=== PATIENT | male | born 1945 | race Caucasian/White ===

== ENCOUNTER → 2019-11-12 08:43 | Outpatient (CLI) | payer OTHER, SELFPAY ==
[2019-11-12 08:34] VITALS: BMI 24.4
--- NOTE | 2019-11-12 08:46 | RAD_ITS ---
HISTORY: pain and swelling wrist---------Tgt;thumb, no trauma COMPARISON: None FINDINGS: # of images incl. 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 Subcortical cystic degenerative change. Calcification of the triangle fibrocartilage. RAD/Wrist min 3 Views IMPRESSION: Severe radiocarpal arthritis. at 0558 Reported and signed by: Hay Mitchell MD Electronically Signed: aHy Mitchell MD at 5:57 EST Tel , Service support ,
== END ==
PROVIDERS: PCP Family Medicine; Referring Provider Physician Assistant; Visit Provider Physician Assistant
DX: M25.531 Pain in right wrist (principal)
CPT/HCPCS: 73110

== ENCOUNTER → 2019-11-26 08:13 | Outpatient (CLI) | payer OTHER, SELFPAY ==
[2019-11-26 08:12] VITALS: BMI 24.4
--- NOTE | 2019-11-26 08:14 | RAD_ITS ---
STUDY: X-RAY - RIGHT WRIST REASON FOR EXAM: Male, 74 years old. fracture follow up TECHNIQUE: 3 view(s) of the wrist were obtained. COMPARISON: The prior exam of November 12, 2019 FINDINGS: Severe degenerative arthrosis of the radiocarpal joint with [id number] appearance of the radius and navicular. Chondrocalcinosis of the radiocarpal joint. Normal distal radioulnar articulation. Degenerative cyst of the navicular. Degenerative narrowing of the navicular multangular articulation. Normal carpometacarpal articulation of the thumb. Normal second through fifth carpometacarpal articulations. Normal visualized metacarpal bones. Continued generalized soft tissue swelling. RAD/Wrist min 3 Views IMPRESSION: Negative for fracture or dislocation. Advanced degenerative arthrosis of the radiocarpal joint. Chondrocalcinosis of the radiocarpal joint. Electronically Signed: Maranda Sumner MD at 18:17 EST , Service support ,
== END ==
PROVIDERS: PCP Family Medicine; Referring Provider Physician Assistant; Visit Provider Physician Assistant
DX: M19.031 Primary osteoarthritis, right wrist (principal)
CPT/HCPCS: 73110

== ENCOUNTER → 2020-02-26 14:05 | Outpatient (CLI) | payer OTHER, SELFPAY ==
[2020-02-26 14:03] VITALS: BMI 24.4
--- NOTE | 2020-02-26 14:05 | RAD_ITS ---
STUDY: X-RAY - LEFT HAND REASON FOR EXAM: Male, 74 years old. PAIN AND SWELLING POSTERIOR HAND OVER MC BONES AND MEDIAL WRIST TECHNIQUE: 3 view(s) of the hand. COMPARISON: None. FINDINGS: There is joint space narrowing of the radiocarpal articulation consistent with degenerative arthrosis. Normal distal radioulnar joint. Cystic changes noted within the navicular bone. Normal carpal articulations Normal carpometacarpal articulation of the thumb. Normal second through fifth carpometacarpal joints. Normal metacarpi. Normal metacarpophalangeal joint of the thumb. Normal interphalangeal joint of the thumb. Normal proximal and distal phalanges of the thumb. Normal metacarpophalangeal joints of the second through fifth fingers. Normal proximal and distal interphalangeal joints of the second through fifth fingers. Normal phalanges of the second through fifth fingers. The soft tissue structures are unremarkable. RAD/Hand Min 3 Views IMPRESSION: Severe degenerative changes radiocarpal joint. Cystic changes within the navicular bone. Electronically Signed: Enrike Ko MD at 22:09 EDT , Service support ,
== END ==
PROVIDERS: PCP Family Medicine; Referring Provider Physician Assistant; Visit Provider Physician Assistant
DX: M79.642 Pain in left hand (principal)
CPT/HCPCS: 73130

== ENCOUNTER → 2020-03-23 10:21 | Outpatient (CLI) | payer OTHER, SELFPAY ==
[2020-03-16 16:04] VITALS: BMI 24.3
[2020-03-23 11:57] LABS: BNP,B-Type NATRIURETIC PEPTIDE 1027.1 pg/mL (0-100)
[2020-03-23 11:59] LABS: Anion Gap 8 (5-15); BUN 30 mg/dL (7-18); Calcium,Total 8.6 mg/dL (8.5-10.1); Chloride 100 mmol/L (98-107); Creatinine, Serum 1.87 mg/dL (0.70-1.30); EST Glomerular Filtration Rate 37 mL/min (>60); Est Glom Filt Rate - Afr Amer 45 mL/min (>60); Glucose 191 mg/dL (74-106); Potassium 3.4 mmol/L (3.5-5.1); Sodium Level 138 mmol/L (136-145)
== END ==
PROVIDERS: PCP Student in an Organized Health Care Education/Training Program; Referring Provider Internal Medicine Cardiovascular Disease; Visit Provider Internal Medicine Cardiovascular Disease
DX: I48.92 Unspecified atrial flutter (principal); I11.0 Hypertensive heart disease with heart failure; I50.31 Acute diastolic (congestive) heart failure; I25.10 Atherosclerotic heart disease of native coronary artery without angina pectoris; E78.00 Pure hypercholesterolemia, unspecified
CPT/HCPCS: 36415; 80048; 83880

== ENCOUNTER → 2020-03-24 12:57 | Outpatient (CLI) | payer OTHER, SELFPAY ==
[2020-03-16 16:04] VITALS: BMI 24.3
--- NOTE | 2020-03-24 13:02 | ECHOD_ITS ---
Version 2 Reason For Study: A. fib Procedure This was a 2D Doppler, Color Flow transthoracic echocardiogram. The exam was of adequate technical quality. Exam performed in department. Left Ventricle Moderately dilated left ventricle. Severe segmental systolic dysfunction (see wall motion). The estimated ejection fraction is 15 %. There is evidence of diastolic dysfunction. Anterio-Basal: Hypokinetic. Lateral-Basal: Hypokinetic. Posterior-Basal: Hypokinetic. Infero-Basal: Akinetic. Basal inferoseptal: Hypokinetic. Basal anteroseptal: Hypokinetic. Mid-Anterior : Hypokinetic. Mid- Lateral : Hypokinetic. Mid-Posterior: Hypokinetic. Mid-Inferior: Akinetic. Mid-inferoseptal : Hypokinetic. Mid-anteroseptal : Hypokinetic. Maxwell : Hypokinetic. Right Ventricle Normal RV size. Mild to moderate global right ventricular systolic dysfunction. Atria The left atrium is moderately enlarged. Normal right atrium. No doppler evidence for ASD. Mitral Valve There is no mitral annular calcification. Mild diffuse mitral valve thickening. Mild papillary muscle dysfunction of the mitral valve. Moderately severe (3+) mitral valve insufficiency. Tricuspid Valve Normal tricuspid valve. Moderate (2+) eccentric tricuspid valve insufficiency. Right ventricular systolic pressure estimated to be 47 mmHg. Aortic Valve Trisinus/trileaflet aortic valve. Moderate focal aortic valve calcification. Trivial aortic valve insufficiency. Pulmonic Valve The pulmonic valve is not well visualized. Great Vessels Normal sized aortic root. Plethoric inferior vena cava. Pericardium/Pleural No pericardial effusion. Echo lucency compatible with a pleural effusion. MMode/2D Measurements & Calculations LVIDd: 6.2 cm IVSd: 0.94 cm Ao root diam: 3.7 cm LVIDs: 5.6 cm LVPWd: 1.0 cm RVDd: 3.8 cm FS: 8.8 % LAV(MOD-bp): 77.6 ml LA A4 area: 24.1 cm2 LA dimension(2D): 4.5 cm LAV(MOD-bp) Indexed: 38.6 ml/m2 LAV(MOD-sp2): 68.9 ml LAV(MOD-sp4): 78.8 ml RA A4 area: 18.0 cm2 Doppler Measurements & Calculations MV E max ankur: 129.9 cm/sec Lat Peak E' Ankur: 12.5 cm/sec Med Peak E' Ankur: 3.7 cm/sec E/E' lat: 10.4 E/E' med: 34.6 Ao V2 max: 93.9 cm/sec LV V1 max: 59.0 cm/sec PA V2 max: 42.6 cm/sec Ao max P.5 mmHg LV V1 max P.4 mmHg TR max ankur: 281.0 cm/sec TR max P.6 mmHg Interpretation Summary Moderately dilated left ventricle. Severe segmental systolic dysfunction (see wall motion). The estimated ejection fraction is 15 %. Mild to moderate global right ventricular systolic dysfunction. The left atrium is moderately enlarged. Mild diffuse mitral valve thickening. Mild papillary muscle dysfunction of the mitral valve. Moderately severe (3+) mitral valve insufficiency. Moderate (2+) eccentric tricuspid valve insufficiency. Moderate focal aortic valve calcification. Trivial aortic valve insufficiency. Plethoric inferior vena cava. Right ventricular systolic pressure estimated to be 47 mmHg. There is evidence of diastolic dysfunction. Ordering Physician: Ajit Coombs Referring Physician: Ajit Coombs Performed By: Vera Lagos, [facility]
== END ==
PROVIDERS: PCP Student in an Organized Health Care Education/Training Program; Referring Provider Internal Medicine Cardiovascular Disease; Visit Provider Internal Medicine Cardiovascular Disease
DX: I48.91 Unspecified atrial fibrillation (principal); I48.92 Unspecified atrial flutter; I11.0 Hypertensive heart disease with heart failure; I50.31 Acute diastolic (congestive) heart failure; I25.10 Atherosclerotic heart disease of native coronary artery without angina pectoris; E78.00 Pure hypercholesterolemia, unspecified
CPT/HCPCS: 93306

== ENCOUNTER 2020-03-24 14:04 | Inpatient (IN) | payer OTHER, MEDICARE, SELFPAY ==
[2020-03-16 16:04] VITALS: BMI 24.3
[2020-03-24] VITALS (7 sets, daily range): BP systolic 126–135; BP diastolic 53–88; PULSE 54–102; RESP 16–24; TEMP 36.3–37.2; O2SAT 91–96; BMI 25.2; BMI 24.6; BMI 24.7
--- NOTE | 2020-03-24 14:21 | EKG12_ITS ---
Test Reason : SOB Blood Pressure : / mmHG Vent. Rate : 097 BPM Atrial Rate : 097 BPM P-R Int : 160 ms QRS Dur : 186 ms QT Int : 436 ms P-R-T Axes : 029 -59 051 degrees QTc Int : 553 ms Normal sinus rhythm Right bundle branch block Left anterior fascicular block Bifascicular block Abnormal ECG Confirmed by LYUDMILA SOTELO ([id number]), editor greeting card SLADE CHENG ([id number]) on 03/28/2020 2:01:42 PM Referred By: TREVON Confirmed By:LYUDMILA SOTELO
--- NOTE | 2020-03-24 14:22 | ED.VIS.GEN ---
History of Present Illness Chief Complaint: Shortness of Breath Informant: Patient, Family Narrative: Presents the emergency department for the evaluation of dyspnea. 2 weeks ago patient was admitted at outside hospital was found to have atrial flutter and was started on Xarelto and diltiazem. Has subsequently followed up with Dr. Coombs in the office. He had an outpatient ultrasound today that showed a EF of 10 to 15% with MR, TR, pleural effusion. Patient reports that he was started on amiodarone as well as a Lasix which he was not started on at hospital discharge. He states he is not had any improvement. He continues to have worsening orthopnea, any on exertion and dyspnea at rest. States he has been urinating normally and not experiencing any fevers. 2013 patient had a diagnostic cardiac catheterization. Showed nonobstructive coronary disease. He was sent from the echo lab to the emergency department for admission. Patient list was reviewed by nursing with the family and the patient. Past Medical History - Allergies and Home Meds Allergies/Adverse Reactions: Allergies No Known Allergies Allergy (Verified 03/24/20 14:08) Primary Care Physician: Hernandez Montenegro DO [Primary Care Provider] - Smoking Status: Never smoker Review of Systems General: Denies: Chills, Fever, Sweats Eyes: Denies: Visual changes - bilaterally, Diplopia ENT: Denies: Rhinorrhea, Sore throat Cardiovascular: Reports: Palpitations, Heart racing. Denies: Chest pain Respiratory: Reports: Dyspnea, Dyspnea on exertion, Orthopnea. Denies: Cough Gastrointestinal: Denies: Abdominal pain, Nausea, Vomiting, Diarrhea, Melena, Hematochezia Genitourinary: Denies: Dysuria, Hematuria, Frequency Musculoskeletal: Reports: Swelling. Denies: Back pain, Extremity Pain Skin: Denies: Rash, Wounds Neurological: Denies: Headache, Weakness, Numbness Physical Exam Vital Signs/Narrative: Vital Signs Temp Pulse Resp BP Pulse Ox 03/24/20 14:06 97.9 F 97 24 H 128/88 H 96 Inital Vital Signs reviewed: Yes General: Well nourished, Well developed, No Acute Distress Head: Normocephalic, Atraumatic Eyes: Perrl, EOMI ENT: Moist mucous membranes, No rhinorrhea Neck: Supple, Nontender Cardiovascular: No murmurs, Irregular, Tachycardia Respiratory: No distress, Chest nontender, Diminished - Diminished at the bases bilaterally Abdomen: Soft, Nontender, Nondistended, Normal bowel sounds Back: Nontender, Normal Inspection Extremities: Nontender, No edema Skin: Normal color, No rash Neurological: Alert, Oriented x3, Cranial nerves II-XII grossly intact, Normal Strength, Normal Sensation Psychological: Normal affect, Normal Mood Diagnostic/Tx/Re-eval Clinical Impression(s) from Imaging Studies Chest X-Ray 03/24/20 15:10 IMPRESSION: Tiny bilateral pleural effusions. Electronically Signed: Kelvin Ying MD at 15:37 EDT Tel , Service support , Laboratory Last Values WBC 10.1 K/mm3 (4.4-11.0) 03/24/20 14:26 RBC 4.13 M/mm3 (4.6-6.2) L 03/24/20 14:26 Hgb 12.5 g/dL (13.0-16.5) L 03/24/20 14:26 Hct 38.4 % (40-54) L 03/24/20 14:26 MCV 93.0 fL (80-94) 03/24/20 14:26 MCH 30.3 pg (27.0-32.0) 03/24/20 14:26 MCHC 32.6 g/dL (32-36) 03/24/20 14:26 RDW Std Deviation 47.2 fl (35.1-43.9) H 03/24/20 14:26 RDW Coeff of Mauricio 13.8 % (11.6-14.6) 03/24/20 14:26 Plt Count 233 K/mm3 (150-450) 03/24/20 14:26 MPV 11.6 fl (6.2-12.0) 03/24/20 14:26 Immature Gran % (Auto) 0.500 % (0.0-0.9) 03/24/20 14:26 Neut % (Auto) 70.6 % (47-70) H 03/24/20 14:26 Lymph % (Auto) 14.9 % (19-41) L 03/24/20 14:26 [place] % (Auto) 12.5 % (0-10) H 03/24/20 14:26 Eos % (Auto) 1.4 % (0-5) 03/24/20 14:26 Baso % (Auto) 0.1 % (0-1) 03/24/20 14:26 Absolute Neuts (auto) 7.1 X10^3/uL (2.0-7.7) 03/24/20 14:26 Absolute Lymphs (auto) 1.50 X10^3/uL (0.83-4.51) 03/24/20 14:26 Nucleated RBC % 0 % (0-5) 03/24/20 14:26 PT 21.3 SECONDS (11.7-14.9) H 03/24/20 14:26 INR 1.9 03/24/20 14:26 APTT 44.8 Seconds (24.1-36.2) H 03/24/20 14:26 Sodium 139 mmol/L (136-145) 03/24/20 14:26 Potassium 4.1 mmol/L (3.5-5.1) 03/24/20 14:26 Chloride 106 mmol/L (98-107) 03/24/20 14:26 Carbon Dioxide 28.0 mmol/L (21.0-32.0) 03/24/20 14:26 Anion Gap 5 (5-15) 03/24/20 14:26 BUN 29 mg/dL (7-18) H 03/24/20 14:26 Creatinine 1.89 mg/dL (0.70-1.30) H 03/24/20 14:26 Estim Creat Clear Calc 36.50 ml/min 03/24/20 14:26 Est GFR (MDRD) Af Amer 45 mL/min (>60) L 03/24/20 14:26 Est GFR (MDRD) Non-Af 37 mL/min (>60) L 03/24/20 14:26 BUN/Creatinine Ratio 15.3 RATIO (10-20) 03/24/20 14:26 Glucose 114 mg/dL (74-106) H 03/24/20 14:26 Calcium 8.9 mg/dL (8.5-10.1) 03/24/20 14:26 Total Bilirubin 0.80 mg/dL (0.20-1.00) 03/24/20 14:26 AST 23 U/L (15-37) 03/24/20 14:26 ALT 21 U/L (16-61) 03/24/20 14:26 Alkaline Phosphatase 84 U/L (45-117) 03/24/20 14:26 Troponin I < 0.015 ng/mL (<0.045) 03/24/20 14:26 B-Natriuretic Peptide 917.8 pg/mL (0-100) H 03/24/20 14:26 Total Protein 7.4 g/dL (6.4-8.2) 03/24/20 14:26 Albumin 3.4 g/dL (3.2-5.0) 03/24/20 14:26 Globulin 4.0 g/dL (2.2-4.2) 03/24/20 14: Albumin/Globulin Ratio 0.8 RATIO (0.9-2.4) L 03/24/20 14:26 Urine Color Yellow (Yellow) 03/24/20 15:00 Urine Clarity Sl. Cloudy (Clear) 03/24/20 15:00 Urine pH 5.0 (5.0 - 8.0) 03/24/20 15:00 Ur Specific [place] 1.015 (1.002-1.030) 03/24/20 15:00 Urine Protein Negative mg/dl (Negative) 03/24/20 15:00 Urine Glucose (UA) Normal mg/dl (Normal) 03/24/20 15:00 Urine Ketones Negative mg/dl (Negative) 03/24/20 15:00 Urine Occult Blood 10 /ul (Negative) H 03/24/20 15:00 Urine Nitrite Negative (Negative) 03/24/20 15:00 Urine Bilirubin Negative mg/dL (Negative) 03/24/20 15:00 Urine Urobilinogen Normal mg/dl (Normal) 03/24/20 15:00 Ur Leukocyte Esterase Negative /ul (Negative) 03/24/20 15:00 Urine RBC 0-5 SEEN /hpf (0-5) 03/24/20 15:00 Urine WBC 0 SEEN /hpf (0-5) 03/24/20 15:00 Ur Squamous Epith Cells 0-5 SEEN /hpf (0-5) 03/24/20 15:00 Urine Bacteria 0 SEEN /hpf (None Seen) 03/24/20 15:00 Hyaline Casts 0-5 SEEN /lpf (0-5) 03/24/20 15:00 Urine Mucus 2+ /hpf (<or=2+) 03/24/20 15:00 - EKG Initial EKG Interpretation: Sinus Tachycardia - EKG demonstrates a sinus tachycardia with a right bundle branch block and left anterior fascicular block. There is no concerning features of ACS. - Medical Decision Making Patient received IV Lasix. Basic blood work was obtained and the case was discussed with our hospitalist. We talked about pulmonary embolism but the patient has not had any chest pain. He is been anticoagulated for only about 2 weeks. However given his kidney function and the fact that this is most likely congestive heart failure and will be undergoing aggressive diuresis we are going to hold CTA at this time. Plan will be admission into the hospital. ED Disposition - Plan for ED Patient: Diagnosis: Acute CHF (congestive heart failure), Dyspnea, Pleural effusion, left, CKD (chronic kidney disease) stage 3, GFR 30-59 ml/min, Type 2 diabetes mellitus, Paroxysmal atrial fibrillation Referrals: Hernandez Montenegro DO [Primary Care Provider] -
--- NOTE | 2020-03-24 14:36 | NURSING ---
NO OLD EKGS
[2020-03-24 14:41] LABS: Absolute Neutrophil Count 7.1 X10^3/uL (2.0-7.7); Basophil# 0.01 X10^3/uL; Basophil% 0.1 % (0-1); Eosinophil# 0.14 X10^3/uL; Eosinophils% 1.4 % (0-5); Hematocrit 38.4 % (40-54); Hemoglobin 12.5 g/dL (13.0-16.5); Lymphocyte % 14.9 % (19-41); Mean Corp Hgb Conc 32.6 g/dL (32-36); Mean Corpuscular Hgb 30.3 pg (27.0-32.0); Mean Platelet Vol. 11.6 fl (6.2-12.0); Monocyte# 1.26 X10^3/uL; Monocyte% 12.5 % (0-10); NRBC Flagged by Analyzer 0 % (0-5); Neutrophil # 7.11 X10^3/uL (2.7-7.7); Neutrophil % 70.6 % (47-70); Platelet Count 233 K/mm3 (150-450); RBC Distribution Width CV 13.8 % (11.6-14.6); RBC Distribution Width SD 47.2 fl (35.1-43.9); Red Blood Count 4.13 M/mm3 (4.6-6.2); White Blood Count 10.1 K/mm3 (4.4-11.0)
[2020-03-24 14:50] LABS: International Normalized Ratio 1.9; Prothrombin Time (Protime)PT. 21.3 SECONDS (11.7-14.9)
[2020-03-24 14:51] LABS: Partial Thromboplast Time 44.8 Seconds (24.1-36.2)
[2020-03-24] MEDS: Furosemide 100 MG/10 ML Vial 80 MG IV (15:04)
[2020-03-24 15:05] LABS: BNP,B-Type NATRIURETIC PEPTIDE 917.8 pg/mL (0-100)
--- NOTE | 2020-03-24 15:10 | RAD_ITS ---
STUDY: X-RAY CHEST REASON FOR EXAM: Male, 74 years old[address] SENT FROM [address] OFFICE FOR ADMISSION. HAD ECHO DONE TODAY, SIGNIFICANT CHF WAS SEEN. TECHNIQUE: PA and lateral views of the chest. COMPARISON: 12/31/2013 FINDINGS: The lungs are clear and expanded. Tiny bilateral pleural effusions. There is moderate cardiac enlargement. Normal mediastinum and brook. Normal visualized pulmonary arteries. Normal visualized aortic arch and descending thoracic aorta. Normal visualized thoracic spine. Normal visualized ribs, clavicles, and shoulders. There is no demonstrated abnormality of the visualized soft tissue structures of the upper abdomen. RAD/Chest PA and Lateral IMPRESSION: Tiny bilateral pleural effusions. Electronically Signed: Kelvin Ying MD at 15:37 EDT Tel , Service support ,
[2020-03-24 15:11] LABS: Bacteria 0 SEEN /hpf (None Seen); White Blood Cells 0 SEEN /hpf (0-5)
[2020-03-24 15:12] LABS: ALB/GLOB Ratio 0.8 RATIO (0.9-2.4); AST(SGOT) 23 U/L (15-37); Alanine Aminotransfer ALT/SGPT 21 U/L (16-61); Albumin, Serum 3.4 g/dL (3.2-5.0); Alkaline Phosphatase 84 U/L (45-117); Anion Gap 5 (5-15); BUN 29 mg/dL (7-18); BUN/Creat Ratio 15.3 RATIO (10-20); Calcium,Total 8.9 mg/dL (8.5-10.1); Chloride 106 mmol/L (98-107); Creatinine, Serum 1.89 mg/dL (0.70-1.30); EST Glomerular Filtration Rate 37 mL/min (>60); Est Glom Filt Rate - Afr Amer 45 mL/min (>60); Glucose 114 mg/dL (74-106); Potassium 4.1 mmol/L (3.5-5.1); Protein, Total 7.4 g/dL (6.4-8.2); Sodium Level 139 mmol/L (136-145)
[2020-03-24 15:14] LABS: Color, Urine Yellow (Yellow); Glucose, Dipstick Normal (Normal); Ketone-Dipstick Negative (Negative); Leukocyte Esterase-Dipstick Negative /ul (Negative); Nitrite-Dipstick Negative (Negative); Occult Blood-Urine 10 /ul (Negative); Protein-Dipstick Negative (Negative); Specific Gravity, Urine 1.015 (1.002-1.030); Urine Bilirubin Dipstick Negative (Negative); Urine Clarity Sl. Cloudy (Clear); Urine Urobilinogen Normal (Normal)
[2020-03-24 15:21] LABS: Hyaline Cast 0-5 SEEN /lpf (0-5); Mucous, Urine 2+ /hpf (<or=2+); Red Blood Cells-Urine 0-5 SEEN /hpf (0-5); Squamous Epithelial Cells - UA 0-5 SEEN /hpf (0-5)
--- NOTE | 2020-03-24 15:45 | NURSING ---
CHELSEA SILVERMAN CHF
--- NOTE | 2020-03-24 16:22 | PCM.HP.STD ---
History of Present Illness Date of Admission: 03/24/20 Chief Complaint: SOB The patient is a 74 year old M who was recently admitted (2 weeks ago) to [facility] with dyspnea and found to have new onset A-fib/flutter with RVR and was started on Diltazem and Xarelto at that time. He was treated with Lasix at that time as well but not discharged with lasix as a home medication. He saw Dr. Coombs in his office on 03/16/2020 in f/u and an he was started on amiodarone PO with load and taper and his diltiazem with increased to 120 mg BID for rate control and his Xarelto was continued. He was started on Lasix 40 mg PO daily for his dyspnea. and an ECHO was ordered. His ECHO was completed today as an outpatient and he was found to have an a EF of 10 to 15% with MR, TR, pleural effusion. He was sent here from the out pt lab as the pt is still having dyspnea at rest that worsens with exertion and 3 pillow orthopnea. He was in atrial fibrillation but upon my exam appeared regular with a rate of 97. His BNP was 917.9 which is slightly better than on lab work done yesterday and is sCr is 1.89 (it was in the 1.4 range at [place] per notes. He denies CP but does feel his heart racing when he is in A-fib. VS are otherwise stable and pt is on RA. CXR shows sm B effusions. Past Medical History Past Medical History (Chronic Problems): Chronic Problems (Last Updated 03/14/20 @ 17:34 by Sarahi Theodore) Atherosclerotic heart disease of [place] coronary artery without angina pectoris (Chronic) MILD per cath 01/06/14 Type 2 diabetes mellitus (Chronic) CKD (chronic kidney disease) stage 3, GFR 30-59 ml/min (Chronic) Pure hypercholesterolemia (Chronic) Essential hypertension (Chronic) Medical History: Medical History (Last Reviewed 03/24/20 @ 16:[address] Allison Mendez, DO) Atherosclerotic heart disease of [place] coronary artery without angina pectoris (Chronic) I25.10 MILD per cath 01/06/14 Type 2 diabetes mellitus (Chronic) E11.9 Acute diastolic (congestive) heart failure (Acute) I50.31 RBBB (right bundle branch block) (Acute) I45.10 CKD (chronic kidney disease) stage 3, GFR 30-59 ml/min (Chronic) N18.3 Pure hypercholesterolemia (Chronic) E78.00 Essential hypertension (Chronic) I10 Atrial flutter with rapid ventricular response (Acute) I48.92 Arthritis M19.90 Gout M10.9 DDD (degenerative disc disease), lumbar M51.36 OCD (obsessive compulsive disorder) F42.9 Scoliosis M41.9 R scoliosis (apex L3) History of left heart catheterization (LHC) Onset Date: ~01/06/14 Z98.890 Allergies No Known Allergies Allergy (Verified 03/24/20 14:08) Home Medications: Ambulatory Orders Medication Instructions Recorded Aspirin [Aspirin, Baby] 81 mg PO DAILY@0800 01/05/14 Cyanocobalamin [Vitamin B12] 500 mcg PO DAILY@0800 01/05/14 Metoprolol(XL)Succ [Toprol Xl 50 mg PO DAILY 01/05/14 (Beta Smita)] metFORMIN HCl [Glucophage] 1,000 mg PO DAILY 01/05/14 clomipramine 50 mg capsule 50 mg PO BID 03/14/20 insulin glargine 100 unit/mL (3 20 unit SC DAILY 03/14/20 mL) subcutaneous pen rivaroxaban 20 mg tablet 20 mg PO DAILY 03/14/20 sitagliptin 100 mg tablet 100 mg PO DAILY 03/14/20 diltiazem HCl 120 mg 120 mg PO BID #180 cap 03/16/20 capsule,extended release 24 hr potassium chloride 20 mEq 20 meq PO DAILY #30 tab 03/23/20 tablet,extended release Amiodarone HCl 200 mg PO BID 03/24/20 Simvastatin 10 mg PO QHS 03/24/20 furosemide 40 mg tablet 40 mg PO BID #30 tab 03/24/20 Surgical History: Surgical History (Last Reviewed 03/24/20 @ 16:[address] Allison Mendez, DO) History of cataract extraction Z98.49 History of prostate biopsy Z98.890 Smoking Status: Never smoker Review of Systems Constitutional: Reports: Fatigue. Denies: Anorexia, Chills, Fever, Night Sweats, Malaise, Weakness, Weight Change Eyes: Denies: Blurred vision, Cataracts, Conjunctivae Inflammation, Double vision, Drainage, Eyelid Inflammation, Pain, Redness, Vision Change HEENT: Reports: Sore Throat. Denies: Difficulty Hearing, Difficulty Swallowing, Dysphasia, Ear Pain, Head Aches, Nasal bleeding, Nasal Congestion, Post Nasal Drip, Sinus Congestion, Sinus Drainage Cardiovascular: Reports: Edema - slight, Orthopnea - 3 pillows. Denies: Chest Pain, Claudication, Chest Pressure, Chest Tightness, Heaviness, Light Headedness, Palpitations, Paroxysmal Noc. Dyspnea, Syncope Respiratory: Reports: Shortness of Breath, Shortness of breath at rest, Shortness of breath upon exertion. Denies: Cough, Hemoptysis, Pleuritic Pain, Sputum production, Wheezing Gastrointestinal: Denies: Abdominal Pain, Constipation, Diarrhea, Dyspepsia, Hematemesis, Hematochezia, Nausea, Melena, Vomiting Genitourinary: Denies: Dysuria, Frequency, Hematuria, Hesitancy, Incontinence, Nocturia, Retention, Urgency Musculoskeletal: Denies: Arm Pain, Back Pain, Foot Pain, Hand Pain, Joint Pain, Joint stiffness, Joint swelling, Joint Tenderness, Leg Pain, Muscle pain, Neck Pain, Shoulder Pain Skin: Denies: Dryness, Jaundice, Lesions, Pruritis, Rash, Skin Changes, Wounds Neurological: Denies: Balance problems, Blurred vision, Double vision, Change in Speech, Slurred speech, Confusion, Difficulty swallowing, Focal weakness, Headaches, Incoordination, Numbness, Tingling, Tremor, Seizures Psychiatric: Denies: Anxiety, Depression, Homicidal Ideations, Suicidal Ideations Endocrine: Reports: Heat/ Cold Intolerance. Denies: Change in Body Habitus, Polydipsia, Polyuria Hematologic/ Lymphatic: Denies: Adenopathy, Anemia, Easy Bruising, Easy Bleeding, Petechiae, Purpura VTE Information - Inpt Only VTE Present on Admission: No VTE Mechan Device Prophylaxis: None VTE Pharm Prophylaxis ordered?: No Patient Problems: Active and Suspected Problems (Last Updated 03/14/20 @ 17:34 by Sarahi Theodore) Acute CHF (congestive heart failure) (Acute) Dyspnea (Acute) Pleural effusion, left (Acute) Paroxysmal atrial fibrillation (Acute) - Physical Exam Vitals/I&O's: Vital Signs Temp Pulse Resp BP Pulse Ox 98.3 F 54 L 16 135/53 H 95 03/24/20 16:00 03/24/20 16:00 03/24/20 16:00 03/24/20 16:00 03/24/20 16:00 Oxygen Delivery Method Room Air Weight: 84.6 kg Body Mass Index (BMI) 25.2 General: Alert, Oriented x3, Cooperative, No apparent distress, Well developed, Well nourished HEENT: Atraumatic, PERRLA, EOMI, Normocephalic, EAC Clear Oral: No Gingival or Mucosal Lesions/ Ulcerations, Dry Mucosa Neck: Supple, Negative Carotid Bruits, No Nodes, No Nuchal Rigidity, Trachea Midline, Thyroid Normal Size and Texture, JVD, Bilateral Lungs: Clear to auscultation, No rhonchi, No wheeze, No rales, Diminished - slightly diminished at B bases Cardiovascular: Regular rate, Regular Rhythm, Normal S1, Normal S2, No murmurs, No Ectopic Activity, No rub noted, No Gallop Abdomen: Bowel Sounds Present, Soft, Non Tender, Non-Distended, No Hepato-splenomegaly, No hernias noted Extremities: No clubbing, No cyanosis, Capillary Refill Less than 3 Seconds, No Calf Tenderness, Edema - minimal Skin: No rashes, No breakdown Musculoskeletal: No Tenderness to Palpation of Joints or Extremities, No Muscle Wasting, Arthritic Changes Lymphatic: No Cervical, Supraclavicular, or Inguinal Adenopathy Neurological: Cranial nerves II-XII grossly intact, Deep Tendon Reflexes 2+/4 and Symmetrical, Neuro grossly intact, Motor Exam 5/5 strength throughout, Muscle tone normal, Sensory exam intact to light touch and pain, Coordination normal Laboratory Results 03/24/20 14:26: WBC 10.1, RBC 4.13 L, Hgb 12.5 L, Hct 38.4 L, MCV 93.0, MCH 30.3, MCHC 32.6, RDW Std Deviation 47.2 H, RDW Coeff of Mauricio 13.8, Plt Count 233, MPV 11.6, Immature Gran % (Auto) 0.500, Neut % (Auto) 70.6 H, Lymph % (Auto) 14.9 L, [place] % (Auto) 12.5 H, Eos % (Auto) 1.4, Baso % (Auto) 0.1, Absolute Neuts (auto) 7.1, Absolute Lymphs (auto) 1.50, Nucleated RBC % 0 03/24/20 14:26: PT 21.3 H, INR 1.9, APTT 44.8 H 03/24/20 14:26: Sodium 139, Potassium 4.1, Chloride 106, Carbon Dioxide 28.0, Anion Gap 5, BUN 29 H, Creatinine 1.89 H, Estim Creat Clear Calc 36.50, Est GFR (MDRD) Af Amer 45 L, Est GFR (MDRD) Non-Af 37 L, BUN/Creatinine Ratio 15.3, Glucose 114 H, Calcium 8.9, Total Bilirubin 0.80, AST 23, ALT 21, Alkaline Phosphatase 84, Troponin I < 0.015, Total Protein 7.4, Albumin 3.4, Globulin 4.0, Albumin/Globulin Ratio 0.8 L 03/24/20 14:26: B-Natriuretic Peptide 917.8 H 03/24/20 15:00: Urine Color Yellow, Urine Clarity Sl. Cloudy, Urine pH 5.0, Ur Specific [place] 1.015, Urine Protein Negative, Urine Glucose (UA) Normal, Urine Ketones Negative, Urine Occult Blood 10 H, Urine Nitrite Negative, Urine Bilirubin Negative, Urine Urobilinogen Normal, Ur Leukocyte Esterase Negative, Urine RBC 0-5 SEEN, Urine WBC 0 SEEN, Ur Squamous Epith Cells 0-5 SEEN, Urine Bacteria 0 SEEN, Hyaline Casts 0-5 SEEN, Urine Mucus 2+ Current Medications Acetaminophen (Tylenol) 650 mg PO Q6H PRN PRN PRN Reason: Pain Score 1-10/Temp > 100.7 F Al Hydroxide/Mg Hydroxide (Mylanta Ii) 30 ml PO Q6H PRN PRN PRN Reason: Gastric Burning Albuterol Sulfate (Ventolin Aerosols) 2.5 mg INHALATION Q2H PRN PRN PRN Reason: SOB/Wheezing Amiodarone HCl (Cordarone) 200 mg PO BID [facility] Aspirin (Aspirin, Baby) 81 mg PO DAILY@0800 [facility] Clomipramine HCl (Anafranil) 50 mg PO BID [facility] Cyanocobalamin (Vitamin B12) 500 mcg PO DAILY@0800 [facility] Dextrose (D50w Syringe) 0 gm IV X1 PRN; Protocol PRN Reason: Hypoglycemia Furosemide (Lasix) 40 mg IV Q12 [facility] Glucagon () 1 mg IM .X1 PRN PRN Reason: Hypoglycemia Insulin Glargine (Lantus ([facility])) 20 units SC DAILY [facility] Insulin Human Lispro (Humalog Kwikpen (Bkc)) 0 unit SC ACHS ALEJANDRA; Protocol Magnesium Hydroxide (Milk Of Magnesia) 30 ml PO DAILY PRN PRN PRN Reason: Constipation Metoprolol Succinate (Toprol Xl (Beta Smita)) 50 mg PO DAILY ALEJANDRA Non-Formulary Medication (Simvastatin) 10 mg PO QHS ALEJANDRA Rivaroxaban (Xarelto) 20 mg PO DAILY [facility] Assessment/Plan All Active Problems (Last Updated 03/14/20 @ 17:34 by Sarahi Theodore) Acute CHF (congestive heart failure) (Acute) Dyspnea (Acute) Pleural effusion, left (Acute) Paroxysmal atrial fibrillation (Acute) Acute diastolic (congestive) heart failure (Acute) RBBB (right bundle branch block) (Acute) Atrial flutter with rapid ventricular response (Acute) Segmental and somatic dysfunction of pelvic region (Acute) Segmental and somatic dysfunction of thoracic region (Acute) Segmental and somatic dysfunction of lumbar region (Acute) HFrEF with Acute Exacerbation -ECHO today as outpt--> EF 10-15%/MR/TR/Effusion -Lasix 40 mg BID for now -accurate I&O -Yeh -daily wgts -continue BB -may benefit from DCC if in a-fib as it sounds like pt does better when in NSR per history -hold diltiazem for now -CXR in am -cycle troponin -? cath when more stable (? 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 cardiorenal syndrome -if sCr gets better with diuresis would hold off on further w/u, if not would check Urine studies and US in am -BMP in am -yeh now Mild CAD -last cath 2013 -?cath this admission if sCr improves and resp status is better -ASA HTN -cont meds DM-2 -continue Insulin -hold metformin and sitagliptan -ACHS BGT -SSI OCD -continue clomipramine Gout -no current issues but watch closely with diuresis DVT prophylaxis -NOAC Code Status Full Inpatient E&M: [id number] Init Hosp L3
[2020-03-24] MEDS: Rivaroxaban 20 MG Tablet PO (18:24)
--- NOTE | 2020-03-24 18:30 | CON.PCM_ITS ---
Problem List (1) Atrial flutter with rapid ventricular response Status: Acute (2) Paroxysmal atrial fibrillation Status: Acute (3) Acute CHF (congestive heart failure) Status: Acute (4) Valvular heart disease Status: Acute (5) Pleural effusion, left Status: Acute (6) Atherosclerotic heart disease of [place] coronary artery without angina pectoris Status: Chronic Comment: MILD per cath 01/06/14 (7) Essential hypertension Status: Chronic (8) Type 2 diabetes mellitus Status: Chronic (9) CKD (chronic kidney disease) stage 3, GFR 30-59 ml/min Status: Chronic Reason for Consult Date of Consultation: 03/24/20 History of Present Illness: The patient is a 74-year-old white male who presented recently to the outpatient setting for a cardiovascular consultation based upon concerns of underlying atrial flutter and diastolic CHF superimposed upon a history of [id number] significant, hyperlipidemia, hypertension, diabetes mellitus, and chronic renal insufficiency. He has been previously evaluated with his last outpatient cardiovascular visit being on 01-24-2014 at which time he had been evaluated for concerns of underlying atypical chest discomfort, a right bundle branch block pattern, hypertension, and hyperlipidemia. He had undergone noninvasive and invasive evaluation. This included an echocardiogram, an exercise tolerance test/imaging study, and a diagnostic cardiac catheterization. The diagnostic cardiac catheterization was performed at [facility] on 01-06-2014. 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 He went on to have a chest CT scan which stated that his aortic root/ascending thoracic aorta measured 3.5 cm. He has not had local cardiovascular follow-up since that time. Recently he presented to [facility] for concerns of shortness of breath. He was found to be in atrial flutter with rapid ventricular response and thoughts of acute diastolic mediated CHF. This was superimposed upon his other cardiovascular and noncardiovascular conditions. During that hospitalization he had a troponin I level which was apparently reported as elevated . It was thought to be not related to an acute coronary syndrome. He did have an elevated BNP level of 7922. His BUN and creatinine level were reported at 38 and 1.48 with a potassium of 4.7. His TSH was reported as mildly elevated at 4.01. Of note his troponin I level was reported at 0.024. He was treated medically. This included IV diltiazem. He was told he had return to sinus rhythm. He was also treated with diuretic therapy with furosemide. He was released home on medications which included oral diltiazem but no diuretic. He was to have an echocardiogram however it was not performed prior to discharge. He had no other cardiovascular tests performed. He notes since being home he has started to feel more short of breath and dyspneic again. He states he has been unable to lie supine and breathe comfortably. He did have an element of lower extremity peripheral pitting edema. He has not had ongoing chest discomfort. There is been no near syncope or syncope. He notes his appetite has been diminished. Overall he states he had not been feeling well for approximately 3 months. He states he seems to be able to sense when his heart rate changes. On ECG had findings compatible with atrial flutter with variable ventricular response with a ventricular rate over 100 bpm with an underlying left axis deviation and right bundle branch block pattern. His medications were adjusted at the time to increase his diltiazem dose to assist with rate control, initiate antiarrhythmic therapy with the hopes of regaining sinus rhythm, initiate anticoagulant therapy based upon underlying atrial dysrhythmias/atrial flutter, and initiate diuretic therapy based upon the concerns of the CHF. He presented for outpatient transthoracic echocardiogram today. He was reported by the echocardiographic staff as appearing pale and weak and weakened appearing. His echocardiogram was reviewed. The results are noted below. Based upon review of his clinical course it was recommended he present to the emergency department for further evaluation and subsequent [facility] hospitalization for continued inpatient evaluation and care. The present time, he has been placed in the PCU. He has had troponin I level which is negative. His BNP remains elevated. His ECG has demonstrated the suggestion of sinus rhythm with left axis deviation with a right bundle branch block pattern and a possible left anterior fascicular block. He has been treated with medical therapy including IV diuretics. He states since diuresis he does seem to feel somewhat better with his breathing. However he states he still cannot lie supine comfortably. [] Past Medical History Allergies/Adverse Reactions: Allergies No Known Allergies Allergy (Verified 03/24/20 14:08) Home Medications: Ambulatory Orders Medication Instructions Recorded Aspirin [Aspirin, Baby] 81 mg PO DAILY@0800 01/05/14 Cyanocobalamin [Vitamin B12] 500 mcg PO DAILY@0800 01/05/14 Metoprolol(XL)Succ [Toprol Xl 50 mg PO DAILY 01/05/14 (Beta Smita)] metFORMIN HCl [Glucophage] 1,000 mg PO DAILY 01/05/14 clomipramine 50 mg capsule 50 mg PO BID 03/14/20 insulin glargine 100 unit/mL (3 20 unit SC DAILY 03/14/20 mL) subcutaneous pen rivaroxaban 20 mg tablet 20 mg PO DAILY 03/14/20 sitagliptin 100 mg tablet 100 mg PO DAILY 03/14/20 diltiazem HCl 120 mg 120 mg PO BID #180 cap 03/16/20 capsule,extended release 24 hr potassium chloride 20 mEq 20 meq PO DAILY #30 tab 03/23/20 tablet,extended release Amiodarone HCl 200 mg PO BID 03/24/20 Simvastatin 10 mg PO QHS 03/24/20 furosemide 40 mg tablet 40 mg PO BID #30 tab 03/24/20 Past Medical History (Chronic Problems): Chronic Problems (Last Reviewed 03/24/20 @ 16:[address] Allison Mendez, DO) Atherosclerotic heart disease of [place] coronary artery without angina pectoris (Chronic) MILD per cath 01/06/14 Type 2 diabetes mellitus (Chronic) CKD (chronic kidney disease) stage 3, GFR 30-59 ml/min (Chronic) Pure hypercholesterolemia (Chronic) Essential hypertension (Chronic) Smoking Status: Never smoker Alcohol: None Drugs: None Review of Systems - Review of Systems General: Reports: Fatigue, Weakness. Denies: Fever, Night Sweats Cardiovascular: Reports: Shortness of Breath, Orthopnea, Peripheral Edema, Palpitations. Denies: Chest Discomfort, PND, Lightheadedness, Dizziness, Near Syncope, Syncope Respiratory: Reports: Shortness of Breath. Denies: Cough, Sputum Production, Hemoptysis Gastrointestinal: Denies: Hematemesis, Hematochezia, Melena Genitourinary: Denies: Dysuria, Hematuria Skin: Denies: Rash Subjectve: This is a 74-year-old white male who appears to be resting comfortably at the moment in no acute distress. Objective: Vital Signs Temp Pulse Resp BP Pulse Ox 97.4 F L 102 H 18 129/88 H 93 03/24/20 16:59 03/24/20 17:34 03/24/20 16:59 03/24/20 16:59 03/24/20 16:59 Oxygen Delivery Method Room Air Weight: 181 lb 14.102 oz Body Mass Index (BMI) 24.6 Intake and Output for Last 24 Hours 03/22/20 03/23/20 03/24/20 23:59 23:59 23:59 Output Total 675 / 675 Balance -675 / -675 General: Awake, Alert, Oriented x 3, Cooperative, No Acute Distress HEENT: Atraumatic, Normocephalic, PERRL, EOMI, Sclera Non Icteric Oral: Moist Mucosa Neck: Supple, Good ROM, No JVD Lungs: Diminished David Bases Cardiovascular: Regular Rhythm, Normal S1, Normal S2 Vascular: No Carotid Bruits Abdomen: Bowel Sounds Present, Soft Extremities: Mild RLE Edema, Mild LLE Edema Neurological: No Focal Motor or Sensory Deficit Psych/Mental Status: Appropriate 03/24/20 14:26: WBC 10.1, RBC 4.13 L, Hgb 12.5 L, Hct 38.4 L, MCV 93.0, MCH 30.3, MCHC 32.6, Plt Count 233, MPV 11.6, Immature Gran % (Auto) 0.500, Neut % (Auto) 70.6 H, Lymph % (Auto) 14.9 L, [place] % (Auto) 12.5 H, Eos % (Auto) 1.4, Baso % (Auto) 0.1, Absolute Neuts (auto) 7.1, Nucleated RBC % 0 03/24/20 14:26: PT 21.3 H, INR 1.9, APTT 44.8 H 03/24/20 14:26: Sodium 139, Potassium 4.1, Chloride 106, Carbon Dioxide 28.0, Anion Gap 5, BUN 29 H, Creatinine 1.89 H, Est GFR (MDRD) Af Amer 45 L, Est GFR (MDRD) Non-Af 37 L, BUN/Creatinine Ratio 15.3, Glucose 114 H, Calcium 8.9, Total Bilirubin 0.80, Troponin I < 0.015 03/24/20 14:26: B-Natriuretic Peptide 917.8 H 03/24/20 15:00: Urine Color Yellow, Urine Clarity Sl. Cloudy, Urine pH 5.0, Ur Specific [place] 1.015, Urine Protein Negative, Urine Glucose (UA) Normal, Urine Ketones Negative, Urine Occult Blood 10 H, Urine Nitrite Negative, Urine Bilirubin Negative, Urine Urobilinogen Normal, Ur Leukocyte Esterase Negative, Urine RBC 0-5 SEEN, Urine WBC 0 SEEN 03/24/20 17:32: Troponin I < 0.015 Rhythm: EKG: ECHO: 03-24-2020 Interpretation Summary Moderately dilated left ventricle. Severe segmental systolic dysfunction (see wall motion). The estimated ejection fraction is 15 %. Mild to moderate global right ventricular systolic dysfunction. The left atrium is moderately enlarged. Mild diffuse mitral valve thickening. Mild papillary muscle dysfunction of the mitral valve. Moderately severe (3+) mitral valve insufficiency. Moderate (2+) eccentric tricuspid valve insufficiency. Moderate focal aortic valve calcification. Trivial aortic valve insufficiency. Plethoric inferior vena cava. Right ventricular systolic pressure estimated to be 47 mmHg. There is evidence of diastolic dysfunction. Echocardiogram: 12-29-13 Interpretation Summary Mild segmental systolic dysfunction (see wall motion). The estimated ejection fraction is 50 %. Trivial mitral valve insufficiency. Trivial tricuspid valve insufficiency. Mild focal aortic valve thickening. Trivial aortic valve insufficiency. Mildly dilated aortic root. Right ventricular systolic pressure estimated to be 26 mmHg. Stress test ADDENDUM by Ajit Coombs MD on 01/06/14 at 1954 ADDENDUM: CORRECTION: The aforementioned interpretation should read the following: Rest and stress SPECT Cardiolite nuclear imaging demonstrate, following realignment, areas of diminished tracer uptake in portions of the basal inferoseptal and basal inferior segments extending towards the mid inferior segments, which appears to be similar although potentially somewhat more prominent following stress as opposed to rest. There are similar type findings on the resting and stress polar map images. There was diminished end systolic thickening and brightening in the basal inferior segments and on the gated Cardiolite study diminished myocardial thickening and inward wall motion in the basal inferior segments. The reported LVEF was 44%. The aforementioned changes maybe compatible with shifting soft tissue attenuation/artifact, however, an element of myocardial ischemia in the inferior distribution could not necessarily be excluded. IMPRESSION: 1. Rest and stress SPECT Cardiolite nuclear imaging demonstrate myocardial perfusion changes potentially compatible with shifting soft tissue attenuation/artifact, however, an area of myocardial ischemia in portions of the inferior segments could not necessarily be excluded. 2. The gated Cardiolite study reports an LVEF of 44%. Cardiac cath: 01-06-2014 Final impression: 1. Normal resting left ventricular end-diastolic pressure 2. Left ventricle: A. Normal left ventricular size, wall motion, and systolic function B. Estimated LVEF of 60% 3. Left main coronary artery: A. Angiographically normal 4. Left anterior descending coronary artery: A. Mid segment with an area potentially compatible with an intramyocardial bridge with ILEANA-3 flow during systole and diastole with diffuse 10-20% irregularities 5. Left circumflex coronary: A. Large codominant vessel B. Minimal luminal irregularities 6. Right coronary artery: A. Moderate to large codominant vessel B. Proximal 10-20% eccentric appearing stenosis C. Distal diffuse minimal luminal irregularities 7. Aortic root: Dilated CXR: Preliminary evaluation: Bilateral pleural effusions: Small; please see official report CT scan: 01-25-2014 IMPRESSION: Normal enhanced CT Chest examination. Assessment/Plan 1. Atrial fibrillation/flutter The patient has a history of atrial fibrillation/flutter. It appears based upon his recent evaluation this was considered to be paroxysmal. The etiology of his atrial dysrhythmia may be multifactorial secondary to his age, cardiovascular conditions, etc. It is also unclear as to how long the patient has had episodes of atrial dysrhythmia with rapid ventricular response and whether this is contributing to his clinical scenario of CHF/pleural effusions and what appears to be his significant left ventricular systolic dysfunction/diminished LVEF versus being secondary to his underlying cardiovascular findings with respect to his left ventricle. At the moment his ECG and telemetry strips suggest an underlying sinus rhythm. He will continue medical management. This will include rate control therapy and antiarrhythmic therapy. He would also continue anticoagulant therapy. The patient may also need his anticoagulation adjusted over time to allow for further invasive evaluation and care. 2. CHF The patient was originally describe by an outside facility is having diastolic CHF. At the present time there is concern the patient has systolic mediated CHF based upon his marked diminished LV systolic function/LVEF. Again the etiology is unclear as to whether this could be related from his atrial dysrhythmia and a tachycardic induced response wants versus being from an underlying non-CAD related cardiomyopathy noting patient did not have angiographically significant appearing CAD in the past versus being related to progression of CAD and an ischemic mediated cardiomyopathy. The present time the patient will need to continue medical management for his CHF. This will include agent such as nitrates, beta-blockers, diuretics, afterload reducing agents, etc. as deemed appropriate. It would not be unreasonable over time to consider the patient for reassessment, to assist in his diagnosis and care, of his underlying cardiovascular status with a diagnostic cardiac catheterization. However, he would need continued medical evaluation and care and improvement in his overall clinical status before able to proceed with such as well as appropriate interruption of his oral anticoagulant therapy, etc. 3. CAD He has a history of non-angiographically significant CAD based upon his previous diagnostic cardiac catheterization. He has not had reassessment of his CAD status. With his ongoing cardiovascular conditions and previous findings would not be unreasonable to consider such when he is able to undergo such a procedure from his clinical status as well as from his anticoagulation status. 4. Valvular heart disease He does have findings of MR and TR. Again it is unclear whether this is a primary concern leading to his left ventricular systolic dysfunction and associated symptoms versus being secondary to his left ventricular dilatation and systolic dysfunction, etc. At the moment he will continue to be followed by history, exam, and additional studies as deemed appropriate. In the meantime he will continue medical therapy and attempt to optimize his overall cardiovascular condition. 5. Pleural effusion He does have a pleural effusion. This is noted on his echocardiographic study and to some degree on his chest x-rays. He will need continued medical therapy including diuretic therapy and subsequent follow-up of his pleural effusion. 6. Hyperlipidemia He will continue risk factor evaluation care as deemed appropriate. 7. Hypertension His blood pressure will need to be followed and his medications adjusted as needed. 8. Diabetes mellitus He will continue evaluation care per internal medicine. 9. Chronic renal insufficiency His renal function will have to be monitored as he undergoes medical evaluation and care. Comment: The patient's case has been discussed and reviewed with the patient and the [facility] staff. This note was generated using a voice recognition system and there may be incorrect words, spelling or punctuation that were not noted when reviewing the office note prior to saving.
[2020-03-24] MEDS: SACUBITRIL/VALSARTAN 24/26 MG TABLET 1 EACH PO (21:55)
[2020-03-24] MEDS: Furosemide 40 MG/4 ML Vial IV (21:55)
[2020-03-24] MEDS: Amiodarone 200 MG Tablet PO (21:56)
[2020-03-24] MEDS: Atorvastatin Calcium 10 MG Tablet 5 MG PO (21:56)
[2020-03-24 22:06] LABS: Bedside Glucose 131 mg/dL (70-110)
[2020-03-25] VITALS (7 sets, daily range): BP systolic 106–129; BP diastolic 74–84; PULSE 105–111; RESP 16–17; TEMP 36.6–37; O2SAT 93–99
[2020-03-25] MEDS: MELATONIN 3 MG TABLET PO (00:37)
[2020-03-25 02:11] LABS: Bedside Glucose 97 mg/dL (70-110)
--- NOTE | 2020-03-25 03:03 | EKG12_ITS ---
Test Reason : Blood Pressure : / mmHG Vent. Rate : 079 BPM Atrial Rate : 079 BPM P-R Int : 184 ms QRS Dur : 194 ms QT Int : 518 ms P-R-T Axes : 043 -66 062 degrees QTc Int : 593 ms Normal sinus rhythm Left axis deviation Right bundle branch block Inferior infarct , age undetermined Abnormal ECG Confirmed by TABITHA PAVON, TING ([id number]), associate entertainment editor SLADE CHENG ([id number]) on 03/30/2020 10:31:17 AM Referred By: TABITHA Confirmed By:TING LU MD
[2020-03-25] MEDS: Insulin Lispro 100 UNIT/ML INSULN.PEN SC ×4 (06:37→21:05)
[2020-03-25 06:41] LABS: Bedside Glucose 163 mg/dL (70-110)
[2020-03-25 07:04] LABS: Absolute Neutrophil Count 5.6 X10^3/uL (2.0-7.7); Basophil# 0.01 X10^3/uL; Basophil% 0.1 % (0-1); Eosinophil# 0.12 X10^3/uL; Eosinophils% 1.5 % (0-5); Hematocrit 39.2 % (40-54); Hemoglobin 13.1 g/dL (13.0-16.5); Lymphocyte % 13.9 % (19-41); Mean Corp Hgb Conc 33.4 g/dL (32-36); Mean Corpuscular Hgb 30.3 pg (27.0-32.0); Mean Corpuscular Volume 90.7 fL (80-94); Mean Platelet Vol. 11.1 fl (6.2-12.0); Monocyte% 13.9 % (0-10); NRBC Flagged by Analyzer 0 % (0-5); Neutrophil # 5.58 X10^3/uL (2.7-7.7); Neutrophil % 70.2 % (47-70); Platelet Count 221 K/mm3 (150-450); RBC Distribution Width CV 13.2 % (11.6-14.6); RBC Distribution Width SD 43.8 fl (35.1-43.9); Red Blood Count 4.32 M/mm3 (4.6-6.2); White Blood Count 7.9 K/mm3 (4.4-11.0)
[2020-03-25 07:41] LABS: Anion Gap 5 (5-15); BUN 24 mg/dL (7-18); BUN/Creat Ratio 15.3 RATIO (10-20); Calcium,Total 8.4 mg/dL (8.5-10.1); Chloride 103 mmol/L (98-107); Creatinine, Serum 1.57 mg/dL (0.70-1.30); EST Glomerular Filtration Rate 46 mL/min (>60); Est Glom Filt Rate - Afr Amer 55 mL/min (>60); Estimated Creatinine Clearance 43.93 ml/min; Glucose 158 mg/dL (74-106); Magnesium 1.4 mg/dL (1.6-2.6); Phosphorus 3.2 mg/dL (2.5-4.9); Potassium 3.2 mmol/L (3.5-5.1); Sodium Level 140 mmol/L (136-145); Thyroid Stim Hormone (TSH) 3.26 uIU/mL (0.358-3.74)
[2020-03-25] MEDS: Aspirin 81 MG TAB.CHEW PO (08:21)
[2020-03-25] MEDS: Cyanocobalamin 500 MCG Tablet PO (08:21)
[2020-03-25 09:00] LABS: BNP,B-Type NATRIURETIC PEPTIDE 1065.6 pg/mL (0-100)
--- NOTE | 2020-03-25 09:37 | PCM.PN.CARD ---
Subjectve: Patient doing much better today, was able to lay down flat without difficulty, no further dyspnea conversational or otherwise. No edema. Telemetry showed normal sinus rhythm. Objective: Vital Signs Temp Pulse Resp BP Pulse Ox 98.4 F 111 H 17 120/74 93 03/25/20 03:50 03/25/20 08:00 03/25/20 03:50 03/25/20 03:50 03/25/20 07:22 Oxygen Delivery Method Room Air Weight: 175 lb 14.862 oz Body Mass Index (BMI) 24.6 Intake and Output for Last 24 Hours 03/23/20 03/24/20 03/25/20 23:59 23:59 23:59 Intake Total 200 / 200 100 / 100 Output Total 2475 / 2475 1275 / 1275 Balance -2275 / -2275 -1175 / -1175 General: Awake, Alert, Oriented x 3 HEENT: PERRL, EOMI, Sclera Non Icteric Neck: Supple, Good ROM, No Lymph Node Enlargement Lungs: Clear to auscultation Cardiovascular: Regular Rhythm, Normal S2, No Rubs, No Gallops Murmur Murmur: Grade 2/6, Holosystolic Vascular: No Carotid Bruits, Normal Femoral Pulses, Normal Radial Pulses, Normal Dorsalis Pedal Pulse, Normal Posterior Tibial Pulses Abdomen: Bowel Sounds Present, Soft, Non Tender, No HSM, No Organomegaly Extremities: No Cyanosis, No Clubbing, No edema Neurological: No Focal Motor or Sensory Deficit 03/24/20 14:26: WBC 10.1, RBC 4.13 L, Hgb 12.5 L, Hct 38.4 L, MCV 93.0, MCH 30.3, MCHC 32.6, Plt Count 233, MPV 11.6, Immature Gran % (Auto) 0.500, Neut % (Auto) 70.6 H, Lymph % (Auto) 14.9 L, [place] % (Auto) 12.5 H, Eos % (Auto) 1.4, Baso % (Auto) 0.1, Absolute Neuts (auto) 7.1, Nucleated RBC % 0 03/24/20 14:26: PT 21.3 H, INR 1.9, APTT 44.8 H 03/24/20 14:26: Sodium 139, Potassium 4.1, Chloride 106, Carbon Dioxide 28.0, Anion Gap 5, BUN 29 H, Creatinine 1.89 H, Est GFR (MDRD) Af Amer 45 L, Est GFR (MDRD) Non-Af 37 L, BUN/Creatinine Ratio 15.3, Glucose 114 H, Calcium 8.9, Total Bilirubin 0.80, Troponin I < 0.015 03/24/20 14:26: B-Natriuretic Peptide 917.8 H 03/24/20 15:00: Urine Color Yellow, Urine Clarity Sl. Cloudy, Urine pH 5.0, Ur Specific [place] 1.015, Urine Protein Negative, Urine Glucose (UA) Normal, Urine Ketones Negative, Urine Occult Blood 10 H, Urine Nitrite Negative, Urine Bilirubin Negative, Urine Urobilinogen Normal, Ur Leukocyte Esterase Negative, Urine RBC 0-5 SEEN, Urine WBC 0 SEEN 03/24/20 17:32: Troponin I < 0.015 03/24/20 20:32: Troponin I < 0.015 03/25/20 06:20: WBC 7.9, RBC 4.32 L, Hgb 13.1, Hct 39.2 L, MCV 90.7, MCH 30.3, MCHC 33.4, Plt Count 221, MPV 11.1, Immature Gran % (Auto) 0.400, Neut % (Auto) 70.2 H, Lymph % (Auto) 13.9 L, [place] % (Auto) 13.9 H, Eos % (Auto) 1.5, Baso % (Auto) 0.1, Absolute Neuts (auto) 5.6, Nucleated RBC % 0 03/25/20 06:20: Sodium 140, Potassium 3.2 L, Chloride 103, Carbon Dioxide 32.0, Anion Gap 5, BUN 24 H, Creatinine 1.57 H, Est GFR (MDRD) Af Amer 55 L, Est GFR (MDRD) Non-Af 46 L, BUN/Creatinine Ratio 15.3, Glucose 158 H, Calcium 8.4 L, Phosphorus 3.2, Magnesium 1.4 L 03/25/20 06:20: B-Natriuretic Peptide 1065.6 H Rhythm: EKG: ECHO: Stress Test: Cardiac Cath: PCI: CT Surgery: Holter monitor: EPS: PPM: CXR: Chest CT Scan: Medical Necessity - Tobacco Use Smoking Status: Never smoker Assessment/Plan 1. Cardiomyopathy: The patient presents with a newly discovered severe cardiomyopathy with at least moderate pulmonary hypertension by echocardiogram. His echocardiogram dated 03/24/2020 was as follows: Moderately dilated left ventricle. Severe segmental systolic dysfunction (see wall motion). The estimated ejection fraction is 15 %. Mild to moderate global right ventricular systolic dysfunction. The left atrium is moderately enlarged. Mild diffuse mitral valve thickening. Mild papillary muscle dysfunction of the mitral valve. Moderately severe (3+) mitral valve insufficiency. Moderate (2+) eccentric tricuspid valve insufficiency. Moderate focal aortic valve calcification. Trivial aortic valve insufficiency. Plethoric inferior vena cava. Right ventricular systolic pressure estimated to be 47 mmHg. There is evidence of diastolic dysfunction. At this point I would continue his medical management but switch him from metoprolol to Coreg 12.5 mg p.o. twice daily, discontinue his IV Lasix as he is now able to lay down flat, to Lasix 40 mg p.o. twice daily. In addition he will continue his Entresto. We will discontinue his Xarelto, for period of 3 days time at which time we will repeat his heart catheterization. I reviewed his heart catheterization from 2013 which showed minimal nonobstructive disease of his right coronary artery, and possible mid LAD myocardial bridging versus nonobstructive disease. He has a codominant left circumflex and right coronary artery. We will attempt to proceed with left heart catheterization on Saturday morning to determine if he has an ischemic source of his cardiomyopathy. The patient denies any recent fevers, chills, but did have a flulike illness in the spring during the COVID-19 pandemic. He did not get tested at that time. Ever since then he has had difficulty with dyspnea. Patient has no family members with sudden cardiac or cardiomyopathy. The patient denies being a heavy drinker. It is possible he may have hypertension induced cardiomyopathy as well. In addition he will continue a 1500 cc fluid restriction. The patient may require a transesophageal echocardiogram to better evaluate his mitral regurgitation as this may be the source of his cardiomyopathy as well. Should this be the case, the patient may require mitral valve repair surgery. 2. Atrial fibrillation: The patient is currently in normal sinus rhythm by physical exam and telemetry. We will discontinue his Xarelto and switch him to Lovenox 60 mg subcu twice daily should he have paroxysmal atrial fibrillation and to prevent LV apical thrombi. 3. Hyperlipidemia: Continue Lipitor therapy. Recommend fasting lipid profile. 4. Thank you very much for the opportunity to participate in the cardiac care of your patient. Inpatient E&M: 43723 Subs Hosp L2
[2020-03-25] MEDS: Amiodarone 200 MG Tablet PO ×2 (10:08→20:59)
[2020-03-25] MEDS: SACUBITRIL/VALSARTAN 24/26 MG TABLET 1 EACH PO ×2 (10:09→21:00)
[2020-03-25] MEDS: Carvedilol 12.5 MG Tablet PO ×2 (10:11→20:59)
[2020-03-25] MEDS: Enoxaparin 60 MG/0.6 ML Syringe SC ×2 (10:12→21:02)
[2020-03-25] MEDS: Furosemide 40 MG Tablet PO ×2 (10:12→17:17)
[2020-03-25 10:52] LABS: Cholesterol 110 mg/dL (200); High Density Lipoprotein 46 mg/dL; Triglycerides 80 mg/dL; Very Low Density Lipoprotein 16 mg/dL (5-40)
[2020-03-25 12:26] LABS: Bedside Glucose 272 mg/dL (70-110)
--- NOTE | 2020-03-25 12:46 | PN_ITS ---
<Gertrudis Villatoro - Last Filed: 03/25/20 12:59> Patient Problems: Active and Suspected Problems (Last Reviewed 03/24/20 @ 16:[address] Allison Mendez DO) Acute CHF (congestive heart failure) (Acute) Dyspnea (Acute) Pleural effusion, left (Acute) Paroxysmal atrial fibrillation (Acute) Valvular heart disease (Acute) Subjective: Patient seen and examined. Reports improvement in breathing. Denies chest pain. Patient reports difficulty lying flat due to shortness of breath. - Physical Exam Vitals/I&O's: Vital Signs Temp Pulse Resp BP Pulse Ox 98.4 F 111 H 17 120/74 93 03/25/20 03:50 03/25/20 08:00 03/25/20 03:50 03/25/20 03:50 03/25/20 07:22 Oxygen Delivery Method Room Air Weight: 175 lb 14.862 oz Body Mass Index (BMI) 24.6 Intake and Output for Last 24 Hours 03/23/20 03/24/20 03/25/20 23:59 23:59 23:59 Intake Total 200 / 200 640 / 640 Output Total 2475 / 2475 1475 / 1475 Balance -2275 / -2275 -835 / -835 General: Alert, Oriented x3, Cooperative HEENT: Atraumatic, PERRLA, EOMI, Normocephalic Neck: Supple, No JVD, Negative Carotid Bruits Lungs: Clear to auscultation, Diminished Cardiovascular: Regular Rhythm, No murmurs, Tachycardic Abdomen: Bowel Sounds Present, Soft, Non Tender, Non-Distended Extremities: No clubbing, No cyanosis, No edema Skin: No rashes, No breakdown Musculoskeletal: No Tenderness to Palpation of Joints or Extremities Neurological: Cranial nerves II-XII grossly intact, Neuro grossly intact Psych/Mental Status: Normal Affect, Appropriate Laboratory Results 03/24/20 14:26: WBC 10.1, RBC 4.13 L, Hgb 12.5 L, Hct 38.4 L, MCV 93.0, MCH 30.3, MCHC 32.6, RDW Std Deviation 47.2 H, RDW Coeff of Mauricio 13.8, Plt Count 233, MPV 11.6, Immature Gran % (Auto) 0.500, Neut % (Auto) 70.6 H, Lymph % (Auto) 14.9 L, Guthrie % (Auto) 12.5 H, Eos % (Auto) 1.4, Baso % (Auto) 0.1, Absolute Neuts (auto) 7.1, Absolute Lymphs (auto) 1.50, Nucleated RBC % 0 03/24/20 14:26: PT 21.3 H, INR 1.9, APTT 44.8 H 03/24/20 14:26: Sodium 139, Potassium 4.1, Chloride 106, Carbon Dioxide 28.0, Anion Gap 5, BUN 29 H, Creatinine 1.89 H, Estim Creat Clear Calc 36.50, Est GFR (MDRD) Af Amer 45 L, Est GFR (MDRD) Non-Af 37 L, BUN/Creatinine Ratio 15.3, Glucose 114 H, Calcium 8.9, Total Bilirubin 0.80, AST 23, ALT 21, Alkaline Phosphatase 84, Troponin I < 0.015, Total Protein 7.4, Albumin 3.4, Globulin 4.0, Albumin/Globulin Ratio 0.8 L 03/24/20 14:26: B-Natriuretic Peptide 917.8 H 03/24/20 15:00: Urine Color Yellow, Urine Clarity Sl. Cloudy, Urine pH 5.0, Ur Specific [place] 1.015, Urine Protein Negative, Urine Glucose (UA) Normal, Urine Ketones Negative, Urine Occult Blood 10 H, Urine Nitrite Negative, Urine Bilirubin Negative, Urine Urobilinogen Normal, Ur Leukocyte Esterase Negative, Urine RBC 0-5 SEEN, Urine WBC 0 SEEN, Ur Squamous Epith Cells 0-5 SEEN, Urine Bacteria 0 SEEN, Hyaline Casts 0-5 SEEN, Urine Mucus 2+ 03/24/20 16:53: POC Glucose 97 03/24/20 17:32: Troponin I < 0.015 03/24/20 20:32: Troponin I < 0.015 03/24/20 21:54: POC Glucose 131 H 03/25/20 06:20: WBC 7.9, RBC 4.32 L, Hgb 13.1, Hct 39.2 L, MCV 90.7, MCH 30.3, MCHC 33.4, RDW Std Deviation 43.8, RDW Coeff of Mauricio 13.2, Plt Count 221, MPV 11.1, Immature Gran % (Auto) 0.400, Neut % (Auto) 70.2 H, Lymph % (Auto) 13.9 L, Guthrie % (Auto) 13.9 H, Eos % (Auto) 1.5, Baso % (Auto) 0.1, Absolute Neuts (auto) 5.6, Absolute Lymphs (auto) 1.10, Nucleated RBC % 0 03/25/20 06:20: Sodium 140, Potassium 3.2 L, Chloride 103, Carbon Dioxide 32.0, Anion Gap 5, BUN 24 H, Creatinine 1.57 H, Estim Creat Clear Calc 43.93, Est GFR (MDRD) Af Amer 55 L, Est GFR (MDRD) Non-Af 46 L, BUN/Creatinine Ratio 15.3, Glucose 158 H, Calcium 8.4 L, Phosphorus 3.2, Magnesium 1.4 L, TSH 3.26 03/25/20 06:20: B-Natriuretic Peptide 1065.6 H 03/25/20 06:20: Triglycerides 80, Cholesterol 110, LDL Cholesterol 48, VLDL Cholesterol 16, HDL Cholesterol 46 03/25/20 06:32: POC Glucose 163 H 03/25/20 11:58: POC Glucose 272 H Current Medications Acetaminophen (Tylenol) 650 mg PO Q6H PRN PRN PRN Reason: Pain Score 1-10/Temp > 100.7 F Al Hydroxide/Mg Hydroxide (Mylanta Ii) 30 ml PO Q6H PRN PRN PRN Reason: Gastric Burning Albuterol Sulfate (Ventolin Aerosols) 2.5 mg INHALATION Q2H PRN PRN PRN Reason: SOB/Wheezing Amiodarone HCl (Cordarone) 200 mg PO BID [facility] Last Admin: 03/25/20 10:08 Dose: 200 mg Documented by: Aspirin (Aspirin, Baby) 81 mg PO DAILY@0800 [facility] Last Admin: 03/25/20 08:21 Dose: 81 mg Documented by: Atorvastatin Calcium (Lipitor) 5 mg PO QHS [facility] Last Admin: 03/24/20 21:56 Dose: 5 mg Documented by: Carvedilol (Coreg) 12.5 mg PO BID [facility] Last Admin: 03/25/20 10:11 Dose: 12.5 mg Documented by: Clomipramine HCl (Anafranil) 50 mg PO BID [facility] Last Admin: 03/25/20 10:08 Dose: 50 mg Documented by: Cyanocobalamin (Vitamin B12) 500 mcg PO DAILY@0800 [facility] Last Admin: 03/25/20 08:21 Dose: 500 mcg Documented by: Dextrose (D50w Syringe) 0 gm IV X1 PRN; Protocol PRN Reason: Hypoglycemia Enoxaparin Sodium (Lovenox) 60 mg SC Q12 [facility] Last Admin: 03/25/20 10:12 Dose: 60 mg Documented by: Furosemide (Lasix) 40 mg PO BID@1000,1800 [facility] Last Admin: 03/25/20 10:12 Dose: 40 mg Documented by: Glucagon () 1 mg IM .X1 PRN PRN Reason: Hypoglycemia Insulin Glargine (Lantus (Bk)) 20 units SC DAILY [facility] Last Admin: 03/25/20 10:10 Dose: 20 u Documented by: Insulin Human Lispro (Humalog Kwikpen (Bk)) 0 unit SC ACHS [facility]; Protocol Last Admin: 03/25/20 12:00 Dose: 2 u Documented by: Magnesium Hydroxide (Milk Of Magnesia) 30 ml PO DAILY PRN PRN PRN Reason: Constipation Melatonin (Melatonin) 3 mg PO QHS [facility] Last Admin: 03/25/20 00:37 Dose: 3 mg Documented by: Potassium Chloride (K-Dur) 40 meq PO DAILYCM [facility] Last Admin: 03/25/20 10:12 Dose: 40 meq Documented by: Sacubitril/Valsartan (Entresto 24 Mg-26 Mg Tablet) 1 each PO BID [facility] Last Admin: 03/25/20 10:09 Dose: 1 each Documented by: Sodium Chloride () 10 - 40 ml IV UD PRN PRN Reason: SALINE FLUSH Medical Necessity - Tobacco Use Smoking Status: Never smoker Assessment/Plan All Active Problems (Last Reviewed 03/24/20 @ 16:[address] Allison Mendez, DO) Acute CHF (congestive heart failure) (Acute) Dyspnea (Acute) Pleural effusion, left (Acute) Paroxysmal atrial fibrillation (Acute) Valvular heart disease (Acute) Acute diastolic (congestive) heart failure (Acute) RBBB (right bundle branch block) (Acute) Atrial flutter with rapid ventricular response (Acute) Segmental and somatic dysfunction of pelvic region (Acute) Segmental and somatic dysfunction of thoracic region (Acute) Segmental and somatic dysfunction of lumbar region (Acute) 1. Acute heart failure with reduced ejection fraction-echocardiogram demonstrates an EF of 15%, moderately severe mitral valve insufficiency, moderate tricuspid valve insufficiency, RVSP estimated to be 47 mmHg. Chest x- ray admission with bilateral pleural effusions. Oxygen stable on room air. BNP 917. Cardiology following. Transition from IV Lasix to oral Lasix 40 mg twice daily. Initiated on Entresto. Xarelto on hold with plans for heart cath on Saturday morning. Patient may also require CLAY to further evaluate valvular dysfunction pending heart cath findings. 2. Paroxysmal atrial fibrillation/atrial flutter-continue amiodarone, carvedilol. Xarelto on hold given plans for heart cath. 3. Acute kidney injury-improving with diuresis, suspect cardiorenal syndrome. Prior renal function appears normal. Trend BMP. 4. Mild CAD-heart cath in 2013 demonstrated mild CAD with nonobstructive coronary arteries. On aspirin, statin. Plans for repeat heart cath as noted above. 5. Hypertension-stable, continue Entresto, Carvedilol. 6. Type 2 diabetes mellitus-hold oral regimen. Accu-Cheks with sliding scale insulin. Check hemoglobin A1c. Continue Lantus regimen. 7. OCD-on clomipramine. 8. Gout-not on regimen. DVT prophylaxis- Lovenox sc This patient was seen by PIPPA Rosas under the supervision of Dr. Vogel. <Reymundo Vogel - Last Filed: 03/25/20 13:08> - Physical Exam Vitals/I&O's: Vital Signs Temp Pulse Resp BP Pulse Ox 98.4 F 111 H 17 120/74 93 03/25/20 03:50 03/25/20 08:00 03/25/20 03:50 03/25/20 03:50 03/25/20 07:22 Oxygen Delivery Method Room Air Weight: 79.8 kg Body Mass Index (BMI) 24.6 Intake and Output for Last 24 Hours 03/23/20 03/24/20 03/25/20 23:59 23:59 23:59 Intake Total 200 / 200 640 / 640 Output Total 2475 / 2475 1475 / 1475 Balance -2275 / -2275 -835 / -835 Laboratory Results 03/24/20 14:26: WBC 10.1, RBC 4.13 L, Hgb 12.5 L, Hct 38.4 L, MCV 93.0, MCH 30.3, MCHC 32.6, RDW Std Deviation 47.2 H, RDW Coeff of Mauricio 13.8, Plt Count 233, MPV 11.6, Immature Gran % (Auto) 0.500, Neut % (Auto) 70.6 H, Lymph % (Auto) 14.9 L, Guthrie % (Auto) 12.5 H, Eos % (Auto) 1.4, Baso % (Auto) 0.1, Absolute Neuts (auto) 7.1, Absolute Lymphs (auto) 1.50, Nucleated RBC % 0 03/24/20 14:26: PT 21.3 H, INR 1.9, APTT 44.8 H 03/24/20 14:26: Sodium 139, Potassium 4.1, Chloride 106, Carbon Dioxide 28.0, Anion Gap 5, BUN 29 H, Creatinine 1.89 H, Estim Creat Clear Calc 36.50, Est GFR (MDRD) Af Amer 45 L, Est GFR (MDRD) Non-Af 37 L, BUN/Creatinine Ratio 15.3, Glucose 114 H, Calcium 8.9, Total Bilirubin 0.80, AST 23, ALT 21, Alkaline Phosphatase 84, Troponin I < 0.015, Total Protein 7.4, Albumin 3.4, Globulin 4.0, Albumin/Globulin Ratio 0.8 L 03/24/20 14:26: B-Natriuretic Peptide 917.8 H 03/24/20 15:00: Urine Color Yellow, Urine Clarity Sl. Cloudy, Urine pH 5.0, Ur Specific [place] 1.015, Urine Protein Negative, Urine Glucose (UA) Normal, Urine Ketones Negative, Urine Occult Blood 10 H, Urine Nitrite Negative, Urine Bilirubin Negative, Urine Urobilinogen Normal, Ur Leukocyte Esterase Negative, Urine RBC 0-5 SEEN, Urine WBC 0 SEEN, Ur Squamous Epith Cells 0-5 SEEN, Urine Bacteria 0 SEEN, Hyaline Casts 0-5 SEEN, Urine Mucus 2+ 03/24/20 16:53: POC Glucose 97 03/24/20 17:32: Troponin I < 0.015 03/24/20 20:32: Troponin I < 0.015 03/24/20 21:54: POC Glucose 131 H 03/25/20 06:20: WBC 7.9, RBC 4.32 L, Hgb 13.1, Hct 39.2 L, MCV 90.7, MCH 30.3, MCHC 33.4, RDW Std Deviation 43.8, RDW Coeff of Mauricio 13.2, Plt Count 221, MPV 11.1, Immature Gran % (Auto) 0.400, Neut % (Auto) 70.2 H, Lymph % (Auto) 13.9 L, Guthrie % (Auto) 13.9 H, Eos % (Auto) 1.5, Baso % (Auto) 0.1, Absolute Neuts (auto) 5.6, Absolute Lymphs (auto) 1.10, Nucleated RBC % 0 03/25/20 06:20: Sodium 140, Potassium 3.2 L, Chloride 103, Carbon Dioxide 32.0, Anion Gap 5, BUN 24 H, Creatinine 1.57 H, Estim Creat Clear Calc 43.93, Est GFR (MDRD) Af Amer 55 L, Est GFR (MDRD) Non-Af 46 L, BUN/Creatinine Ratio 15.3, Glucose 158 H, Calcium 8.4 L, Phosphorus 3.2, Magnesium 1.4 L, TSH 3.26 03/25/20 06:20: B-Natriuretic Peptide 1065.6 H 03/25/20 06:20: Triglycerides 80, Cholesterol 110, LDL Cholesterol 48, VLDL Cholesterol 16, HDL Cholesterol 46 03/25/20 06:32: POC Glucose 163 H 03/25/20 11:58: POC Glucose 272 H Current Medications Acetaminophen (Tylenol) 650 mg PO Q6H PRN PRN PRN Reason: Pain Score 1-10/Temp > 100.7 F Al Hydroxide/Mg Hydroxide (Mylanta Ii) 30 ml PO Q6H PRN PRN PRN Reason: Gastric Burning Albuterol Sulfate (Ventolin Aerosols) 2.5 mg INHALATION Q2H PRN PRN PRN Reason: SOB/Wheezing Amiodarone HCl (Cordarone) 200 mg PO BID [facility] Last Admin: 03/25/20 10:08 Dose: 200 mg Documented by: Aspirin (Aspirin, Baby) 81 mg PO DAILY@0800 [facility] Last Admin: 03/25/20 08:21 Dose: 81 mg Documented by: Atorvastatin Calcium (Lipitor) 5 mg PO QHS [facility] Last Admin: 03/24/20 21:56 Dose: 5 mg Documented by: Carvedilol (Coreg) 12.5 mg PO BID [facility] Last Admin: 03/25/20 10:11 Dose: 12.5 mg Documented by: Clomipramine HCl (Anafranil) 50 mg PO BID [facility] Last Admin: 03/25/20 10:08 Dose: 50 mg Documented by: Cyanocobalamin (Vitamin B12) 500 mcg PO DAILY@0800 [facility] Last Admin: 03/25/20 08:21 Dose: 500 mcg Documented by: Dextrose (D50w Syringe) 0 gm IV X1 PRN; Protocol PRN Reason: Hypoglycemia Enoxaparin Sodium (Lovenox) 60 mg SC Q12 [facility] Last Admin: 03/25/20 10:12 Dose: 60 mg Documented by: Furosemide (Lasix) 40 mg PO BID@1000,1800 [facility] Last Admin: 03/25/20 10:12 Dose: 40 mg Documented by: Glucagon () 1 mg IM .X1 PRN PRN Reason: Hypoglycemia Insulin Glargine (Lantus (Bkc)) 20 units SC DAILY [facility] Last Admin: 03/25/20 10:10 Dose: 20 u Documented by: Insulin Human Lispro (Humalog Kwikpen (Bkc)) 0 unit SC ACHS [facility]; Protocol Last Admin: 03/25/20 12:00 Dose: 2 u Documented by: Magnesium Hydroxide (Milk Of Magnesia) 30 ml PO DAILY PRN PRN PRN Reason: Constipation Melatonin (Melatonin) 3 mg PO QHS [facility] Last Admin: 03/25/20 00:37 Dose: 3 mg Documented by: Potassium Chloride (K-Dur) 40 meq PO DAILYCM [facility] Last Admin: 03/25/20 10:12 Dose: 40 meq Documented by: Sacubitril/Valsartan (Entresto 24 Mg-26 Mg Tablet) 1 each PO BID [facility] Last Admin: 03/25/20 10:09 Dose: 1 each Documented by: Sodium Chloride () 10 - 40 ml IV UD PRN PRN Reason: SALINE FLUSH Assessment/Plan This patient was seen in conjunction with PIPPA Rosas . I have independently interviewed and examined the patient and reviewed pertinent historical, laboratory, and other data. Please refer to PIPPA Rosas note for details of this patient's presentation, findings, and recommendations. I have reviewed PIPPA Rosas note and concur with documented findings. In brief, patient is a 74-year-old gentleman with previously known congestive heart failure with preserved ejection fraction who presented with progressive generalized weakness. Repeat echo demonstrated EF of 15% with moderately severe mitral valve insufficiency. Patient was also found to be A. fib admitted to monitored bed for further management Physical Examination: GENERAL: cooperative HEENT: Atraumatic; EYES; Anicteric, Normal Conjunctiva NECK; supple, normal thyroid, RESPIRATORY: Diminished to auscultation CARDIOVASCULAR: Regular S1-S2, systolic murmur GI: soft, normoactive bowel sounds, : No Renal angle tenderness; EXTREMITIES: edema, no clubbing, MUSCULOSKELETAL: no muscle waisting NEURO: Awake; no lateralizing signs. SKIN: No Rash PSYCH; Flat affect Assessment: 1. Acute heart failure with reduced ejection fraction-echocardiogram demonstrates an EF of 15%, 2. Moderately severe mitral valve insufficiency, m 3. Paroxysmal atrial fibrillation/atrial flutter 4. Essential hypertension 5. Diabetes mellitus type 2 6. Hypokalemia 7. Acute kidney injury 8. Gout 9. Obsessive-compulsive disorder 10. DVT prophylaxis Recommendations: 1. I have discussed the results of my overview and impressions with the patient 2. Options for management were reviewed Advance planning; did discuss with the patient regarding advanced directives as well as CODE STATUS. Did explain the various scenarios involved ( FULL CODE, DNR CCA, DNR CCA with no intubation, and DNR CC and what each meant) patient elected a full code with CPR and intubation if indicated. Order was placed. Time spent on discussion 18 minutes. Inpatient E&M: 09721 Subs Hosp L3 Procedures: 31541 Advncd Care Plan 30 Min
--- NOTE | 2020-03-25 13:15 | CASEMGMT ---
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 RN NILSA introduced self and role at [facility]. Pt voices understanding and consents to assessment at this time. Pt sitting up in recliner chair in no distress at this time. in room visiting w/pt at this time. Pt is A/O at this time and answers all questions appropriately. Care providers, pharmacy, and demographics verified/updated at this time. PCP: Dr Montenegro Specialists: Dr Coombs--cardiology Preferred Pharmacy: [facility] Insurance: MMO, MCR. states MMO is primary and MCR secondary. Call placed to registration and notified. Prescription Benefit: Yes Living Will/HPOA: States does not have LW or HCPOA Provided information on advanced directives and given Social Service rac card with number to call if chooses in the future to utilize [facility] social work for advanced directive completion. LNOK: Marisol Living Arrangements: Lives w/his in 2-story home w/3 steps to enter. Bed/bath on 2nd floor. Independent w/ADL's. manages most home mgmt tasks. Transportation: Pt states drives self and states no transportation concerns at this time. DME: Denies using any DME and denies needs. HHC/SNF: No history of either and no needs identified. Denies needs. Pt/ wish for pt to return home and states has no concerns with going home at time of discharge. CM to follow for any discharge planning/needs. Pt/ voice no concerns/needs at this time. Advised pt/ to ask for CM if any questions/concerns/needs arise. They voice understanding. PLAN: Home w/spousal support and discharge plans in place. Anna Marie BAXTERN DENISHA CM
[2020-03-25 14:32] LABS: Hemoglobin A1c 6.7 % (3.8-5.6)
[2020-03-25 16:50] LABS: Bedside Glucose 167 mg/dL (70-110)
[2020-03-25] MEDS: ALPRAZolam 0.5 MG Tablet PO (17:16)
[2020-03-25] MEDS: Atorvastatin Calcium 10 MG Tablet 5 MG PO (21:01)
[2020-03-25] MEDS: Zolpidem Tartrate 5 MG Tablet PO (21:06)
[2020-03-25] MEDS: 0.9% Saline Lock 10 ML Syringe IV (21:09)
[2020-03-25 22:25] LABS: Bedside Glucose 158 mg/dL (70-110)
[2020-03-26] VITALS (13 sets, daily range): BP systolic 96–132; BP diastolic 74–90; PULSE 108–124; RESP 15–18; TEMP 36.6–37; O2SAT 94–100
[2020-03-26] MEDS: Insulin Lispro 100 UNIT/ML INSULN.PEN SC ×2 (06:41→16:52)
[2020-03-26 06:48] LABS: Anion Gap 8 (5-15); BUN 21 mg/dL (7-18); BUN/Creat Ratio 15.4 RATIO (10-20); Chloride 101 mmol/L (98-107); Creatinine, Serum 1.36 mg/dL (0.70-1.30); EST Glomerular Filtration Rate 54 mL/min (>60); Est Glom Filt Rate - Afr Amer 65 mL/min (>60); Estimated Creatinine Clearance 50.72 ml/min; Glucose 164 mg/dL (74-106); Potassium 2.9 mmol/L (3.5-5.1); Sodium Level 138 mmol/L (136-145)
[2020-03-26 07:11] LABS: Bedside Glucose 163 mg/dL (70-110)
--- NOTE | 2020-03-26 08:59 | PN_ITS ---
<Gertrudis Villatoro - Last Filed: 03/26/20 09:03> Patient Problems: Active and Suspected Problems (Last Reviewed 03/24/20 @ 16:[address] Allison Mendez DO) Acute CHF (congestive heart failure) (Acute) Dyspnea (Acute) Pleural effusion, left (Acute) Paroxysmal atrial fibrillation (Acute) Valvular heart disease (Acute) Subjective: Patient seen and examined. Reports he slept well overnight. Shortness of breath improved. States he is able to lie fairly flat in bed without shortness of breath. - Physical Exam Vitals/I&O's: Vital Signs Temp Pulse Resp BP Pulse Ox 98.5 F 118 H 18 117/81 H 95 03/26/20 06:33 03/26/20 07:20 03/26/20 06:33 03/26/20 06:33 03/26/20 07:44 Oxygen Delivery Method Room Air Weight: 172 lb 6.424 oz Body Mass Index (BMI) 24.6 Intake and Output for Last 24 Hours 03/24/20 03/25/20 03/26/20 23:59 23:59 23:59 Intake Total 200 / 200 1120 / 1120 Output Total 2475 / 2475 1600 / 1700 575 / 575 Balance -2275 / -2275 -480 / -580 -575 / -575 General: Alert, Oriented x3, Cooperative HEENT: Atraumatic, PERRLA, EOMI, Normocephalic Neck: Supple, No JVD, Negative Carotid Bruits Lungs: Clear to auscultation, Normal air movement Cardiovascular: Regular Rhythm, Murmur, Tachycardic Abdomen: Bowel Sounds Present, Soft, Non Tender, Non-Distended Extremities: No clubbing, No cyanosis, No edema, Capillary Refill Less than 3 Seconds Skin: No rashes, No breakdown Musculoskeletal: No Tenderness to Palpation of Joints or Extremities Neurological: Cranial nerves II-XII grossly intact, Neuro grossly intact Psych/Mental Status: Normal Affect, Appropriate Laboratory Results 03/25/20 06:20: B-Natriuretic Peptide 1065.6 H 03/25/20 06:20: Triglycerides 80, Cholesterol 110, LDL Cholesterol 48, VLDL Cholesterol 16, HDL Cholesterol 46 03/25/20 11:58: POC Glucose 272 H 03/25/20 14:05: Hemoglobin A1c 6.7 H 03/25/20 16:46: POC Glucose 167 H 03/25/20 21:05: POC Glucose 158 H 03/26/20 05:22: Sodium 138, Potassium 2.9 L, Chloride 101, Carbon Dioxide 29.0, Anion Gap 8, BUN 21 H, Creatinine 1.36 H, Estim Creat Clear Calc 50.72, Est GFR (MDRD) Af Amer 65, Est GFR (MDRD) Non-Af 54 L, BUN/Creatinine Ratio 15.4, Glucose 164 H, Calcium 8.0 L 03/26/20 06:40: POC Glucose 163 H Current Medications Acetaminophen (Tylenol) 650 mg PO Q6H PRN PRN PRN Reason: Pain Score 1-10/Temp > 100.7 F Al Hydroxide/Mg Hydroxide (Mylanta Ii) 30 ml PO Q6H PRN PRN PRN Reason: Gastric Burning Albuterol Sulfate (Ventolin Aerosols) 2.5 mg INHALATION Q2H PRN PRN PRN Reason: SOB/Wheezing Alprazolam (Xanax) 0.5 mg PO BID PRN PRN PRN Reason: ANXIETY Last Admin: 03/25/20 17:16 Dose: 0.5 mg Documented by: Amiodarone HCl (Cordarone) 200 mg PO BID [facility] Last Admin: 03/25/20 20:59 Dose: 200 mg Documented by: Aspirin (Aspirin, Baby) 81 mg PO DAILY@0800 [facility] Last Admin: 03/25/20 08:21 Dose: 81 mg Documented by: Atorvastatin Calcium (Lipitor) 5 mg PO QHS [facility] Last Admin: 03/25/20 21:01 Dose: 5 mg Documented by: Carvedilol (Coreg) 12.5 mg PO BID [facility] Last Admin: 03/25/20 20:59 Dose: 12.5 mg Documented by: Clomipramine HCl (Anafranil) 50 mg PO BID [facility] Last Admin: 03/25/20 20:59 Dose: 50 mg Documented by: Cyanocobalamin (Vitamin B12) 500 mcg PO DAILY@0800 [facility] Last Admin: 03/25/20 08:21 Dose: 500 mcg Documented by: Dextrose (D50w Syringe) 0 gm IV X1 PRN; Protocol PRN Reason: Hypoglycemia Enoxaparin Sodium (Lovenox) 60 mg SC Q12 [facility] Last Admin: 03/25/20 21:02 Dose: 60 mg Documented by: Furosemide (Lasix) 40 mg PO BID@1000,1800 [facility] Last Admin: 03/25/20 17:17 Dose: 40 mg Documented by: Glucagon () 1 mg IM .X1 PRN PRN Reason: Hypoglycemia Insulin Glargine (Lantus (Bkc)) 20 units SC DAILY [facility] Last Admin: 03/25/20 10:10 Dose: 20 u Documented by: Insulin Human Lispro (Humalog Kwikpen (Bk)) 0 unit SC ACHS [facility]; Protocol Last Admin: 03/26/20 06:41 Dose: 1 u Documented by: Magnesium Hydroxide (Milk Of Magnesia) 30 ml PO DAILY PRN PRN PRN Reason: Constipation Melatonin (Melatonin) 3 mg PO QHS [facility] Last Admin: 03/25/20 21:07 Dose: Not Given Documented by: Potassium Chloride (K-Dur) 40 meq PO DAILYCM [facility] Last Admin: 03/25/20 10:12 Dose: 40 meq Documented by: Sacubitril/Valsartan (Entresto 24 Mg-26 Mg Tablet) 1 each PO BID [facility] Last Admin: 03/25/20 21:00 Dose: 1 each Documented by: Sodium Chloride () 10 - 40 ml IV UD PRN PRN Reason: SALINE FLUSH Last Admin: 03/25/20 21:09 Dose: 10 ml Documented by: Zolpidem Tartrate (Ambien (Generic)) 5 mg PO QHS PRN PRN PRN Reason: INSOMNIA Last Admin: 03/25/20 21:06 Dose: 5 mg Documented by: Medical Necessity - Tobacco Use Smoking Status: Never smoker Assessment/Plan All Active Problems (Last Reviewed 03/24/20 @ 16:[address] Allison Mendez, DO) Acute CHF (congestive heart failure) (Acute) Dyspnea (Acute) Pleural effusion, left (Acute) Paroxysmal atrial fibrillation (Acute) Valvular heart disease (Acute) Acute diastolic (congestive) heart failure (Acute) RBBB (right bundle branch block) (Acute) Atrial flutter with rapid ventricular response (Acute) Segmental and somatic dysfunction of pelvic region (Acute) Segmental and somatic dysfunction of thoracic region (Acute) Segmental and somatic dysfunction of lumbar region (Acute) 1. Acute heart failure with reduced ejection fraction-echocardiogram demonstrates an EF of 15%, moderately severe mitral valve insufficiency, moderate tricuspid valve insufficiency, RVSP estimated to be 47 mmHg. Chest x- ray admission with bilateral pleural effusions. Oxygen stable on room air. BNP 917. Cardiology following. Transition from IV Lasix to oral Lasix 40 mg twice daily. Initiated on Entresto. Xarelto on hold with plans for heart cath on Saturday morning. Patient may also require CLAY to further evaluate valvular dysfunction pending heart cath findings. 2. Paroxysmal atrial fibrillation/atrial flutter-continue amiodarone, carvedilol. Xarelto on hold given plans for heart cath. 3. Acute kidney injury-improving with diuresis, suspect cardiorenal syndrome. Prior renal function appears normal. Trend BMP. 4. Mild CAD-heart cath in 2013 demonstrated mild CAD with nonobstructive coronary arteries. On aspirin, statin. Plans for repeat heart cath as noted above. 5. Hypertension-stable, continue Entresto, Carvedilol. 6. Type 2 diabetes mellitus-hold oral regimen. Accu-Cheks with sliding scale insulin. Hemoglobin A1c 6.7%. Continue Lantus regimen. 7. OCD-on clomipramine. 8. Gout-not on regimen. DVT prophylaxis- Lovenox sc This patient was seen by PIPPA Rosas under the supervision of Dr. Vogel. <Reymundo Vogel - Last Filed: 03/26/20 09:33> - Physical Exam Vitals/I&O's: Vital Signs Temp Pulse Resp BP Pulse Ox 98.5 F 118 H 18 117/81 H 95 03/26/20 06:33 03/26/20 07:20 03/26/20 06:33 03/26/20 06:33 03/26/20 07:44 Oxygen Delivery Method Room Air Weight: 78.2 kg Body Mass Index (BMI) 24.6 Intake and Output for Last 24 Hours 03/24/20 03/25/20 03/26/20 23:59 23:59 23:59 Intake Total 200 / 200 1120 / 1120 Output Total 2475 / 2475 1600 / 1700 575 / 575 Balance -2275 / -2275 -480 / -580 -575 / -575 Laboratory Results 03/25/20 06:20: Triglycerides 80, Cholesterol 110, LDL Cholesterol 48, VLDL Cholesterol 16, HDL Cholesterol 46 03/25/20 11:58: POC Glucose 272 H 03/25/20 14:05: Hemoglobin A1c 6.7 H 03/25/20 16:46: POC Glucose 167 H 03/25/20 21:05: POC Glucose 158 H 03/26/20 05:22: Sodium 138, Potassium 2.9 L, Chloride 101, Carbon Dioxide 29.0, Anion Gap 8, BUN 21 H, Creatinine 1.36 H, Estim Creat Clear Calc 50.72, Est GFR (MDRD) Af Amer 65, Est GFR (MDRD) Non-Af 54 L, BUN/Creatinine Ratio 15.4, Glucose 164 H, Calcium 8.0 L 03/26/20 06:40: POC Glucose 163 H Current Medications Acetaminophen (Tylenol) 650 mg PO Q6H PRN PRN PRN Reason: Pain Score 1-10/Temp > 100.7 F Al Hydroxide/Mg Hydroxide (Mylanta Ii) 30 ml PO Q6H PRN PRN PRN Reason: Gastric Burning Albuterol Sulfate (Ventolin Aerosols) 2.5 mg INHALATION Q2H PRN PRN PRN Reason: SOB/Wheezing Alprazolam (Xanax) 0.5 mg PO BID PRN PRN PRN Reason: ANXIETY Last Admin: 03/25/20 17:16 Dose: 0.5 mg Documented by: Amiodarone HCl (Cordarone) 200 mg PO BID [facility] Last Admin: 03/25/20 20:59 Dose: 200 mg Documented by: Aspirin (Aspirin, Baby) 81 mg PO DAILY@0800 [facility] Last Admin: 03/25/20 08:21 Dose: 81 mg Documented by: Atorvastatin Calcium (Lipitor) 5 mg PO QHS [facility] Last Admin: 03/25/20 21:01 Dose: 5 mg Documented by: Carvedilol (Coreg) 12.5 mg PO BID [facility] Last Admin: 03/25/20 20:59 Dose: 12.5 mg Documented by: Clomipramine HCl (Anafranil) 50 mg PO BID [facility] Last Admin: 03/25/20 20:59 Dose: 50 mg Documented by: Cyanocobalamin (Vitamin B12) 500 mcg PO DAILY@0800 [facility] Last Admin: 03/25/20 08:21 Dose: 500 mcg Documented by: Dextrose (D50w Syringe) 0 gm IV X1 PRN; Protocol PRN Reason: Hypoglycemia Enoxaparin Sodium (Lovenox) 60 mg SC Q12 [facility] Last Admin: 03/25/20 21:02 Dose: 60 mg Documented by: Furosemide (Lasix) 40 mg PO BID@1000,1800 [facility] Last Admin: 03/25/20 17:17 Dose: 40 mg Documented by: Glucagon () 1 mg IM .X1 PRN PRN Reason: Hypoglycemia Insulin Glargine (Lantus (Bk)) 20 units SC DAILY [facility] Last Admin: 03/25/20 10:10 Dose: 20 u Documented by: Insulin Human Lispro (Humalog Kwikpen ([facility])) 0 unit SC ACHS [facility]; Protocol Last Admin: 03/26/20 06:41 Dose: 1 u Documented by: Magnesium Hydroxide (Milk Of Magnesia) 30 ml PO DAILY PRN PRN PRN Reason: Constipation Melatonin (Melatonin) 3 mg PO QHS [facility] Last Admin: 03/25/20 21:07 Dose: Not Given Documented by: Potassium Chloride (K-Dur) 40 meq PO BIDCM [facility] Sacubitril/Valsartan (Entresto 24 Mg-26 Mg Tablet) 1 each PO BID [facility] Last Admin: 03/25/20 21:00 Dose: 1 each Documented by: Sodium Chloride () 10 - 40 ml IV UD PRN PRN Reason: SALINE FLUSH Last Admin: 03/25/20 21:09 Dose: 10 ml Documented by: Zolpidem Tartrate (Ambien (Generic)) 5 mg PO QHS PRN PRN PRN Reason: INSOMNIA Last Admin: 03/25/20 21:06 Dose: 5 mg Documented by: Assessment/Plan This patient was seen in conjunction with PIPPA Rosas . I have independently interviewed and examined the patient and reviewed pertinent historical, laboratory, and other data. Please refer to PIPPA Rosas note for details of this patient's presentation, findings, and recommendations. I have reviewed PIPPA Rosas note and concur with documented findings. In brief, patient is a 74-year-old gentleman with previously known congestive heart failure with preserved ejection fraction who presented with progressive generalized weakness. Repeat echo demonstrated EF of 15% with moderately severe mitral valve insufficiency. Patient was also found to be A. fib admitted to [facility] bed for further management Patient's condition is fairly stable. Kidney function improving. As potassium level of 2.9. Physical Examination: GENERAL: cooperative HEENT: Atraumatic; EYES; Anicteric, Normal Conjunctiva NECK; supple, normal thyroid, RESPIRATORY: Diminished to auscultation CARDIOVASCULAR: Regular S1-S2, systolic murmur GI: soft, normoactive bowel sounds, : No Renal angle tenderness; EXTREMITIES: edema, no clubbing, MUSCULOSKELETAL: no muscle waisting NEURO: Awake; no lateralizing signs. SKIN: No Rash PSYCH; Flat affect Assessment: 1. Acute heart failure with reduced ejection fraction-echocardiogram demonstrates an EF of 15%, 2. Moderately severe mitral valve insufficiency, m 3. Paroxysmal atrial fibrillation/atrial flutter 4. Essential hypertension 5. Diabetes mellitus type 2 6. Hypokalemia 7. Acute kidney injury 8. Gout 9. Obsessive-compulsive disorder 10. DVT prophylaxis Recommendations: 1. I have discussed the results of my overview and impressions with the patient 2. Options for management were reviewed Inpatient E&M: 05399 Subs Hosp L2
--- NOTE | 2020-03-26 11:12 | PCM.PN.CARD ---
Subjectve: Patient doing well today, telemetry showed sinus tachycardia, no other arrhythmias. Able to lay down flat without any difficulty breathing. Objective: Vital Signs Temp Pulse Resp BP Pulse Ox 98.0 F 120 H 16 132/79 H 94 03/26/20 11:08 03/26/20 11:08 03/26/20 11:08 03/26/20 11:08 03/26/20 11:08 Oxygen Delivery Method Room Air Weight: 172 lb 6.424 oz Body Mass Index (BMI) 24.6 Intake and Output for Last 24 Hours 03/24/20 03/25/20 03/26/20 23:59 23:59 23:59 Intake Total 200 / 200 1120 / 1120 Output Total 2475 / 2475 1600 / 1700 575 / 575 Balance -2275 / -2275 -480 / -580 -575 / -575 General: Awake, Alert, Oriented x 3 HEENT: PERRL, EOMI, Sclera Non Icteric Neck: Supple, Good ROM, No Lymph Node Enlargement Lungs: Clear to auscultation Cardiovascular: Regular Rhythm, Normal S2, No Rubs, No Gallops Murmur Murmur: Grade 2/6, Holosystolic Vascular: No Carotid Bruits, Normal Femoral Pulses, Normal Radial Pulses, Normal Dorsalis Pedal Pulse, Normal Posterior Tibial Pulses Abdomen: Bowel Sounds Present, Soft, Non Tender, No HSM, No Organomegaly Extremities: No Cyanosis, No Clubbing, No edema Neurological: No Focal Motor or Sensory Deficit 03/25/20 14:05: Hemoglobin A1c 6.7 H 03/26/20 05:22: Sodium 138, Potassium 2.9 L, Chloride 101, Carbon Dioxide 29.0, Anion Gap 8, BUN 21 H, Creatinine 1.36 H, Est GFR (MDRD) Af Amer 65, Est GFR (MDRD) Non-Af 54 L, BUN/Creatinine Ratio 15.4, Glucose 164 H, Calcium 8.0 L Rhythm: EKG: ECHO: Stress Test: Cardiac Cath: PCI: CT Surgery: Holter monitor: EPS: PPM: CXR: Chest CT Scan: Medical Necessity - Tobacco Use Smoking Status: Never smoker Assessment/Plan 1. Cardiomyopathy: The patient presents with a newly discovered severe cardiomyopathy with at least moderate pulmonary hypertension by echocardiogram. His echocardiogram dated 03/24/2020 was as follows: Moderately dilated left ventricle. Severe segmental systolic dysfunction (see wall motion). The estimated ejection fraction is 15 %. Mild to moderate global right ventricular systolic dysfunction. The left atrium is moderately enlarged. Mild diffuse mitral valve thickening. Mild papillary muscle dysfunction of the mitral valve. Moderately severe (3+) mitral valve insufficiency. Moderate (2+) eccentric tricuspid valve insufficiency. Moderate focal aortic valve calcification. Trivial aortic valve insufficiency. Plethoric inferior vena cava. Right ventricular systolic pressure estimated to be 47 mmHg. There is evidence of diastolic dysfunction. At this point I would continue his medical management but switch him from metoprolol to Coreg 12.5 mg p.o. twice daily, discontinue his IV Lasix as he is now able to lay down flat, to Lasix 40 mg p.o. twice daily. In addition he will continue his Entresto. We will discontinue his Xarelto, for period of 3 days time at which time we will repeat his heart catheterization. I reviewed his heart catheterization from 2013 which showed minimal nonobstructive disease of his right coronary artery, and possible mid LAD myocardial bridging versus nonobstructive disease. He has a codominant left circumflex and right coronary artery. We will attempt to proceed with left and right heart catheterization on Saturday morning to determine if he has an ischemic source of his cardiomyopathy. The patient denies any recent fevers, chills, but did have a flulike illness in the spring during the COVID-19 pandemic. He did not get tested at that time. Ever since then he has had difficulty with dyspnea. Patient has no family members with sudden cardiac or cardiomyopathy. The patient denies being a heavy drinker. It is possible he may have hypertension induced cardiomyopathy as well. In addition, I would recommend the patient undergo a transesophageal echocardiogram to better evaluate his mitral regurgitation as this may be a source of his cardiomyopathy. If it is severe, he may benefit from mitral valve repair surgery. In addition he will continue a 1500 cc fluid restriction. 2. Atrial fibrillation: The patient is currently in normal sinus rhythm by physical exam and telemetry. We will discontinue his Xarelto and switch him to Lovenox 60 mg subcu twice daily should he have paroxysmal atrial fibrillation and to prevent LV apical thrombi. 3. Hyperlipidemia: Continue Lipitor therapy. Recommend fasting lipid profile. 4. Thank you very much for the opportunity to participate in the cardiac care of your patient. Inpatient E&M: 05822 Subs Hosp L2
[2020-03-26] MEDS: Cyanocobalamin 500 MCG Tablet PO (11:22)
[2020-03-26] MEDS: Potassium Chloride 10mEq/100mL 10 MEQ/100 ML IV.SOLN. 100 MEQ IV BOLUS ×4 (11:22→15:25)
[2020-03-26] MEDS: Aspirin 81 MG TAB.CHEW PO (11:22)
[2020-03-26] MEDS: Amiodarone 200 MG Tablet PO ×2 (11:23→21:18)
[2020-03-26] MEDS: Carvedilol 12.5 MG Tablet PO ×2 (11:23→21:19)
[2020-03-26] MEDS: SACUBITRIL/VALSARTAN 24/26 MG TABLET 1 EACH PO ×2 (11:23→21:19)
[2020-03-26] MEDS: Furosemide 40 MG Tablet PO ×2 (11:24→17:37)
[2020-03-26] MEDS: Enoxaparin 60 MG/0.6 ML Syringe SC ×2 (11:26→21:21)
[2020-03-26 12:56] LABS: Bedside Glucose 121 mg/dL (70-110)
[2020-03-26 17:06] LABS: Bedside Glucose 194 mg/dL (70-110)
[2020-03-26] MEDS: ALPRAZolam 0.5 MG Tablet PO (17:37)
[2020-03-26] MEDS: Zolpidem Tartrate 5 MG Tablet PO (21:17)
[2020-03-26] MEDS: Atorvastatin Calcium 10 MG Tablet 5 MG PO (21:19)
[2020-03-26 22:55] LABS: Bedside Glucose 124 mg/dL (70-110)
[2020-03-27] VITALS (31 sets, daily range): BP systolic 77–122; BP diastolic 67–90; PULSE 101–129; RESP 15–20; TEMP 36.4–36.8; O2SAT 95–100
[2020-03-27 06:16] LABS: Anion Gap 7 (5-15); BUN 20 mg/dL (7-18); BUN/Creat Ratio 14.7 RATIO (10-20); Calcium,Total 8.1 mg/dL (8.5-10.1); Chloride 105 mmol/L (98-107); Creatinine, Serum 1.36 mg/dL (0.70-1.30); EST Glomerular Filtration Rate 54 mL/min (>60); Est Glom Filt Rate - Afr Amer 65 mL/min (>60); Estimated Creatinine Clearance 50.72 ml/min; Glucose 76 mg/dL (74-106); Magnesium 1.9 mg/dL (1.6-2.6); Potassium 3.2 mmol/L (3.5-5.1); Sodium Level 141 mmol/L (136-145)
[2020-03-27 06:50] LABS: Bedside Glucose 76 mg/dL (70-110)
--- NOTE | 2020-03-27 09:30 | EKG12_ITS ---
Test Reason : Blood Pressure : / mmHG Vent. Rate : 123 BPM Atrial Rate : 123 BPM P-R Int : 096 ms QRS Dur : 174 ms QT Int : 404 ms P-R-T Axes : 000 -84 071 degrees QTc Int : 578 ms Wide Complex Rhythm: consider Atrial Flutter Right bundle branch block Left anterior fascicular block Bifascicular block Abnormal ECG Confirmed by TABITHA PAVON, TING ([id number]), associate editor SLADE CHENG ([id number]) on 03/30/2020 10:35:23 AM Referred By: ASHLEIGH Confirmed By:TING LU MD
[2020-03-27] MEDS: Adenosine 6 MG/2 ML Syringe IV (09:55)
--- NOTE | 2020-03-27 10:10 | PN.CARD_ITS ---
Subjectve: Patient doing fairly well, able to lay down flat, has observed Trey-Marte respirations while waiting for EKG. Telemetry showed what appeared to be either sinus tach versus supraventricular tachycardia with wide-complex QRS. EKG rhythm strip done at the bedside with IV adenosine 6 mg showed the SVT to break into sinus rhythm followed by recurrence of SVT. Did not appear to have atrial flutter as there were no overt flutter waves. Objective: Vital Signs Temp Pulse Resp BP Pulse Ox 97.6 F L 123 H 15 122/82 H 95 03/27/20 09:38 03/27/20 09:38 03/27/20 09:38 03/27/20 09:38 03/27/20 09:38 Oxygen Delivery Method Room Air Weight: 171 lb 15.369 oz Body Mass Index (BMI) 24.6 Intake and Output for Last 24 Hours 03/25/20 03/26/20 03/27/20 23:59 23:59 23:59 Intake Total 1120 / 1120 984 / 984 350 / 350 Output Total 1600 / 1700 725 / 725 175 / 175 Balance -480 / -580 259 / 259 175 / 175 General: Awake, Alert, Oriented x 3 HEENT: PERRL, EOMI, Sclera Non Icteric Neck: Supple, Good ROM, No Lymph Node Enlargement Lungs: Clear to auscultation Cardiovascular: Regular Rhythm, Normal S2, No Rubs, No Gallops Murmur Murmur: Grade 2/6, Holosystolic 03/27/20 05:46: Sodium 141, Potassium 3.2 L, Chloride 105, Carbon Dioxide 29.0, Anion Gap 7, BUN 20 H, Creatinine 1.36 H, Est GFR (MDRD) Af Amer 65, Est GFR (MDRD) Non-Af 54 L, BUN/Creatinine Ratio 14.7, Glucose 76, Calcium 8.1 L, Magnesium 1.9 Rhythm: EKG: ECHO: Stress Test: Cardiac Cath: PCI: CT Surgery: Holter monitor: EPS: PPM: CXR: Chest CT Scan: Medical Necessity - Tobacco Use Smoking Status: Never smoker Assessment/Plan 1. Cardiomyopathy: The patient presents with a newly discovered severe cardiomyopathy with at least moderate pulmonary hypertension by echocardiogram. His echocardiogram dated 03/24/2020 was as follows: Moderately dilated left ventricle. Severe segmental systolic dysfunction (see wall motion). The estimated ejection fraction is 15 %. Mild to moderate global right ventricular systolic dysfunction. The left atrium is moderately enlarged. Mild diffuse mitral valve thickening. Mild papillary muscle dysfunction of the mitral valve. Moderately severe (3+) mitral valve insufficiency. Moderate (2+) eccentric tricuspid valve insufficiency. Moderate focal aortic valve calcification. Trivial aortic valve insufficiency. Plethoric inferior vena cava. Right ventricular systolic pressure estimated to be 47 mmHg. There is evidence of diastolic dysfunction. At this point I would continue his medical management but switch him from metoprolol to Coreg 12.5 mg p.o. twice daily, discontinue his IV Lasix as he is now able to lay down flat, to Lasix 40 mg p.o. twice daily. In addition he will continue his Entresto. I reviewed his heart catheterization from 2013 which showed minimal nonobstructive disease of his right coronary artery, and possible mid LAD myocardial bridging versus nonobstructive disease. He has a codominant left circumflex and right coronary artery. In addition, the patient appears to have an SVT with a wide complex QRS rhythm, superimposed on severe LV dysfunction. I gave adenosine 6 mg at bedside with a ongoing rhythm strip which appeared to break the SVT for a few beats which showed sinus rhythm followed by resumption of SVT. No overt atrial flutter waves noted. At this point we will hold his p.o. amiodarone and try him on an IV regimen of amiodarone in order to slow him down and hopefully convert him to sinus rhythm. It is possible his cardiomyopathy may be due to asymptomatic supraventricular tachycardia. We will attempt to proceed with left and right heart catheterization on Saturday to determine if he has an ischemic source of his cardiomyopathy. The patient denies any recent fevers, chills, but did have a flulike illness in the spring during the COVID-19 pandemic. He did not get tested at that time. Ever since then he has had difficulty with dyspnea. Patient has no family members with sudden cardiac or cardiomyopathy. The patient denies being a heavy drinker. It is possible he may have hypertension induced cardiomyopathy as well. In addition, I would recommend the patient undergo a transesophageal echocardiogram to better evaluate his mitral regurgitation as this may be a source of his cardiomyopathy. If it is severe, he may benefit from mitral valve repair surgery. If the patient's LV function does not improve with medical therapy, cardioversion, cardiac rehab and/or revascularization he will require an AICD/INSULATION CUTTER given his left bundle branch block. His Trey-Marte breathing observed today is most likely result of his severe LV dysfunction and prolonged circulatory time. In addition he will continue a 1500 cc fluid restriction. 2. Arrhythmia: Patient is currently being covered with Lovenox subcu 60 mg twice daily, and his Xarelto was discontinued on Saturday. He may proceed with left and right her catheterization tomorrow morning. Again he may have a underappreciated supraventricular tachycardia superimposed alternating with atrial fibrillation that may be contributing to his cardiomyopathy. Again, we will switch him to IV amiodarone x24 hours in the hope that we will slow his heart rate down and perhaps cardiovert him chemically. 3. Hyperlipidemia: Continue Lipitor therapy. Recommend fasting lipid profile. 4. Thank you very much for the opportunity to participate in the cardiac care of your patient. Inpatient E&M: [id number] [facility] Hosp L2
[2020-03-27] MEDS: Aspirin 81 MG TAB.CHEW PO (10:36)
[2020-03-27] MEDS: Cyanocobalamin 500 MCG Tablet PO (10:37)
[2020-03-27] MEDS: Amiodarone 200 MG Tablet PO ×2 (10:39→21:50)
[2020-03-27] MEDS: Carvedilol 12.5 MG Tablet PO ×2 (10:39→21:50)
[2020-03-27] MEDS: SACUBITRIL/VALSARTAN 24/26 MG TABLET 1 EACH PO ×2 (10:39→21:52)
[2020-03-27] MEDS: Furosemide 40 MG Tablet PO (10:40)
--- NOTE | 2020-03-27 10:40 | PN_ITS ---
<Gertrudis Villatoro - Last Filed: 03/27/20 10:50> Patient Problems: Active and Suspected Problems (Last Reviewed 03/24/20 @ 16:[address] Allison Mendez DO) Acute CHF (congestive heart failure) (Acute) Dyspnea (Acute) Pleural effusion, left (Acute) Paroxysmal atrial fibrillation (Acute) Valvular heart disease (Acute) Subjective: Patient seen and examined. Resting comfortably in bed. No acute events overnight per patient and nursing report. Patient drowsy this morning. - Physical Exam Vitals/I&O's: Vital Signs Temp Pulse Resp BP Pulse Ox 97.6 F L 123 H 15 122/82 H 95 03/27/20 09:38 03/27/20 09:38 03/27/20 09:38 03/27/20 09:38 03/27/20 09:38 Oxygen Delivery Method Room Air Weight: 171 lb 15.369 oz Body Mass Index (BMI) 24.6 Intake and Output for Last 24 Hours 03/25/20 03/26/20 03/27/20 23:59 23:59 23:59 Intake Total 1120 / 1120 984 / 984 350 / 350 Output Total 1600 / 1700 725 / 725 175 / 175 Balance -480 / -580 259 / 259 175 / 175 General: Alert, Oriented x3, Cooperative HEENT: Atraumatic, PERRLA, EOMI, Normocephalic Neck: Supple, No JVD, Negative Carotid Bruits Lungs: Clear to auscultation, Diminished Cardiovascular: Murmur, Tachycardic Abdomen: Bowel Sounds Present, Soft, Non Tender, Non-Distended Extremities: No clubbing, No cyanosis, No edema, Capillary Refill Less than 3 Seconds Skin: No rashes, No breakdown Musculoskeletal: No Tenderness to Palpation of Joints or Extremities Neurological: Cranial nerves II-XII grossly intact, Neuro grossly intact Psych/Mental Status: Normal Affect, Appropriate Laboratory Results 03/26/20 11:29: POC Glucose 121 H 03/26/20 16:49: POC Glucose 194 H 03/26/20 21:13: POC Glucose 124 H 03/27/20 05:46: Sodium 141, Potassium 3.2 L, Chloride 105, Carbon Dioxide 29.0, Anion Gap 7, BUN 20 H, Creatinine 1.36 H, Estim Creat Clear Calc 50.72, Est GFR (MDRD) Af Amer 65, Est GFR (MDRD) Non-Af 54 L, BUN/Creatinine Ratio 14.7, Glucose 76, Calcium 8.1 L, Magnesium 1.9 03/27/20 06:41: POC Glucose 76 Current Medications Acetaminophen (Tylenol) 650 mg PO Q6H PRN PRN PRN Reason: Pain Score 1-10/Temp > 100.7 F Al Hydroxide/Mg Hydroxide (Mylanta Ii) 30 ml PO Q6H PRN PRN PRN Reason: Gastric Burning Albuterol Sulfate (Ventolin Aerosols) 2.5 mg INHALATION Q2H PRN PRN PRN Reason: SOB/Wheezing Alprazolam (Xanax) 0.5 mg PO BID PRN PRN PRN Reason: ANXIETY Last Admin: 03/26/20 17:37 Dose: 0.5 mg Documented by: Amiodarone HCl (Cordarone) 200 mg PO BID [facility] Last Admin: 03/26/20 21:18 Dose: 200 mg Documented by: Aspirin (Aspirin, Baby) 81 mg PO DAILY@0800 [facility] Last Admin: 03/26/20 11:22 Dose: 81 mg Documented by: Atorvastatin Calcium (Lipitor) 5 mg PO QHS [facility] Last Admin: 03/26/20 21:19 Dose: 5 mg Documented by: Carvedilol (Coreg) 12.5 mg PO BID [facility] Last Admin: 03/26/20 21:19 Dose: 12.5 mg Documented by: Clomipramine HCl (Anafranil) 50 mg PO BID [facility] Last Admin: 03/26/20 21:18 Dose: 50 mg Documented by: Cyanocobalamin (Vitamin B12) 500 mcg PO DAILY@0800 [facility] Last Admin: 03/26/20 11:22 Dose: 500 mcg Documented by: Dextrose (D50w Syringe) 0 gm IV X1 PRN; Protocol PRN Reason: Hypoglycemia Enoxaparin Sodium (Lovenox) 60 mg SC Q12 [facility] Last Admin: 03/26/20 21:21 Dose: 60 mg Documented by: Furosemide (Lasix) 40 mg PO BID@1000,1800 [facility] Last Admin: 03/26/20 17:37 Dose: 40 mg Documented by: Glucagon () 1 mg IM .X1 PRN PRN Reason: Hypoglycemia Insulin Glargine (Lantus (Bkc)) 20 units SC DAILY [facility] Last Admin: 03/26/20 11:29 Dose: 20 u Documented by: Insulin Human Lispro (Humalog Kwikpen (Bk)) 0 unit SC ACHS [facility]; Protocol Last Admin: 03/27/20 06:49 Dose: Not Given Documented by: Magnesium Hydroxide (Milk Of Magnesia) 30 ml PO DAILY PRN PRN PRN Reason: Constipation Melatonin (Melatonin) 3 mg PO QHS [facility] Last Admin: 03/26/20 21:20 Dose: Not Given Documented by: [facility] Admin: 03/26/20 16:54 Dose: 40 meq Documented by: Sacubitril/Valsartan (Entresto 24 Mg-26 Mg Tablet) 1 each PO BID [facility] Last Admin: 03/26/20 21:19 Dose: 1 each Documented by: Sodium Chloride () 10 - 40 ml IV UD PRN PRN Reason: SALINE FLUSH Last Admin: 03/25/20 21:09 Dose: 10 ml Documented by: Zolpidem Tartrate (Ambien (Generic)) 5 mg PO QHS PRN PRN PRN Reason: INSOMNIA Last Admin: 03/26/20 21:17 Dose: 5 mg Documented by: Medical Necessity - Tobacco Use Smoking Status: Never smoker Assessment/Plan All Active Problems (Last Reviewed 03/24/20 @ 16:[address] Allison Mendez, DO) Acute CHF (congestive heart failure) (Acute) Dyspnea (Acute) Pleural effusion, left (Acute) Paroxysmal atrial fibrillation (Acute) Valvular heart disease (Acute) Acute diastolic (congestive) heart failure (Acute) RBBB (right bundle branch block) (Acute) Atrial flutter with rapid ventricular response (Acute) Segmental and somatic dysfunction of pelvic region (Acute) Segmental and somatic dysfunction of thoracic region (Acute) Segmental and somatic dysfunction of lumbar region (Acute) 1. Acute heart failure with reduced ejection fraction-echocardiogram demonstrates an EF of 15%, moderately severe mitral valve insufficiency, moder ate tricuspid valve insufficiency, RVSP estimated to be 47 mmHg. Chest x-ray admission with bilateral pleural effusions. Oxygen stable on room air. BNP 917. Cardiology following. Transition from IV Lasix to oral Lasix 40 mg twice daily. Initiated on Entresto. Xarelto on hold with plans for heart cath on Sukhdeep morning. Patient may also require CLAY to further evaluate valvular dysfunction pending heart cath findings. 2. Paroxysmal atrial fibrillation/atrial flutter/SVT-continue amiodarone, carvedilol. Xarelto on hold given plans for heart cath. Patient had IV adenosine 6 mg this morning. Initiated on IV amiodarone drip for further rate control. 3. Acute kidney injury-improving with diuresis, suspect cardiorenal syndrome. Prior renal function appears normal. Trend BMP. 4. Mild CAD-heart cath in 2013 demonstrated mild CAD with nonobstructive coronary arteries. On aspirin, statin. Plans for repeat heart cath as noted above. 5. Hypertension-stable, continue Entresto, Carvedilol. 6. Type 2 diabetes mellitus-hold oral regimen. Accu-Cheks with sliding scale insulin. Hemoglobin A1c 6.7%. Continue Lantus regimen. 7. OCD-on clomipramine. 8. Gout-not on regimen. DVT prophylaxis- Lovenox sc This patient was seen by PIPPA Rosas under the supervision of Dr. Vogel. <Reymundo Vogel - Last Filed: 03/27/20 11:36> - Physical Exam Vitals/I&O's: Vital Signs Temp Pulse Resp BP Pulse Ox 97.6 F L 123 H 15 122/82 H 95 03/27/20 09:38 03/27/20 09:38 03/27/20 09:38 03/27/20 09:38 03/27/20 09:38 Oxygen Delivery Method Room Air Weight: 78 kg Body Mass Index (BMI) 24.6 Intake and Output for Last 24 Hours 03/25/20 03/26/20 03/27/20 23:59 23:59 23:59 Intake Total 1120 / 1120 984 / 984 350 / 350 Output Total 1600 / 1700 725 / 725 175 / 175 Balance -480 / -580 259 / 259 175 / 175 Laboratory Results 03/26/20 11:29: POC Glucose 121 H 03/26/20 16:49: POC Glucose 194 H 03/26/20 21:13: POC Glucose 124 H 03/27/20 05:46: Sodium 141, Potassium 3.2 L, Chloride 105, Carbon Dioxide 29.0, Anion Gap 7, BUN 20 H, Creatinine 1.36 H, Estim Creat Clear Calc 50.72, Est GFR (MDRD) Af Amer 65, Est GFR (MDRD) Non-Af 54 L, BUN/Creatinine Ratio 14.7, Glucose 76, Calcium 8.1 L, Magnesium 1.9 03/27/20 06:41: POC Glucose 76 Current Medications Acetaminophen (Tylenol) 650 mg PO Q6H PRN PRN PRN Reason: Pain Score 1-10/Temp > 100.7 F Al Hydroxide/Mg Hydroxide (Mylanta Ii) 30 ml PO Q6H PRN PRN PRN Reason: Gastric Burning Albuterol Sulfate (Ventolin Aerosols) 2.5 mg INHALATION Q2H PRN PRN PRN Reason: SOB/Wheezing Alprazolam (Xanax) 0.5 mg PO BID PRN PRN PRN Reason: ANXIETY Last Admin: 03/26/20 17:37 Dose: 0.5 mg Documented by: Amiodarone HCl (Cordarone) 200 mg PO BID [facility] Last Admin: 03/27/20 10:39 Dose: 200 mg Documented by: Aspirin (Aspirin, Baby) 81 mg PO DAILY@0800 [facility] Last Admin: 03/27/20 10:36 Dose: 81 mg Documented by: Atorvastatin Calcium (Lipitor) 5 mg PO QHS [facility] Last Admin: 03/26/20 21:19 Dose: 5 mg Documented by: Carvedilol (Coreg) 12.5 mg PO BID [facility] Last Admin: 03/27/20 10:39 Dose: 12.5 mg Documented by: Clomipramine HCl (Anafranil) 50 mg PO BID [facility] Last Admin: 03/27/20 10:38 Dose: 50 mg Documented by: Cyanocobalamin (Vitamin B12) 500 mcg PO DAILY@0800 [facility] Last Admin: 03/27/20 10:37 Dose: 500 mcg Documented by: Dextrose (D50w Syringe) 0 gm IV X1 PRN; Protocol PRN Reason: Hypoglycemia Enoxaparin Sodium (Lovenox) 60 mg SC Q12 [facility] Last Admin: 03/27/20 10:43 Dose: 60 mg Documented by: Furosemide (Lasix) 40 mg PO BID@1000,1800 [facility] Last Admin: 03/27/20 10:40 Dose: 40 mg Documented by: Glucagon () 1 mg IM .X1 PRN PRN Reason: Hypoglycemia Amiodarone HCl 360 mg/ (Dextrose) 200 mls @ 33.333 mls/hr CONT INF .Q6H [facility] Stop: 03/27/20 17:09 Insulin Glargine (Lantus (Bkc)) 20 units SC DAILY [facility] Last Admin: 03/26/20 11:29 Dose: 20 u Documented by: Insulin Human Lispro (Humalog Kwikpen (Bkc)) 0 unit SC ACHS [facility]; Protocol Last Admin: 03/27/20 06:49 Dose: Not Given Documented by: Magnesium Hydroxide (Milk Of Magnesia) 30 ml PO DAILY PRN PRN PRN Reason: Constipation Melatonin (Melatonin) 3 mg PO QHS [facility] Last Admin: 03/26/20 21:20 Dose: Not Given Documented by: Potassium Chloride (K-Dur) 40 meq PO BIDCM [facility] Last Admin: 03/27/20 10:36 Dose: 40 meq Documented by: Sacubitril/Valsartan (Entresto 24 Mg-26 Mg Tablet) 1 each PO BID [facility] Last Admin: 03/27/20 10:39 Dose: 1 each Documented by: Sodium Chloride () 10 - 40 ml IV UD PRN PRN Reason: SALINE FLUSH Last Admin: 03/27/20 10:41 Dose: 40 ml Documented by: Zolpidem Tartrate (Ambien (Generic)) 5 mg PO QHS PRN PRN PRN Reason: INSOMNIA Last Admin: 03/26/20 21:17 Dose: 5 mg Documented by: Assessment/Plan This patient was seen in conjunction with PIPPA Rosas . I have independently interviewed and examined the patient and reviewed pertinent historical, laboratory, and other data. Please refer to PIPPA Rosas note for details of this patient's presentation, findings, and recommendations. I have reviewed PIPPA Rsoas note and concur with documented findings. In brief, patient is a 74-year-old gentleman with previously known congestive heart failure with preserved ejection fraction who presented with progressive generalized weakness. Repeat echo demonstrated EF of 15% with moderately severe mitral valve insufficiency. Patient was also found to be A. fib admitted to monitored bed for further management Patient's condition is fairly stable. Kidney function improving. As potassium level of 2.9. 03/27/2020: Patient reports being able to lay flat during the night. He is scheduled to undergo left heart catheterization on 03/28/2020 Physical Examination: GENERAL: cooperative HEENT: Atraumatic; EYES; Anicteric, Normal Conjunctiva NECK; supple, normal thyroid, RESPIRATORY: Diminished to auscultation CARDIOVASCULAR: Regular S1-S2, systolic murmur GI: soft, normoactive bowel sounds, : No Renal angle tenderness; EXTREMITIES: edema, no clubbing, MUSCULOSKELETAL: no muscle waisting NEURO: Awake; no lateralizing signs. SKIN: No Rash PSYCH; Flat affect Assessment: 1. Acute heart failure with reduced ejection fraction-echocardiogram demonstrates an EF of 15%, 2. Moderately severe mitral valve insufficiency, m 3. Paroxysmal atrial fibrillation/atrial flutter 4. Essential hypertension 5. Diabetes mellitus type 2 6. Hypokalemia 7. Acute kidney injury 8. Gout 9. Obsessive-compulsive disorder 10. DVT prophylaxis Recommendations: 1. I have discussed the results of my overview and impressions with the patient 2. Options for management were reviewed Inpatient E&M: 90317 Subs Hosp L2
[2020-03-27] MEDS: 0.9% Saline Lock 10 ML Syringe IV (10:41)
[2020-03-27] MEDS: Enoxaparin 60 MG/0.6 ML Syringe SC ×2 (10:43→21:51)
[2020-03-27] MEDS: Amiodarone 360 MG in Dextrose 5% Viaflo Bag 192.8 ML 33.3 MG CONT INF (11:57)
[2020-03-27 12:35] LABS: Bedside Glucose 88 mg/dL (70-110)
[2020-03-27 13:10] LABS: Bedside Glucose 215 mg/dL (70-110)
--- NOTE | 2020-03-27 15:05 | EKG12_ITS ---
Test Reason : ARRYTHMIA Blood Pressure : / mmHG Vent. Rate : 116 BPM Atrial Rate : 116 BPM P-R Int : 000 ms QRS Dur : 188 ms QT Int : 454 ms P-R-T Axes : 013 -66 066 degrees QTc Int : 631 ms Undetermined rhythm : consider Atrial Flutter Right bundle branch block Left anterior fascicular block Bifascicular block Abnormal ECG Confirmed by TABITHA PAVON, TING ([id number]), news assignment editor SLADE CHEGN ([id number]) on 03/30/2020 10:34:44 AM Referred By: DENISE Confirmed By:TING LU MD
[2020-03-27 16:36] LABS: Base Excess 3 mmol/L (-2 to +2); Bicarbonate 25.8 mmol/L (22-26); PO2 99 mmHG (75-100); SO2 98 % (95-99); Total Carbon Dioxide 27 mmol/L; pCO2 33.8 mmHg (35-45); pH 7.49 (7.35-7.45)
--- NOTE | 2020-03-27 16:45 | RAD_ITS ---
STUDY: X-RAY CHEST REASON FOR EXAM: Male, 74 years old. SOB HX OF CHF. TECHNIQUE: Single AP portable view of the chest. COMPARISON: 03/24/2020. FINDINGS: The lungs are clear and expanded. There is no demonstrated pleural abnormality. Normal size heart. Normal mediastinum and brook. Normal visualized pulmonary arteries. Normal visualized aortic arch and descending thoracic aorta. Normal visualized thoracic spine. Normal visualized ribs, clavicles, and shoulders. There is no demonstrated abnormality of the visualized soft tissue structures of the upper abdomen. RAD/Chest 1 View (Portable) IMPRESSION: Normal x-ray examination of the chest. Electronically Signed: Gely Denton MD at 18:07 EDT Tel , Service support ,
[2020-03-27 16:47] LABS: Allen Test POS; Blood Gas Specimen Type ART; LPM 2.5 /min; O2 Delivery Device Nasal Can; SITE R BRACHIAL; Time Given 1600
[2020-03-27] MEDS: Insulin Lispro 100 UNIT/ML INSULN.PEN SC (17:13)
[2020-03-27 17:21] LABS: Bedside Glucose 197 mg/dL (70-110)
[2020-03-27] MEDS: Amiodarone 360 MG in Dextrose 5% Viaflo Bag 192.8 ML 16.7 MG CONT INF (18:10)
[2020-03-27] MEDS: Atorvastatin Calcium 10 MG Tablet 5 MG PO (21:49)
[2020-03-27 22:36] LABS: Bedside Glucose 170 mg/dL (70-110)
[2020-03-27] MEDS: Acetaminophen 325 MG Tablet 650 MG PO (23:48)
[2020-03-28] VITALS (27 sets, daily range): BP systolic 94–128; BP diastolic 71–90; PULSE 74–124; RESP 10–25; TEMP 36.2–36.6; O2SAT 95–100
[2020-03-28] MEDS: 0.9% Normal Saline 1,000 ML 15 ML IV (05:56)
[2020-03-28] MEDS: Aspirin 81 MG TAB.CHEW PO (05:57)
[2020-03-28] MEDS: Carvedilol 12.5 MG Tablet PO ×2 (06:06→21:17)
[2020-03-28 06:24] LABS: Hematocrit 39.8 % (40-54); Mean Corp Hgb Conc 32.7 g/dL (32-36); Mean Corpuscular Hgb 30.5 pg (27.0-32.0); Mean Corpuscular Volume 93.4 fL (80-94); Mean Platelet Vol. 11.1 fl (6.2-12.0); Platelet Count 275 K/mm3 (150-450); RBC Distribution Width CV 13.5 % (11.6-14.6); RBC Distribution Width SD 46.1 fl (35.1-43.9); Red Blood Count 4.26 M/mm3 (4.6-6.2); White Blood Count 8.7 K/mm3 (4.4-11.0)
[2020-03-28 06:37] LABS: International Normalized Ratio 1.4; Prothrombin Time (Protime)PT. 16.8 SECONDS (11.7-14.9)
[2020-03-28 06:40] LABS: Bedside Glucose 106 mg/dL (70-110)
[2020-03-28 06:49] LABS: Anion Gap 5 (5-15); BUN 28 mg/dL (7-18); BUN/Creat Ratio 14.7 RATIO (10-20); Calcium,Total 8.6 mg/dL (8.5-10.1); Chloride 106 mmol/L (98-107); Creatinine, Serum 1.91 mg/dL (0.70-1.30); EST Glomerular Filtration Rate 37 mL/min (>60); Est Glom Filt Rate - Afr Amer 44 mL/min (>60); Estimated Creatinine Clearance 36.11 ml/min; Glucose 112 mg/dL (74-106); Potassium 4.4 mmol/L (3.5-5.1); Sodium Level 141 mmol/L (136-145)
[2020-03-28] MEDS: SACUBITRIL/VALSARTAN 24/26 MG TABLET 1 EACH PO ×2 (07:00→21:19)
[2020-03-28] MEDS: Amiodarone 360 MG in Dextrose 5% Viaflo Bag 192.8 ML 16.7 MG CONT INF (07:40)
[2020-03-28] MEDS: 0.9% Normal Saline 1,000 ML 50 ML IV (08:45)
--- NOTE | 2020-03-28 09:05 | PN.CARD_ITS ---
Subjectve: Patient is now status post diagnostic cardiac catheterization. He has no new acute complaints. Objective: Vital Signs Temp Pulse Resp BP Pulse Ox 97.6 F L 76 16 95/76 96 03/28/20 09:00 03/28/20 09:00 03/28/20 09:00 03/28/20 09:00 03/28/20 09:00 Oxygen Flow Rate (L/min) 2 Oxygen Delivery Method Nasal Cannula Weight: 174 lb 9.698 oz Body Mass Index (BMI) 24.6 Intake and Output for Last 24 Hours 03/26/20 03/27/20 03/28/20 23:59 23:59 23:59 Intake Total 984 / 984 1363.73 / 1380.43 169.27 / 169.27 Output Total 725 / 725 325 / 325 100 / 100 Balance 259 / 259 1038.73 / 1055.43 69.27 / 69.27 General: Awake, Alert, Oriented x 3, Cooperative, No Acute Distress HEENT: Atraumatic, Normocephalic, PERRL, EOMI, Sclera Non Icteric Oral: Moist Mucosa Neck: Supple, Good ROM Lungs: Diminished David Bases Cardiovascular: Regular Rhythm, Normal S1, Normal S2 Vascular: Normal Femoral Pulses Abdomen: Bowel Sounds Present, Soft Extremities: Trace RLE Edema, Trace LLE Edema Neurological: No Focal Motor or Sensory Deficit Psych/Mental Status: Appropriate 03/27/20 16:00: pH 7.49 H, Bicarbonate Actual 25.8, POC Total CO2 27, Base Excess 3 H, O2 Saturation 98, ABG pCO2 33.8 L, ABG pO2 99, Fazal Test POS 03/27/20 16:10: Troponin I < 0.015 03/28/20 06:01: WBC 8.7, RBC 4.26 L, Hgb 13.0, Hct 39.8 L, MCV 93.4, MCH 30.5, MCHC 32.7, Plt Count 275, MPV 11.1 03/28/20 06:01: PT 16.8 H, INR 1.4 03/28/20 06:01: Sodium 141, Potassium 4.4, Chloride 106, Carbon Dioxide 30.0, Anion Gap 5, BUN 28 H, Creatinine 1.91 H, Est GFR (MDRD) Af Amer 44 L, Est GFR (MDRD) Non-Af 37 L, BUN/Creatinine Ratio 14.7, Glucose 112 H, Calcium 8.6 Rhythm: Atrial flutter with subsequent notation during cardiac catheterization no spontaneous conversion to sinus rhythm Medical Necessity - Tobacco Use Smoking Status: Never smoker Assessment/Plan 1. Atrial fibrillation/flutter The patient has a history of atrial fibrillation/flutter. It appears based upon his recent evaluation this was considered to be paroxysmal. The etiology of his atrial dysrhythmia may be multifactorial secondary to his age, cardiovascular conditions, etc. It is also unclear as to how long the patient has had episodes of atrial dysrhythmia with rapid ventricular response and whether this is contributing to his clinical scenario of CHF/pleural effusions and what appears to be his significant left ventricular systolic dysfunction/diminished LVEF versus being secondary to his underlying cardiovascular findings with respect to his left ventricle. During the cardiac catheterization procedure he was noted to have spontaneous conversion to sinus rhythm with improved rate control. He will continue medical management. This will include rate control therapy and antiarrhythmic therapy. He would also continue anticoagulant therapy. His anticoagulation status will need to be resumed following recovery from his cardiac catheterization procedure. Fully over time, if he maintains rhythm and rate control, his left ventricle will have an opportunity to improve with respect to size and systolic function. 2. CHF The patient was originally describe by an outside facility is having diastolic CHF. At the present time there is concern the patient has systolic mediated CHF based upon his marked diminished LV systolic function/LVEF. Again the etiology is unclear as to whether this could be related from his atrial dysrhythmia and a tachycardic induced response wants versus being from an underlying non-CAD related cardiomyopathy noting patient did not have angiograph ically significant appearing CAD in the past versus being related to progression of CAD and an ischemic mediated cardiomyopathy. Thus the patient underwent evaluation with diagnostic cardiac catheterization. He does not appear to have angiographically significant CAD to explain his clinical findings. 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 He will need to continue home management. If his cardiomyopathy does not improve over time that he will need to be considered for primary prevention ICD therapy. 3. CAD He has a history of non-angiographically significant CAD based upon his previous diagnostic cardiac catheterization. He has undergone diagnostic cardiac catheterization. He was found to have no angiographically significant CAD to explain his clinical course. He will need to continue risk factor evaluation and care. 4. Valvular heart disease He does have findings of MR and TR. Again it is unclear whether this is a primary concern leading to his left ventricular systolic dysfunction and associated symptoms versus being secondary to his left ventricular dilatation and systolic dysfunction-structural versus functional, respectively, valvular heart disease, etc. At the moment he will continue to be followed by history, exam, and additional studies as deemed appropriate. In the meantime he will continue medical therapy and attempt to optimize his overall cardiovascular condition. Additional evaluation of his underlying valvular related issues will be considered as deemed appropriate. 5. Pleural effusion He does have a pleural effusion. This is noted on his echocardiographic study and to some degree on his admitting chest x-ray. He will need continued medical therapy including diuretic therapy and subsequent follow-up of his pleural effusion noninvasive studies as needed. 6. Hyperlipidemia He will continue risk factor evaluation care as deemed appropriate. 7. Hypertension His blood pressure will need to be followed and his medications adjusted as needed. 8. Diabetes mellitus He will continue evaluation care per internal medicine. 9. Chronic renal insufficiency Based upon his elevated creatinine level a left ventriculogram was not performed during his cardiac catheterization procedure. His renal function will have to be monitored as he undergoes medical evaluation and care. For all, at the present time, the patient will continue medical management, he will need to be considered as to whether or not he needs any additional cardiovascular versus noncardiovascular diagnostic studies, over time of his cardiomyopathy does not improve he will need to be considered for primary prevention ICD placement. Also, over time, if his cardiomyopathy does not improve then he may need to be evaluated at a tertiary care center with respect to advanced heart failure evaluation and care such as left ventricular assist devices, etc. Comment: The patient's case has been discussed and reviewed with the patient and his spouse. This note was generated using a voice recognition system and there may be incorrect words, spelling or punctuation that were not noted when reviewing the office note prior to saving.
[2020-03-28] MEDS: Cyanocobalamin 500 MCG Tablet PO (10:18)
[2020-03-28] MEDS: Amiodarone 200 MG Tablet PO ×2 (10:19→21:17)
--- NOTE | 2020-03-28 11:21 | EKG12_ITS ---
Test Reason : RHYTHMN CHANGE Blood Pressure : / mmHG Vent. Rate : 106 BPM Atrial Rate : 106 BPM P-R Int : 148 ms QRS Dur : 180 ms QT Int : 446 ms P-R-T Axes : 007 -70 048 degrees QTc Int : 592 ms Sinus tachycardia Right bundle branch block Left anterior fascicular block Bifascicular block Abnormal ECG Confirmed by TABITHA PAVON, TING ([id number]), legal editor SLADE CHENG ([id number]) on 03/30/2020 10:42:15 AM Referred By: LEANDRA Confirmed By:TING LU MD
[2020-03-28 11:55] LABS: Bedside Glucose 128 mg/dL (70-110)
[2020-03-28] MEDS: 0.9% Saline Lock 10 ML Syringe IV (12:26)
[2020-03-28] MEDS: Furosemide 40 MG Tablet PO (12:27)
--- NOTE | 2020-03-28 13:11 | CL.D_ITS ---
Patient Name: KAISER SANDOVAL Study Date: 03/28/2020 Performing: Ajit Coombs MD Ht: 72 inches 183 cm : 1945 Wt: 174.4 lbs 79 kg Age: 74 Gender: male BSA: 2.01 PROCEDURE(S) PERFORMED [id number]/COR/LV CLINICAL PROFILE AND INDICATIONS Indications: Cardiac Arrythmia, Valvular Disease, Cardiomyopathy Heart Failure: NYHA Class: 3, Newly Diagnosed: Yes, Heart Failure Type: Systolic Stress/Imaging Stress/Image Study Performed: No Angina Classification Anginal Classification w/in 2 Weeks: No symptoms CAD Presentations: No Sxs, no angina. CONCLUSIONS Right heart pressures - borderline to mildly elevated RVSP The patient has pulmonary hypertension which is borderline to mildly elevated PASP Comment: elevated PCWP Intracardiac shunting: None (calculated Qp/Qs: 0.75 - nonhemodynamically significant) Normal Left Ventricular End Diastolic Pressure [place] Multivessel CAD (non angiographically significant) RECOMMENDATIONS Risk factor modification Medical therapy DESCRIPTION OF PROCEDURE The patient arrived to the procedure lab. The risks and benefits of the procedure as well as a full d escription of our services here and current unavailability of surgical backup were fully explained to the patient and/or their significant other prior to the catheterization. The Timeout was completed, verifying the correct patient and procedure. The patient's procedural site was prepped and draped in the usual fashion. Local anesthetic was given subcutaneously to right groin region with Lidocaine 2%. Using a modified Seldinger technique, arterial access was obtained via the right femoral artery, a 4 Fr sheath was inserted Venous access was obtained via the right femoral vein, a 7Fr sheath was insert ed. A 7Fr thermal dilution catheter was inserted and right heart pressures were recorded, it was then advanced to PA position for cardiac outputs. O2 saturations were then obtained. Left Ventriculograph y was performed in MCMILLAN projection using a 4 Fr. Pigtail catheter. LV to AO pullback pressures were then recorded. Left Coronary Artery selective angiography was performed in multiple vi ews using a 4 Fr. JL5 catheter. Right Coronary Artery selective angiography was then performed in mul tiple views using a 4 Fr. 3DRC catheter. The Thermal dilution catheter was then removed.The arterial sheath was pulled and manual compression applied until hemostasis is achieved.. The venous sheath was then pulled and manual compression applied until hemostasis achieved CORONARY ANGIOGRAPHY DOMINANCE: Co- Dominant LEFT HEART ASSESSMENT Left Ventricular Ejection Fraction: Not assessed Normal Left Ventricular End Diastolic Pressure LVEDP: 10 mmHg RIGHT HEART ASSESSMENT Thermal CO: 3.29 Thermal CI: 1.64 Ben CO: 4.09 Ben CI: 2.03 PW: 17 PA: 32/15 24 RV: 31/8 10 RA: 05/02 8 PVR: 170 SVR: 1362 Right Heart pressures - bordeline / mildly elevated RVSP Pulmonary Hypertension: borderline mildly elevated PASP Intracardiac shunting: None (calculated Qp/Qs: 0.75 - nonhemodynamically significant) LEFT MAIN: Angiographically normal LEFT ANTERIOR DESCENDING ARTERY: Mild luminal irregularities DIAGONAL 1: Proximal - Mild luminal irregularities CIRCUMFLEX ARTERY: Mild luminal irregularities MID CIRC: diffuse: eccentric: 10 - 25 % Stenosis DISTAL CIRC: eccentric: 10 - 25 % Stenosis OM 1: Proximal - Mild luminal irregularities RIGHT CORONARY ARTERY: Mild luminal irregularities COMPLICATIONS No Complications PROCEDURE MEDICATIONS Versed 1 mg IV Oxygen: 2 L/min via nasal cannula SUMMARY OF HEMODYNAMIC DATA Time AIR REST ECG 07:28:04 RA 05/02 (8) SV 07:49:21 RV 31/8, 10 07:49:46 PW (17) PV 07:53:40 PA 32/15 (24) PA 07:54:03 LV 82/-8, 8 08:01:48 PW (19) 08:01:48 LV 76/-8, 6 08:02:04 LV 85/-1, 10 08:02:50 LV 90/-2, 13 08:03:06 PW (22) 08:03:06 LVp 75/-1, 14 08:04:16 AOp 77/55 (63) 08:04:21 AO 80/55 (64) SA 08:04:26 PA 34/18 (25) 08:05:34 AO 89/64 (50) 08:10:01 RV 39/5, 9 08:10:25 RA 04/30 (6) 08:10:34 AO 0/-6 (-5) 08:13:10 Type SV CO (l/m) CI (l/m/ HR Time AIR REST Thermal 35.40 3.29 1.64 93 07:28:04 Ben 44.00 4.09 2.03 93 07:28:04 Label % O2 Pres/Loc Time AIR REST AO 96 PV 08:12:35 PA 41 PA 08:12:43 SVC 53 08:12:55 IVC 59 SV 08:13:02 Signed By Ajit Coombs MD On 03/28/2020 13:10:49 Ajit Coombs MD
--- NOTE | 2020-03-28 13:45 | NURSING ---
This RN taking over care of pt at this time.
--- NOTE | 2020-03-28 13:49 | PN_ITS ---
<Gertrudis Villatoro - Last Filed: 03/28/20 14:00> Patient Problems: Active and Suspected Problems (Last Updated 03/28/20 @ 17:40 by Sarahi Theodore) Acute CHF (congestive heart failure) (Acute) Dyspnea (Acute) Pleural effusion, left (Acute) Paroxysmal atrial fibrillation (Acute) Valvular heart disease (Acute) Subjective: Patient seen and examined. Underwent cardiac catheterization which showed nonobstructive coronary arteries. Patient denies significant shortness of breath. Able to lie flat without difficulty. - Physical Exam Vitals/I&O's: Vital Signs Temp Pulse Resp BP Pulse Ox 97.6 F L 84 18 112/78 98 03/28/20 09:00 03/28/20 13:25 03/28/20 13:25 03/28/20 13:25 03/28/20 13:25 Oxygen Flow Rate (L/min) 4 Oxygen Delivery Method Nasal Cannula Weight: 174 lb 9.698 oz Body Mass Index (BMI) 24.6 Intake and Output for Last 24 Hours 03/26/20 03/27/20 03/28/20 23:59 23:59 23:59 Intake Total 984 / 984 1363.73 / 1380.43 708.07 / 708.07 Output Total 725 / 725 325 / 325 100 / 100 Balance 259 / 259 1038.73 / 1055.43 608.07 / 608.07 General: Alert, Oriented x3, Cooperative HEENT: Atraumatic, PERRLA, EOMI, Normocephalic Neck: Supple, No JVD, Negative Carotid Bruits Lungs: Clear to auscultation, Diminished Cardiovascular: Regular rate, Regular Rhythm, Murmur Abdomen: Bowel Sounds Present, Soft, Non Tender Extremities: No clubbing, No cyanosis, No edema, Capillary Refill Less than 3 Seconds Skin: No rashes, No breakdown Musculoskeletal: No Tenderness to Palpation of Joints or Extremities Neurological: Cranial nerves II-XII grossly intact, Neuro grossly intact Psych/Mental Status: Normal Affect, Appropriate Laboratory Results 03/27/20 16:00: Specimen Type ART, Sample Site R BRACHIAL, pH 7.49 H, Bicarbonate Actual 25.8, POC Total CO2 27, Base Excess 3 H, O2 Saturation 98, ABG pCO2 33.8 L, ABG pO2 99, Fazal Test POS, O2 Delivery Device Nasal Can, Liter Flow 2.5, Blood Gas Notified Whom RN, Blood Gas Notified Time 1600 03/27/20 16:10: Troponin I < 0.015 03/27/20 17:11: POC Glucose 197 H 03/27/20 22:02: POC Glucose 170 H 03/28/20 06:01: WBC 8.7, RBC 4.26 L, Hgb 13.0, Hct 39.8 L, MCV 93.4, MCH 30.5, MCHC 32.7, RDW Std Deviation 46.1 H, RDW Coeff of Mauricio 13.5, Plt Count 275, MPV 11.1 03/28/20 06:01: PT 16.8 H, INR 1.4 03/28/20 06:01: Sodium 141, Potassium 4.4, Chloride 106, Carbon Dioxide 30.0, Anion Gap 5, BUN 28 H, Creatinine 1.91 H, Estim Creat Clear Calc 36.11, Est GFR (MDRD) Af Amer 44 L, Est GFR (MDRD) Non-Af 37 L, BUN/Creatinine Ratio 14.7, Glucose 112 H, Calcium 8.6 03/28/20 06:29: POC Glucose 106 03/28/20 11:45: POC Glucose 128 H Current Medications Acetaminophen (Tylenol) 650 mg PO Q6H PRN PRN PRN Reason: Pain Score 1-10/Temp > 100.7 F Last Admin: 03/27/20 23:48 Dose: 650 mg Documented by: Al Hydroxide/Mg Hydroxide (Mylanta Ii) 30 ml PO Q6H PRN PRN PRN Reason: Gastric Burning Albuterol Sulfate (Ventolin Aerosols) 2.5 mg INHALATION Q2H PRN PRN PRN Reason: SOB/Wheezing Amiodarone HCl (Cordarone) 200 mg PO BID [facility] Last Admin: 03/28/20 10:19 Dose: 200 mg Documented by: Aspirin (Aspirin, Baby) 81 mg PO DAILY@0800 [facility] Last Admin: 03/28/20 05:57 Dose: 81 mg Documented by: Atorvastatin Calcium (Lipitor) 5 mg PO QHS [facility] Last Admin: 03/27/20 21:49 Dose: 5 mg Documented by: Carvedilol (Coreg) 12.5 mg PO BID [facility] Last Admin: 03/28/20 06:06 Dose: 12.5 mg Documented by: Clomipramine HCl (Anafranil) 50 mg PO BID [facility] Last Admin: 03/28/20 10:18 Dose: 50 mg Documented by: Cyanocobalamin (Vitamin B12) 500 mcg PO DAILY@0800 [facility] Last Admin: 03/28/20 10:18 Dose: 500 mcg Documented by: Dextrose (D50w Syringe) 0 gm IV X1 PRN; Protocol PRN Reason: Hypoglycemia Enoxaparin Sodium (Lovenox) 60 mg SC Q12 [facility] Last Admin: 03/28/20 10:20 Dose: Not Given Documented by: Furosemide (Lasix) 40 mg PO DAILY [facility] Last Admin: 03/28/20 12:27 Dose: 40 mg Documented by: Glucagon () 1 mg IM .X1 PRN PRN Reason: Hypoglycemia Heparin Sodium (Beef Lung) (Heparin 500 Unit/5 Ml (100/Ml)) 500 unit IV UD PRN PRN Reason: HEPARIN FLUSH Sodium Chloride () 1,000 mls @ 15 mls/hr IV .Q48H [facility] Last Infusion: 03/28/20 08:45 Dose: 0 mls/hr Documented by: Insulin Glargine (Lantus (Bkc)) 20 units SC DAILY [facility] Last Admin: 03/28/20 12:27 Dose: 20 u Documented by: Insulin Human Lispro (Humalog Kwikpen (Bk)) 0 unit SC ACHS [facility]; Protocol Last Admin: 03/28/20 11:46 Dose: Not Given Documented by: Labetalol HCl (Trandate) 5 mg IV X1 PRN PRN Reason: SBP > 160 prior to sheath pull Stop: 03/30/20 08:43 Magnesium Hydroxide (Milk Of Magnesia) 30 ml PO DAILY PRN PRN PRN Reason: Constipation Melatonin (Melatonin) 3 mg PO QHS [facility] Last Admin: 03/27/20 21:47 Dose: Not Given Documented by: Potassium Chloride (K-Dur) 40 meq PO BIDCM [facility] Last Admin: 03/28/20 10:18 Dose: 40 meq Documented by: Sacubitril/Valsartan (Entresto 24 Mg-26 Mg Tablet) 1 each PO BID [facility] Last Admin: 03/28/20 07:00 Dose: 1 each Documented by: Sodium Chloride () 10 - 40 ml IV UD PRN PRN Reason: SALINE FLUSH Last Admin: 03/28/20 12:26 Dose: 10 ml Documented by: Medical Necessity - Tobacco Use Smoking Status: Never smoker Assessment/Plan All Active Problems (Last Updated 03/28/20 @ 17:40 by Sarahi Theodore) Acute CHF (congestive heart failure) (Acute) Dyspnea (Acute) Pleural effusion, left (Acute) Paroxysmal atrial fibrillation (Acute) Valvular heart disease (Acute) Acute diastolic (congestive) heart failure (Acute) RBBB (right bundle branch block) (Acute) Atrial flutter with rapid ventricular response (Acute) Segmental and somatic dysfunction of pelvic region (Acute) Segmental and somatic dysfunction of thoracic region (Acute) Segmental and somatic dysfunction of lumbar region (Acute) 1. Acute heart failure with reduced ejection fraction/nonischemic cardiomyopathy-echocardiogram demonstrates an EF of 15%, moderately severe mitral valve insufficiency, moderate tricuspid valve insufficiency, RVSP estimated to be 47 mmHg. Chest x-ray admission with bilateral pleural effusion s. Oxygen stable on room air. BNP 917. Cardiology following. Transition from IV Lasix to oral Lasix 40 mg daily. Initiated on Entresto. Xarelto on hold. Patient may also require CLAY to further evaluate valvular dysfunction. Patient underwent cardiac catheterization which showed nonobstructive coronary arteries, mild CAD. 2. Paroxysmal atrial fibrillation/atrial flutter/SVT-continue amiodarone, carvedilol. Currently sinus rhythm. On therapeutic Lovenox. Resume Xarelto when okay per cardiology. 3. Acute kidney injury-improved with diuresis, suspect cardiorenal syndrome. Prior renal function appears normal. Trend BMP. 4. Mild CAD-heart cath in 2013 demonstrated mild CAD with nonobstructive coronary arteries. On aspirin, statin. Heart cath as noted above. 5. Hypertension-stable, continue Entresto, Carvedilol. 6. Type 2 diabetes mellitus-hold oral regimen. Accu-Cheks with sliding scale insulin. Hemoglobin A1c 6.7%. Continue Lantus regimen. 7. OCD-on clomipramine. 8. Gout-not on regimen. DVT prophylaxis- Lovenox sc Discharge planning: Monitor rate/rhythm overnight. Anticipate discharge tomorrow if patient remains stable. This patient was seen by PIPPA Rosas under the supervision of Dr. Duarte. <Livan Duarte - Last Filed: 03/28/20 19:40> - Physical Exam Vitals/I&O's: Vital Signs Temp Pulse Resp BP Pulse Ox 97.7 F L 89 16 115/85 H 99 03/28/20 16:46 03/28/20 19:06 03/28/20 16:46 03/28/20 16:46 03/28/20 16:46 Oxygen Flow Rate (L/min) 4 Oxygen Delivery Method Nasal Cannula Weight: 174 lb 9.698 oz Body Mass Index (BMI) 24.6 Intake and Output for Last 24 Hours 03/26/20 03/27/20 03/28/20 23:59 23:59 23:59 Intake Total 984 / 984 1363.73 / 1380.43 1128.07 / 1128.07 Output Total 725 / 725 325 / 325 100 / 100 Balance 259 / 259 1038.73 / 1055.43 1028.07 / 1028.07 Laboratory Results 03/27/20 22:02: POC Glucose 170 H 03/28/20 06:01: WBC 8.7, RBC 4.26 L, Hgb 13.0, Hct 39.8 L, MCV 93.4, MCH 30.5, MCHC 32.7, RDW Std Deviation 46.1 H, RDW Coeff of Mauricio 13.5, Plt Count 275, MPV 11.1 03/28/20 06:01: PT 16.8 H, INR 1.4 03/28/20 06:01: Sodium 141, Potassium 4.4, Chloride 106, Carbon Dioxide 30.0, Anion Gap 5, BUN 28 H, Creatinine 1.91 H, Estim Creat Clear Calc 36.11, Est GFR (MDRD) Af Amer 44 L, Est GFR (MDRD) Non-Af 37 L, BUN/Creatinine Ratio 14.7, Glucose 112 H, Calcium 8.6 03/28/20 06:29: POC Glucose 106 03/28/20 11:45: POC Glucose 128 H 03/28/20 16:49: POC Glucose 164 H Current Medications Acetaminophen (Tylenol) 650 mg PO Q6H PRN PRN PRN Reason: Pain Score 1-10/Temp > 100.7 F Last Admin: 03/27/20 23:48 Dose: 650 mg Documented by: Al Hydroxide/Mg Hydroxide (Mylanta Ii) 30 ml PO Q6H PRN PRN PRN Reason: Gastric Burning Albuterol Sulfate (Ventolin Aerosols) 2.5 mg INHALATION Q2H PRN PRN PRN Reason: SOB/Wheezing Alprazolam (Xanax) 0.5 mg PO QHS PRN PRN PRN Reason: INSOMNIA Amiodarone HCl (Cordarone) 200 mg PO BID [facility] Last Admin: 03/28/20 10:19 Dose: 200 mg Documented by: Aspirin (Aspirin, Baby) 81 mg PO DAILY@0800 [facility] Last Admin: 03/28/20 05:57 Dose: 81 mg Documented by: Atorvastatin Calcium (Lipitor) 5 mg PO QHS [facility] Last Admin: 03/27/20 21:49 Dose: 5 mg Documented by: Carvedilol (Coreg) 12.5 mg PO BID [facility] Last Admin: 03/28/20 06:06 Dose: 12.5 mg Documented by: Clomipramine HCl (Anafranil) 50 mg PO BID [facility] Last Admin: 03/28/20 10:18 Dose: 50 mg Documented by: Cyanocobalamin (Vitamin B12) 500 mcg PO DAILY@0800 [facility] Last Admin: 03/28/20 10:18 Dose: 500 mcg Documented by: Dextrose (D50w Syringe) 0 gm IV X1 PRN; Protocol PRN Reason: Hypoglycemia Enoxaparin Sodium (Lovenox) 60 mg SC Q12 [facility] Last Admin: 03/28/20 10:20 Dose: Not Given Documented by: Furosemide (Lasix) 40 mg PO DAILY [facility] Last Admin: 03/28/20 12:27 Dose: 40 mg Documented by: Glucagon () 1 mg IM .X1 PRN PRN Reason: Hypoglycemia Heparin Sodium (Beef Lung) (Heparin 500 Unit/5 Ml (100/Ml)) 500 unit IV UD PRN PRN Reason: HEPARIN FLUSH Sodium Chloride () 1,000 mls @ 15 mls/hr IV .Q48H [facility] Last Infusion: 03/28/20 08:45 Dose: 0 mls/hr Documented by: Insulin Glargine (Lantus (Bk)) 20 units SC DAILY [facility] Last Admin: 03/28/20 12:27 Dose: 20 u Documented by: Insulin Human Lispro (Humalog Kwikpen ([facility])) 0 unit SC ACHS [facility]; Protocol Last Admin: 03/28/20 16:53 Dose: 1 u Documented by: Labetalol HCl (Trandate) 5 mg IV X1 PRN PRN Reason: SBP > 160 prior to sheath pull Stop: 03/30/20 08:43 Magnesium Hydroxide (Milk Of Magnesia) 30 ml PO DAILY PRN PRN PRN Reason: Constipation Melatonin (Melatonin) 3 mg PO QHS [facility] Last Admin: 03/27/20 21:47 Dose: Not Given Documented by: Potassium Chloride (K-Dur) 40 meq PO BIDCM [facility] Last Admin: 03/28/20 16:52 Dose: 40 meq Documented by: Sacubitril/Valsartan (Entresto 24 Mg-26 Mg Tablet) 1 each PO BID [facility] Last Admin: 03/28/20 07:00 Dose: 1 each Documented by: Sodium Chloride () 10 - 40 ml IV UD PRN PRN Reason: SALINE FLUSH Last Admin: 03/28/20 12:26 Dose: 10 ml Documented by: Addendum: Dr. Duarte I personally examined the patient and reviewed the chart. I agree with the above. 74-year-old male with an EF of 15% on his echocardiogram underwent a cardiac cath today which showed normal coronary arteries. He does have a history of A. fib and therefore this atrial fibrillation with possible flutter and/or SVT could potentially be the cause of his cardiomyopathy. There is also concern raised by the family because he had a significant viral infection in October as a cause for a viral myocarditis leading to the cardiomyopathy. At the moment he is undergoing extensive medical management with Coreg, Lasix, Entresto as well as anticoagulation. He was also started on amiodarone drip and converted to p.o. amiodarone twice daily. We will continue to monitor, and he will need to follow-up with cardiology as an outpatient. If he does not have improvement of his EF then he will likely need further evaluation at a tertiary care center. Inpatient E&M: 31455 Subs Hosp L2
[2020-03-28] MEDS: Insulin Lispro 100 UNIT/ML INSULN.PEN SC ×2 (16:53→21:18)
[2020-03-28 17:00] LABS: Bedside Glucose 164 mg/dL (70-110)
[2020-03-28] MEDS: Atorvastatin Calcium 10 MG Tablet 5 MG PO (21:19)
[2020-03-28] MEDS: Enoxaparin 60 MG/0.6 ML Syringe SC (21:21)
[2020-03-28] MEDS: ALPRAZolam 0.5 MG Tablet PO (21:26)
[2020-03-28 22:00] LABS: Bedside Glucose 179 mg/dL (70-110)
[2020-03-29] VITALS (7 sets, daily range): BP systolic 116–121; BP diastolic 73–84; PULSE 84–91; RESP 16–18; TEMP 36.7–36.9; O2SAT 91–98
[2020-03-29 07:01] LABS: Hemoglobin 12.7 g/dL (13.0-16.5)
[2020-03-29 07:10] LABS: Bedside Glucose 123 mg/dL (70-110)
[2020-03-29 07:18] LABS: Anion Gap 1 (5-15); BUN 27 mg/dL (7-18); BUN/Creat Ratio 15.6 RATIO (10-20); Calcium,Total 8.5 mg/dL (8.5-10.1); Chloride 107 mmol/L (98-107); Creatinine, Serum 1.73 mg/dL (0.70-1.30); EST Glomerular Filtration Rate 41 mL/min (>60); Est Glom Filt Rate - Afr Amer 50 mL/min (>60); Estimated Creatinine Clearance 39.87 ml/min; Glucose 118 mg/dL (74-106); Potassium 4.8 mmol/L (3.5-5.1); Sodium Level 140 mmol/L (136-145)
[2020-03-29 07:36] LABS: VBG BASE EXCESS 3 mmol/L (-1.0-3.5); VBG Bicarbonate 28 mmol/L (22-26); VBG Oxygen Content 29 mmol/L (23-33); VBG PO2 24 mmHg (25-40); VBG SO2 41 % (50-70); VBG pCO2 44.9 mmHg (41-51)
[2020-03-29 07:36] LABS: VBG BASE EXCESS 3 mmol/L (-1.0-3.5); VBG Bicarbonate 28 mmol/L (22-26); VBG Oxygen Content 29 mmol/L (23-33); VBG PO2 28 mmHg (25-40); VBG SO2 53 % (50-70); VBG pCO2 45.4 mmHg (41-51)
[2020-03-29 07:36] LABS: VBG BASE EXCESS 4 mmol/L (-1.0-3.5); VBG Bicarbonate 29 mmol/L (22-26); VBG Oxygen Content 30 mmol/L (23-33); VBG PO2 23 mmHg (25-40); VBG SO2 41 % (50-70); VBG pH 7.42 (7.32-7.42)
[2020-03-29 07:36] LABS: Base Excess 0 mmol/L (-2 to +2); Bicarbonate 23.1 mmol/L (22-26); PO2 74 mmHG (75-100); SO2 96 % (95-99); Total Carbon Dioxide 24 mmol/L; pCO2 28.2 mmHg (35-45); pH 7.52 (7.35-7.45)
[2020-03-29 07:36] LABS: VBG BASE EXCESS 2 mmol/L (-1.0-3.5); VBG Bicarbonate 27 mmol/L (22-26); VBG Oxygen Content 28 mmol/L (23-33); VBG PO2 30 mmHg (25-40); VBG SO2 59 % (50-70); VBG pCO2 42.3 mmHg (41-51); VBG pH 7.41 (7.32-7.42)
[2020-03-29] MEDS: Cyanocobalamin 500 MCG Tablet PO (07:46)
[2020-03-29] MEDS: Aspirin 81 MG TAB.CHEW PO (07:46)
--- NOTE | 2020-03-29 08:48 | PCM.PN.CARD ---
Subjectve: The patient is awake and alert. He is currently without O2 therapy. He states he is breathing comfortably at the moment. Objective: Vital Signs Temp Pulse Resp BP Pulse Ox 98.3 F 88 16 121/83 H 97 03/29/20 06:44 03/29/20 06:48 03/29/20 06:44 03/29/20 06:44 03/29/20 06:53 Oxygen Flow Rate (L/min) 4 Oxygen Delivery Method Room Air Weight: 176 lb 12.972 oz Body Mass Index (BMI) 24.6 Intake and Output for Last 24 Hours 03/27/20 03/28/20 03/29/20 23:59 23:59 23:59 Intake Total 1363.73 / 1380.43 1328.07 / 1328.07 290 / 290 Output Total 325 / 325 425 / 425 175 / 175 Balance 1038.73 / 1055.43 903.07 / 903.07 115 / 115 General: Awake, Alert, Oriented x 3, Cooperative, No Acute Distress HEENT: Atraumatic, Normocephalic, PERRL, EOMI, Sclera Non Icteric Oral: Moist Mucosa Neck: Supple, Good ROM, No JVD Lungs: Clear to auscultation Cardiovascular: Regular Rhythm, Normal S1, Normal S2 Vascular: Normal Femoral Pulses Abdomen: Bowel Sounds Present, Soft Extremities: No edema Neurological: No Focal Motor or Sensory Deficit Psych/Mental Status: Appropriate 03/28/20 07:50: VBG pH 7.41, VBG pO2 30, VBG O2 Sat (Calc) 59, VBG O2 Content 28, VBG Base Excess 2 03/28/20 07:53: VBG pH 7.40, VBG pO2 28, VBG O2 Sat (Calc) 53, VBG O2 Content 29, VBG Base Excess 3 03/28/20 07:57: pH 7.52 H, Bicarbonate Actual 23.1, POC Total CO2 24, Base Excess 0, O2 Saturation 96, ABG pCO2 28.2 L, ABG pO2 74 L 03/28/20 08:00: VBG pH 7.42, VBG pO2 23 L, VBG O2 Sat (Calc) 41 L, VBG O2 Content 30, VBG Base Excess 4 H 03/28/20 08:08: VBG pH 7.40, VBG pO2 24 L, VBG O2 Sat (Calc) 41 L, VBG O2 Content 29, VBG Base Excess 3 03/29/20 06:15: Hgb 12.7 L, Hct 39.0 L 03/29/20 06:15: Sodium 140, Potassium 4.8, Chloride 107, Carbon Dioxide 32.0, Anion Gap 1 L, BUN 27 H, Creatinine 1.73 H, Est GFR (MDRD) Af Amer 50 L, Est GFR (MDRD) Non-Af 41 L, BUN/Creatinine Ratio 15.6, Glucose 118 H, Calcium 8.5 Rhythm: Sinus rhythm Cardiac Cath: CONCLUSIONS Right heart pressures - borderline to mildly elevated RVSP The patient has pulmonary hypertension which is borderline to mildly elevated PASP Comment: elevated PCWP Intracardiac shunting: None (calculated Qp/Qs: 0.75 - nonhemodynamically significant) Normal Left Ventricular End Diastolic Pressure [place] Multivessel CAD (non angiographically significant) RECOMMENDATIONS Risk factor modification Medical therapy CORONARY ANGIOGRAPHY DOMINANCE: Co- Dominant LEFT HEART ASSESSMENT Left Ventricular Ejection Fraction: Not assessed Normal Left Ventricular End Diastolic Pressure LVEDP: 10 mmHg RIGHT HEART ASSESSMENT Thermal CO: 3.29 Thermal CI: 1.64 Ben CO: 4.09 Ben CI: 2.03 PW: 17 PA: 32/15 24 RV: 31/8 10 RA: 8/10 8 PVR: 170 SVR: 1362 Right Heart pressures - bordeline / mildly elevated RVSP Pulmonary Hypertension: borderline mildly elevated PASP Intracardiac shunting: None (calculated Qp/Qs: 0.75 - nonhemodynamically significant) LEFT MAIN: Angiographically normal LEFT ANTERIOR DESCENDING ARTERY: Mild luminal irregularities DIAGONAL 1: Proximal - Mild luminal irregularities CIRCUMFLEX ARTERY: Mild luminal irregularities MID CIRC: diffuse: eccentric: 10 - 25 % Stenosis DISTAL CIRC: eccentric: 10 - 25 % Stenosis OM 1: Proximal - Mild luminal irregularities RIGHT CORONARY ARTERY: Mild luminal irregularities Medical Necessity - Tobacco Use Smoking Status: Never smoker Assessment/Plan 1. Atrial fibrillation/flutter The patient has a history of atrial fibrillation/flutter. It appears based upon his recent evaluation this was considered to be paroxysmal. The etiology of his atrial dysrhythmia may be multifactorial secondary to his age, cardiovascular conditions, etc. It is also unclear as to how long the patient has had episodes of atrial dysrhythmia with rapid ventricular response and whether this is contributing to his clinical scenario of CHF/pleural effusions and what appears to be his significant left ventricular systolic dysfunction/diminished LVEF versus being secondary to his underlying cardiovascular findings with respect to his left ventricle. During the cardiac catheterization procedure he was noted to have spontaneous conversion to sinus rhythm with improved rate control. He will continue medical management. This will include rate control therapy and antiarrhythmic therapy. He would also continue anticoagulant therapy. We will restart his anticoagulant at a renal adjusted dose. 2. CHF The patient was originally describe by an outside facility is having diastolic CHF. At the present time there is concern the patient has systolic mediated CHF based upon his marked diminished LV systolic function/LVEF. Again the etiology is unclear as to whether this could be related from his atrial dysrhythmia and a tachycardic induced response wants versus being from an underlying non-CAD related cardiomyopathy noting patient did not have angiographically significant appearing CAD in the past versus being related to progression of CAD and an ischemic mediated cardiomyopathy. Thus the patient underwent evaluation with diagnostic cardiac catheterization. He does not appear to have angiographically significant CAD to explain his clinical findings. 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 He will need to continue home management. If his cardiomyopathy does not improve over time that he will need to be considered for primary prevention ICD therapy. 3. CAD He has a history of non-angiographically significant CAD based upon his previous diagnostic cardiac catheterization. He has undergone diagnostic cardiac catheterization. He was found to have no angiographically significant CAD to explain his clinical course. He will need to continue risk factor evaluation and care. 4. Valvular heart disease He does have findings of MR and TR. Again it is unclear whether this is a primary concern leading to his left ventricular systolic dysfunction and associated symptoms versus being secondary to his left ventricular dilatation and systolic dysfunction-structural versus functional, respectively, valvular heart disease, etc. At the moment he will continue to be followed by history, exam, and additional studies as deemed appropriate. In the meantime he will continue medical therapy and attempt to optimize his overall cardiovascular condition. Additional evaluation of his underlying valvular related issues will be considered as deemed appropriate. 5. Pleural effusion He does have a pleural effusion. This is noted on his echocardiographic study and to some degree on his admitting chest x-ray. He will need continued medical therapy including diuretic therapy and subsequent follow-up of his pleural effusion noninvasive studies as needed. 6. Hyperlipidemia He will continue risk factor evaluation care as deemed appropriate. 7. Hypertension His blood pressure will need to be followed and his medications adjusted as needed. 8. Diabetes mellitus He will continue evaluation care per internal medicine. 9. Chronic renal insufficiency Based upon his elevated creatinine level a left ventriculogram was not performed during his cardiac catheterization procedure. His renal function will have to be monitored as he undergoes medical evaluation and care. Overall, the present time, he will continue medical management with adjustment based upon symptoms, vital signs, renal function, etc. He should be evaluated for the need for home O2 therapy especially at night. He should also be considered for outpatient evaluation for obstructive sleep apnea based upon his spouse's input with respect to concerns of snoring and apneic spells, etc. She states that she would prefer that he be referred to Dr. Rick Herman of [facility] neurology who she is familiar with that cares for patients with obstructive sleep apnea. This can be arranged on an outpatient basis. Otherwise, if the patient appears to remain symptomatically and hemodynamically stable then it appears the patient can continue on medical therapy with outpatient follow-up to include follow-up of his cardiac rhythm as well as his overall left ventricular systolic function and the need for additional evaluation and care. Comment: The patient's case has been discussed and reviewed with the patient and yesterday with the patient's spouse. This note was generated using a voice recognition system and there may be incorrect words, spelling or punctuation that were not noted when reviewing the office note prior to saving.
[2020-03-29] MEDS: Amiodarone 200 MG Tablet PO (09:02)
[2020-03-29] MEDS: Furosemide 40 MG Tablet PO (09:02)
[2020-03-29] MEDS: Carvedilol 12.5 MG Tablet PO (09:03)
[2020-03-29] MEDS: SACUBITRIL/VALSARTAN 24/26 MG TABLET 1 EACH PO (09:03)
--- NOTE | 2020-03-29 10:44 | DCINST_ITS ---
- Discharge Diagnoses Current Active Problems: Current Active and Chronic Problems (Last Updated 03/28/20 @ 17:40 by Sarahi Theodore) Acute CHF (congestive heart failure) (Acute) Dyspnea (Acute) Pleural effusion, left (Acute) Paroxysmal atrial fibrillation (Acute) Valvular heart disease (Acute) Type 2 diabetes mellitus (Chronic) CKD (chronic kidney disease) stage 3, GFR 30-59 ml/min (Chronic) You will use the following diet at home:: Cardiac Discharge Activity: Return to Normal Activity Call your doctor if you observe: Shortness of breath, Dizziness, Fainting spells, Chest pain Allergies/Adverse Reactions: Allergies No Known Allergies Allergy (Verified 03/24/20 14:08) Medications to take at Discharge Aspirin [Aspirin, Baby] 81 mg PO DAILY@79901/05/14 Cyanocobalamin [Vitamin B12] 500 mcg PO DAILY@00 01/05/14 metFORMIN HCl [Glucophage] 1,000 mg PO DAILY 01/05/14 clomipramine 50 mg capsule 50 mg PO BID 03/14/20 insulin glargine 100 unit/mL (3 mL) subcutaneous pen 20 unit SC DAILY 03/14/20 sitagliptin 100 mg tablet 100 mg PO DAILY 03/14/20 Amiodarone HCl 200 mg PO BID 03/24/20 Simvastatin 10 mg PO QHS 03/24/20 Carvedilol [Coreg (Beta Smita)] 12.5 mg PO BID #60 tab 03/29/20 Furosemide [Lasix] 40 mg PO DAILY tablet 03/29/20 Potassium Chloride [K-Dur] 40 meq PO DAILYCM #30 tab 03/29/20 Rivaroxaban [Xarelto] 15 mg PO DAILY@1700 #30 tab 03/29/20 Sacubitril/Valsartan 24/26 mg [Entresto 24 mg-26 mg Tablet] 1 ea PO BID #60 tab 03/29/20 The following prescriptions were given: Carvedilol [Coreg (Beta Smita)] 12.5 mg PO BID #60 tab Transmission Status: Pending to [id number] Sacubitril/Valsartan 24/26 mg [Entresto 24 mg-26 mg Tablet] 1 ea PO BID #60 tab Transmission Status: Pending to [id number] Potassium Chloride [K-Dur] 40 meq PO DAILYCM #30 tab Transmission Status: Pending to [id number] Rivaroxaban [Xarelto] 15 mg PO DAILY@1700 #30 tab Transmission Status: Pending to [id number] Primary Care Physician: Hernandez Montenegro DO [Primary Care Provider] - Please follow up with your Primary Care Physician in: 1 Week Test Results: Test results from this visit will be discussed in further detail at your follow- up appointment, if applicable. Please Follow Up With: Ajit Coombs MD When: 2 Weeks Please Follow Up With: Dr. Rick Herman When: Call for appt. Proposed Discharge Date: 03/29/20
[2020-03-29] MEDS: Insulin Lispro 100 UNIT/ML INSULN.PEN SC (10:58)
[2020-03-29 11:05] LABS: Bedside Glucose 202 mg/dL (70-110)
--- NOTE | 2020-03-29 11:39 | PCM.DC.SUM ---
<Gertrudis Villatoro - Last Filed: 03/29/20 11:48> Discharge Date and Diagnosis Date of Admission: 03/24/20 Date of Discharge: 03/29/20 - Primary Discharge Diagnosis Acute Problems: Active Problems (Last Updated 03/28/20 @ 17:40 by Sarahi Theodore) 1. Acute heart failure with reduced ejection fraction/nonischemic cardiomyopathy 2. Paroxysmal atrial fibrillation/atrial flutter/SVT 3. Acute kidney injury, possible underlying CKD 4. Mild CAD 5. Hypertension 6. Type 2 diabetes mellitus 7. OCD 8. Gout 9. Suspected MIRI - Secondary Discharge Diagnosis Chronic Problems: Chronic Problems (Last Updated 03/28/20 @ 17:40 by Sarahi Theodore) Atherosclerotic heart disease of [place] coronary artery without angina pectoris (Chronic) MILD per cath 01/06/14 Type 2 diabetes mellitus (Chronic) CKD (chronic kidney disease) stage 3, GFR 30-59 ml/min (Chronic) Pure hypercholesterolemia (Chronic) Essential hypertension (Chronic) Hospital Course and Treatment Imaging Results: Diagnostic Data Chest X-Ray 03/27/20 16:45 IMPRESSION: Normal x-ray examination of the chest. Electronically Signed: Gely Denton MD at 18:07 EDT Tel , Service support , Dr. Coombs- Cardiology Operations: None Procedures: 2-D Echocardiogram, Cardiac catheterization Summary of Care Provided: The patient is a 74 year old M admitted 03/24/2020 due to shortness of breath. 1. Acute heart failure with reduced ejection fraction/nonischemic cardiomyopathy-echocardiogram demonstrates an EF of 15%, moderately severe mitral valve insufficiency, moderate tricuspid valve insufficiency, RVSP estimated to be 47 mmHg. Chest x-ray admission with bilateral pleural effusions. Oxygen stable on room air. BNP 917. Cardiology following. Transition from IV Lasix to oral Lasix 40 mg daily. Initiated on Entresto. Continue renally dosed Xarelto. Patient underwent cardiac catheterization which showed nonobstructive coronary arteries, mild CAD. Ambulatory pulse ox completed prior to discharge and patient did not require further supplemental oxygen. Follow-up with cardiology in 2 weeks. 2. Paroxysmal atrial fibrillation/atrial flutter/SVT-continue amiodarone, carvedilol. Currently sinus rhythm. Resume Xarelto at discharge. 3. Acute kidney injury-improved with diuresis, suspect cardiorenal syndrome. Possible underlying CKD however no significant prior labs for comparison. Recommend outpatient follow-up with PCP for further monitoring and referral to nephrology if indicated. 4. Mild CAD-heart cath in 2013 demonstrated mild CAD with nonobstructive coronary arteries. On aspirin, statin. Heart cath as noted above. 5. Hypertension-stable, continue Entresto, Carvedilol. 6. Type 2 diabetes mellitus-continue oral and Lantus regimen at discharge. Hemoglobin A1c 6.7%. 7. OCD-on clomipramine. 8. Gout-not on regimen. 9. Suspected MIRI-referred to Dr. Herman for recommended sleep study. General: Alert, Oriented x3, Cooperative HEENT: Atraumatic, PERRLA, EOMI, Normocephalic Neck: Supple, No JVD, Negative Carotid Bruits Lungs: Clear to auscultation, Diminished Cardiovascular: Regular rate, Regular Rhythm, Murmur Abdomen: Bowel Sounds Present, Soft, Non Tender Extremities: No clubbing, No cyanosis, No edema, Capillary Refill Less than 3 Seconds Skin: No rashes, No breakdown Musculoskeletal: No Tenderness to Palpation of Joints or Extremities Neurological: Cranial nerves II-XII grossly intact, Neuro grossly intact Psych/Mental Status: Normal Affect, Appropriate Patient seen and examined prior to discharge. Physical assessment as noted above. Patient is stable for discharge with follow up recommendations as noted above. This patient was seen by PIPPA Rosas under the supervision of Dr. Duarte. - Physical Exam Vitals/I&O's: Vital Signs Temp Pulse Resp BP Pulse Ox 98.5 F 85 16 119/73 95 03/29/20 08:59 03/29/20 08:59 03/29/20 08:59 03/29/20 08:59 03/29/20 10:46 Oxygen Flow Rate (L/min) 4 Oxygen Delivery Method Room Air Weight: 176 lb 12.972 oz Body Mass Index (BMI) 24.6 Intake and Output for Last 24 Hours 03/27/20 03/28/20 03/29/20 23:59 23:59 23:59 Intake Total 1363.73 / 1380.43 1328.07 / 1328.07 290 / 290 Output Total 325 / 325 425 / 425 175 / 175 Balance 1038.73 / 1055.43 903.07 / 903.07 115 / 115 Laboratory Results 03/28/20 07:50: VBG pH 7.41, VBG pO2 30, VBG O2 Sat (Calc) 59, VBG O2 Content 28, VBG Base Excess 2, POC Mix VBG pCO2 Pt Tmp 42.3 03/28/20 07:53: VBG pH 7.40, VBG pO2 28, VBG O2 Sat (Calc) 53, VBG O2 Content 29, VBG Base Excess 3, POC Mix VBG pCO2 Pt Tmp 45.4 03/28/20 07:57: pH 7.52 H, Bicarbonate Actual 23.1, POC Total CO2 24, Base Excess 0, O2 Saturation 96, ABG pCO2 28.2 L, ABG pO2 74 L 03/28/20 08:00: VBG pH 7.42, VBG pO2 23 L, VBG O2 Sat (Calc) 41 L, VBG O2 Content 30, VBG Base Excess 4 H, POC Mix VBG pCO2 Pt Tmp 44.0 03/28/20 08:08: VBG pH 7.40, VBG pO2 24 L, VBG O2 Sat (Calc) 41 L, VBG O2 Content 29, VBG Base Excess 3, POC Mix VBG pCO2 Pt Tmp 44.9 03/28/20 11:45: POC Glucose 128 H 03/28/20 16:49: POC Glucose 164 H 03/28/20 21:11: POC Glucose 179 H 03/29/20 06:15: Hgb 12.7 L, Hct 39.0 L 03/29/20 06:15: Sodium 140, Potassium 4.8, Chloride 107, Carbon Dioxide 32.0, Anion Gap 1 L, BUN 27 H, Creatinine 1.73 H, Estim Creat Clear Calc 39.87, Est GFR (MDRD) Af Amer 50 L, Est GFR (MDRD) Non-Af 41 L, BUN/Creatinine Ratio 15.6, Glucose 118 H, Calcium 8.5 03/29/20 06:50: POC Glucose 123 H 03/29/20 10:56: POC Glucose 202 H Current Medications Acetaminophen (Tylenol) 650 mg PO Q6H PRN PRN PRN Reason: Pain Score 1-10/Temp > 100.7 F Last Admin: 03/27/20 23:48 Dose: 650 mg Documented by: Al Hydroxide/Mg Hydroxide (Mylanta Ii) 30 ml PO Q6H PRN PRN PRN Reason: Gastric Burning Albuterol Sulfate (Ventolin Aerosols) 2.5 mg INHALATION Q2H PRN PRN PRN Reason: SOB/Wheezing Alprazolam (Xanax) 0.5 mg PO QHS PRN PRN PRN Reason: INSOMNIA Last Admin: 03/28/20 21:26 Dose: 0.5 mg Documented by: Amiodarone HCl (Cordarone) 200 mg PO BID [facility] Last Admin: 03/29/20 09:02 Dose: 200 mg Documented by: Aspirin (Aspirin, Baby) 81 mg PO DAILY@0800 [facility] Last Admin: 03/29/20 07:46 Dose: 81 mg Documented by: Atorvastatin Calcium (Lipitor) 5 mg PO QHS [facility] Last Admin: 03/28/20 21:19 Dose: 5 mg Documented by: Carvedilol (Coreg) 12.5 mg PO BID [facility] Last Admin: 03/29/20 09:03 Dose: 12.5 mg Documented by: Clomipramine HCl (Anafranil) 50 mg PO BID [facility] Last Admin: 03/29/20 09:04 Dose: 50 mg Documented by: Cyanocobalamin (Vitamin B12) 500 mcg PO DAILY@0800 [facility] Last Admin: 03/29/20 07:46 Dose: 500 mcg Documented by: Dextrose (D50w Syringe) 0 gm IV X1 PRN; Protocol PRN Reason: Hypoglycemia Furosemide (Lasix) 40 mg PO DAILY [facility] Last Admin: 03/29/20 09:02 Dose: 40 mg Documented by: Glucagon () 1 mg IM .X1 PRN PRN Reason: Hypoglycemia Heparin Sodium (Beef Lung) (Heparin 500 Unit/5 Ml (100/Ml)) 500 unit IV UD PRN PRN Reason: HEPARIN FLUSH Sodium Chloride () 1,000 mls @ 15 mls/hr IV .Q48H [facility] Last Infusion: 03/29/20 04:49 Dose: Infused Documented by: Insulin Glargine (Lantus ([facility])) 20 units SC DAILY [facility] Last Admin: 03/29/20 09:02 Dose: 20 unit Documented by: Insulin Human Lispro (Humalog Kwikpen ([facility])) 0 unit SC ACHS [facility]; Protocol Last Admin: 03/29/20 10:58 Dose: 1 u Documented by: Labetalol HCl (Trandate) 5 mg IV X1 PRN PRN Reason: SBP > 160 prior to sheath pull Stop: 03/30/20 08:43 Magnesium Hydroxide (Milk Of Magnesia) 30 ml PO DAILY PRN PRN PRN Reason: Constipation Melatonin (Melatonin) 3 mg PO QHS [facility] Last Admin: 03/28/20 21:24 Dose: Not Given Documented by: Potassium [facility] ([facility]Dur) [facility] Last Admin: 03/29/20 09:00 Dose: 40 meq Documented by: Rivaroxaban (Xarelto) 15 mg PO DAILY@1700 [facility] Sacubitril/Valsartan (Entresto 24 Mg-26 Mg Tablet) 1 each PO BID [facility] Last Admin: 03/29/20 09:03 Dose: 1 each Documented by: Sodium Chloride () 10 - 40 ml IV UD PRN PRN Reason: SALINE FLUSH Last Admin: 03/28/20 12:26 Dose: 10 ml Documented by: Discharge Diet: Low fat/ Low Cholesterol, 8 Cup Fluid Restriciton, 2000 mg Sodium Diet Discharge Activity: Return to Normal Activity Call your doctor if you observe: Shortness of breath, Dizziness, Fainting spells, Chest pain Home Medications: Medications to take at Discharge Aspirin [Aspirin, Baby] 81 mg PO DAILY@0800 01/05/14 Cyanocobalamin [Vitamin B12] 500 mcg PO DAILY@0800 01/05/14 metFORMIN HCl [Glucophage] 1,000 mg PO DAILY 01/05/14 clomipramine 50 mg capsule 50 mg PO BID 03/14/20 insulin glargine 100 unit/mL (3 mL) subcutaneous pen 20 unit SC DAILY 03/14/20 sitagliptin 100 mg tablet 100 mg PO DAILY 03/14/20 Amiodarone HCl 200 mg PO BID 03/24/20 Simvastatin 10 mg PO QHS 03/24/20 Carvedilol [Coreg (Beta Smita)] 12.5 mg PO BID #60 tab 03/29/20 Furosemide [Lasix] 40 mg PO DAILY tab 03/29/20 Potassium Chloride [K-Dur] 40 meq PO DAILYCM #30 tab 03/29/20 Rivaroxaban [Xarelto] 15 mg PO DAILY@1700 #30 tab 03/29/20 Sacubitril/Valsartan 24/26 mg [Entresto 24 mg-26 mg Tablet] 1 ea PO BID #60 tab 03/29/20 Following Prescrptions Were Given to Patient: Carvedilol [Coreg (Beta Smita)] 12.5 mg PO BID #60 tab Transmission Status: Received by [facility]/pharmacy #[id number] Sacubitril/Valsartan 24/26 mg [Entresto 24 mg-26 mg Tablet] 1 ea PO BID #60 tab Transmission Status: Received by [facility]/pharmacy #[id number] Potassium Chloride [K-Dur] 40 meq PO DAILYCM #30 tab Transmission Status: Received by [facility]pharmacy #[id number] Rivaroxaban [Xarelto] 15 mg PO DAILY@1700 #30 tab Transmission Status: Received by [facility]/pharmacy #[id number] Primary Care Physician: Hernandez Montenegro DO [Primary Care Provider] - Please follow up with your Primary Care Physician in: 1 Week Please Follow Up With: Ajit Coombs MD When: 2 Weeks Please Follow Up With: Dr. Rick Herman When: Call for appt. Disposition: Home Minutes spent on discharge:: 35 Patient Condition:: Stable Medical Necessity - Tobacco Use Smoking Status: Never smoker Meaningful Use Info Meaningful Use Diagnoses (Choose all that apply): CHF - CHF ALBERTINA/ARB ordered at discharge?: Yes Documented LVEF (%): 15 <Livan Duarte F - Last Filed: 03/29/20 13:31> Discharge Date and Diagnosis - Secondary Discharge Diagnosis Chronic Problems: Chronic Problems (Last Updated 03/29/20 @ 11:39 by PIPPA Rosas) Atherosclerotic heart disease of [place] coronary artery without angina pectoris (Chronic) MILD per cath 01/06/14 Type 2 diabetes mellitus (Chronic) CKD (chronic kidney disease) stage 3, GFR 30-59 ml/min (Chronic) Pure hypercholesterolemia (Chronic) Essential hypertension (Chronic) Hospital Course and Treatment Summary of Care Provided: The patient is a 74 year old M [] - Physical Exam Vitals/I&O's: Vital Signs Temp Pulse Resp BP Pulse Ox 98.5 F 85 16 119/73 95 03/29/20 08:59 03/29/20 08:59 03/29/20 08:59 03/29/20 08:59 03/29/20 10:46 Oxygen Flow Rate (L/min) 4 Oxygen Delivery Method Room Air Weight: 176 lb 12.972 oz Body Mass Index (BMI) 24.6 Intake and Output for Last 24 Hours 03/27/20 03/28/20 03/29/20 23:59 23:59 23:59 Intake Total 1363.73 / 1380.43 1328.07 / 1328.07 290 / 290 Output Total 325 / 325 425 / 425 175 / 175 Balance 1038.73 / 1055.43 903.07 / 903.07 115 / 115 Laboratory Results 03/28/20 07:50: VBG pH 7.41, VBG pO2 30, VBG O2 Sat (Calc) 59, VBG O2 Content 28, VBG Base Excess 2, POC Mix VBG pCO2 Pt Tmp 42.3 03/28/20 07:53: VBG pH 7.40, VBG pO2 28, VBG O2 Sat (Calc) 53, VBG O2 Content 29, VBG Base Excess 3, POC Mix VBG pCO2 Pt Tmp 45.4 03/28/20 07:57: pH 7.52 H, Bicarbonate Actual 23.1, POC Total CO2 24, Base Excess 0, O2 Saturation 96, ABG pCO2 28.2 L, ABG pO2 74 L 03/28/20 08:00: VBG pH 7.42, VBG pO2 23 L, VBG O2 Sat (Calc) 41 L, VBG O2 Content 30, VBG Base Excess 4 H, POC Mix VBG pCO2 Pt Tmp 44.0 03/28/20 08:08: VBG pH 7.40, VBG pO2 24 L, VBG O2 Sat (Calc) 41 L, VBG O2 Content 29, VBG Base Excess 3, POC Mix VBG pCO2 Pt Tmp 44.9 03/28/20 16:49: POC Glucose 164 H 03/28/20 21:11: POC Glucose 179 H 03/29/20 06:15: Hgb 12.7 L, Hct 39.0 L 03/29/20 06:15: Sodium 140, Potassium 4.8, Chloride 107, Carbon Dioxide 32.0, Anion Gap 1 L, BUN 27 H, Creatinine 1.73 H, Estim Creat Clear Calc 39.87, Est GFR (MDRD) Af Amer 50 L, Est GFR (MDRD) Non-Af 41 L, BUN/Creatinine Ratio 15.6, Glucose 118 H, Calcium 8.5 03/29/20 06:50: POC Glucose 123 H 03/29/20 10:56: POC Glucose 202 H Addendum: Dr. Duarte I personally examined the patient and reviewed the chart. I agree with the above. 74-year-old male with an EF of 15% on his echocardiogram underwent a cardiac cath today which showed normal coronary arteries. He does have a history of A. fib and therefore this atrial fibrillation with possible flutter and/or SVT could potentially be the cause of his cardiomyopathy. There is also concern raised by the family because he had a significant viral infection in October as a cause for a viral myocarditis leading to the cardiomyopathy. At the moment he is undergoing extensive medical management with Coreg, Lasix, Entresto as well as anticoagulation. He was also started on amiodarone drip and converted to p.o. amiodarone twice daily. We will continue to monitor, and he will need to follow-up with cardiology as an outpatient. If he does not have improvement of his EF then he will likely need further evaluation at a tertiary care center. 03/29/2020: He is feeling much better today and is looking forward to discharge. He is all overnight with his medical management and no significant adjustments need to be made today. He did have an ambulatory Pulse ox prior to discharge and was not found to need any home O2. No need to follow-up with Dr. Herman as an outpatient for sleep study to evaluate for obstructive sleep apnea. I discussed with him the risks benefits of discharge and he expressed understanding. Inpatient E&M: [id number] Disch Hosp
--- NOTE | 2020-03-30 14:45 | CASEMGMT ---
Addendum entered by Kerry Thomson 03/30/20 15:27: Call back from pt at this time. Pt states that he is eating/moving around better at this time. Pt states no questions regarding discharge instructions/medications at this time and states 'My did well getting that all taken care of.' Pt states plans to get f/u appt's set up. Pt states some delay in answering of call light but states that 'Dr's/nurses were all really nice.' Pt states no further questions/concerns/needs at this time and thanked this DENISHA ASH for the f/u. Mimi DENNY CM Original Note: RN CM Discharge F/U Phone Call LACE: 12 Strata: 3 Discharge date: 03/29/2020 Call date: 03/30/2020 Call time: [id number] Attempted to reach pt without success at this time, message left for pt to call this RN CM back if/when able. Mimi DENNY CM Admission dx: HFrEF decompensated
== END 2020-03-29 11:47 | disposition home or self-care (01) | DRG 286 ==
LOC: ED 15:52 → PCU 16:12
PROVIDERS: Internal Medicine; Internal Medicine Cardiovascular Disease; Nurse Practitioner Family; Admitting Provider Internal Medicine; Emergency Provider Emergency Medicine; PCP Student in an Organized Health Care Education/Training Program; Visit Provider Family Medicine
DX: I11.0 Hypertensive heart disease with heart failure (principal); I50.21 Acute systolic (congestive) heart failure; I48.92 Unspecified atrial flutter; I47.1 Supraventricular tachycardia; N17.9 Acute kidney failure, unspecified; J90 Pleural effusion, not elsewhere classified; I25.5 Ischemic cardiomyopathy; I25.10 Atherosclerotic heart disease of native coronary artery without angina pectoris; I48.0 Paroxysmal atrial fibrillation; I08.1 Rheumatic disorders of both mitral and tricuspid valves; I27.20 Pulmonary hypertension, unspecified; E11.9 Type 2 diabetes mellitus without complications; E78.00 Pure hypercholesterolemia, unspecified; E87.6 Hypokalemia; F42.9 Obsessive-compulsive disorder, unspecified; M10.9 Gout, unspecified; G47.33 Obstructive sleep apnea (adult) (pediatric); Z79.4 Long term (current) use of insulin; Z79.82 Long term (current) use of aspirin; Z79.01 Long term (current) use of anticoagulants; Z79.899 Other long term (current) drug therapy
CPT/HCPCS: 36415; 36600; 71045; 71046; 80048; 80053; 80061; 81001; 82803; 82962; 83036; 83735; 83880; 84100; 84443; 84484; 85014; 85018; 85025; 85027; 85610; 85730; 93005; 93460; 94762; 97161; 97165; 97802; 99152; 99153; 99251; 99285; J7030; A4216; C1751; C1769; C1894; G0463; J0153; J1940; Q9967

== ENCOUNTER 2020-04-11 12:18 | Observation (INO) | payer OTHER, SELFPAY ==
[2020-03-24 17:00] VITALS: BMI 24.6
[2020-04-11] VITALS (9 sets, daily range): BP systolic 98–132; BP diastolic 63–80; PULSE 90–105; RESP 17–22; TEMP 35.6–36.9; O2SAT 95–98; BMI 24.7; BMI 24.8
--- NOTE | 2020-04-11 12:26 | EKG12_ITS ---
Test Reason : Blood Pressure : / mmHG Vent. Rate : 096 BPM Atrial Rate : 192 BPM P-R Int : 000 ms QRS Dur : 204 ms QT Int : 498 ms P-R-T Axes : 000 -78 089 degrees QTc Int : 629 ms Atrial flutter with variable A-V block Right bundle branch block Left anterior fascicular block Bifascicular block Abnormal ECG Confirmed by TABITHA PAVON, TING ([id number]), medical editor YOSEPH MALAGON ([id number]) on 04/13/2020 8:52:37 AM Referred By: TABITHA Confirmed By:TING LU MD
--- NOTE | 2020-04-11 12:36 | RAD_ITS ---
STUDY: X-RAY CHEST REASON FOR EXAM: Male, 74 years old. INCREASED SOB -- PT HAS HX OF CHF, HTN, AFIB TECHNIQUE: Single AP portable view of the chest. COMPARISON: 03/27/2020 FINDINGS: The lungs are clear and expanded. There is no demonstrated pleural abnormality. Normal size heart. Normal mediastinum and brook. Normal visualized pulmonary arteries. Normal visualized aortic arch and descending thoracic aorta. Normal visualized thoracic spine. Normal visualized ribs, clavicles, and shoulders. There is no demonstrated abnormality of the visualized soft tissue structures of the upper abdomen. RAD/Chest 1 View (Portable) IMPRESSION: No acute pulmonary process Electronically Signed: Jhonatan Moran MD at 12:47 EDT , Service support ,
--- NOTE | 2020-04-11 12:39 | ED.VIS.GEN ---
History of Present Illness Chief Complaint: Shortness of Breath Informant: Patient Onset: Days Context: Gradual Onset Timing: Intermittent Current Severity: Moderate Maximum Severity: Moderate Narrative: The patient is a 74-year-old male medical history significant for nonischemic cardiomyopathy with CHF that presents to the emergency department with shortness of breath. The patient was admitted at the beginning of this month. He underwent cardiac catheterization and echo. He was found to be in atrial flutter with intermittent conduction. He was started on anticoagulants, was diuresed, and had thoracentesis. He states that since discharge, he still had this intermittent dyspnea. He states at night, it feels like he cannot lay flat. He feels like he cannot walk a distance without getting short of breath. He denies any cough. He denies any fevers or chills. He denies any weight gain. He has had no change in bowel habits. He is not had dark or tarry stools. Prior similar symptoms: Yes Recent Illness/Hospitalization: Yes Past Medical History - Allergies and Home Meds Allergies/Adverse Reactions: Allergies No Known Allergies Allergy (Verified 04/11/20 12:21) Primary Care Physician: Hernandez Montenegro DO [Primary Care Provider] - Prior records reviewed: Yes Past Medical History: - - Cardiomyopathy, diastolic CHF, coronary vascular disease, atrial flutter Surgical History: noncontributory Smoking Status: Never smoker Review of Systems General: Denies: Chills, Fever, Sweats Eyes: Denies: Visual changes - bilaterally, Diplopia ENT: Denies: Rhinorrhea, Sore throat Cardiovascular: Denies: Chest pain, Palpitations Respiratory: Reports: Dyspnea, Cough. Denies: Dyspnea on exertion Gastrointestinal: Denies: Abdominal pain, Nausea, Vomiting, Diarrhea, Melena, Hematochezia Genitourinary: Denies: Dysuria, Hematuria, Frequency Musculoskeletal: Denies: Back pain, Extremity Pain Skin: Denies: Rash, Wounds Neurological: Denies: Headache, Weakness, Numbness Physical Exam Vital Signs/Narrative: Vital Signs Temp Pulse Resp BP Pulse Ox 04/11/20 12:19 96.0 F L 90 20 H 132/74 H 96 Inital Vital Signs reviewed: Yes General: Well nourished, Well developed, No Acute Distress Head: Normocephalic, Atraumatic Eyes: Perrl, EOMI ENT: Moist mucous membranes, No rhinorrhea Neck: Supple, Nontender Cardiovascular: Regular rate, Regular rhythm, No murmurs Respiratory: No distress, CTA bilaterally, Chest nontender Abdomen: Soft, Nontender, Nondistended, Normal bowel sounds Back: Nontender, Normal Inspection Extremities: Nontender, No edema Skin: Normal color, No rash Neurological: Alert, Oriented x3, Cranial nerves II-XII grossly intact, Normal Strength, Normal Sensation Psychological: Normal affect, Normal Mood Diagnostic/Tx/Re-eval Clinical Impression(s) from Imaging Studies Chest X-Ray 04/11/20 12:36 IMPRESSION: No acute pulmonary process Electronically Signed: Jhonatan Moran MD at 12:47 EDT , Service support , Abnormal Lab Results 04/11/20 04/11/20 04/11/20 12:56 12:56 12:56 WBC 8.2 RBC 3.74 L Hgb 11.4 L Hct 34.7 L MCV 92.8 MCH 30.5 MCHC 32.9 RDW Std Deviation 46.9 H RDW Coeff of Mauricio 13.9 Plt Count 279 MPV 11.2 Immature Gran % (Auto) 0.600 Neut % (Auto) 78.7 H Lymph % (Auto) 10.1 L [place] % (Auto) 9.0 Eos % (Auto) 1.5 Baso % (Auto) 0.1 Absolute Neuts (auto) 6.4 Absolute Lymphs (auto) 0.83 Nucleated RBC % 0 Sodium 141 Potassium 5.2 H Chloride 107 Carbon Dioxide 29.0 Anion Gap 5 BUN 31 H Creatinine 2.05 H Estim Creat Clear Calc 33.65 Est GFR (MDRD) Af Amer 41 L Est GFR (MDRD) Non-Af 34 L BUN/Creatinine Ratio 15.1 Glucose 110 H Calcium 8.7 Total Bilirubin 0.50 AST 40 H ALT 31 Alkaline Phosphatase 114 Troponin I < 0.015 B-Natriuretic Peptide 1825.0 H Total Protein 6.8 Albumin 3.1 L Globulin 3.7 Albumin/Globulin Ratio 0.8 L Blood Type Antibody Screen 04/11/20 12:56 WBC RBC Hgb Hct MCV MCH MCHC RDW Std Deviation RDW Coeff of Mauricio Plt Count MPV Immature Gran % (Auto) Neut % (Auto) Lymph % (Auto) [place] % (Auto) Eos % (Auto) Baso % (Auto) Absolute Neuts (auto) Absolute Lymphs (auto) Nucleated RBC % Sodium Potassium Chloride Carbon Dioxide Anion Gap BUN Creatinine Estim Creat Clear Calc Est GFR (MDRD) Af Amer Est GFR (MDRD) Non-Af BUN/Creatinine Ratio Glucose Calcium Total Bilirubin AST ALT Alkaline Phosphatase Troponin I B-Natriuretic Peptide Total Protein Albumin Globulin Albumin/Globulin Ratio Blood Type O POSITIVE Antibody Screen NEGATIVE - Rhythm Strip Rhythm Strip: Sinus Rhythm Rate: 90 Ectopy: PAC(s) - EKG Initial EKG Interpretation: Sinus Rhythm, No Acute Injury Pattern, Non-Specific ST Changes Prior: Unchanged - Medical Decision Making The patient presents to the emergency department with shortness of breath. He does have rather significant history of dilated cardiomyopathy with an EF of 15%. He was not hypoxic on room air on arrival. EKG was obtained which showed sinus rhythm with biventricular block. Chest x-ray shows cardiomegaly without significant effusions. Metabolic work-up was relatively unremarkable. BNP is elevated. The patient was ambulated through the emergency department. He did become hypoxic with air hunger and saturations in the mid to low 80s. I discussed the patient with the hospitalist as I do feel he is likely going to need to be admitted for diuresis given his exertional dyspnea. I also discussed the patient with cardiology who is in agreement with plan of care. Impression 1. Acute decompensated CHF with hypoxia ED Disposition - Plan for ED Patient: Referrals: Hernandez Montenegro DO [Primary Care Provider] -
[2020-04-11 13:09] LABS: Absolute Lymphocyte Count 0.83 X10^3/uL (0.83-4.51); Absolute Neutrophil Count 6.4 X10^3/uL (2.0-7.7); Basophil# 0.01 X10^3/uL; Basophil% 0.1 % (0-1); Eosinophil# 0.12 X10^3/uL; Eosinophils% 1.5 % (0-5); Hematocrit 34.7 % (40-54); Hemoglobin 11.4 g/dL (13.0-16.5); Lymphocyte # 0.83 X10^3/ul (4.0); Lymphocyte % 10.1 % (19-41); Mean Corp Hgb Conc 32.9 g/dL (32-36); Mean Corpuscular Hgb 30.5 pg (27.0-32.0); Mean Corpuscular Volume 92.8 fL (80-94); Mean Platelet Vol. 11.2 fl (6.2-12.0); Monocyte# 0.74 X10^3/uL; NRBC Flagged by Analyzer 0 % (0-5); Neutrophil # 6.43 X10^3/uL (2.7-7.7); Neutrophil % 78.7 % (47-70); Platelet Count 279 K/mm3 (150-450); RBC Distribution Width CV 13.9 % (11.6-14.6); RBC Distribution Width SD 46.9 fl (35.1-43.9); Red Blood Count 3.74 M/mm3 (4.6-6.2); White Blood Count 8.2 K/mm3 (4.4-11.0)
[2020-04-11 13:27] LABS: ALB/GLOB Ratio 0.8 RATIO (0.9-2.4); AST(SGOT) 40 U/L (15-37); Alanine Aminotransfer ALT/SGPT 31 U/L (16-61); Albumin, Serum 3.1 g/dL (3.2-5.0); Alkaline Phosphatase 114 U/L (45-117); Anion Gap 5 (5-15); BUN 31 mg/dL (7-18); BUN/Creat Ratio 15.1 RATIO (10-20); Calcium,Total 8.7 mg/dL (8.5-10.1); Chloride 107 mmol/L (98-107); Creatinine, Serum 2.05 mg/dL (0.70-1.30); EST Glomerular Filtration Rate 34 mL/min (>60); Est Glom Filt Rate - Afr Amer 41 mL/min (>60); Estimated Creatinine Clearance 33.65 ml/min; Globulin 3.7 g/dL (2.2-4.2); Glucose 110 mg/dL (74-106); Potassium 5.2 mmol/L (3.5-5.1); Protein, Total 6.8 g/dL (6.4-8.2); Sodium Level 141 mmol/L (136-145)
[2020-04-11] MEDS: Furosemide 20 MG/2 ML VIAL IV (14:40)
--- NOTE | 2020-04-11 15:01 | PCM.HP.STD ---
<Gertrudis Villatoro - Last Filed: 04/11/20 15:28> Problem List (1) Acute CHF (congestive heart failure) Status: Acute (2) Dyspnea Status: Acute (3) Pleural effusion, left Status: Acute (4) Paroxysmal atrial fibrillation Status: Chronic (5) Valvular heart disease Status: Chronic (6) Atherosclerotic heart disease of [place] coronary artery without angina pectoris Status: Chronic Comment: MILD per cath 01/06/14 (7) Type 2 diabetes mellitus Status: Chronic (8) RBBB (right bundle branch block) Status: Acute (9) CKD (chronic kidney disease) stage 3, GFR 30-59 ml/min Status: Chronic (10) Pure hypercholesterolemia Status: Chronic (11) Essential hypertension Status: Chronic (12) Atrial flutter with rapid ventricular response Status: Chronic (13) Segmental and somatic dysfunction of pelvic region Status: Chronic (14) Segmental and somatic dysfunction of thoracic region Status: Chronic (15) Segmental and somatic dysfunction of lumbar region Status: Chronic History of Present Illness Date of Admission: 04/11/20 Chief Complaint: Shortness of breath, loss of appetite, difficulty sleeping. The patient is a 74 year old M who presents to the emergency room due to worsening shortness of breath. Patient states for the last 3 weeks he has had shortness of breath, difficulty sleeping and poor appetite. He states today he had significant shortness of breath with walking across to his house. He has been sleeping propped up due to difficulty breathing while lying flat. He denies fever, chills, cough. Denies nausea, vomiting, diarrhea. Patient states he simply does not feel like eating. He also reports insomnia has been ongoing for several months however worsened recently. He denies chest pain. Denies weight gain or swelling. Past Medical History Past Medical History (Chronic Problems): Chronic Problems (Last Updated 03/29/20 @ 11:39 by Gertrudis Villatoro, CLIENT ADVOCATE-C) Paroxysmal atrial fibrillation (Chronic) Valvular heart disease (Chronic) Atherosclerotic heart disease of [place] coronary artery without angina pectoris (Chronic) MILD per cath 01/06/14 Type 2 diabetes mellitus (Chronic) CKD (chronic kidney disease) stage 3, GFR 30-59 ml/min (Chronic) Pure hypercholesterolemia (Chronic) Essential hypertension (Chronic) Atrial flutter with rapid ventricular response (Chronic) Segmental and somatic dysfunction of pelvic region (Chronic) Segmental and somatic dysfunction of thoracic region (Chronic) Segmental and somatic dysfunction of lumbar region (Chronic) Medical History: Medical History (Last Updated 03/29/20 @ 11:39 by PIPPA Rosas) Atherosclerotic heart disease of [place] coronary artery without angina pectoris (Chronic) I25.10 MILD per cath 01/06/14 Type 2 diabetes mellitus (Chronic) E11.9 Acute diastolic (congestive) heart failure (Acute) I50.31 RBBB (right bundle branch block) (Acute) I45.10 CKD (chronic kidney disease) stage 3, GFR 30-59 ml/min (Chronic) N18.3 Pure hypercholesterolemia (Chronic) E78.00 Essential hypertension (Chronic) I10 Atrial flutter with rapid ventricular response (Acute) I48.92 Arthritis M19.90 Gout M10.9 DDD (degenerative disc disease), lumbar M51.36 OCD (obsessive compulsive disorder) F42.9 Scoliosis M41.9 R scoliosis (apex L3) History of left heart catheterization (LHC) Onset Date: ~03/28/20 Z98.890 01/06/14; LEFT MAIN: Angiographically normal; LEFT ANTERIOR DESCENDING ARTERY: Mild luminal irregularities DIAGONAL 1: Proximal - Mild luminal irregularities; CIRCUMFLEX ARTERY: Mild luminal irregularities; MID CIRC: diffuse: eccentric: 10 - 25 % Stenosis; DISTAL CIRC: eccentric: 10 - 25 % Stenosis; OM 1: Proximal - Mild luminal irregularities; RIGHT CORONARY ARTERY: Mild luminal irregularities, per cardiac cath 03/28/20 Allergies No Known Allergies Allergy (Verified 04/11/20 12:21) Home Medications: Ambulatory Orders Medication Instructions Recorded Aspirin [Aspirin, Baby] 81 mg PO DAILY@79901/05/14 Cyanocobalamin [Vitamin B12] 500 mcg PO DAILY@79901/05/14 metFORMIN HCl [Glucophage] 1,000 mg PO BID 01/05/14 insulin glargine 100 unit/mL (3 20 unit SC DAILY 03/14/20 mL) subcutaneous pen sitagliptin 100 mg tablet 100 mg PO QHS 03/14/20 Amiodarone HCl 200 mg PO BID 04/11/20 Carvedilol [Coreg (Beta Smita)] 12.5 mg PO BID 04/11/20 Clomipramine HCl 75 mg PO QHS 04/11/20 Furosemide [Lasix] 40 mg PO DAILY 04/11/20 Melatonin 3 mg PO QHS 04/11/20 Potassium Chloride [K-Dur] 40 meq PO DAILYCM 04/11/20 Rivaroxaban [Xarelto] 15 mg PO DAILY@1700 04/11/20 Sacubitril/Valsartan 24/26 mg 1 ea PO BID 04/11/20 [Entresto 24 mg-26 mg Tablet] Simvastatin [Zocor] 20 mg PO QHS 04/11/20 Surgical History: Surgical History (Last Reviewed 04/11/20 @ 15:09 by PIPPA Rosas) History of cataract extraction Z98.49 History of prostate biopsy Z98.890 Surgical History: - - Cataract surgery, prostate biopsy. Psychiatric History: No pertinent psych hx Lives: Spouse/ Significant Other Smoking Status: Never smoker Alcohol: None Drugs: None - *Family History Maternal Family History: Family History (Last Updated 03/16/20 @ 16:14 by Sarahi Theodore) Mother Hypertension Father Hypertension Paternal Family History: Family History (Last Updated 03/16/20 @ 16:14 by Sarahi Theodore) Mother Hypertension Father Hypertension Review of Systems Constitutional: Reports: Weight Change - Reports weight loss due to poor appetite, - - Insomnia. Denies: Chills, Fever HEENT: Denies: Head Aches, Sinus Congestion, Sinus Drainage Cardiovascular: Denies: Chest Pain, Edema, Light Headedness, Palpitations, Syncope Respiratory: Reports: Shortness of Breath. Denies: Cough, Sputum production, Wheezing Gastrointestinal: Denies: Abdominal Pain, Nausea, Vomiting Genitourinary: Denies: Dysuria Musculoskeletal: Denies: Joint Pain, Joint Tenderness Skin: Denies: Rash, Wounds Neurological: Denies: Numbness, Tingling, Focal weakness Psychiatric: Denies: Anxiety, Depression, Homicidal Ideations, Suicidal Ideations Hematologic/ Lymphatic: Denies: Easy Bruising, Easy Bleeding VTE Information - Inpt Only VTE Present on Admission: No VTE Mechan Device Prophylaxis: None Reason prophylaxis not ordered:: Treatment Not Indicated - Already on Xarelto - Physical Exam Vitals/I&O's: Vital Signs Temp Pulse Resp BP Pulse Ox 98.4 F 90 22 H 98/75 95 04/11/20 14:40 04/11/20 14:40 04/11/20 14:40 04/11/20 14:40 04/11/20 14:40 Oxygen Delivery Method Room Air Weight: 182 lb 1.629 oz Body Mass Index (BMI) 24.7 General: Alert, Oriented x3, Cooperative HEENT: Atraumatic, PERRLA, EOMI, Normocephalic Neck: Supple, No JVD, Negative Carotid Bruits Lungs: Clear to auscultation, Diminished Cardiovascular: Regular rate, Regular Rhythm, Murmur Abdomen: Bowel Sounds Present, Soft, Non Tender, Non-Distended Extremities: No clubbing, No cyanosis, No edema, Capillary Refill Less than 3 Seconds Skin: No rashes, No breakdown Musculoskeletal: No Tenderness to Palpation of Joints or Extremities Neurological: Cranial nerves II-XII grossly intact, Neuro grossly intact Psych/Mental Status: Flat Affect Laboratory Results 04/11/20 12:56: WBC 8.2, RBC 3.74 L, Hgb 11.4 L, Hct 34.7 L, MCV 92.8, MCH 30.5, MCHC 32.9, RDW Std Deviation 46.9 H, RDW Coeff of Mauricio 13.9, Plt Count 279, MPV 11.2, Immature Gran % (Auto) 0.600, Neut % (Auto) 78.7 H, Lymph % (Auto) 10.1 L, Tama % (Auto) 9.0, Eos % (Auto) 1.5, Baso % (Auto) 0.1, Absolute Neuts (auto) 6.4, Absolute Lymphs (auto) 0.83, Nucleated RBC % 0 04/11/20 12:56: Sodium 141, Potassium 5.2 H, Chloride 107, Carbon Dioxide 29.0, Anion Gap 5, BUN 31 H, Creatinine 2.05 H, Estim Creat Clear Calc 33.65, Est GFR (MDRD) Af Amer 41 L, Est GFR (MDRD) Non-Af 34 L, BUN/Creatinine Ratio 15.1, Glucose 110 H, Calcium 8.7, Total Bilirubin 0.50, AST 40 H, ALT 31, Alkaline Phosphatase 114, Troponin I < 0.015, Total Protein 6.8, Albumin 3.1 L, Globulin 3.7, Albumin/Globulin Ratio 0.8 L 04/11/20 12:56: B-Natriuretic Peptide 1825.0 H 04/11/20 12:56: Blood Type O POSITIVE, Antibody Screen NEGATIVE Assessment/Plan All Active Problems (Last Updated 03/29/20 @ 11:39 by PIPPA Rosas) Acute CHF (congestive heart failure) (Acute) Dyspnea (Acute) Pleural effusion, left (Acute) RBBB (right bundle branch block) (Acute) 1. Acute on chronic heart failure with reduced ejection fraction/nonischemic cardiomyopathy-BNP 1825. Chest x-ray without acute process. Oxygen stable on room air. Echocardiogram 03/28/2020 demonstrated an EF of 15%, moderately severe mitral valve insufficiency, moderate tricuspid valve insufficiency, RVSP estimated to be 47 mmHg. Consult cardiology. IV Lasix. Strict I&O. Daily weight. Recent heart cath earlier this month which showed nonobstructive coronary arteries, mild CAD. Continue carvedilol, Entresto. 2. Paroxysmal atrial fibrillation/atrial flutter/SVT-continue amiodarone, carvedilol, xarelto. Currently sinus rhythm. 3. Acute kidney injury-suspect cardiorenal syndrome, previously improved with diuresis during recent admission. Possible underlying CKD however no significant prior labs for comparison. 4. Mild CAD-heart cath 03/28/2020 with mild CAD. On aspirin, statin. 5. Hypertension-stable, continue Entresto, Carvedilol. 6. Type 2 diabetes mellitus-hold metformin regimen. Recent hemoglobin A1c 6.7%. Accu-Cheks with sliding scale insulin. Continue home Lantus regimen. 7. OCD-on clomipramine. 8. Gout-not on regimen. 9. Suspected MIRI-recent referral to Dr. Herman for recommended sleep study. 10. Appetite loss-unclear etiology. Dietitian consult. 11. Insomnia-during recent admission tried Ambien and patient was difficult to arouse during the day. Will begin trazodone 50 mg p.o. nightly. DVT Prophylaxis-xarelto This patient was seen by PIPPA Rosas under the supervision of Dr. Duarte. <Livan Duarte - Last Filed: 04/11/20 17:54> History of Present Illness The patient is a 74 year old M [] Past Medical History Medical History: Medical History (Last Updated 03/29/20 @ 11:39 by PIPPA Rosas) Atherosclerotic heart disease of [place] coronary artery without angina pectoris (Chronic) I25.10 MILD per cath 01/06/14 Type 2 diabetes mellitus (Chronic) E11.9 Acute diastolic (congestive) heart failure (Acute) I50.31 RBBB (right bundle branch block) (Acute) I45.10 CKD (chronic kidney disease) stage 3, GFR 30-59 ml/min (Chronic) N18.3 Pure hypercholesterolemia (Chronic) E78.00 Essential hypertension (Chronic) I10 Atrial flutter with rapid ventricular response (Acute) I48.92 Arthritis M19.90 Gout M10.9 DDD (degenerative disc disease), lumbar M51.36 OCD (obsessive compulsive disorder) F42.9 Scoliosis M41.9 R scoliosis (apex L3) History of left heart catheterization (LHC) Onset Date: ~03/28/20 Z98.890 01/06/14; LEFT MAIN: Angiographically normal; LEFT ANTERIOR DESCENDING ARTERY: Mild luminal irregularities DIAGONAL 1: Proximal - Mild luminal irregularities; CIRCUMFLEX ARTERY: Mild luminal irregularities; MID CIRC: diffuse: eccentric: 10 - 25 % Stenosis; DISTAL CIRC: eccentric: 10 - 25 % Stenosis; OM 1: Proximal - Mild luminal irregularities; RIGHT CORONARY ARTERY: Mild luminal irregularities, per cardiac cath 03/28/20 Allergies No Known Allergies Allergy (Verified 04/11/20 12:21) Surgical History: Surgical History (Last Reviewed 04/11/20 @ 15:09 by PIPPA Rosas) History of cataract extraction Z98.49 History of prostate biopsy Z98.890 - *Family History Maternal Family History: Family History (Last Updated 03/16/20 @ 16:14 by Sarahi Theodore) Mother Hypertension Father Hypertension Paternal Family History: Family History (Last Updated 03/16/20 @ 16:14 by Sarahi Theodore) Mother Hypertension Father Hypertension - Physical Exam Vitals/I&O's: Vital Signs Temp Pulse Resp BP Pulse Ox 98.3 F 95 17 101/63 98 04/11/20 15:36 04/11/20 16:26 04/11/20 15:36 04/11/20 15:36 04/11/20 15:36 Oxygen Delivery Method Room Air Weight: 183 lb 3.2 oz Body Mass Index (BMI) 24.8 Laboratory Results 04/11/20 12:56: WBC 8.2, RBC 3.74 L, Hgb 11.4 L, Hct 34.7 L, MCV 92.8, MCH 30.5, MCHC 32.9, RDW Std Deviation 46.9 H, RDW Coeff of Mauricio 13.9, Plt Count 279, MPV 11.2, Immature Gran % (Auto) 0.600, Neut % (Auto) 78.7 H, Lymph % (Auto) 10.1 L, Tama % (Auto) 9.0, Eos % (Auto) 1.5, Baso % (Auto) 0.1, Absolute Neuts (auto) 6.4, Absolute Lymphs (auto) 0.83, Nucleated RBC % 0 04/11/20 12:56: Sodium 141, Potassium 5.2 H, Chloride 107, Carbon Dioxide 29.0, Anion Gap 5, BUN 31 H, Creatinine 2.05 H, Estim Creat Clear Calc 33.65, Est GFR (MDRD) Af Amer 41 L, Est GFR (MDRD) Non-Af 34 L, BUN/Creatinine Ratio 15.1, Glucose 110 H, Calcium 8.7, Total Bilirubin 0.50, AST 40 H, ALT 31, Alkaline Phosphatase 114, Troponin I < 0.015, Total Protein 6.8, Albumin 3.1 L, Globulin 3.7, Albumin/Globulin Ratio 0.8 L 04/11/20 12:56: B-Natriuretic Peptide 1825.0 H 04/11/20 12:56: Blood Type O POSITIVE, Antibody Screen NEGATIVE 04/11/20 16:50: POC Glucose 91 Current Medications Acetaminophen (Tylenol) 650 mg PO Q6H PRN PRN PRN Reason: Pain Score 1-10/Temp > 100.7 F Amiodarone HCl (Cordarone) 200 mg PO DAILY [facility] Aspirin (Aspirin, Baby) 81 mg PO DAILY@0800 [facility] Atorvastatin Calcium (Lipitor) 10 mg PO QHS [facility] Carvedilol (Coreg) 12.5 mg PO BID [facility] Clomipramine HCl (Anafranil) 75 mg PO QHS [facility] Cyanocobalamin (Vitamin B12) 500 mcg PO DAILY@0800 [facility] Dextrose (D50w Syringe) 0 gm IV X1 PRN; Protocol PRN Reason: Hypoglycemia Furosemide (Lasix) 40 mg IV BID@1000,1800 ALEJANDRA Glucagon () 1 mg IM .X1 PRN PRN Reason: Hypoglycemia Insulin Glargine (Lantus (Bkc)) 20 units SC DAILY [facility] Insulin Human Lispro (Humalog Kwikpen (Bk)) 0 unit SC ACHS [facility]; Protocol Last Admin: 04/11/20 17:29 Dose: Not Given Documented by: Melatonin (Melatonin) 3 mg PO QHS [facility] Nutritional Formula (Lactose Free) (Glucerna Shake) 120 ml PO 4X/DAY ALEJANDRA Ondansetron HCl (Zofran) 4 mg IV Q8H PRN PRN PRN Reason: NAUSEA/VOMITING Rivaroxaban (Xarelto) 15 mg PO DAILY@1700 [facility] Sacubitril/Valsartan (Entresto 24 Mg-26 Mg Tablet) 1 each PO BID [facility] Sodium Chloride () 10 - 40 ml IV UD PRN PRN Reason: SALINE FLUSH Trazodone HCl (Desyrel) 50 mg PO QHS [facility] Addendum: Dr. Duarte I personally examined the patient and reviewed the chart. I agree with the above. 74-year-old male who presented in the beginning of this month with signs and symptoms consistent with heart failure was found to have an EF of 15%. He underwent a left heart cath which showed normal coronary arteries. He was started on significant medical management with Coreg, Entresto, and Lasix. He also during that hospitalization developed A. fib/a flutter and was started on Xarelto and amiodarone. He has continued these however he is about 6 pounds heavier today than he was on discharge. Will place him on a fluid restriction as well as twice daily diuresis, and will monitor his renal function. His creatinine today is 2.05 which is elevated from the 1.3 that it was during his previous admission. I do anticipate that if his PITER is related to his CHF, it should improve with diuresis. Will consult cardiology to see if there is any medication changes that they would like to make at this time given his likely recurrence of heart failure. Inpatient E&M: 71243 Init Hosp L3
--- NOTE | 2020-04-11 17:25 | EKG12_ITS ---
Test Reason : WEAKNESS Blood Pressure : / mmHG Vent. Rate : 092 BPM Atrial Rate : 182 BPM P-R Int : 000 ms QRS Dur : 194 ms QT Int : 492 ms P-R-T Axes : 270 -63 063 degrees QTc Int : 608 ms Atrial flutter with variable A-V block Right bundle branch block Left anterior fascicular block Bifascicular block Abnormal ECG Confirmed by ADAM PAVON, MCKENZIE ([id number]), newspaper copy editor YOSEPH MALAGON ([id number]) on 04/13/2020 9:09:05 AM Referred By: AMY Confirmed By:MCKENZIE MEDINA MD
[2020-04-11] MEDS: CLARIFY ORDER NOTE (17:29)
[2020-04-11 17:30] LABS: Bedside Glucose 91 mg/dL (70-110)
--- NOTE | 2020-04-11 17:36 | NURSING ---
Patient's home medication Clomipramine 75mg sent to pharmacy to be verified.
--- NOTE | 2020-04-11 17:48 | CON.PCM_ITS ---
Problem List (1) Atrial fibrillation and flutter Status: Acute (2) Cardiomyopathy Status: Chronic Qualifiers: Cardiomyopathy type: unspecified Qualified Code(s): I42.9 - Cardiomyopathy, unspecified (3) Acute CHF (congestive heart failure) Status: Acute Qualifiers: Heart failure type: systolic Qualified Code(s): I50.21 - Acute systolic (congestive) heart failure (4) Valvular heart disease Status: Chronic (5) Atherosclerotic heart disease of inupiat coronary artery without angina pectoris Status: Chronic Comment: MILD per cath 01/06/14 (6) Pure hypercholesterolemia Status: Chronic (7) Essential hypertension Status: Chronic (8) Type 2 diabetes mellitus Status: Chronic (9) CKD (chronic kidney disease) stage 3, GFR 30-59 ml/min Status: Chronic Reason for Consult Date of Consultation: 04/11/20 History of Present Illness: The patient is a 74 year old white male who presented recently to the outpatient setting for a cardiovascular consultation o 03/16/2020 based upon concerns of underlying atrial flutter and diastolic CHF superimposed upon a history of UUS-[id number] significant, hyperlipidemia, hypertension, diabetes mellitus, and chronic renal insufficiency. He had been previously evaluated with his last outpatient cardiovascular visit being on 01-24-2014 at which time he had been evaluated for concerns of underlying atypical chest discomfort, a right bundle branch block pattern, hypertension, and hyperlipidemia. He had undergone noninvasive and invasive evaluation. This included an echocardiogram, an exercise tolerance test/imaging study, and a diagnostic cardiac catheterization. The diagnostic cardiac catheterization was performed at [facility] on 01-06-2014. 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 He went on to have a chest CT scan which stated that his aortic root/ascending thoracic aorta measured 3.5 cm. He has not had local cardiovascular follow-up since that time. Prior to his recent outpatient cardiology consult he presented to [facility] for concerns of shortness of breath. He was found to be in atrial flutter with rapid ventricular response and thoughts of acute diastolic mediated CHF. This was superimposed upon his other cardiovascular and noncardiovascular conditions. During that hospitalization he had a troponin I level which was apparently reported as elevated . It was thought to be not related to an acute coronary syndrome. He did have an elevated BNP level of 7922. His BUN and creatinine level were reported at 38 and 1.48 with a potassium of 4.7. His TSH was reported as mildly elevated at 4.01. Of note his troponin I level was reported at 0.024. He was treated medically. This included IV diltiazem. He was told he had return to sinus rhythm. He was also treated with diuretic therapy with furosemide. He was released home on medications which included oral diltiazem but no diuretic. He was to have an echocardiogram however it was not performed prior to discharge. He had no other cardiovascular tests performed. He stated at that time he started to feel more short of breath and dyspneic again. He stated he has been unable to lie supine and breathe comfortably. He did have an element of lower extremity peripheral pitting edema. He had ongoing chest discomfort. There is been no near syncope or syncope. He noted his appetite has been diminished. Overall he states he had not been feeling well for approximately 3 months. He states he seems to be able to sense when his heart rate changes. One ECG had findings compatible with atrial flutter with variable ventricular response with a ventricular rate over 100 bpm with an underlying left axis deviation and right bundle branch block pattern. His medications were adjusted at the time to increase his diltiazem dose to assist with rate control, initiate antiarrhythmic therapy with the hopes of regaining sinus rhythm, initiate anticoagulant therapy based upon underlying atrial dysrhythmias/atrial flutter, and initiate diuretic therapy based upon the concerns of the CHF. He subsequently presented for outpatient transthoracic echocardiogram today. He was reported by the echocardiographic staff as appearing pale and weak and weakened appearing. His echocardiogram was reviewed. The results are noted below. Based upon review of his clinical course it was recommended at that time that he present to the emergency department for further evaluation and subsequent [facility] hospitalization for continued inpatient evaluation and care. He underwent evaluation in the PCU. This included laboratory studies, radiologic studies, and subsequently diagnostic cardiac catheterization. The results are noted below. Of note he was not found to have angiographically significant appearing CAD. There was concern that his cardiomyopathy may have been secondary to a tachycardic induced event. He was noted to have subsequent spontaneous return to sinus rhythm. He continued medical therapy and was released home for outpatient cardiovascular follow-up and reassessment of his underlying rate, rhythm, left ventricular systolic function, and valvular related findings. If despite ongoing medical therapy he did not have overall improvement in his cardiomyopathy then he was to be recommended for primary prevention ICD therapy. He presented today to the emergency department based upon concerns of lack of appetite, feeling short of breath, and not sleeping well. He states that he has not had much of any appetite. He states he gets short of breath easily. He notes he has not slept well for months/years but believes it has been worsened recently. He did not complain of chest discomfort, obvious palpitations, or lower extremity peripheral pitting edema. He was evaluated by the [facility] emergency department staff. He was reported as being in sinus rhythm with concerns of acute on chronic systolic mediated CHF. He was placed once again in the PCU for further evaluation and care. He was treated in the meantime with IV diuretic therapy. Upon cardiovascular consultation he was noted to be resting reasonably comfortably in the supine position. He did not have any new acute complaints. His emergency department ECG was reviewed. There were concerns that his rhythm was an underlying atrial flutter. A repeat ECG was performed which suggested similar type findings. He subsequently was evaluated, to assist him diagnosis of his underlying rhythm, with adenosine 6 mg IV push x1 with no significant change. He then underwent adenosine 12 mg IV push x1 which demonstrated transient slowing of his ventricular rate and identification of underlying atrial flutter waves. He did not appear to have any acute symptoms/adverse events from the IV adenosine therapy. He states he has been taking his medications as prescribed. This includes his anticoagulant therapy. He has had no obvious hemorrhagic issues. [] Past Medical History Allergies/Adverse Reactions: Allergies No Known Allergies Allergy (Verified 04/11/20 12:21) Home Medications: Ambulatory Orders Medication Instructions Recorded RX: Aspirin [Aspirin, Baby] 81 mg PO DAILY@0800 01/05/14 RX: Cyanocobalamin [Vitamin B12] 500 mcg PO DAILY@0800 01/05/14 RX: metFORMIN HCl [Glucophage] 1,000 mg PO BID 01/05/14 insulin glargine 100 unit/mL (3 20 unit SC DAILY 03/14/20 mL) subcutaneous pen sitagliptin 100 mg tablet 100 mg PO QHS 03/14/20 RX: Amiodarone HCl 200 mg PO BID 04/11/20 RX: Carvedilol [Coreg (Beta 12.5 mg PO BID 04/11/20 Smita)] RX: Clomipramine HCl 75 mg PO QHS 04/11/20 RX: Furosemide [Lasix] 40 mg PO DAILY 04/11/20 RX: Melatonin 3 mg PO QHS 04/11/20 RX: Potassium Chloride [K-Dur] 40 meq PO DAILYCM 04/11/20 RX: Rivaroxaban [Xarelto] 15 mg PO DAILY@1700 04/11/20 RX: Sacubitril/Valsartan 24/26 mg 1 ea PO BID 04/11/20 [Entresto 24 mg-26 mg Tablet] Simvastatin [Zocor] 20 mg PO QHS 04/11/20 Past Medical History (Chronic Problems): Chronic Problems (Last Updated 03/29/20 @ 11:39 by Gertrudis Villatoro NP-Dhaval) Cardiomyopathy (Chronic) Paroxysmal atrial fibrillation (Chronic) Valvular heart disease (Chronic) Atherosclerotic heart disease of inupiat coronary artery without angina pectoris (Chronic) MILD per cath 01/06/14 Type 2 diabetes mellitus (Chronic) CKD (chronic kidney disease) stage 3, GFR 30-59 ml/min (Chronic) Pure hypercholesterolemia (Chronic) Essential hypertension (Chronic) Atrial flutter with rapid ventricular response (Chronic) Segmental and somatic dysfunction of pelvic region (Chronic) Segmental and somatic dysfunction of thoracic region (Chronic) Segmental and somatic dysfunction of lumbar region (Chronic) Surgical History: - - Cataract surgery, prostate biopsy. Psychiatric History: No pertinent psych hx - *Family History Maternal Family History: Family History (Last Updated 03/16/20 @ 16:14 by Sarahi Theodore) Mother Hypertension Father Hypertension Paternal Family History: Family History (Last Updated 03/16/20 @ 16:14 by Sarahi Theodore) Mother Hypertension Father Hypertension Lives: Spouse/ Significant Other Smoking Status: Never smoker Alcohol: None Drugs: None Review of Systems - Review of Systems General: Reports: Weakness, Decreased Appetite. Denies: Fever, Fatigue, Night Sweats Cardiovascular: Reports: Shortness of Breath, Shortness of Breath at Rest, Shortness of Breath with Exertion. Denies: Chest Discomfort, Orthopnea, PND, Peripheral Edema, Palpitations, Lightheadedness, Dizziness, Near Syncope, Syncope Respiratory: Reports: Shortness of Breath. Denies: Cough, Sputum Production, Hemoptysis Gastrointestinal: Denies: Hematemesis, Hematochezia, Melena Genitourinary: Denies: Dysuria, Hematuria Skin: Denies: Rash Subjectve: This is a 74-year-old white male who appears to be resting reasonably comfortably at the moment in no acute distress. Objective: Vital Signs Temp Pulse Resp BP Pulse Ox 98.3 F 95 17 101/63 98 04/11/20 15:36 04/11/20 16:26 04/11/20 15:36 04/11/20 15:36 04/11/20 15:36 Oxygen Delivery Method Room Air Weight: 183 lb 3.2 oz Body Mass Index (BMI) 24.8 General: Awake, Alert, Oriented x 3, Cooperative, No Acute Distress HEENT: Atraumatic, Normocephalic, PERRL, EOMI, Sclera Non Icteric Oral: Moist Mucosa Neck: Supple, Good ROM, No JVD Lungs: Diminished David Bases Cardiovascular: Irregular Rhythm, Normal S1, Normal S2 Murmur Murmur: Grade 2/6, Soft, Mid Systolic, LLSB, [place], LVOT Abdomen: Bowel Sounds Present, Soft, Non Tender Extremities: No edema Neurological: No Focal Motor or Sensory Deficit Psych/Mental Status: Flat Affect 04/11/20 12:56: WBC 8.2, RBC 3.74 L, Hgb 11.4 L, Hct 34.7 L, MCV 92.8, MCH 30.5, MCHC 32.9, Plt Count 279, MPV 11.2, Immature Gran % (Auto) 0.600, Neut % (Auto) 78.7 H, Lymph % (Auto) 10.1 L, [place] % (Auto) 9.0, Eos % (Auto) 1.5, Baso % (Auto) 0.1, Absolute Neuts (auto) 6.4, Nucleated RBC % 0 04/11/20 12:56: Sodium 141, Potassium 5.2 H, Chloride 107, Carbon Dioxide 29.0, Anion Gap 5, BUN 31 H, Creatinine 2.05 H, Est GFR (MDRD) Af Amer 41 L, Est GFR (MDRD) Non-Af 34 L, BUN/Creatinine Ratio 15.1, Glucose 110 H, Calcium 8.7, Total Bilirubin 0.50, Troponin I < 0.015 04/11/20 12:56: B-Natriuretic Peptide 1825.0 H Rhythm: Atrial flutter EKG: Atrial flutter; left axis deviation; right bundle branch block pattern; left anterior fascicular block pattern ECHO: 03-24-2020 Interpretation Summary Moderately dilated left ventricle. Severe segmental systolic dysfunction (see wall motion). The estimated ejection fraction is 15 %. Mild to moderate global right ventricular systolic dysfunction. The left atrium is moderately enlarged. Mild diffuse mitral valve thickening. Mild papillary muscle dysfunction of the mitral valve. Moderately severe (3+) mitral valve insufficiency. Moderate (2+) eccentric tricuspid valve insufficiency. Moderate focal aortic valve calcification. Trivial aortic valve insufficiency. Plethoric inferior vena cava. Right ventricular systolic pressure estimated to be 47 mmHg. There is evidence of diastolic dysfunction. Echocardiogram: 12-29-13 Interpretation Summary Mild segmental systolic dysfunction (see wall motion). The estimated ejection fraction is 50 %. Trivial mitral valve insufficiency. Trivial tricuspid valve insufficiency. Mild focal aortic valve thickening. Trivial aortic valve insufficiency. Mildly dilated aortic root. Right ventricular systolic pressure estimated to be 26 mmHg. Stress test ADDENDUM by Ajit Coombs MD on 01/06/14 at 1954 ADDENDUM: CORRECTION: The aforementioned interpretation should read the following: Rest and stress SPECT Cardiolite nuclear imaging demonstrate, following realignment, areas of diminished tracer uptake in portions of the basal inferoseptal and basal inferior segments extending towards the mid inferior segments, which appears to be similar although potentially somewhat more prominent following stress as opposed to rest. There are similar type findings on the resting and stress polar map images. There was diminished end systolic thickening and brightening in the basal inferior segments and on the gated Cardiolite study diminished myocardial thickening and inward wall motion in the basal inferior segments. The reported LVEF was 44%. The aforementioned changes maybe compatible with shifting soft tissue attenuation/artifact, however, an element of myocardial ischemia in the inferior distribution could not necessarily be excluded. IMPRESSION: 1. Rest and stress SPECT Cardiolite nuclear imaging demonstrate myocardial perfusion changes potentially compatible with shifting soft tissue attenuation/artifact, however, an area of myocardial ischemia in portions of the inferior segments could not necessarily be excluded. 2. The gated Cardiolite study reports an LVEF of 44%. Cardiac cath: 01-06-2014 Final impression: 1. Normal resting left ventricular end-diastolic pressure 2. Left ventricle: A. Normal left ventricular size, wall motion, and systolic function B. Estimated LVEF of 60% 3. Left main coronary artery: A. Angiographically normal 4. Left anterior descending coronary artery: A. Mid segment with an area potentially compatible with an intramyocardial bridge with ILEANA-3 flow during systole and diastole with diffuse 10-20% irregularities 5. Left circumflex coronary: A. Large codominant vessel B. Minimal luminal irregularities 6. Right coronary artery: A. Moderate to large codominant vessel B. Proximal 10-20% eccentric appearing stenosis C. Distal diffuse minimal luminal irregularities 7. Aortic root: Dilated Cardiac catheterization: 03-28-2020 CONCLUSIONS Right heart pressures - borderline to mildly elevated RVSP The patient has pulmonary hypertension which is borderline to mildly elevated PASP Comment: elevated PCWP Intracardiac shunting: None (calculated Qp/Qs: 0.75 - nonhemodynamically significant) Normal Left Ventricular End Diastolic Pressure [place] Multivessel CAD (non angiographically significant) RECOMMENDATIONS Risk factor modification Medical therapy CORONARY ANGIOGRAPHY DOMINANCE: Co- Dominant LEFT HEART ASSESSMENT Left Ventricular Ejection Fraction: Not assessed Normal Left Ventricular End Diastolic Pressure LVEDP: 10 mmHg RIGHT HEART ASSESSMENT Thermal CO: 3.29 Thermal CI: 1.64 Ben CO: 4.09 Ben CI: 2.03 PW: 19/20 17 PA: 32/15 24 RV: 31/8 10 RA: 8/10 8 PVR: 170 SVR: 1362 Right Heart pressures - bordeline / mildly elevated RVSP Pulmonary Hypertension: borderline mildly elevated PASP Intracardiac shunting: None (calculated Qp/Qs: 0.75 - nonhemodynamically significant) LEFT MAIN: Angiographically normal LEFT ANTERIOR DESCENDING ARTERY: Mild luminal irregularities DIAGONAL 1: Proximal - Mild luminal irregularities CIRCUMFLEX ARTERY: Mild luminal irregularities MID CIRC: diffuse: eccentric: 10 - 25 % Stenosis DISTAL CIRC: eccentric: 10 - 25 % Stenosis OM 1: Proximal - Mild luminal irregularities RIGHT CORONARY ARTERY: Mild luminal irregularities CXR: Preliminary evaluation: No acute cardiopulmonary disease process appreciated: Please see official report CT scan: 01-25-2014 IMPRESSION: Normal enhanced CT Chest examination. Assessment/Plan 1. Atrial fibrillation/flutter The patient has a history of atrial fibrillation/flutter. It appears based upon his recent evaluation this was considered to be paroxysmal. The etiology of his atrial dysrhythmia may be multifactorial secondary to his age, cardiovascular conditions, etc. At the present time he appears to be in an underlying atrial flutter. He will continue to be monitored. He will continue rate control therapy, antiarrhythmic therapy, and anticoagulant therapy as deemed appropriate. It is unclear at this time whether his amiodarone therapy is impacting his appetite as he has had these complaints prior to amiodarone therapy. If he does not regain sinus rhythm then he may need to be considered for an attempt at synchronized biphasic DC cardioversion. He may also need to be considered for future EP evaluation for possible EPS/RFA. 2. Non-CAD related cardiomyopathy He does have what appears to be a non-CAD related cardiomyopathy. This may be secondary to his history of atrial dysrhythmias and tachycardic induced. At the present time he will need to continue medical management as best as possible. If despite medical therapy his cardiomyopathy does not improve then he will need to be considered in the future by EP for primary prevention ICD placement. 3. CHF The patient was originally describe by an outside facility is having diastolic CHF. At the present time there is concern the patient has systolic mediated CHF based upon his marked diminished LV systolic function/LVEF. Again the etiology is unclear as to whether this could be related from his atrial dysrhythmia and a tachycardic induced response wants versus being from an underlying non-CAD related cardiomyopathy noting patient did not have angiographically significant appearing CAD in the past. At the present time the patient will need to continue medical management for his CHF. This will include agent such as nitrates, beta-blockers, diuretics, afterload reducing agents, etc. as deemed appropriate. 4. Valvular heart disease He does have findings of MR and TR. It is unclear as to whether this is functional related secondary to his underlying cardiomyopathy as opposed to being structurally related with respect to primary structural valvular related issues. At the present time he will continue his evaluation. He will continue medical management. If his valvular heart disease is functional but he will need to continue evaluation care of his underlying cardiovascular condition. If over time there are concerns of any structural component of his valvular heart disease then he may need to be considered at a tertiary care center as whether or not he would be a candidate for any type of valvular repair/replacement. 5. CAD He has a history of non-angiographically significant CAD based upon his previous diagnostic cardiac catheterization. We will continue risk factor evaluation care as deemed appropriate. 6. Hyperlipidemia He will continue risk factor evaluation care as deemed appropriate. 7. Hypertension His blood pressure will need to be followed and his medications adjusted as needed. 8. Diabetes mellitus He will continue evaluation care per internal medicine. 9. Chronic renal insufficiency His renal function will have to be monitored as he undergoes medical evaluation and care. Comment: The patient's case has been discussed and reviewed with the patient and and previously with the [facility] emergency department staff. This note was generated using a voice recognition system and there may be incorrect words, spelling or punctuation that were not noted when reviewing the office note prior to saving.
[2020-04-11] MEDS: 0.9% Saline Lock 10 ML Syringe IV ×3 (17:57→18:10)
[2020-04-11] MEDS: Adenosine 6 MG/2 ML Syringe IV (17:58)
[2020-04-11] MEDS: Adenosine 6 MG/2 ML Syringe 12 MG IV (18:05)
[2020-04-11] MEDS: Glucerna Shake 120 ML LIQUID PO (18:25)
[2020-04-11] MEDS: Rivaroxaban 15 MG Tablet PO (18:25)
[2020-04-11] MEDS: Carvedilol 12.5 MG Tablet PO (21:43)
[2020-04-11] MEDS: traZODone 50 MG Tablet PO (21:43)
[2020-04-11] MEDS: Atorvastatin Calcium 10 MG Tablet PO (21:44)
[2020-04-11] MEDS: SACUBITRIL/VALSARTAN 24/26 MG TABLET 1 EACH PO (21:44)
[2020-04-11] MEDS: MELATONIN 3 MG TABLET PO (21:45)
[2020-04-11 22:56] LABS: Bedside Glucose 133 mg/dL (70-110)
[2020-04-12] VITALS (8 sets, daily range): BP systolic 100–111; BP diastolic 63–72; PULSE 95–101; RESP 18–19; TEMP 36.7–36.8; O2SAT 94–98
[2020-04-12 06:41] LABS: Absolute Lymphocyte Count 1.16 X10^3/uL (0.83-4.51); Absolute Neutrophil Count 5.7 X10^3/uL (2.0-7.7); Basophil# 0.01 X10^3/uL; Basophil% 0.1 % (0-1); Eosinophil# 0.05 X10^3/uL; Eosinophils% 0.6 % (0-5); Hematocrit 34.5 % (40-54); Hemoglobin 11.4 g/dL (13.0-16.5); Lymphocyte # 1.16 X10^3/ul (4.0); Mean Corpuscular Hgb 30.5 pg (27.0-32.0); Mean Corpuscular Volume 92.2 fL (80-94); Mean Platelet Vol. 10.8 fl (6.2-12.0); Monocyte# 0.77 X10^3/uL; NRBC Flagged by Analyzer 0 % (0-5); Neutrophil # 5.71 X10^3/uL (2.7-7.7); Neutrophil % 73.9 % (47-70); Platelet Count 246 K/mm3 (150-450); RBC Distribution Width CV 14.4 % (11.6-14.6); RBC Distribution Width SD 47.4 fl (35.1-43.9); Red Blood Count 3.74 M/mm3 (4.6-6.2); White Blood Count 7.7 K/mm3 (4.4-11.0)
[2020-04-12 07:03] LABS: Anion Gap 5 (5-15); BUN 31 mg/dL (7-18); BUN/Creat Ratio 16.4 RATIO (10-20); Calcium,Total 8.4 mg/dL (8.5-10.1); Chloride 106 mmol/L (98-107); Creatinine, Serum 1.89 mg/dL (0.70-1.30); EST Glomerular Filtration Rate 37 mL/min (>60); Est Glom Filt Rate - Afr Amer 45 mL/min (>60); Glucose 73 mg/dL (74-106); Potassium 3.8 mmol/L (3.5-5.1); Sodium Level 141 mmol/L (136-145)
[2020-04-12] MEDS: Carvedilol 12.5 MG Tablet PO (09:15)
[2020-04-12] MEDS: Amiodarone 200 MG Tablet 100 MG PO (09:15)
[2020-04-12] MEDS: Cyanocobalamin 500 MCG Tablet PO (09:15)
[2020-04-12] MEDS: SACUBITRIL/VALSARTAN 24/26 MG TABLET 1 EACH PO (09:16)
[2020-04-12] MEDS: Aspirin 81 MG TAB.CHEW PO (09:16)
[2020-04-12] MEDS: 0.9% Saline Lock 10 ML Syringe IV (09:19)
[2020-04-12] MEDS: Furosemide 40 MG/4 ML Vial IV (09:19)
[2020-04-12 09:30] LABS: Bedside Glucose 190 mg/dL (70-110)
--- NOTE | 2020-04-12 11:52 | CASEMGMT ---
DENISHA CM Note: Insurance review for [facility] [employer] for [employer] P[employer]. Per website, [facility] and [facility] are both [facility] Providers. Dr. Coombs was updated. Michelle HOLM RN ACM
[2020-04-12 12:05] LABS: Bedside Glucose 67 mg/dL (70-110)
[2020-04-12 12:06] LABS: Bedside Glucose 68 mg/dL (70-110)
[2020-04-12] MEDS: Insulin Lispro 100 UNIT/ML INSULN.PEN SC (12:28)
[2020-04-12 13:06] LABS: Bedside Glucose 157 mg/dL (70-110)
--- NOTE | 2020-04-12 13:14 | PCM.PN.CARD ---
Subjectve: The patient states he is breathing better today. He notes that his appetite is still poor and that he remains very tired and fatigued. Objective: Vital Signs Temp Pulse Resp BP Pulse Ox 98.3 F 99 18 104/63 94 04/12/20 09:05 04/12/20 09:05 04/12/20 09:05 04/12/20 09:05 04/12/20 09:05 Oxygen Delivery Method Room Air Weight: 179 lb 7.3 oz Body Mass Index (BMI) 24.8 Intake and Output for Last 24 Hours 04/10/20 04/11/20 04/12/20 23:59 23:59 23:59 Intake Total 200 / 200 430 / 430 Output Total 890 / 890 675 / 675 Balance -690 / -690 -245 / -245 General: Awake, Alert, Oriented x 3, Cooperative HEENT: Atraumatic, Normocephalic, PERRL, EOMI, Sclera Non Icteric Oral: Moist Mucosa Neck: Supple, Good ROM, No JVD Lungs: Clear to auscultation Cardiovascular: Irregular Rhythm, Normal S1, Normal S2 Abdomen: Bowel Sounds Present, Soft, Non Tender Extremities: No edema Psych/Mental Status: Flat Affect 04/11/20 12:56: Sodium 141, Potassium 5.2 H, Chloride 107, Carbon Dioxide 29.0, Anion Gap 5, BUN 31 H, Creatinine 2.05 H, Est GFR (MDRD) Af Amer 41 L, Est GFR (MDRD) Non-Af 34 L, BUN/Creatinine Ratio 15.1, Glucose 110 H, Calcium 8.7, Total Bilirubin 0.50, Troponin I < 0.015 04/11/20 12:56: B-Natriuretic Peptide 1825.0 H 04/12/20 06:32: WBC 7.7, RBC 3.74 L, Hgb 11.4 L, Hct 34.5 L, MCV 92.2, MCH 30.5, MCHC 33.0, Plt Count 246, MPV 10.8, Immature Gran % (Auto) 0.400, Neut % (Auto) 73.9 H, Lymph % (Auto) 15.0 L, [place] % (Auto) 10.0, Eos % (Auto) 0.6, Baso % (Auto) 0.1, Absolute Neuts (auto) 5.7, Nucleated RBC % 0 04/12/20 06:32: Sodium 141, Potassium 3.8, Chloride 106, Carbon Dioxide 30.0, Anion Gap 5, BUN 31 H, Creatinine 1.89 H, Est GFR (MDRD) Af Amer 45 L, Est GFR (MDRD) Non-Af 37 L, BUN/Creatinine Ratio 16.4, Glucose 73 L, Calcium 8.4 L Rhythm: atrial flutter Medical Necessity - Tobacco Use Smoking Status: Never smoker Assessment/Plan 1. Atrial fibrillation/flutter The patient has a history of atrial fibrillation/flutter. It appears based upon his recent evaluation this was considered to be paroxysmal. The etiology of his atrial dysrhythmia may be multifactorial secondary to his age, cardiovascular conditions, etc. At the present time he appears to be in back in an underlying atrial flutter. He will continue to be monitored. He will continue rate control therapy, antiarrhythmic therapy, and anticoagulant therapy as deemed appropriate. It is unclear at this time whether his amiodarone therapy is impacting his appetite as he has had these complaints prior to amiodarone therapy. If he does not regain sinus rhythm then he may need to be considered for an attempt at synchronized biphasic DC cardioversion. He may also need to be considered for future EP evaluation for possible EPS/RFA. 2. Non-CAD related cardiomyopathy He does have what appears to be a non-CAD related cardiomyopathy. This may be secondary to his history of atrial dysrhythmias and tachycardic induced. At the present time he will need to continue medical management as best as possible. If despite medical therapy his cardiomyopathy does not improve then he will need to be considered in the future by EP for primary prevention ICD placement. 3. CHF At the present time there is concern the patient has systolic mediated CHF based upon his marked diminished LV systolic function/LVEF. Again the etiology is unclear as to whether this could be related from his atrial dysrhythmia and a tachycardic induced response versus being from an underlying non-CAD related cardiomyopathy noting patient did not have angiographically significant appearing CAD in the past. At the present time the patient will need to continue medical management for his CHF. This will include agent such as nitrates, beta-blockers, diuretics, afterload reducing agents, etc. as deemed appropriate. Based upon his complex cardiovascular disease process and ongoing concerns he may also need to be evaluated at a tertiary center not only by electrophysiology but by an advanced heart failure team. 4. Valvular heart disease He does have findings of MR and TR. It is unclear as to whether this is functional related secondary to his underlying cardiomyopathy as opposed to being structurally related with respect to primary structural valvular related issues. At the present time he will continue his evaluation. He will continue medical management. If his valvular heart disease is functional but he will need to continue evaluation care of his underlying cardiovascular condition. If over time there are concerns of any structural component of his valvular heart disease then he may need to be considered at a tertiary care center as whether or not he would be a candidate for any type of valvular repair/replacement. 5. CAD He has a history of non-angiographically significant CAD based upon his previous diagnostic cardiac catheterization. We will continue risk factor evaluation care as deemed appropriate. 6. Hyperlipidemia He will continue risk factor evaluation care as deemed appropriate. 7. Hypertension His blood pressure will need to be followed and his medications adjusted as needed. 8. Diabetes mellitus He will continue evaluation care per internal medicine. 9. Chronic renal insufficiency His renal function will have to be monitored as he undergoes medical evaluation and care. Overall, at the present time, the patient feels somewhat improved status post IV diuresis. He will continue medical therapy with adjustment as needed. However there are concerns about his complex condition with respect to his atrial dysrhythmia, valvular heart disease, and non-CAD related cardiomyopathy. A discussion was held with the patient. A recommendation was made for the patient be considered for transfer to a tertiary care center to be evaluated by electrophysiology and an advanced heart failure team. He was agreeable to this and requested transfer to the [facility] Main [place]. The above was also discussed with the [facility] hospitalist team. They are going to assist in transfer arrangements. This note was generated using a voice recognition system and there may be incorrect words, spelling or punctuation that were not noted when reviewing the office note prior to saving.
--- NOTE | 2020-04-12 13:51 | PCM.PROGNOTE ---
<Gertrudis Villatoro - Last Filed: 04/12/20 14:04> Subjective: Patient seen and examined. Reports he slept well overnight. Shortness of breath improved. Denies chest pain. - Physical Exam Vitals/I&O's: Vital Signs Temp Pulse Resp BP Pulse Ox 98.3 F 99 18 104/63 94 04/12/20 09:05 04/12/20 09:05 04/12/20 09:05 04/12/20 09:05 04/12/20 09:05 Oxygen Delivery Method Room Air Weight: 179 lb 7.3 oz Body Mass Index (BMI) 24.8 Intake and Output for Last 24 Hours 04/10/20 04/11/20 04/12/20 23:59 23:59 23:59 Intake Total 200 / 200 430 / 430 Output Total 890 / 890 675 / 675 Balance -690 / -690 -245 / -245 General: Alert, Oriented x3, Cooperative HEENT: Atraumatic, PERRLA, EOMI, Normocephalic Neck: Supple, No JVD, Negative Carotid Bruits Lungs: Clear to auscultation, Diminished Cardiovascular: Murmur, - - Atrial flutter Abdomen: Bowel Sounds Present, Soft, Non Tender, Non-Distended Extremities: No clubbing, No cyanosis, No edema, Capillary Refill Less than 3 Seconds Skin: No rashes, No breakdown Musculoskeletal: No Tenderness to Palpation of Joints or Extremities Neurological: Cranial nerves II-XII grossly intact, Neuro grossly intact Psych/Mental Status: Normal Affect, Appropriate Laboratory Results 04/11/20 12:56: Blood Type O POSITIVE, Antibody Screen NEGATIVE 04/11/20 16:50: POC Glucose 91 04/11/20 21:34: POC Glucose 133 H 04/12/20 06:32: WBC 7.7, RBC 3.74 L, Hgb 11.4 L, Hct 34.5 L, MCV 92.2, MCH 30.5, MCHC 33.0, RDW Std Deviation 47.4 H, RDW Coeff of Mauricio 14.4, Plt Count 246, MPV 10.8, Immature Gran % (Auto) 0.400, Neut % (Auto) 73.9 H, Lymph % (Auto) 15.0 L, [place] % (Auto) 10.0, Eos % (Auto) 0.6, Baso % (Auto) 0.1, Absolute Neuts (auto) 5.7, Absolute Lymphs (auto) 1.16, Nucleated RBC % 0 04/12/20 06:32: Sodium 141, Potassium 3.8, Chloride 106, Carbon Dioxide 30.0, Anion Gap 5, BUN 31 H, Creatinine 1.89 H, Estim Creat Clear Calc 36.50, Est GFR (MDRD) Af Amer 45 L, Est GFR (MDRD) Non-Af 37 L, BUN/Creatinine Ratio 16.4, Glucose 73 L, Calcium 8.4 L 04/12/20 06:34: POC Glucose 67 L 04/12/20 07:01: POC Glucose 68 L 04/12/20 09:12: POC Glucose 190 H 04/12/20 12:24: POC Glucose 157 H Current Medications Acetaminophen (Tylenol) 650 mg PO Q6H PRN PRN PRN Reason: Pain Score 1-10/Temp > 100.7 F Amiodarone HCl (Cordarone) 100 mg PO DAILY [facility] Last Admin: 04/12/20 09:15 Dose: 100 mg Documented by: Aspirin (Aspirin, Baby) 81 mg PO DAILY@0800 [facility] Last Admin: 04/12/20 09:16 Dose: 81 mg Documented by: Atorvastatin Calcium (Lipitor) 10 mg PO QHS [facility] Last Admin: 04/11/20 21:44 Dose: 10 mg Documented by: Carvedilol (Coreg) 12.5 mg PO BID [facility] Last Admin: 04/12/20 09:15 Dose: 12.5 mg Documented by: Clomipramine HCl (Anafranil) 75 mg PO QHS [facility] Last Admin: 04/11/20 21:42 Dose: 75 mg Documented by: Cyanocobalamin (Vitamin B12) 500 mcg PO DAILY@0800 [facility] Last Admin: 04/12/20 09:15 Dose: 500 mcg Documented by: Dextrose (D50w Syringe) 0 gm IV X1 PRN; Protocol PRN Reason: Hypoglycemia Furosemide (Lasix) 40 mg IV BID@1000,1800 [facility] Last Admin: 04/12/20 09:19 Dose: 40 mg Documented by: Glucagon () 1 mg IM .X1 PRN PRN Reason: Hypoglycemia Insulin Glargine (Lantus (Bkc)) 20 units SC DAILY [facility] Last Admin: 04/12/20 09:17 Dose: 20 u Documented by: Insulin Human Lispro (Humalog Kwikpen (Bkc)) 0 unit SC ACHS [facility]; Protocol Last Admin: 04/12/20 12:28 Dose: 1 u Documented by: Melatonin (Melatonin) 3 mg PO QHS [facility] Last Admin: 04/11/20 21:45 Dose: 3 mg Documented by: Nutritional Formula (Lactose Free) (Glucerna Shake) 120 ml PO 4X/DAY [facility] Last Admin: 04/12/20 09:24 Dose: Not Given Documented by: Ondansetron HCl (Zofran) 4 mg IV Q8H PRN PRN PRN Reason: NAUSEA/VOMITING Rivaroxaban (Xarelto) 15 mg PO DAILY@1700 [facility] Last Admin: 04/11/20 18:25 Dose: 15 mg Documented by: Sacubitril/Valsartan (Entresto 24 Mg-26 Mg Tablet) 1 each PO BID [facility] Last Admin: 04/12/20 09:16 Dose: 1 each Documented by: Sodium Chloride () 10 - 40 ml IV UD PRN PRN Reason: SALINE FLUSH Last Admin: 04/12/20 09:19 Dose: 10 ml Documented by: Trazodone HCl (Desyrel) 50 mg PO QHS [facility] Last Admin: 04/11/20 21:43 Dose: 50 mg Documented by: Medical Necessity - Tobacco Use Smoking Status: Never smoker Assessment/Plan All Active Problems (Last Updated 03/29/20 @ 11:39 by Gertrudis Villatoro NP-C) Atrial fibrillation and flutter (Acute) Acute CHF (congestive heart failure) (Acute) 1. Acute on chronic heart failure with reduced ejection fraction/nonischemic cardiomyopathy-BNP 1825. Chest x-ray without acute process. Oxygen stable on room air. Echocardiogram 03/28/2020 demonstrated an EF of 15%, moderately severe mitral valve insufficiency, moderate tricuspid valve insufficiency, RVSP estimated to be 47 mmHg. IV Lasix. Strict I&O. Daily weight. Recent heart cath earlier this month which showed nonobstructive coronary arteries, mild CAD. Continue carvedilol, Entresto. Cardiology following. Cardiology recommending transfer to tertiary facility for evaluation by advanced heart failure team, EP and evaluation of valvular disorders. [facility] accepted patient pending bed availability. 2. Paroxysmal atrial fibrillation/atrial flutter/SVT-continue amiodarone, carvedilol, xarelto. Patient initially in sinus rhythm on admission however converted to atrial flutter with increased rate overnight requiring adenosine. Rate now stable. Plan for transfer pending bed availability as noted above. 3. Acute kidney injury-suspect cardiorenal syndrome, previously improved with diuresis during recent admission. Possible underlying CKD however no significant prior labs for comparison. Creatinine improving. Trend BMP. 4. Mild CAD-heart cath 03/28/2020 with mild CAD. On aspirin, statin. 5. Hypertension-stable, continue Entresto, Carvedilol. 6. Type 2 diabetes mellitus-hold metformin regimen. Recent hemoglobin A1c 6.7%. Accu-Cheks with sliding scale insulin. Reduce home Lantus regimen to 10 units daily given hypoglycemia. 7. OCD-on clomipramine. 8. Gout-not on regimen. 9. Suspected MIRI-recent referral to Dr. Herman for recommended sleep study. 10. Appetite loss-unclear etiology. Dietitian consult. 11. Insomnia-during recent admission tried Ambien and patient was difficult to arouse during the day. Patient initiated on trazodone 50 mg p.o. nightly on admission and states this worked well for him overnight. Will continue. DVT Prophylaxis-xarelto Discharge planning: [facility] for further cardiac evaluation pending bed availability. This patient was seen by PIPPA Rosas under the supervision of Dr. Haines. <Enrique Haines E - Last Filed: 04/13/20 11:07> - Physical Exam Vitals/I&O's: Vital Signs Temp Pulse Resp BP Pulse Ox 98.3 F 96 18 104/63 94 04/12/20 16:37 04/12/20 16:37 04/12/20 16:37 04/12/20 16:37 04/12/20 16:37 Oxygen Delivery Method Room Air Weight: 179 lb 7.3 oz Body Mass Index (BMI) 24.8 Intake and Output for Last 24 Hours 04/11/20 04/12/20 04/13/20 23:59 23:59 23:59 Intake Total 200 / 200 430 / 430 Output Total 890 / 890 675 / 675 Balance -690 / -690 -245 / -245 Laboratory Results 04/12/20 06:34: POC Glucose 67 L 04/12/20 07:01: POC Glucose 68 L 04/12/20 12:24: POC Glucose 157 H 04/12/20 17:59: POC Glucose 183 H Assessment/Plan This note is for encounter on April 12, 2020. Hospitalist note: I am seeing this patient in conjunction with Gertrudis Villatoro. I independently seen and examined the patient. Progress note above, laboratory data and imaging studies reviewed and I concur with the above treatment and transfer plan. Today, patient is feeling better. Shortness of breath improved. Denied any more chest pain or palpitation. Denied dizziness or lightheadedness. His vital signs are stable. - Physical Exam General: Alert, Oriented x3, Cooperative, No apparent distress. HEENT: Atraumatic, PERRLA, EOMI. Neck: Supple, No JVD, Negative Carotid Bruits, Trachea Midline, Thyroid Normal. Lungs: Diminished breath sounds bilateral, otherwise clear, No rhonchi, No wheeze, No rales. Cardiovascular: Irregular rate and rhythm, Normal S1, Normal S2, PMI Normal. Abdomen: Bowel Sounds Present, Soft, Non Tender, Non-Distended, No Hepato-splenomegaly. Extremities: No clubbing, No cyanosis, No edema Skin: No rashes, No breakdown Neurological: Cranial nerves are intact, neuro grossly intact Vital Signs are stable. Assessment and plan: #1 acute on chronic systolic CHF/nonischemic cardiomyopathy: Patient is on IV Lasix as well as beta-blockers and Entresto. He had 2D echocardiogram on March 28, 2020 that showed ejection fraction 50%. Today, symptoms improved, he has been off oxygen. He had recent right heart catheterization this month that revealed nonobstructive CAD. Cardiology consulted, evaluated the patient and recommended transferring patient to [facility] for further cardiac evaluation. Patient was accepted for transfer to [facility] and we are awaiting bed availability. #2 paroxysmal atrial fibrillation/flutter with probable SVT: Patient is amiodarone as well as Coreg and Xarelto. At this time, he remains in atrial flutter, rate is controlled. Blood pressure stable. Plan as above. #3 acute kidney injury: Could be due to cardiorenal syndrome. Creatinine has been improving. #4 other chronic medical problems: Stable, continue current medications as above. This note was generated with [employer] software. It may contain incorrect words, spelling, and punctuation that were not noted in checking the note before signing.
[2020-04-12] MEDS: Rivaroxaban 15 MG Tablet PO (18:02)
[2020-04-12 18:16] LABS: Bedside Glucose 183 mg/dL (70-110)
--- NOTE | 2020-04-12 18:47 | NURSING ---
Report called to nurse Gibbs for pt transfer to [facility] J73 bed 9.
--- NOTE | 2020-04-13 08:20 | PCM.DC.SUM ---
<Gertrudis Villatoro - Last Filed: 04/13/20 08:31> Discharge Date and Diagnosis Date of Admission: 04/11/20 Date of Discharge: 04/12/20 - Primary Discharge Diagnosis Acute Problems: 1. Acute on chronic heart failure with reduced ejection fraction/nonischemic cardiomyopathy 2. Paroxysmal atrial fibrillation/atrial flutter/SVT 3. Acute kidney injury 4. Mild CAD 5. Hypertension 6. Type 2 diabetes mellitus 7. OCD 8. Gout 9. Suspected MIRI 10. Appetite loss 11. Insomnia - Secondary Discharge Diagnosis Chronic Problems: Chronic Problems (Last Updated 03/29/20 @ 11:39 by Gertrudis Villatoro, SALES MERCHANDISING SPECIALIST-C) Cardiomyopathy (Chronic) Paroxysmal atrial fibrillation (Chronic) Valvular heart disease (Chronic) Atherosclerotic heart disease of [place] coronary artery without angina pectoris (Chronic) MILD per cath 01/06/14 Type 2 diabetes mellitus (Chronic) CKD (chronic kidney disease) stage 3, GFR 30-59 ml/min (Chronic) Pure hypercholesterolemia (Chronic) Essential hypertension (Chronic) Atrial flutter with rapid ventricular response (Chronic) Segmental and somatic dysfunction of pelvic region (Chronic) Segmental and somatic dysfunction of thoracic region (Chronic) Segmental and somatic dysfunction of lumbar region (Chronic) Hospital Course and Treatment Imaging Results: Diagnostic Data Chest X-Ray 04/11/20 12:36 IMPRESSION: No acute pulmonary process Electronically Signed: Jhonatan Moran MD at 12:47 EDT , Service support , Dr. Coombs- Cardiology Operations: None Procedures: None Summary of Care Provided: The patient is a 74 year old M admitted 04/11/2020 due to shortness of breath, loss of appetite and difficulty sleeping. 1. Acute on chronic heart failure with reduced ejection fraction/nonischemic cardiomyopathy-BNP 1825. Chest x-ray without acute process. Oxygen stable on room air. Echocardiogram 03/28/2020 demonstrated an EF of 15%, moderately severe mitral valve insufficiency, moderate tricuspid valve insufficiency, RVSP estimated to be 47 mmHg. IV Lasix. Strict I&O. Daily weight. Recent heart cath earlier this month which showed nonobstructive coronary arteries, mild CAD. Continue carvedilol, Entresto. Cardiology following. Cardiology recommending transfer to tertiary facility for evaluation by advanced heart failure team, EP and evaluation of valvular disorders. [facility] at discharge. 2. Paroxysmal atrial fibrillation/atrial flutter/SVT-continue amiodarone, carvedilol, xarelto. Patient initially in sinus rhythm on admission however converted to atrial flutter with increased rate overnight requiring adenosine. Rate now stable. 3. Acute kidney injury-suspect cardiorenal syndrome, previously improved with diuresis during recent admission. Possible underlying CKD however no significant prior labs for comparison. Creatinine improving. Trend BMP. 4. Mild CAD-heart cath 03/28/2020 with mild CAD. On aspirin, statin. 5. Hypertension-stable, continue Entresto, Carvedilol. 6. Type 2 diabetes mellitus-hold metformin regimen. Recent hemoglobin A1c 6.7%. Accu-Cheks with sliding scale insulin. Reduce home Lantus regimen to 10 units daily given hypoglycemia. 7. OCD-on clomipramine. 8. Gout-not on regimen. 9. Suspected MIRI-recent referral to Dr. Herman for recommended sleep study. 10. Appetite loss-unclear etiology. Dietitian consult. 11. Insomnia-during recent admission tried Ambien and patient was difficult to arouse during the day. Patient initiated on trazodone 50 mg p.o. nightly on admission and states this worked well for him overnight. Will continue. General: Alert, Oriented x3, Cooperative HEENT: Atraumatic, PERRLA, EOMI, Normocephalic Neck: Supple, No JVD, Negative Carotid Bruits Lungs: Clear to auscultation, Diminished Cardiovascular: Murmur, - - Atrial flutter Abdomen: Bowel Sounds Present, Soft, Non Tender, Non-Distended Extremities: No clubbing, No cyanosis, No edema, Capillary Refill Less than 3 Seconds Skin: No rashes, No breakdown Musculoskeletal: No Tenderness to Palpation of Joints or Extremities Neurological: Cranial nerves II-XII grossly intact, Neuro grossly intact Psych/Mental Status: Normal Affect, Appropriate Patient seen and examined prior to discharge. Physical assessment as noted above. Patient is stable for transfer to [facility] for further cardiac treatment and evaluation. This patient was seen by PIPPA Rosas under the supervision of Dr. Hianes. - Physical Exam Vitals/I&O's: Vital Signs Temp Pulse Resp BP Pulse Ox 98.3 F 96 18 104/63 94 04/12/20 16:37 04/12/20 16:37 04/12/20 16:37 04/12/20 16:37 04/12/20 16:37 Oxygen Delivery Method Room Air Weight: 179 lb 7.3 oz Body Mass Index (BMI) 24.8 Intake and Output for Last 24 Hours 04/11/20 04/12/20 04/13/20 23:59 23:59 23:59 Intake Total 200 / 200 430 / 430 Output Total 890 / 890 675 / 675 Balance -690 / -690 -245 / -245 Laboratory Results 04/12/20 06:34: POC Glucose 67 L 04/12/20 07:01: POC Glucose 68 L 04/12/20 09:12: POC Glucose 190 H 04/12/20 12:24: POC Glucose 157 H 04/12/20 17:59: POC Glucose 183 H Home Medications: Medications to take at Discharge Aspirin [Aspirin, Baby] 81 mg PO DAILY@0801/05/14 Cyanocobalamin [Vitamin B12] 500 mcg PO DAILY@0801/05/14 metFORMIN HCl [Glucophage] 1,000 mg PO BID 01/05/14 insulin glargine 100 unit/mL (3 mL) subcutaneous pen 20 unit SC DAILY 03/14/20 sitagliptin 100 mg tablet 100 mg PO QHS 03/14/20 Amiodarone HCl 200 mg PO BID 04/11/20 Carvedilol [Coreg (Beta Smita)] 12.5 mg PO BID 04/11/20 Clomipramine HCl 75 mg PO QHS 04/11/20 Furosemide [Lasix] 40 mg PO DAILY 04/11/20 Melatonin 3 mg PO QHS 04/11/20 Potassium Chloride [K-Dur] 40 meq PO DAILYCM 04/11/20 Rivaroxaban [Xarelto] 15 mg PO DAILY@1700 04/11/20 Sacubitril/Valsartan 24/26 mg [Entresto 24 mg-26 mg Tablet] 1 ea PO BID 04/11/20 Simvastatin [Zocor] 20 mg PO QHS 04/11/20 Primary Care Physician: Hernandez Montenegro DO [Primary Care Provider] - Disposition: Acute care Hospital Minutes spent on discharge:: 35 Patient Condition:: Stable Medical Necessity - Tobacco Use Smoking Status: Never smoker Meaningful Use Info Meaningful Use Diagnoses (Choose all that apply): CHF - CHF ALBERTINA/ARB ordered at discharge?: Yes Documented LVEF (%): 15 <Enrique Haines E - Last Filed: 04/13/20 11:11> Discharge Date and Diagnosis - Secondary Discharge Diagnosis Chronic Problems: Chronic Problems (Last Updated 03/29/20 @ 11:39 by Gertrudis Villatoro NP-Dhaval) Cardiomyopathy (Chronic) Paroxysmal atrial fibrillation (Chronic) Valvular heart disease (Chronic) Atherosclerotic heart disease of [place] coronary artery without angina pectoris (Chronic) MILD per cath 01/06/14 Type 2 diabetes mellitus (Chronic) RBBB (right bundle branch block) (Chronic) CKD (chronic kidney disease) stage 3, GFR 30-59 ml/min (Chronic) Pure hypercholesterolemia (Chronic) Essential hypertension (Chronic) Atrial flutter with rapid ventricular response (Chronic) Segmental and somatic dysfunction of pelvic region (Chronic) Segmental and somatic dysfunction of thoracic region (Chronic) Segmental and somatic dysfunction of lumbar region (Chronic) Hospital Course and Treatment Summary of Care Provided: This note is for the encounter on April 12, 2020. Hospitalist note: Discharge summary above reviewed and I concur with the above transfer plan. Patient presented to the emergency room because of shortness of breath and he was found to have acute on chronic systolic CHF as well as atrial flutter. This patient had recent history of cardiac catheterization of the right heart, found to have nonobstructive CAD and nonischemic cardiomyopathy. His ejection fraction was 15%. Patient was treated with IV Lasix for diuresis and he was maintained on beta-blockers and Entresto. He went into atrial flutter, heart rate has been 100 he was maintained on Coreg and Xarelto. Cardiology consulted and recommended to transfer patient to [facility] for further cardiac evaluation and treatment. Patient was found to have acute kidney injury and his creatinine improved in spite of IV diuresis. Patient transferred to [facility] in a stable medical condition. - Physical Exam General: Alert, Oriented x3, Cooperative, No apparent distress. HEENT: Atraumatic, PERRLA, EOMI. Neck: Supple, No JVD, Negative Carotid Bruits, Trachea Midline, Thyroid Normal. Lungs: Diminished breath sounds bilateral, otherwise clear, No rhonchi, No wheeze, No rales. Cardiovascular: Irregular rate and rhythm, Normal S1, Normal S2, PMI Normal. Abdomen: Bowel Sounds Present, Soft, Non Tender, Non-Distended, No Hepato-splenomegaly. Extremities: No clubbing, No cyanosis, No edema Skin: No rashes, No breakdown Neurological: Cranial nerves are intact, neuro grossly intact Vital Signs are stable. This note was generated with [employer] dictation software. It may contain incorrect words, spelling, and punctuation that were not noted in checking the note before signing. - Physical Exam Vitals/I&O's: Vital Signs Temp Pulse Resp BP Pulse Ox 98.3 F 96 18 104/63 94 04/12/20 16:37 04/12/20 16:37 04/12/20 16:37 04/12/20 16:37 04/12/20 16:37 Oxygen Delivery Method Room Air Weight: 179 lb 7.3 oz Body Mass Index (BMI) 24.8 Intake and Output for Last 24 Hours 04/11/20 04/12/20 04/13/20 23:59 23:59 23:59 Intake Total 200 / 200 430 / 430 Output Total 890 / 890 675 / 675 Balance -690 / -690 -245 / -245 Laboratory Results 04/12/20 06:34: POC Glucose 67 L 04/12/20 07:01: POC Glucose 68 L 04/12/20 12:24: POC Glucose 157 H 04/12/20 17:59: POC Glucose 183 H Disposition: [facility] Minutes spent on discharge:: 32 Patient Condition:: Stable Inpatient E&M: [id number] Disch Hosp
== END 2020-04-12 18:55 | disposition short-term general hospital (02) | DRG 291 ==
LOC: ED 13:31 → PCU 15:05
PROVIDERS: Admitting Provider Family Medicine; Emergency Provider Emergency Medicine; PCP Student in an Organized Health Care Education/Training Program; Visit Provider Hospitalist
DX: I13.0 Hypertensive heart and chronic kidney disease with heart failure and stage 1 through stage 4 chronic kidney disease, or unspecified chronic kidney disease (principal); I50.23 Acute on chronic systolic (congestive) heart failure; I47.1 Supraventricular tachycardia; I48.92 Unspecified atrial flutter; N17.9 Acute kidney failure, unspecified; N18.3 Chronic kidney disease, stage 3 (moderate); E11.22 Type 2 diabetes mellitus with diabetic chronic kidney disease; E78.5 Hyperlipidemia, unspecified; I25.10 Atherosclerotic heart disease of native coronary artery without angina pectoris; I42.8 Other cardiomyopathies; I45.10 Unspecified right bundle-branch block; I48.0 Paroxysmal atrial fibrillation; M10.9 Gout, unspecified; R09.02 Hypoxemia; F42.9 Obsessive-compulsive disorder, unspecified; M41.9 Scoliosis, unspecified; M99.02 Segmental and somatic dysfunction of thoracic region; M99.03 Segmental and somatic dysfunction of lumbar region; M99.05 Segmental and somatic dysfunction of pelvic region; M19.90 Unspecified osteoarthritis, unspecified site; M51.36 Other intervertebral disc degeneration, lumbar region; R63.0 Anorexia; Z68.26 Body mass index [BMI] 26.0-26.9, adult; Z79.01 Long term (current) use of anticoagulants; Z79.899 Other long term (current) drug therapy; Z79.82 Long term (current) use of aspirin; Z79.4 Long term (current) use of insulin
CPT/HCPCS: 36415; 71045; 80048; 80053; 82962; 83880; 84484; 85025; 86850; 86900; 86901; 93005; 97162; 97166; 97802; 99218; 99285; A4216; G0378; J0153; J1940

== ENCOUNTER → 2021-05-12 10:53 | Outpatient (CLI) | payer MEDICARE, SELFPAY ==
[2021-01-27 10:06] VITALS: BMI 25.9
[2021-05-12 11:30] LABS: CREATININE FINGERSTICK 1.5 mg/dL (0.70-1.30)
--- NOTE | 2021-05-12 11:30 | MRI_ITS ---
STUDY: MRI BRAIN WITH AND WITHOUT CONTRAST (ATTENTION INTERNAL AUDITORY CANALS - I.A.C.''s) REASON FOR EXAM: Male, 76 years old. LEFT asymmetric hearing loss TECHNIQUE: Standardized multiplanar fat and water weighted pulse sequences were obtained. IV 17cc dotarem was administered for the contrast portion of the examination. COMPARISON: None. FINDINGS: There is left mastoid effusion. Cerebellopontine angles are normal. There is asymmetric thin linear enhancement of the left cranial nerve VII and VIII complex. Pontine nuclei are normal. Labyrinthine segments are normal. There is mild to moderate chronic white matter gliotic ischemic change. There are no focal brain lesions, acute infarct or abnormal enhancement. MRI/Brain W/WO Contrast IMPRESSION: 1. Enhancement of cranial nerve VII/8, nonspecific neuritis, no mass lesion. 2. Left mastoid effusion. Electronically Signed: Rolly Patricio MD at 12:15 EDT Tel , Service support ,
== END ==
PROVIDERS: PCP Student in an Organized Health Care Education/Training Program; Referring Provider Otolaryngology Otolaryngology/Facial Plastic Surgery; Visit Provider Otolaryngology Otolaryngology/Facial Plastic Surgery
DX: H90.41 Sensorineural hearing loss, unilateral, right ear, with unrestricted hearing on the contralateral side (principal)
CPT/HCPCS: 70553; A9575

== ENCOUNTER 2022-06-06 11:06 | Inpatient (IN) | payer MEDICARE, SELFPAY ==
[2022-06-06] VITALS (23 sets, daily range): BP systolic 68–166; BP diastolic 41–73; PULSE 102–147; RESP 17–30; TEMP 37–39.7; O2SAT 92–97; BMI 26.4; BMI 25.3
--- NOTE | 2022-06-06 11:20 | EKG12_ITS ---
Test Reason : Blood Pressure : / mmHG Vent. Rate : 109 BPM Atrial Rate : 109 BPM P-R Int : 156 ms QRS Dur : 148 ms QT Int : 368 ms P-R-T Axes : 039 -68 042 degrees QTc Int : 495 ms Sinus tachycardia with Premature supraventricular complexes Right bundle branch block Left anterior fascicular block Bifascicular block Confirmed by ADAM PAVON, MCKENZIE ([id number]), avid editor YOSEPH MALAGON ([id number]) on 06/08/2022 9:50:03 AM Referred By: Confirmed By:MCKENZIE MEDINA MD
--- NOTE | 2022-06-06 11:22 | EX.ED.DYSGE1 ---
HPI History of Present Illness Chief Complaint: Weakness Informant: patient Narrative Narrative: Patient presents with fevers chills nausea and vomiting that started yesterday. He is also developed a cough since last night to this morning. No sputum production. Mild dyspnea with it. He also has some myalgias. He just had what sounds like transurethral resection of the prostate on Saturday at [facility] with Dr. Du. He has been urinating. He has some blood in the urine but no clots. This would be expected. No difficulties urinating. He is not having abnormal pain. Patient did have a least the original COVID vaccines but has not had a booster recently. [facility] Medical History Arthritis Atherosclerotic heart disease of [place] coronary artery without angina pectoris Atrial flutter with rapid ventricular response CKD (chronic kidney disease) stage 3, GFR 30-59 ml/min DDD (degenerative disc disease), lumbar Essential hypertension Gout History of left heart catheterization (LHC) (~03/28/20) HLD (hyperlipidemia) OCD (obsessive compulsive disorder) MIRI on CPAP Pure hypercholesterolemia RBBB (right bundle branch block) Scoliosis Type 2 diabetes mellitus Home Medications insulin glargine 100 unit/mL (3 mL) subcutaneous pen (Lantus Solostar U-100 Insulin) 25 unit subcut QHS dm 03/14/20 [History Last Taken 06/05/22] metformin 500 mg tablet 500 mg PO DAILY dm 04/28/20 [History Last Taken 06/05/22] sacubitril 97 mg-valsartan 103 mg tablet (Entresto) 1 tab PO BID heart 07/07/20 [History Last Taken 06/05/22] rivaroxaban 15 mg tablet 15 mg PO DAILY blood thinner #90 tabs 05/01/21 [Rx Last Taken 05/29/22] atorvastatin 10 mg tablet 10 mg PO DAILY cholesterol 09/06/21 [History Last Taken 06/05/22] duloxetine 60 mg capsule,delayed release 120 mg PO QHS depression 09/06/21 [History Last Taken 06/05/22] linagliptin 5 mg tablet (Tradjenta) 5 mg PO DAILY dm 09/06/21 [History Last Taken 06/05/22] zolpidem 5 mg tablet (Ambien) 5 mg PO QHS PRN Sleep 12/15/21 [History Last Taken 06/05/22] cholecalciferol (vitamin D3) 50 mcg (2,000 unit) tablet 50 mcg PO DINNER supplement 03/22/22 [History Last Taken 06/05/22] finasteride 5 mg tablet 5 mg PO DAILY prostate 03/22/22 [History Last Taken 06/05/22] melatonin 5 mg tablet 10 mg PO HS PRN Sleep 03/22/22 [History Last Taken 06/05/22] tamsulosin 0.4 mg capsule 0.4 mg PO QHS prostate 03/22/22 [History Last Taken 06/05/22] aspirin 81 mg chewable tablet (Nexstim Aspirin) 81 mg PO DAILY health maintenance 06/06/22 [History Last Taken 06/05/22] carvedilol 25 mg tablet 25 mg PO BID heart 06/06/22 [History Last Taken 06/05/22] Allergy/AdvReac Type Severity Reaction Status Date / Time No Known Allergies Allergy Verified 06/06/22 11:07 Family History Mother Hypertension Father Hypertension Surgical History History of cardiac radiofrequency ablation (~04/19/20) History of cataract extraction History of prostate biopsy Social History Smoking Status: Never smoker alcohol intake: never substance use type: does not use caffeine: Yes Type: tea Number of servings: 2 what type of physical activity do you participate in: none ROS ROS ED Constitutional Constitutional ED: Reports chills, fever(s) and subjective; Denies sweats Eyes Eyes: Denies change in vision ENT ENT ED: Denies rhinorrhea or sore throat Cardiovascular Cardiovascular: Denies chest pain or palpitations Respiratory/Chest Respiratory/Chest: Reports cough and dyspnea; Denies sputum Gastrointestinal Gastrointestinal: Reports nausea and vomiting; Denies abdominal pain, constipation, diarrhea or melena Genitourinary Genitourinary ED: Reports hematuria; Denies dysuria or urinary frequency Musculoskeletal Musculoskeletal: Reports myalgias Integumentary Denies rash Neurologic Neurologic: Denies headache(s) Endocrine Endocrinology: Denies polydipsia or polyuria Hematologic/Lymphatic Hematologic/Lymphatic: Reports easy bleeding and easy bruising Allergic/Immunologic Allergic/Immunologic ED: Denies urticaria EXAM Physical Exam Const Vital Signs: 06/06/22 11:09 06/06/22 11:16 06/06/22 11:18 Temperature 98.6 F 98.6 F Temperature Source Oral Temporal Pulse Rate 105 H 102 H Respiratory Rate 20 H 19 H Respiratory Effort Normal Non-Labored Respiratory Pattern Normal Blood Pressure 145/49 H 145/49 H Blood Pressure Mean 81 81 Pulse Ox 94 94 Oxygen Delivery Method Room Air Oxygen Flow Rate (L/min) 06/06/22 11:28 06/06/22 12:07 06/06/22 14:36 Temperature 103.4 F H Temperature Source Oral Pulse Rate 107 H 143 H Respiratory Rate 17 30 H Respiratory Effort Respiratory Pattern Blood Pressure 166/61 H 148/46 H Blood Pressure Mean 96 80 Pulse Ox 96 93 96 Oxygen Delivery Method Room Air Room Air Nasal Cannula Oxygen Flow Rate (L/min) 3 06/06/22 15:04 Temperature 103.4 F H Temperature Source Oral Pulse Rate 127 H Respiratory Rate 28 H Respiratory Effort Respiratory Pattern Blood Pressure 142/41 H Blood Pressure Mean 74 Pulse Ox 96 Oxygen Delivery Method Nasal Cannula Oxygen Flow Rate (L/min) 3 Positive well nourished and well developed General Appearance ED: well developed, NAD and pallor HEENT Reports dry mucous membranes HEENT Narrative: Mucous membranes do look a little dry. Patient admits he really has not been drinking much fluids. Mouth ED: Yes dry mucous membranes Mouth: dry mucous membranes Eyes Eyes Narrative: Mild pallor. Neck no lymphadenopathy and no JVD Chest Wall inspection of chest normal and palpation of chest normal Resp normal respiratory effort and clear to auscultation bilaterally Resp Narrative: Lungs sound clear. However, he does have a frequent dry sounding cough. Auscultation: Negative for rales, rhonchi or wheezes Cardio no murmurs Rate: tachycardic and other Other Details: Patient has mild tachycardia. He does have some irregular beats. He has a history of irregularity. It sounds like he may have had an ablation about 2 years ago. He still has occasional irregularities. He is on Xarelto. GI normal to inspection, nondistended, normoactive bowel sounds and non-tender Palpation: soft Back/Spine General Back: CVA tenderness Extremity normal to inspection Neuro oriented x3 Psych mental status grossly normal Skin no rashes or lesions noted Skin Narrative: Mild pallor. General Skin Exam: pallor MDM MDM MDM Narrative Medical decision making narrative: Patient's blood work showed white count is a little lower than his baseline. Hemoglobin was low but he just had surgery and has been having some hematuria since which is expected. Electrolytes show mildly decreased potassium. Creatinine was just a little bit elevated at 1.69. Glucose was 200. Liver function test overall unremarkable. Lactate is elevated at 4.6. Urine shows increased red-white cells turbid with leukocyte Estrace. He had already had Zosyn ordered. Chest x-ray showed no acute process. Influenza and COVID are negative. I went and checked the patient. He spiked a temperature to 103 here. His heart rate went up to about 140s with this. But his blood pressure was still reading 160s. He was not dropping blood pressure. His oxygen saturation was reading about 84% but it was not correlating with his heart rate as he has A. fib or frequent PACs with increased rate. We did put him on 3 L. He is reading 95%. He has a slight cough but no real change in dyspnea with any of this. I am concerned with his increased heart rate lactate chills and rigors at this really is sepsis likely related to his urine. I did speak with his urologist, Dr. Du. His preoperative cultures were negative. He was okay if the patient stayed here but was certainly willing to accept him at [facility] if needed. I did discuss case with hospitalist and he will stay here. It sounds like the patient and family would prefer to be here. I think this does represent sepsis from UTI. However, he was not given IV fluids because he has a history of a reduced ejection fraction, CHF, and his blood pressure is not low at this point. Certainly if his blood pressure lowers he may benefit from fluids at that time. Lab Data Attestation: I reviewed the patient's lab results. Labs: Laboratory Results - last 24 hr 06/06/22 06/06/22 06/06/22 11:49 11:49 11:49 WBC 4.8 RBC 3.27 L Hgb 8.4 L Hct 27.0 L MCV 82.6 MCH 25.7 L MCHC 31.1 L RDW Std Deviation 46.6 H RDW Coeff of Mauricio 15.5 H Plt Count 190 MPV 10.5 Immature Gran % (Auto) 0.600 Neut % (Auto) 95.7 H Lymph % (Auto) 3.1 L Glenn % (Auto) 0.6 Eos % (Auto) 0.0 Baso % (Auto) 0.0 Absolute Neuts (auto) 4.6 Absolute Lymphs (auto) 0.15 L Nucleated RBC % 0 Differential Comment Platelet Estimate ADEQUATE RBC Morphology N CYTIC Hypochromasia 1+ Sodium 143 Potassium 3.2 L Chloride 109 H Carbon Dioxide 24.0 Anion Gap 10 BUN 27 H Creatinine 1.69 H Estim Creat Clear Calc 38.90 Est GFR (MDRD) Af Amer 51 L Est GFR (MDRD) Non-Af 42 L BUN/Creatinine Ratio 16.0 Glucose 204 H Lactic Acid 4.6 H* Calcium 8.6 Total Bilirubin 0.50 AST 18 ALT 13 L Alkaline Phosphatase 72 Total Protein 6.0 L Albumin 2.8 L Globulin 3.2 Albumin/Globulin Ratio 0.9 Urine Color Urine Clarity Urine pH Ur Specific [place] Urine Protein Urine Glucose (UA) Urine Ketones Urine Occult Blood Urine Nitrite Urine Bilirubin Urine Urobilinogen Ur Leukocyte Esterase Urine RBC Urine WBC Ur Squamous Epith Cells Urine Bacteria Urine Mucus 06/06/22 12:25 WBC RBC Hgb Hct MCV MCH MCHC RDW Std Deviation RDW Coeff of Mauricio Plt Count MPV Immature Gran % (Auto) Neut % (Auto) Lymph % (Auto) Glenn % (Auto) Eos % (Auto) Baso % (Auto) Absolute Neuts (auto) Absolute Lymphs (auto) Nucleated RBC % Differential Comment Platelet Estimate RBC Morphology Hypochromasia Sodium Potassium Chloride Carbon Dioxide Anion Gap BUN Creatinine Estim Creat Clear Calc Est GFR (MDRD) Af Amer Est GFR (MDRD) Non-Af BUN/Creatinine Ratio Glucose Lactic Acid Calcium Total Bilirubin AST ALT Alkaline Phosphatase Total Protein Albumin Globulin Albumin/Globulin Ratio Urine Color Red Urine Clarity Turbid Urine pH 6.5 Ur Specific [place] 1.015 Urine Protein 500 H Urine Glucose (UA) 250 H Urine Ketones 15 H Urine Occult Blood 250 H Urine Nitrite Negative Urine Bilirubin Negative Urine Urobilinogen Normal Ur Leukocyte Esterase 100 H Urine RBC 25-50 SEEN Urine WBC 10-25 SEEN Ur Squamous Epith Cells 0-5 SEEN Urine Bacteria 1+ Urine Mucus 0 SEEN Radiography Diagnostic Testing: Clinical Impression(s) from Imaging Studies Chest X-Ray 06/06/22 11:30 IMPRESSION: No acute abnormality is seen. Electronically Signed: Mark Caballero MD at 12:03 EDT , Discharge Plan Dx/Rx/DC Orders Clinical Impression: Sepsis, Urinary tract infection, Acidosis, lactic Disposition Disposition: Acute Care Hospital [facility] Discharge Date/Time: 06/06/22 15:27
--- NOTE | 2022-06-06 11:30 | RAD_ITS ---
STUDY: X-RAY CHEST REASON FOR EXAM: Male, 77 years old. Cough TECHNIQUE: Single AP portable view of the chest. COMPARISON: Comparison is made with prior study of 04/11/2020. FINDINGS: EKG electrode are seen. Mild elevation of the right hemidiaphragm. No acute abnormality is seen. There is no demonstrated pleural abnormality. Normal size heart. Normal mediastinum and brook. Normal visualized pulmonary arteries. There is atherosclerotic tortuosity of the aortic arch and descending thoracic aorta. There is a levoscoliosis of the thoracic spine. Healed right rib fractures. There is no demonstrated abnormality of the visualized soft tissue structures of the upper abdomen. RAD/Chest 1 View (Portable) IMPRESSION: No acute abnormality is seen. Electronically Signed: Mark Caballero MD at 12:03 EDT ,
[2022-06-06 12:01] LABS: Absolute Lymphocyte Count 0.15 X10^3/uL (0.83-4.51); Absolute Neutrophil Count 4.6 X10^3/uL (2.0-7.7); Hemoglobin 8.4 g/dL (13.0-16.5); Lymphocyte # 0.15 X10^3/ul (0.83-4.51); Lymphocyte % 3.1 % (19-41); Mean Corp Hgb Conc 31.1 g/dL (32-36); Mean Corpuscular Hgb 25.7 pg (27.0-32.0); Mean Corpuscular Volume 82.6 fL (80-94); Mean Platelet Vol. 10.5 fl (6.2-12.0); Monocyte# 0.03 X10^3/uL; Monocyte% 0.6 % (0-10); NRBC Flagged by Analyzer 0 % (0-5); Neutrophil # 4.61 X10^3/uL (2.7-7.7); Neutrophil % 95.7 % (47-70); POSITIVE DIFFERENTIAL YES; Platelet Count 190 K/mm3 (150-450); RBC Distribution Width CV 15.5 % (11.6-14.6); RBC Distribution Width SD 46.6 fl (35.1-43.9); Red Blood Count 3.27 M/mm3 (4.6-6.2); White Blood Count 4.8 K/mm3 (4.4-11.0)
[2022-06-06 12:03] LABS: Differential Indicated SCAN CRITERIA MET
[2022-06-06] MEDS: Ondansetron 4 MG/2 ML Vial IV (12:26)
[2022-06-06 12:29] LABS: Mucous, Urine 0 SEEN /hpf (<or=2+)
[2022-06-06 12:30] LABS: Hypochromasia 1+; Platelet Estimate ADEQUATE (ADEQ); Red Cell Morphology N CYTIC NORMAL (NORM C&C)
[2022-06-06 12:32] LABS: Color, Urine Red (Yellow); Glucose, Dipstick 250 mg/dl (Normal); Ketone-Dipstick 15 mg/dl (Negative); Leukocyte Esterase-Dipstick 100 /ul (Negative); Nitrite-Dipstick Negative (Negative); Occult Blood-Urine 250 /ul (Negative); Protein-Dipstick 500 mg/dl (Negative); Specific Gravity, Urine 1.015 (1.002-1.030); Urine Bilirubin Dipstick Negative (Negative); Urine Clarity Turbid (Clear); Urine Urobilinogen Normal (Normal); Urine pH 6.5 (5.0 - 8.0)
[2022-06-06 12:41] LABS: ALB/GLOB Ratio 0.9 RATIO (0.9-2.4); AST(SGOT) 18 U/L (15-37); Alanine Aminotransfer ALT/SGPT 13 U/L (16-61); Albumin, Serum 2.8 g/dL (3.2-5.0); Alkaline Phosphatase 72 U/L (45-117); Anion Gap 10 (5-15); BUN 27 mg/dL (7-18); Calcium,Total 8.6 mg/dL (8.5-10.1); Chloride 109 mmol/L (98-107); Creatinine, Serum 1.69 mg/dL (0.70-1.30); EST Glomerular Filtration Rate 42 mL/min (>60); Est Glom Filt Rate - Afr Amer 51 mL/min (>60); Globulin 3.2 g/dL (2.2-4.2); Glucose 204 mg/dL (74-106); Potassium 3.2 mmol/L (3.5-5.1); Sodium Level 143 mmol/L (136-145)
[2022-06-06 12:42] LABS: Lactic Acid 4.6 mmol/L (0.4-1.9)
[2022-06-06 12:46] LABS: Red Blood Cells-Urine 25-50 SEEN /hpf (0-5)
[2022-06-06 12:47] LABS: Bacteria 1+ /hpf (None Seen); Squamous Epithelial Cells - UA 0-5 SEEN /hpf (0-5); White Blood Cells 10-25 SEEN /hpf (0-5)
--- NOTE | 2022-06-06 14:48 | NURSING ---
PCU TERELETKSY SEPSIS SECONDARY TO UTI
[2022-06-06] MEDS: Acetaminophen 500 MG Tablet 1000 MG PO (15:03)
[2022-06-06 15:56] LABS: Reflex Lactate? Y
[2022-06-06] MEDS: 0.9% Normal Saline 1,000 ML 100 ML IV (16:24)
[2022-06-06 16:57] LABS: Lactic Acid 8.9 mmol/L (0.4-1.9)
[2022-06-06 17:30] LABS: Bedside Glucose 149 mg/dL (74-106)
[2022-06-06] MEDS: Acetaminophen 325 MG Tablet 650 MG PO (18:59)
--- NOTE | 2022-06-06 19:58 | NURSING ---
Dr. Leigh at bedside, discussed patient condition and VS. Dr. Espinosa notified of positive blood cx. Dr. Espinosa gave verbal order for 1000ml LR bolus and ordered ABX be changed from ceftriaxone 2gm q24H to meropenem 500mg IV Q8H. orders entered. will continue to monitor patient.
[2022-06-06] MEDS: 0.9% Saline Lock 10 ML Syringe IV (20:12)
[2022-06-06] MEDS: Lactated Ringers 1,000 ML 999 ML IV (20:12)
[2022-06-06] MEDS: 0.9% Normal Saline 1,000 ML 999 ML IV (20:46)
--- NOTE | 2022-06-06 20:47 | PCM.HP.STD ---
[facility] - General General Date of Admission: 06/06/22 Date of Service: 06/06/22 Chief Complaint: Fever, chills HPI Narrative KAISER SANDOVAL, is a 77 M who presents to the emergency room at [facility] with chief complaint of fever, chills, and nausea which began yesterday. Patient also complained of a cough which developed last night. Patient complained of some mild dyspnea. Patient underwent a TURP of the prostate 2 days ago at [facility] and he was discharged on Saturday, he was not discharged on any home antibiotics. Patient has had a history of frequent urinary tract infections and has had the placement of chronic Méndez catheters in the past. Work-up in the emergency room included a CBC which showed a normal white blood cell count, hemoglobin was 8.4, patient was noted to be in atrial fibrillation which is a chronic condition-he was tachycardic however, patient had chills and fever in the ER-his temp was 103 at 1 point in the emergency room. Chest x-ray was obtained which showed no evidence of infiltrate, patient's lactic acid was elevated at 4.6, chemistry profile revealed a potassium of 3.2, creatinine was 1.69, and urinalysis revealed 25-50 RBCs, 10-25 WBCs, and +1 bacteria. Patient was felt to be septic from a urinary tract infection, he was admitted to PCU and given IV antibiotics, labs will be monitored, vital signs will be monitored. [facility] Medical History Arthritis Atherosclerotic heart disease of [place] coronary artery without angina pectoris Atrial flutter with rapid ventricular response CKD (chronic kidney disease) stage 3, GFR 30-59 ml/min DDD (degenerative disc disease), lumbar Essential hypertension Gout History of left heart catheterization (LHC) (~03/28/20) HLD (hyperlipidemia) OCD (obsessive compulsive disorder) MIRI on CPAP Pure hypercholesterolemia RBBB (right bundle branch block) Scoliosis Type 2 diabetes mellitus Home Medications insulin glargine 100 unit/mL (3 mL) subcutaneous pen (Lantus Solostar U-100 Insulin) 25 unit subcut QHS dm 03/14/20 [History Last Taken 06/05/22] metformin 500 mg tablet 500 mg PO DAILY dm 04/28/20 [History Last Taken 06/05/22] sacubitril 97 mg-valsartan 103 mg tablet (Entresto) 1 tab PO BID heart 07/07/20 [History Last Taken 06/05/22] rivaroxaban 15 mg tablet 15 mg PO DAILY blood thinner #90 tabs 05/01/21 [Rx Last Taken 05/29/22] atorvastatin 10 mg tablet 10 mg PO DAILY cholesterol 09/06/21 [History Last Taken 06/05/22] duloxetine 60 mg capsule,delayed release 120 mg PO QHS depression 09/06/21 [History Last Taken 06/05/22] linagliptin 5 mg tablet (Tradjenta) 5 mg PO DAILY dm 09/06/21 [History Last Taken 06/05/22] zolpidem 5 mg tablet (Ambien) 5 mg PO QHS PRN Sleep 09/06/21 [History Last Taken 06/05/22] cholecalciferol (vitamin D3) 50 mcg (2,000 unit) tablet 50 mcg PO DINNER supplement 03/22/22 [History Last Taken 06/05/22] finasteride 5 mg tablet 5 mg PO DAILY prostate 03/22/22 [History Last Taken 06/05/22] melatonin 5 mg tablet 10 mg PO HS PRN Sleep 03/22/22 [History Last Taken 06/05/22] tamsulosin 0.4 mg capsule 0.4 mg PO QHS prostate 03/22/22 [History Last Taken 06/05/22] aspirin 81 mg chewable tablet ([place] Aspirin) 81 mg PO DAILY health maintenance 06/06/22 [History Last Taken 06/05/22] carvedilol 25 mg tablet 25 mg PO BID heart 06/06/22 [History Last Taken 06/05/22] Allergy/AdvReac Type Severity Reaction Status Date / Time No Known Allergies Allergy Verified 06/06/22 11:07 Family History Mother Hypertension Father Hypertension Surgical History History of cardiac radiofrequency ablation (~04/19/20) History of cataract extraction History of prostate biopsy Social History Smoking Status: Never smoker alcohol intake: never substance use type: does not use caffeine: Yes Type: tea Number of servings: 2 what type of physical activity do you participate in: none ROS Constitutional Constitutional: Reports chills, fatigue, fever(s) and weakness; Denies anorexia, change in weight or night sweats Eyes Eyes: Denies blurry vision, change in eye color, change in vision, discharge from eye(s) or eye pain ENT HEENT: Denies dysphagia or ear pain Cardiovascular Cardiovascular: Denies chest pain, claudication, dyspnea on exertion, edema, lightheadedness, orthopnea or palpitations Respiratory/Chest Respiratory/Chest: Denies cough, excessive phlegm production, hemoptysis, shortness of breath at rest or shortness of breath with exertion Gastrointestinal Gastrointestinal: Denies abdominal pain, coffee ground emesis, constipation, diarrhea, hematemesis, hematochezia, melena, nausea or vomiting Genitourinary Genitourinary: Denies burning urination, difficulty urinating, dysuria, hematuria, urinary frequency, urinary hesitancy, urinary incontinence or urinary urgency Musculoskeletal Musculoskeletal: Denies back pain, joint pain, joint stiffness, joint swelling, myalgias or neck pain Neurologic Neurologic: Denies abnormal gait, abnormal speech, dizziness, focal weakness, headache(s), loss of vision, numbness, other visual disturbances, paresthesias, syncope or tingling Psychiatric Psychiatric: Denies anxiety, cognitive impairment, depression, irritability, mood swings or suicidal ideation Endocrine Endocrinology: Denies change in body appearance, cold intolerance, excessive sweating, heat intolerance, polydipsia or polyuria Hematologic/Lymphatic Hematologic/Lymphatic: Denies none, anemia, easy bleeding, easy bruising or lymphadenopathy Allergic/Immunologic Allergic/Immunologic: Denies rhinitis, urticaria, eczemia or asthma Vital Signs Vital Signs Vital Signs: 06/06/22 11:09 06/06/22 11:16 06/06/22 11:18 Temperature 98.6 F 98.6 F Temperature Source Oral Temporal Pulse Rate 105 H 102 H Respiratory Rate 20 H 19 H Respiratory Effort Normal Non-Labored Respiratory Depth Respiratory Pattern Normal Blood Pressure 145/49 H 145/49 H Blood Pressure Mean 81 81 Blood Pressure Source Blood Pressure Position Blood Pressure Location Pulse Ox 94 94 Oxygen Delivery Method Room Air Oxygen Flow Rate (L/min) 06/06/22 11:28 06/06/22 12:07 06/06/22 14:36 Temperature 103.4 F H Temperature Source Oral Pulse Rate 107 H 143 H Respiratory Rate 17 30 H Respiratory Effort Respiratory Depth Respiratory Pattern Blood Pressure 166/61 H 148/46 H Blood Pressure Mean 96 80 Blood Pressure Source Blood Pressure Position Blood Pressure Location Pulse Ox 96 93 96 Oxygen Delivery Method Room Air Room Air Nasal Cannula Oxygen Flow Rate (L/min) 3 06/06/22 15:04 06/06/22 15:41 06/06/22 16:10 Temperature 103.4 F H 100.7 F H 99.7 F H Temperature Source Oral Temporal Temporal Pulse Rate 127 H 143 H 110 H Respiratory Rate 28 H 22 H 20 H Respiratory Effort Respiratory Depth Respiratory Pattern Blood Pressure 142/41 H 97/73 136/56 H Blood Pressure Mean 74 81 82 Blood Pressure Source Monitor Blood Pressure Position Semi-Fowlers Blood Pressure Location Right Arm Pulse Ox 96 92 94 Oxygen Delivery Method Nasal Cannula Nasal Cannula Nasal Cannula Oxygen Flow Rate (L/min) 3 6 5 06/06/22 16:00 06/06/22 15:04 06/06/22 18:56 Temperature 103.2 F H Temperature Source Rectal Pulse Rate 104 H Respiratory Rate Respiratory Effort Normal Non-Labored Respiratory Depth Shallow Respiratory Pattern Tachypnea Blood Pressure Blood Pressure Mean Blood Pressure Source Blood Pressure Position Blood Pressure Location Pulse Ox Oxygen Delivery Method Nasal Cannula Oxygen Flow Rate (L/min) 5 06/06/22 20:02 06/06/22 19:00 Temperature 102.4 F H Temperature Source Axillary Pulse Rate 147 H 119 H Respiratory Rate 22 H Respiratory Effort Respiratory Depth Respiratory Pattern Blood Pressure 75/54 L Blood Pressure Mean 61 Blood Pressure Source Monitor Blood Pressure Position Semi-Fowlers Blood Pressure Location Left Arm Pulse Ox 96 Oxygen Delivery Method Nasal Cannula Oxygen Flow Rate (L/min) 5 Weight Weight: 84.822 kg Body Mass Index (BMI) 25.3 Results Lab / Micro Data Result Diagrams: 06/06/22 11:49 06/06/22 11:49 Labs: Laboratory Results - last 24 hr 06/06/22 11:49: WBC 4.8, RBC 3.27 L, Hgb 8.4 L, Hct 27.0 L, MCV 82.6, MCH 25.7 L, MCHC 31.1 L, RDW Std Deviation 46.6 H, RDW Coeff of Mauricio 15.5 H, Plt Count 190, MPV 10.5, Immature Gran % (Auto) 0.600, Neut % (Auto) 95.7 H, Lymph % (Auto) 3.1 L, [place] % (Auto) 0.6, Eos % (Auto) 0.0, Baso % (Auto) 0.0, Absolute Neuts (auto) 4.6, Absolute Lymphs (auto) 0.15 L, Nucleated RBC % 0, Differential Comment , Platelet Estimate ADEQUATE, RBC Morphology N CYTIC, Hypochromasia 1+ 06/06/22 11:49: Sodium 143, Potassium 3.2 L, Chloride 109 H, Carbon Dioxide 24.0, Anion Gap 10, BUN 27 H, Creatinine 1.69 H, Estim Creat Clear Calc 38.90, Est GFR (MDRD) Af Amer 51 L, Est GFR (MDRD) Non-Af 42 L, BUN/Creatinine Ratio 16.0, Glucose 204 H, Calcium 8.6, Total Bilirubin 0.50, AST 18, ALT 13 L, Alkaline Phosphatase 72, Total Protein 6.0 L, Albumin 2.8 L, Globulin 3.2, Albumin/Globulin Ratio 0.9 06/06/22 11:49: Lactic Acid 4.6 H* 06/06/22 12:25: Urine Color Red, Urine Clarity Turbid, Urine pH 6.5, Ur Specific [place] 1.015, Urine Protein 500 H, Urine Glucose (UA) 250 H, Urine Ketones 15 H, Urine Occult Blood 250 H, Urine Nitrite Negative, Urine Bilirubin Negative, Urine Urobilinogen Normal, Ur Leukocyte Esterase 100 H, Urine RBC 25-50 SEEN, Urine WBC 10-25 SEEN, Ur Squamous Epith Cells 0-5 SEEN, Urine Bacteria 1+, Urine Mucus 0 SEEN 06/06/22 16:00: Lactic Acid 8.9 H* 06/06/22 16:41: POC Glucose 149 H Micro: Microbiology 06/06/22 13:52 Blood Culture (Wb) - Anticubital Right Blood Culture - Preliminary 06/06/22 12:25 Nasal Secretion SARS-CoV-2 & FLU Antigen (Rapid) - Final Radiology Impression Chest X-Ray 06/06/22 11:30 IMPRESSION: No acute abnormality is seen. Electronically Signed: Mark Caballero MD at 12:03 EDT , Assessment & Plan Assessment/Plan (1) Sepsis: PLAN: Plan 1. Sepsis secondary to urinary tract infection associated with recent TURP-patient will be admitted to PCU, IV fluids will be administered, I have placed the patient on IV Rocephin, blood cultures and urine culture were obtained in the emergency room and these are pending. #2 chronic atrial fibrillation-patient is on rate control medications, these will be continued #3 hyperlipidemia-patient is on a statin, this will be continued #4 noncoronary artery disease related cardiomyopathy-patient is currently on Entresto, this will be continued #5 essential hypertension-patient will remain on his present medication #6 type 2 diabetes-patient is on basal insulin, this will be continued, fingerstick blood sugars will be obtained and sliding scale insulin will be administered #7 chronic kidney disease stage IIIb-labs will be monitored Charges/Coding Visit Charges Inpatient E&M: 43623 Init Hosp L3
[2022-06-06 21:29] LABS: Hematocrit 23.4 % (40-54); Hemoglobin 7.2 g/dL (13.0-16.5)
--- NOTE | 2022-06-06 22:25 | NURSING ---
Spoke with Radha KRUEGER and Dr. Leigh. I updated them on patient condition and notified them that blood will take another hour to prepare according to lab. Dr. Leigh states to give 1 unit PRBCs un-crossmatched. Blood bank notified. Radha KRUEGER is also ordering a 500ml NS bolus. I notified both providers that I bladder scanned the patient and he is not retaining much urine. I also notified them that his posterior lung sounds are course on auscultation. He has no JVD or pedal edema. He is tachypneic but denies feeling short of breath. He is alert and oriented x3. I recommended transfer to ICU for closer observation and potential administration of vasopressors. Transfer orders not received at this time. Will continue to closely monitor patient and transfuse blood as soon as it is available.
--- NOTE | 2022-06-06 22:34 | PCM.HOSP.N ---
Hospitalist Note Notified by Stanislav DENNY that patient is hypotensive and blood will be ready in [address] Leigh who was agreeable to giving patient 500ml bolus now and proceeding with blood transfusion as soon as it is ready. Notified Stanislav DENNY of plan and what was discussed with Dr. Leigh, voiced understanding.Stanislav DENNY also reported patient has not urinated and bladder scan showed 0 ml in bladder. Informed by Dr. Leigh that patients daughter stated patient is to remain off xarelto for 1 more week following recent TURP. given this and the finding of anemia xarelto will be held.
[2022-06-07] VITALS (72 sets, daily range): BP systolic 71–121; BP diastolic 40–76; PULSE 66–123; RESP 11–33; TEMP 36–37.9; O2SAT 86–98
--- NOTE | 2022-06-07 00:10 | NURSING ---
Radha KRUEGER at bedside to see patient. POC discussed and patient will continue to be closely monitored on PCU. Radha KRUEGER notified that I am holding all of patient's HS meds until blood is completed and she is in agreement with this. Patient remains moderately hypotensive and tachycardic however he continues to have normal mentation and normal capillary refill. Will continue to monitor patient closely.
[2022-06-07] MEDS: 0.9% Normal Saline 1,000 ML 125 ML IV ×2 (00:43→08:45)
[2022-06-07 00:56] LABS: Lactic Acid 6.6 mmol/L (0.4-1.9)
[2022-06-07 00:56] LABS: Bedside Glucose 103 mg/dL (74-106)
--- NOTE | 2022-06-07 01:42 | NURSING ---
Spoke with Dr. Muñiz regarding VS and assessment findings. Patient is alert, answering questions appropriately. He is tachypnic with coarse lung sounds in lower sun posteriorly, otherwise diminished. He has no cough. He is tachycardic with 1+ distal pulses and 2+ central pulses, MSPs otherwise intact. The patient has normal cap refill <3seconds. He does not currently have much urine in his bladder, bladder scan reveals only [address] Muñiz requests that we continue with transusing the second unit of PRBC and call him back with new assessment findings. Will continue to closely monitor patient on PCU.
[2022-06-07] MEDS: Acetaminophen 325 MG Tablet 650 MG PO ×2 (02:03→09:47)
--- NOTE | 2022-06-07 03:03 | NURSING ---
Spoke with Dr. Muñiz. Patient being transferred to ICU.
--- NOTE | 2022-06-07 03:25 | NURSING ---
Report called to Kailey RN in ICU. Kailey denies any further questions. Patient transported on monitor from PCU bed 116 to ICU bed 3 with second unit of blood transfusing. Dr. Muñiz at bedside in ICU on arrival. Patient moved in to ICU bed without difficulty. Patient's belongings left in ICU room 3 and chart delivered to ICU staff at bedside.
[2022-06-07 04:18] LABS: Reflex Lactate? Y
--- NOTE | 2022-06-07 04:30 | RAD_ITS ---
STUDY: X-RAY CHEST REASON FOR EXAM: Male, 77 years old. Central line placement. TECHNIQUE: Single AP portable view of the chest. COMPARISON: Comparison is made with prior study dated 06/06/2022. FINDINGS: A right-sided internal jugular venous catheter has been placed. The tip is in the proximal portion of the superior vena cava. EKG electrodes are seen. The lungs are clear. There is no demonstrated pleural abnormality. Normal size heart. Normal mediastinum and brook. Normal visualized pulmonary arteries. Normal visualized aortic arch and descending thoracic aorta. Normal visualized thoracic spine. Healed bilateral rib fractures. Hiatal hernia. RAD/CXR for Line Placement IMPRESSION: The tip of the right central catheter is in the proximal portion of the superior vena cava. The lungs are clear. Electronically Signed: Mark Caballeor MD at 8:45 EDT ,
--- NOTE | 2022-06-07 05:02 | PCM.PN.BLA ---
Progress Note Septic Shock Patient persistently hypotensive despite receiving IV fluids per septic shock protocol. Transferred to the intensive care unit and placed on Levophed. Central line and arterial line placed.
--- NOTE | 2022-06-07 05:03 | PCM.PN.BLA ---
Progress Note Central Venous Catheter Indication: Hypotension Consent was obtained from: Patient and spouse as patient's appeared lethargic and could not sign form A time-out was completed verifying correct patient, procedure, site, positioning, and special equipment if applicable. The patient was placed in a dependent position appropriate for central line placement based on the vein to be cannulated. The patient's right IJ was prepped and draped in a sterile fashion. 1% lidocaine was used to anesthetize the surrounding skin area. A triple-lumen catheter was introduced into the right IJ using the Seldinger technique and under ultrasound guidance. The catheter was threaded smoothly over the guidewire and appropriate blood return was obtained. Each lumen of the catheter was evacuated of air and flushed with sterile saline. The catheter was then sutured in place to the skin and a sterile dressing applied. Chest x-ray to confirm appropriate positioning is pending. ULTRASOUND GUIDANCE STATEMENT (Vascular Access): I performed ultrasound image acquisition and interpretation for needle placement during the procedure. The vessel was identified and found to be free of thrombosis by compression technique. A safe point of entry was marked at the skin in an angle for axis was determined. The needle was guided by obtaining free-flowing fluid and by real-time visualization.
--- NOTE | 2022-06-07 05:04 | PCM.PN.BLA ---
Progress Note Arterial Line Placement Note Procedure: Right Radial Artery Arterial Line. Indication: Septic Shock Performed By: Dr. Jesus Muñiz Consent: Oral consent was initially obtained from patient. However patient's later was lethargic and he could not sign form. Consent was subsequently obtained via patient's . Procedure Summary:Arterial Line Placement Note Procedure: Right Radial Artery Arterial Line Indication: Septic Shock Performed By: Dr. Jesus Muñiz Procedure Summary: The radial artery was assessed by palpation. Fazal test proved that collateral circulation was appropriate. A time-out was performed. The patient?s right wrist region was prepped and draped in sterile fashion using chlorhexidine scrub. The radial artery was palpated and accessed using a needle which was part of a [id number] assembly (Modified Seldinger Technique). The guidewire was advanced through the needle and the catheter was advanced over the guidewire with appropriate pulsatile blood return. The catheter was then sutured in place to the skin and a sterile dressing was applied. Perfusion to the extremity distal to the point of catheter insertion was checked and found to be adequate. Complications: NONE Estimated Blood Loss: 5ml
[2022-06-07 05:52] LABS: Immature Platelet Fraction 8.5 % (1.0-7.9); Platelet Count 76 K/mm3 (150-450); RET-HE 27.4 pg (30-35); Reticulocyte Count 1.97 % (0.5-1.5)
[2022-06-07 06:00] LABS: Absolute Lymphocyte Count 1.06 X10^3/uL (0.83-4.51); Basophil# 0.05 X10^3/uL; Basophil% 0.2 % (0-1); Eosinophil# 0.12 X10^3/uL; Eosinophils% 0.4 % (0-5); Hemoglobin 9.5 g/dL (13.0-16.5); Lymphocyte # 1.06 X10^3/ul (0.83-4.51); Lymphocyte % 3.5 % (19-41); Mean Corp Hgb Conc 31.7 g/dL (32-36); Mean Corpuscular Hgb 27.1 pg (27.0-32.0); Mean Corpuscular Volume 85.7 fL (80-94); Mean Platelet Vol. 11.8 fl (6.2-12.0); Monocyte% 6.6 % (0-10); NRBC Flagged by Analyzer 0.2 % (0-5); Neutrophil # 25.96 X10^3/uL (2.7-7.7); Neutrophil % 86.2 % (47-70); POSITIVE COUNT YES; POSITIVE DIFFERENTIAL YES; POSITIVE MORPHOLOGY YES; Platelet Count 74 K/mm3 (150-450); RBC Distribution Width CV 16.8 % (11.6-14.6); RBC Distribution Width SD 52.1 fl (35.1-43.9)
[2022-06-07 06:05] LABS: Differential Indicated SCAN CRITERIA MET
[2022-06-07 06:06] LABS: White Blood Count 30.1 K/mm3 (4.4-11.0)
[2022-06-07 06:20] LABS: Ferritin 59 ng/mL (26-388); Iron 7 ug/dL (65-175); Iron Binding Capacity,Total 266 ug/dL (250-450); LDH 353 U/L (87-241); PERCENT IRON SATURATION 2.6 % (15.0-55.0)
[2022-06-07 06:24] LABS: Differential Comment SCANNED
[2022-06-07 06:25] LABS: Platelet Estimate MOD DEC (ADEQ)
[2022-06-07] MEDS: Ondansetron 4 MG/2 ML Vial IV (06:26)
[2022-06-07] MEDS: 0.9% Saline Lock 10 ML Syringe IV ×7 (06:29→23:35)
[2022-06-07] MEDS: Morphine 2 MG/ML Syringe 1 MG IV (06:30)
[2022-06-07 06:31] LABS: Anion Gap 15 (5-15); BUN 38 mg/dL (7-18); Calcium,Total 7.7 mg/dL (8.5-10.1); Chloride 111 mmol/L (98-107); Creatinine, Serum 3.17 mg/dL (0.70-1.30); EST Glomerular Filtration Rate 20 mL/min (>60); Est Glom Filt Rate - Afr Amer 25 mL/min (>60); Estimated Creatinine Clearance 20.74 ml/min; Glucose 141 mg/dL (74-106); Lactic Acid 6.3 mmol/L (0.4-1.9); Potassium 4.2 mmol/L (3.5-5.1); Sodium Level 143 mmol/L (136-145)
[2022-06-07] MEDS: Amiodarone 360 MG in Dextrose 5% Viaflo Bag 192.8 ML 33.3 MG CONT INF (06:36)
--- NOTE | 2022-06-07 06:55 | PN.HOSP_ITS ---
Subjective Subjective Neck pain post TLC placement. Hematuria post catheter placement. Objective Data Objective Data Vital Signs: Vital Signs Temp Pulse Resp BP Pulse Ox O2 Del Method O2 Flow Rate 36.9 C 102 H 28 H 112/55 L 97 Nasal Cannula 5 06/07/22 02:59 06/07/22 06:36 06/07/22 02:59 06/07/22 06:36 06/07/22 02:59 06/07/22 02:59 06/07/22 02:59 Oxygen Flow Rate (L/min) 5 Oxygen Delivery Method Nasal Cannula Weight: 88.4 kg Body Mass Index (BMI) 25.3 Intake & Output: Intake and Output for Last 24 Hours 06/05/22 06/06/22 06/07/22 23:59 23:59 23:59 Intake Total 3997.09 / 4397.09 635.05 / 635.05 Output Total Balance 3972.09 / 4372.09 635.05 / 635.05 Lab / Micro Data Result Diagrams: 06/07/22 05:40 06/07/22 05:40 Labs: Laboratory Results - last 24 hr 06/06/22 11:49: WBC 4.8, RBC 3.27 L, Hgb 8.4 L, Hct 27.0 L, MCV 82.6, MCH 25.7 L , MCHC 31.1 L, RDW Std Deviation 46.6 H, RDW Coeff of Mauricio 15.5 H, Plt Count 190, MPV 10.5, Immature Gran % (Auto) 0.600, Neut % (Auto) 95.7 H, Lymph % (Auto) 3.1 L, [place] % (Auto) 0.6, Eos % (Auto) 0.0, Baso % (Auto) 0.0, Absolute Neuts (auto) 4.6, Absolute Lymphs (auto) 0.15 L, Nucleated RBC % 0, Differential Comment , Platelet Estimate ADEQUATE, RBC Morphology N CYTIC, Hypochromasia 1+ 06/06/22 11:49: Sodium 143, Potassium 3.2 L, Chloride 109 H, Carbon Dioxide 24.0, Anion Gap 10, BUN 27 H, Creatinine 1.69 H, Estim Creat Clear Calc 38.90, Est GFR (MDRD) Af Amer 51 L, Est GFR (MDRD) Non-Af 42 L, BUN/Creatinine Ratio 16.0, Glucose 204 H, Calcium 8.6, Total Bilirubin 0.50, AST 18, ALT 13 L, Alkaline Phosphatase 72, Total Protein 6.0 L, Albumin 2.8 L, Globulin 3.2, A lbumin/Globulin Ratio 0.9 06/06/22 11:49: Lactic Acid 4.6 H* 06/06/22 12:25: Urine Color Red, Urine Clarity Turbid, Urine pH 6.5, Ur Specific [place] 1.015, Urine Protein 500 H, Urine Glucose (UA) 250 H, Urine Ketones 15 H , Urine Occult Blood 250 H, Urine Nitrite Negative, Urine Bilirubin Negative, Urine Urobilinogen Normal, Ur Leukocyte Esterase 100 H, Urine RBC 25-50 SEEN, Urine WBC 10-25 SEEN, Ur Squamous Epith Cells 0-5 SEEN, Urine Bacteria 1+, Urine Mucus 0 SEEN 06/06/22 16:00: Lactic Acid 8.9 H* 06/06/22 16:41: POC Glucose 149 H 06/06/22 21:10: Hgb 7.2 L, Hct 23.4 L 06/06/22 22:00: Blood Type O POSITIVE, Antibody Screen NEGATIVE, Crossmatch See Detail 06/06/22 22:58: POC Glucose 103 06/07/22 00:10: Lactic Acid 6.6 H* 06/07/22 05:40: WBC 30.1 H*, RBC 3.50 L, Hgb 9.5 L, Hct 30.0 L, MCV 85.7, MCH 27.1, MCHC 31.7 L, RDW Std Deviation 52.1 H, RDW Coeff of Mauricio 16.8 H, Plt Count 74 L, MPV 11.8, Immature Gran % (Auto) 3.100 H, Neut % (Auto) 86.2 H, Lymph % (Auto) 3.5 L, [place] % (Auto) 6.6, Eos % (Auto) 0.4, Baso % (Auto) 0.2, Absolute Neuts (auto) 26.0 H, Absolute Lymphs (auto) 1.06, Nucleated RBC % 0.2, Differential Comment SCANNED, Diff Path Review January, Platelet Estimate MOD 06/07/22 05:40: Sodium 143, Potassium 4.2, Chloride 111 H, Carbon Dioxide 17.0 L , Anion Gap 15, BUN 38 H, Creatinine 3.17 H, Estim Creat Clear Calc 20.74, Est GFR (MDRD) Af Amer 25 L, Est GFR (MDRD) Non-Af 20 L, BUN/Creatinine Ratio 12.0, Glucose 141 H, Calcium 7.7 L 06/07/22 05:40: Lactic Acid 6.3 H* 06/07/22 05:40: Immature Plt Fraction 8.5 H, Retic Count 1.97 H, Immature Retic Fraction 22.70 H, Retic Hgb Equivalent 27.4 L 06/07/22 05:40: Iron 7 L, TIBC 266, Iron Saturation 2.6 L, Ferritin 59, Lactate Dehydrogenase 353 H, Folate 8.40 Micro: Microbiology 06/06/22 13:52 Blood Culture (Wb) - Anticubital Right Blood Culture - Preliminary GNR lactose biofuels production associate 06/06/22 11:49 Blood Culture (Wb) - Left Hand Blood Culture - Preliminary GNR lactose biofuels production associate 06/06/22 12:25 Nasal Secretion SARS-CoV-2 & FLU Antigen (Rapid) - Final Radiography Diagnostic Testing: Radiology Impression Chest X-Ray 06/06/22 11:30 IMPRESSION: No acute abnormality is seen. Electronically Signed: Mark Caballero MD at 12:03 EDT , Physical Exam Const alert and no apparent distress Neck Neck Narrative: TLC in right neck. Resp normal respiratory effort, no retractions and no use of accessory muscles GI normal to inspection, nondistended, normoactive bowel sounds Extremity normal to inspection Assessment & Plan Assessment/Plan (1) Septic shock: PLAN: 2/2 UTI and bacteremia on meropenem on norepi RIJ TLC placed 06/07 (2) Urinary tract infection: PLAN: follow up cultures on meropenem (3) Bacteremia: PLAN: GNR 2/2 UTI (4) Acidosis, lactic: PLAN: 2/2 septic shock (cannot rule out being accentuated by metformin use) improving (5) PITER (acute kidney injury): PLAN: on CKD IIIa, admission creatinine was 1.69, now 3.17. suspect due to ischemic ATN from septic shock monitor IsOs continue IVF consider nephrology consult if worsens (6) Acute blood loss anemia: PLAN: transfused 1 unit PRBCs monitor 2/2 hematuria (7) Type 2 diabetes mellitus: PLAN: fair control Metformin held given PITER and lactic acidosis continue basal insulin and SSI coverage (8) Atrial fibrillation and flutter: PLAN: now in NSR carvedilol held given shock started on amiodarone gtt anticoagulation with rivaroxaban held given anemia (9) Cardiomyopathy: QUALIFIERS: Cardiomyopathy type: unspecified Qualified Code(s): I42.9 - Cardiomyopathy, unspecified PLAN: EF 44% from echo from 11/17/2021 non-ischemic cardiomyopathy monitor closely for volume overload (10) Hematuria: PLAN: 2/2 catheter placement monitor consider irrigation if persists PLAN: Plan VTE prophylaxis: SCDs Charges/Coding Visit Charges Inpatient E&M: 89495 Subs Hosp L3
--- NOTE | 2022-06-07 07:02 | NURSING ---
06/07/22 @ 0630- F/C leaking around urethra, F/C irrigated with 50 ml of sterile water. No clots noted at this time. Will continue to monitor.
--- NOTE | 2022-06-07 07:16 | NURSING ---
06/07/22 @ 0330- Patient arrived from PCU hypotensive due to septic shock. Right IJ and Right radial artline placed by Dr. Muñiz Patient was started on Levophed for BP support and Amiodarone for A. Fib RVR. Patient c/o lower back pain so orders were obtained for IV pain medication. Patient assessment was negative except for intermittent confusion, c/o nausea and pain. F/C placed for closer monitoring of output. BP and HR stabilizing after medications started. All critical morning labs reported to Dr. Muñiz.
--- NOTE | 2022-06-07 07:21 | CON.PCM.CC_ITS ---
Assessment & Plan Assessment/Plan (1) Septic shock: (2) Acute blood loss anemia: (3) Urinary tract infection: (4) Atrial fibrillation and flutter: (5) Cardiomyopathy: QUALIFIERS: Cardiomyopathy type: unspecified Qualified Code(s): I42.9 - Cardiomyopathy, unspecified PLAN: Plan RECOMMENDATIONS: 1. Continue Levophed to maintain MAP greater than 65 2. Continue meropenem 3. Agree with amiodarone 4. Hold on further fluid boluses 5. Wean oxygen as tolerated. Keep saturations 90 to 94%. 6. Consider H&H every 8 IMPRESSIONS: 1. Septic shock secondary to gram-negative UTI with recent TURP Patient with gram-negative growing in the blood. Patient is on meropenem, which should provide adequate coverage. Patient has received fluid resuscitation and is currently on pressors. Wean pressors as necessary to maintain MAP greater than 65. Patient also is showing signs of acute kidney injury, likely secondary to hypotension and ATN. We will need to monitor closely in the intensive care unit moving forward. Likely discontinue arterial line once pressor needs improved. 2. A. fib with RVR/systolic congestive heart failure Patient with A. fib with RVR. Rate is improved on amiodarone drip. Rate control medications have to be discontinued secondary to problem #1. Patient appears to be tolerating this well. Patient does have a history of congestive heart failure. Clinical suspicion for edema secondary to sepsis. No further fluid boluses. Will titrate pressors as necessary. Likely reinitiate rate control once off pressors. Patient may have an element of pulmonary edema leading to hypoxia 3. Acute hypoxic respiratory insufficiency Patient currently requiring 5 L nasal cannula to maintain saturations. Clinical suspicion that this is related to problems 1 and 2. Patient appears to be doing well. Patient does carry a diagnosis of obstructive sleep apnea and would benefit from continuation of CPAP. Home unit would be sufficient at this time in my opinion. 4. Acute kidney injury on CKD stage III Clinical suspicion for an element of ATN secondary to problem #1. Creatinine significantly elevated at 3.2, but there is no indication for renal replacement therapy at this time. We will continue to support prerenal etiology and monitor for outcome. 5. Acute blood loss anemia This likely will complicate previous problems. Patient did receive blood transfusion. Patient has had some hematuria. Monitor for other signs of blood loss. Patient has no indication for transfusion, but monitoring blood counts may be prudent. Would keep hemoglobin greater than 8 given ongoing bleeding and shock. 6. Hypertension/type 2 diabetes mellitus/hyperlipidemia/advanced age Complicates care, management, recovery and prognosis. Patient likely not to have much by mouth given concurrent problems. Recommend sliding scale insulin. TIME: 35 minutes critical care time spent addressing patient's septic shock, A. fib with RVR, hypoxia, acute kidney injury, review of all data and collaboration with care team. HPI Consult Data Date of Consult: 06/07/22 HPI Narrative Reason for Consultation: Septic shock HPI Narrative: KAISER SANDOVAL is a 77 M, with past medical history listed below, who presents to [facility] on 06/06/2022 secondary to fevers, chills, nausea and vomiting that started on the day prior. Patient reportedly had a cough on the day of presentation without sputum production. Patient had reported some mild dyspnea and myalgias. Patient reportedly recently had a transurethral resection of the prostate on Saturday (2 days prior to presentation) at [facility] by Dr. Du. Patient reportedly had been urinating noting some blood but no clots. Patient thought this was of normal postoperative changes. Patient did not report any abdominal pain. Patient has been vaccinated by COVID-19, but not boosted. In the ER, patient was febrile to 103.4 ?F and tachycardic at 143 bpm. Patient was requiring 3 L nasal cannula to maintain saturations. Laboratory work-up showed a white blood cell count of 4.8, hemoglobin of 8.4 and platelets of 190. Patient had a potassium of 3.2 and a creatinine of 1.69 with a lactate of 4.6. Glucose was slightly elevated at 204. UA was significantly abnormal. Chest x- ray showed no acute infiltrates. Patient's urologist was contacted by the ER, but family requested admission in [place]. The patient was not given sepsis fluids secondary to concern for congestive heart failure, but did receive antibiotics. On the floor, patient became progressively tachycardic and hypotensive requiring transfer to the intensive care unit. Overnight, patient was noted to continue to be hypotensive despite fluid resuscitation. A central line was placed and patient eventually required pressor therapy. Patient also had an art line placed. Patient subjective flank does not feel change compared to yesterday. Patient states that he is not having any pain. Patient does feel a little short of breath with activity. Patient does appear pale. Patient did not use CPAP overn ight. Review of systems otherwise negative from a constitutional, HEENT, respiratory, cardiovascular, GI, genitourinary, musculoskeletal, skin, neurologic, psychiatric and hematologic system unless stated above. [facility] Medical History Arthritis Atherosclerotic heart disease of [place] coronary artery without angina pectoris Atrial flutter with rapid ventricular response CKD (chronic kidney disease) stage 3, GFR 30-59 ml/min DDD (degenerative disc disease), lumbar Essential hypertension Gout History of left heart catheterization (LHC) (~03/28/20) HLD (hyperlipidemia) OCD (obsessive compulsive disorder) MIRI on CPAP Pure hypercholesterolemia RBBB (right bundle branch block) Scoliosis Type 2 diabetes mellitus Home Medications insulin glargine 100 unit/mL (3 mL) subcutaneous pen (Lantus Solostar U-100 Insulin) 25 unit subcut QHS dm 03/14/20 [History Last Taken 06/05/22] metformin 500 mg tablet 500 mg PO DAILY dm 04/28/20 [History Last Taken 06/05/22] sacubitril 97 mg-valsartan 103 mg tablet (Entresto) 1 tab PO BID heart 07/07/20 [History Last Taken 06/05/22] rivaroxaban 15 mg tablet 15 mg PO DAILY blood thinner #90 tabs 05/01/21 [Rx Last Taken 05/29/22] atorvastatin 10 mg tablet 10 mg PO DAILY cholesterol 09/06/21 [History Last Taken 06/05/22] duloxetine 60 mg capsule,delayed release 120 mg PO QHS depression 09/06/21 [History Last Taken 06/05/22] linagliptin 5 mg tablet (Tradjenta) 5 mg PO DAILY dm 09/06/21 [History Last Deshawn en 06/05/22] zolpidem 5 mg tablet (Ambien) 5 mg PO QHS PRN Sleep 09/06/21 [History Last Taken 06/05/22] cholecalciferol (vitamin D3) 50 mcg (2,000 unit) tablet 50 mcg PO DINNER supplement 03/22/22 [History Last Taken 06/05/22] finasteride 5 mg tablet 5 mg PO DAILY prostate 03/22/22 [History Last Taken 06/05/22] melatonin 5 mg tablet 10 mg PO HS PRN Sleep 03/22/22 [History Last Taken 06/05/22] tamsulosin 0.4 mg capsule 0.4 mg PO QHS prostate 03/22/22 [History Last Taken 06/05/22] aspirin 81 mg chewable tablet ([place] Aspirin) 81 mg PO DAILY health maintenance 06/06/22 [History Last Taken 06/05/22] carvedilol 25 mg tablet 25 mg PO BID heart 06/06/22 [History Last Taken 06/05/22] Allergy/AdvReac Type Severity Reaction Status Date / Time No Known Allergies Allergy Verified 06/06/22 11:07 Family History Mother Hypertension Father Hypertension Surgical History History of cardiac radiofrequency ablation (~04/19/20) History of cataract extraction History of prostate biopsy Social History Smoking Status: Never smoker alcohol intake: never substance use type: does not use caffeine: Yes Type: tea Number of servings: 2 what type of physical activity do you participate in: none ROS ROS Narrative See HPI Physical Exam Const alert and oriented x3 Constitutional Narrative: Pale General Appearance: cooperative and ill appearing HEENT normocephalic, head/scalp atraumatic and moist oral mucous membranes Eyes PERRL and EOMs intact bilaterally Eyes Narrative: Pale conjunctiva Neck full ROM and no lymphadenopathy Chest inspection of chest normal Resp normal respiratory effort and no use of accessory muscles Effort and Inspection: able to speak in complete sentences Auscultation: clear to auscultation bilaterally; Negative for rales, rhonchi or wheezes Percussion: Negative for dullness Cardio S1 normal heart sound, S2 normal heart sound, no murmurs, no rub and no gallops Rate: tachycardic Rhythm: abnormal rhythm irregularly irregular GI soft to palpation Palpation: Negative for guarding or rigid no CVA tenderness Extremity General Extremity: edema; Negative for clubbing Skin no rashes or lesions noted Neuro oriented x3, CN's II-XII intact bilaterally, moves all extremities and no focal motor deficits Psych cooperative and affect normal Psych Narrative: Slightly slow to respond. Lab / Micro Data Attestation: I reviewed the patient's lab results. Result Diagrams: 06/07/22 05:40 06/07/22 05:40 Labs: Laboratory Results - last 24 hr 06/06/22 11:49: WBC 4.8, RBC 3.27 L, Hgb 8.4 L, Hct 27.0 L, MCV 82.6, MCH 25.7 L , MCHC 31.1 L, RDW Std Deviation 46.6 H, RDW Coeff of Mauricio 15.5 H, Plt Count 190, MPV 10.5, Immature Gran % (Auto) 0.600, Neut % (Auto) 95.7 H, Lymph % (Auto) 3.1 L, [place] % (Auto) 0.6, Eos % (Auto) 0.0, Baso % (Auto) 0.0, Absolute Neuts (auto) 4.6, Absolute Lymphs (auto) 0.15 L, Nucleated RBC % 0, Differential Comment , Platelet Estimate ADEQUATE, RBC Morphology N CYTIC, Hypochromasia 1+ 06/06/22 11:49: Sodium 143, Potassium 3.2 L, Chloride 109 H, Carbon Dioxide 24.0, Anion Gap 10, BUN 27 H, Creatinine 1.69 H, Estim Creat Clear Calc 38.90, Est GFR (MDRD) Af Amer 51 L, Est GFR (MDRD) Non-Af 42 L, BUN/Creatinine Ratio 16.0, Glucose 204 H, Calcium 8.6, Total Bilirubin 0.50, AST 18, ALT 13 L, Alkaline Phosphatase 72, Total Protein 6.0 L, Albumin 2.8 L, Globulin 3.2, Albumin/Globulin Ratio 0.9 06/06/22 11:49: Lactic Acid 4.6 H* 06/06/22 12:25: Urine Color Red, Urine Clarity Turbid, Urine pH 6.5, Ur Specific [place] 1.015, Urine Protein 500 H, Urine Glucose (UA) 250 H, Urine Ketones 15 H , Urine Occult Blood 250 H, Urine Nitrite Negative, Urine Bilirubin Negative, Urine Urobilinogen Normal, Ur Leukocyte Esterase 100 H, Urine RBC 25-50 SEEN, Urine WBC 10-25 SEEN, Ur Squamous Epith Cells 0-5 SEEN, Urine Bacteria 1+, Urine Mucus 0 SEEN 06/06/22 16:00: Lactic Acid 8.9 H* 06/06/22 16:41: POC Glucose 149 H 06/06/22 21:10: Hgb 7.2 L, Hct 23.4 L 06/06/22 22:00: Blood Type O POSITIVE, Antibody Screen NEGATIVE, Crossmatch See Detail 06/06/22 22:58: POC Glucose 103 06/07/22 00:10: Lactic Acid 6.6 H* 06/07/22 05:40: WBC 30.1 H*, RBC 3.50 L, Hgb 9.5 L, Hct 30.0 L, MCV 85.7, MCH 27.1, MCHC 31.7 L, RDW Std Deviation 52.1 H, RDW Coeff of Mauricio 16.8 H, Plt Count 74 L, MPV 11.8, Immature Gran % (Auto) 3.100 H, Neut % (Auto) 86.2 H, Lymph % (Auto) 3.5 L, [place] % (Auto) 6.6, Eos % (Auto) 0.4, Baso % (Auto) 0.2, Absolute Neuts (auto) 26.0 H, Absolute Lymphs (auto) 1.06, Nucleated RBC % 0.2, Differential Comment SCANNED, Diff Path Review January, Platelet Estimate MOD 06/07/22 05:40: Sodium 143, Potassium 4.2, Chloride 111 H, Carbon Dioxide 17.0 L , Anion Gap 15, BUN 38 H, Creatinine 3.17 H, Estim Creat Clear Calc 20.74, Est GFR (MDRD) Af Amer 25 L, Est GFR (MDRD) Non-Af 20 L, BUN/Creatinine Ratio 12.0, Glucose 141 H, Calcium 7.7 L 06/07/22 05:40: Lactic Acid 6.3 H* 06/07/22 05:40: Immature Plt Fraction 8.5 H, Retic Count 1.97 H, Immature Retic Fraction 22.70 H, Retic Hgb Equivalent 27.4 L 06/07/22 05:40: Iron 7 L, TIBC 266, Iron Saturation 2.6 L, Ferritin 59, Lactate Dehydrogenase 353 H, Folate 8.40 Micro: Microbiology 06/06/22 13:52 Blood Culture (Wb) - Anticubital Right Blood Culture - Preliminary GNR lactose license examiner 06/06/22 11:49 Blood Culture (Wb) - Left Hand Blood Culture - Preliminary GNR lactose license examiner 06/06/22 12:25 Nasal Secretion SARS-CoV-2 & FLU Antigen (Rapid) - Final Rhythm Strip Rhythm Strip: A-fib Rate: 103 Radiology Impression Chest X-Ray 06/06/22 11:30 IMPRESSION: No acute abnormality is seen. Electronically Signed: Mark Caballero MD at 12:03 EDT , Sepsis Attestation Sepsis Alert: Yes Sepsis Attestation: Agree w/Sepsis Date exam was performed: 06/07/22 Time exam was performed: 06:00 Possible Source of Sepsis: Genitourinary Sepsis Organ Dysfunction Criteria Present: UOP < 0.5 mL/kg/hour for 2 consecutive hours Fluid Resuscitation Fluid resuscitation indicated?: Yes Fluid Resuscitation ordered: 30 ml/kg fluid bolus ordered (completed) Charges/Coding Procedures Hospitalists Procedures: 42832 Critial Care 1st Hr
[2022-06-07 08:15] LABS: Vitamin B12 564 pg/mL (211-911)
[2022-06-07] MEDS: oxyCODONE 5 MG Tablet PO (09:48)
[2022-06-07] MEDS: Finasteride 5 MG Tablet PO (11:07)
[2022-06-07 11:25] LABS: Bedside Glucose 65 mg/dL (74-106)
[2022-06-07 12:00] LABS: Bedside Glucose 47 mg/dL (74-106)
--- NOTE | 2022-06-07 12:15 | CASEMGMT ---
RN CM Face to Face with patient for initial transition planning/care coordination assessment. RN CM introduced self and role at [facility]. Patient lying in bed, alert and confused, at bedside. willing to participate in assessment and is able to answer all questions appropriately. Care providers, pharmacy, and demographics verified. wishes to discharge home, will monitor for HHC vs SNF pending course of treatment and progress with therapy. states she has no further needs or concerns at this time. CM to follow for discharge planning needs that may arise. PCP: Moni Specialists: Florian, Urologist [place]; Eric [facility] template worker Preferred Pharmacy: [facility] Insurance: [employer] Prescription Benefit: yes Living Will/HPOA: none LNOK: Living Arrangements: Patient lives with in a 2 story home. Patient is normally independent and able to ambulate stairs. Transportation: self, DME/HHC: Patient has raised toilet and cpap at home. No previous HHC or SNF. Disposition Plan: TBD HHC vs SNF pending course of treatment and progress with therapy. Kerry BAXTERN, RN, CM
[2022-06-07 12:26] LABS: Bedside Glucose 57 mg/dL (74-106)
[2022-06-07 12:31] LABS: Glucose 166 mg/dL (74-106)
[2022-06-07] MEDS: Amiodarone 360 MG in Dextrose 5% Viaflo Bag 192.8 ML 16.7 MG CONT INF (12:34)
[2022-06-07 15:00] LABS: Base Excess -17 mmol/L (-2 to +2); Bicarbonate 13.1 mmol/L (22-26); Blood Gas Specimen Type ART; O2 Delivery Device Cannula; PO2 63 mmHG (75-100); SITE L Radial; SO2 82 % (95-99); Total Carbon Dioxide 14 mmol/L; pCO2 42.3 mmHg (35-45)
[2022-06-07 15:12] LABS: Pathologist Review Reviewed
[2022-06-07 15:20] LABS: Hematocrit 33.5 % (40-54); Hemoglobin 10.1 g/dL (13.0-16.5); Mean Corp Hgb Conc 30.1 g/dL (32-36); Mean Corpuscular Hgb 26.9 pg (27.0-32.0); Mean Corpuscular Volume 89.3 fL (80-94); Mean Platelet Vol. 12.5 fl (6.2-12.0); POSITIVE COUNT YES; POSITIVE DIFFERENTIAL YES; POSITIVE MORPHOLOGY YES; Platelet Count 61 K/mm3 (150-450); RBC Distribution Width CV 16.7 % (11.6-14.6); RBC Distribution Width SD 54.4 fl (35.1-43.9); Red Blood Count 3.75 M/mm3 (4.6-6.2); White Blood Count 45.2 K/mm3 (4.4-11.0)
[2022-06-07 15:25] LABS: Differential Indicated MANUAL DIFF
[2022-06-07 15:40] LABS: ALB/GLOB Ratio 0.9 RATIO (0.9-2.4); AST(SGOT) 1164 U/L (15-37); Alanine Aminotransfer ALT/SGPT 620 U/L (16-61); Albumin, Serum 2.6 g/dL (3.2-5.0); Alkaline Phosphatase 57 U/L (45-117); Anion Gap 17 (5-15); BUN 44 mg/dL (7-18); BUN/Creat Ratio 11.1 RATIO (10-20); Calcium,Total 7.7 mg/dL (8.5-10.1); Chloride 110 mmol/L (98-107); Creatinine, Serum 3.96 mg/dL (0.70-1.30); EST Glomerular Filtration Rate 16 mL/min (>60); Est Glom Filt Rate - Afr Amer 19 mL/min (>60); Glucose 102 mg/dL (74-106); Potassium 6.3 mmol/L (3.5-5.1); Protein, Total 5.6 g/dL (6.4-8.2); Sodium Level 143 mmol/L (136-145)
[2022-06-07] MEDS: Hydrocortisone Sod Succinate 100 MG/2 ML Vial IV ×2 (15:54→21:55)
[2022-06-07 15:56] LABS: Lymphocyte 6 % (19-41); Metamyelocyte 5 % (0-1); Monocyte 2 % (0-10); Myelocyte 1 % (0-0); Neutrophil-Band 27 % (0-5); Neutrophil-Segmented 59 % (47-70); Platelet Estimate MOD DEC (ADEQ); Red Cell Morphology NORM C+C NORMAL (NORM C&C); Total Cells Counted 100 (MANUAL DIFF)
[2022-06-07 15:57] LABS: Absolute Neutrophil Count 39.3 X10^3/uL (2.0-7.7)
[2022-06-07 15:58] LABS: Absolute Lymphocyte Count 2.71 X10^3/uL (0.83-4.51)
[2022-06-07] MEDS: Sodium Bicarbonate 8.4% 50 ML Syringe 50 MEQ IV (16:07)
[2022-06-07] MEDS: Lactated Ringers 500 ML 999 ML IV ×2 (16:07→16:37)
--- NOTE | 2022-06-07 16:36 | PN.HOSP_ITS ---
Objective Data Objective Data Vital Signs: Vital Signs Temp Pulse Resp BP Pulse Ox O2 Del Method O2 Flow Rate 97.4 F L 76 28 H 113/68 89 Nasal Cannula 5 06/07/22 16:00 06/07/22 16:00 06/07/22 16:00 06/07/22 16:00 06/07/22 16:00 06/07/22 16:00 06/07/22 16:00 Oxygen Flow Rate (L/min) 5 Oxygen Delivery Method Nasal Cannula Weight: 88.4 kg Body Mass Index (BMI) 25.3 Intake & Output: Intake and Output for Last 24 Hours 06/05/22 06/06/22 06/07/22 23:59 23:59 23:59 Intake Total 3997.09 / 4397.09 2936.99 / 2936.99 Output Total 200 / 200 Balance 3972.09 / 4372.09 2736.99 / 2736.99 Lab / Micro Data Result Diagrams: 06/07/22 15:00 06/07/22 15:00 Labs: Laboratory Results - last 24 hr 06/06/22 12:25: Urine Color Red, Urine Clarity Turbid, Urine pH 6.5, Ur Specific [place] 1.015, Urine Protein 500 H, Urine Glucose (UA) 250 H, Urine Ketones 15 H , Urine Occult Blood 250 H, Urine Nitrite Negative, Urine Bilirubin Negative, Urine Urobilinogen Normal, Ur Leukocyte Esterase 100 H, Urine RBC 25-50 SEEN, Urine WBC 10-25 SEEN, Ur Squamous Epith Cells 0-5 SEEN, Urine Bacteria 1+, Urine Mucus 0 SEEN 06/06/22 16:00: Lactic Acid 8.9 H* 06/06/22 16:41: POC Glucose 149 H 06/06/22 21:10: Hgb 7.2 L, Hct 23.4 L 06/06/22 22:00: Blood Type O POSITIVE, Antibody Screen NEGATIVE, Crossmatch See Detail 06/06/22 22:58: POC Glucose 103 06/07/22 00:10: Lactic Acid 6.6 H* 06/07/22 05:40: WBC 30.1 H*, RBC 3.50 L, Hgb 9.5 L, Hct 30.0 L, MCV 85.7, MCH 27.1, MCHC 31.7 L, RDW Std Deviation 52.1 H, RDW Coeff of Mauricio 16.8 H, Plt Count 74 L, MPV 11.8, Immature Gran % (Auto) 3.100 H, Neut % (Auto) 86.2 H, Lymph % (Auto) 3.5 L, [place] % (Auto) 6.6, Eos % (Auto) 0.4, Baso % (Auto) 0.2, Absolute Neuts (auto) 26.0 H, Absolute Lymphs (auto) 1.06, Nucleated RBC % 0.2, Differential Comment SCANNED, Diff Path Review Reviewed, Platelet Estimate MOD 06/07/22 05:40: Sodium 143, Potassium 4.2, Chloride 111 H, Carbon Dioxide 17.0 L , Anion Gap 15, BUN 38 H, Creatinine 3.17 H, Estim Creat Clear Calc 20.74, Est GFR (MDRD) Af Amer 25 L, Est GFR (MDRD) Non-Af 20 L, BUN/Creatinine Ratio 12.0, Glucose 141 H, Calcium 7.7 L 06/07/22 05:40: Lactic Acid 6.3 H* 06/07/22 05:40: Immature Plt Fraction 8.5 H, Retic Count 1.97 H, Immature Retic Fraction 22.70 H, Retic Hgb Equivalent 27.4 L 06/07/22 05:40: Vitamin B12 564 06/07/22 05:40: Iron 7 L, TIBC 266, Iron Saturation 2.6 L, Ferritin 59, Lactate Dehydrogenase 353 H, Folate 8.40 06/07/22 11:04: POC Glucose 65 L 06/07/22 11:25: POC Glucose 47 L 06/07/22 12:04: POC Glucose 57 L 06/07/22 12:15: Glucose 166 H 06/07/22 15:00: WBC 45.2 H*, RBC 3.75 L, Hgb 10.1 L, Hct 33.5 L, MCV 89.3, MCH 26.9 L, MCHC 30.1 L D, RDW Std Deviation 54.4 H, RDW Coeff of Mauricio 16.7 H, Plt Count 61 L, MPV 12.5 H, Neut % (Auto) Not Reportable, Absolute Neuts (auto) 39.3 H, Absolute Lymphs (auto) 2.71, Total Counted 100, Neutrophils % (Manual) 59, Band Neutrophils % 27 H, Lymphocytes % (Manual) 6 L, Monocytes % (Manual) 2, Metamyelocytes % 5 H, Myelocytes % 1 H, Diff Path Review May foll, Platelet Estimate MOD DEC, RBC Morphology NORM C+C 06/07/22 15:00: Sodium 143, Potassium 6.3 H*, Chloride 110 H, Carbon Dioxide 16.0 L, Anion Gap 17 H, BUN 44 H, Creatinine 3.96 H, Estim Creat Clear Calc 16.60, Est GFR (MDRD) Af Amer 19 L, Est GFR (MDRD) Non-Af 16 L, BUN/Creatinine Ratio 11.1, Glucose 102, Calcium 7.7 L, Total Bilirubin 3.50 H, AST 1164 H, ALT 620 H, Alkaline Phosphatase 57, Total Protein 5.6 L, Albumin 2.6 L, Globulin 3.0, Albumin/Globulin Ratio 0.9 Micro: Microbiology 06/06/22 12:25 Urine, Clean Catch Urine Culture - Preliminary GNR lactose corporate legal assistant 06/06/22 13:52 Blood Culture (Wb) - Anticubital Right Blood Culture - Preliminary GNR lactose corporate legal assistant 06/06/22 11:49 Blood Culture (Wb) - Left Hand Blood Culture - Preliminary GNR lactose corporate legal assistant 06/06/22 12:25 Nasal Secretion SARS-CoV-2 & FLU Antigen (Rapid) - Final ABG Data ABG results: ABG 06/07/22 14:53 Specimen Type ART Sample Site L Radial pH 7.10 L* Bicarbonate Actual 13.1 L Total CO2 14 Base Excess -17 L O2 Saturation 82 L ABG pCO2 42.3 ABG pO2 63 L O2 Delivery Device Cannula Liter Flow 5.0 Crit Call To/Read Back Yes Blood Gas Notified Whom [facility] Diagnostic Testing: Radiology Impression Chest X-Ray 06/07/22 04:30 IMPRESSION: The tip of the right central catheter is in the proximal portion of the superior vena cava. The lungs are clear. Electronically Signed: Mark Caballero MD at 8:45 EDT , Rhythm Strip Rhythm Strip: A-fib Rate: 103 Sepsis Attestation Fluid Resuscitation Fluid resuscitation indicated?: Yes
[2022-06-07 21:06] LABS: Base Excess -15 mmol/L (-2 to +2); Bicarbonate 13.5 mmol/L (22-26); Blood Gas Specimen Type ART; O2 Delivery Device CPAP; PEEP 19; PO2 70 mmHG (75-100); SITE L Radial; SO2 89 % (95-99); Total Carbon Dioxide 15 mmol/L; pCO2 37.6 mmHg (35-45); pH 7.16 (7.35-7.45)
--- NOTE | 2022-06-07 21:30 | CPS ---
Used Transdermal pulse oximeter to obtain SPO2 reading.
[2022-06-07] MEDS: Dextrose 50%-Water 25 GM/50 ML DISP.SYRIN IV (21:42)
[2022-06-07] MEDS: Haloperidol Lactate 5 MG/ML Vial IV ×2 (21:50→23:32)
[2022-06-07 23:15] LABS: Bedside Glucose 101 mg/dL (74-106)
[2022-06-08] VITALS (38 sets, daily range): BP systolic 56–139; BP diastolic 33–102; PULSE 56–71; RESP 12–33; TEMP 35.9–36.8; O2SAT 88–97
[2022-06-08] MEDS: 0.9% Saline Lock 10 ML Syringe IV ×2 (00:54→05:03)
[2022-06-08] MEDS: CHLORHEXIDINE GLUC 2% CLOTH 1 EACH TOWELETTE TOPICAL (00:55)
[2022-06-08] MEDS: Amiodarone 360 MG in Dextrose 5% Viaflo Bag 192.8 ML 16.7 MG CONT INF (00:58)
[2022-06-08 03:26] LABS: Hematocrit 31.1 % (40-54); Hemoglobin 9.4 g/dL (13.0-16.5); Mean Corp Hgb Conc 30.2 g/dL (32-36); Mean Corpuscular Hgb 26.6 pg (27.0-32.0); Mean Corpuscular Volume 88.1 fL (80-94); Mean Platelet Vol. 12.5 fl (6.2-12.0); POSITIVE COUNT YES; POSITIVE DIFFERENTIAL YES; POSITIVE MORPHOLOGY YES; Platelet Count 51 K/mm3 (150-450); RBC Distribution Width CV 16.9 % (11.6-14.6); RBC Distribution Width SD 54.4 fl (35.1-43.9); Red Blood Count 3.53 M/mm3 (4.6-6.2)
[2022-06-08 03:34] LABS: Differential Indicated MANUAL DIFF
[2022-06-08] MEDS: Morphine 2 MG/ML Syringe 1 MG IV (03:42)
[2022-06-08 03:59] LABS: Lymphocyte 5 % (19-41); Metamyelocyte 10 % (0-1); Monocyte 9 % (0-10); Myelocyte 1 % (0-0); Neutrophil-Band 26 % (0-5); Neutrophil-Segmented 49 % (47-70); Total Cells Counted 100 (MANUAL DIFF)
[2022-06-08 04:00] LABS: Burr Cells RARE; Platelet Estimate MKD DEC (ADEQ); Red Cell Morphology N CHROM NORMAL (NORM C&C)
[2022-06-08 04:01] LABS: Absolute Lymphocyte Count 1.84 X10^3/uL (0.83-4.51); Absolute Neutrophil Count 27.5 X10^3/uL (2.0-7.7); Lymphocyte # 1.84 X10^3/ul (0.83-4.51); Neutrophil # 27.53 X10^3/uL (2.7-7.7); Ovalocyte RARE
[2022-06-08 04:12] LABS: ALB/GLOB Ratio 0.8 RATIO (0.9-2.4); AST(SGOT) 5380 U/L (15-37); Alanine Aminotransfer ALT/SGPT 2550 U/L (16-61); Albumin, Serum 2.4 g/dL (3.2-5.0); Alkaline Phosphatase 63 U/L (45-117); Anion Gap 17 (5-15); BUN 57 mg/dL (7-18); BUN/Creat Ratio 12.6 RATIO (10-20); Calcium,Total 7.4 mg/dL (8.5-10.1); Chloride 108 mmol/L (98-107); Creatinine, Serum 4.53 mg/dL (0.70-1.30); EST Glomerular Filtration Rate 13 mL/min (>60); Est Glom Filt Rate - Afr Amer 16 mL/min (>60); Estimated Creatinine Clearance 14.51 ml/min; Globulin 2.9 g/dL (2.2-4.2); Glucose 72 mg/dL (74-106); Potassium 6.1 mmol/L (3.5-5.1); Protein, Total 5.3 g/dL (6.4-8.2); Sodium Level 142 mmol/L (136-145)
[2022-06-08 04:15] LABS: Allen Test Positive; Base Excess -16 mmol/L (-2 to +2); Bicarbonate 12.8 mmol/L (22-26); Blood Gas Specimen Type ART; FI02 75; Mode BiLevel; O2 Delivery Device BiPAP; PEEP 17; PO2 178 mmHG (75-100); RR 12; SITE L Radial; SO2 99 % (95-99); Total Carbon Dioxide 14 mmol/L; pCO2 34.6 mmHg (35-45); pH 7.18 (7.35-7.45)
--- NOTE | 2022-06-08 04:46 | CPS ---
critical value on ABG. DENISHA jenkins and Dr. talamantes notified of critical values
[2022-06-08] MEDS: Hydrocortisone Sod Succinate 100 MG/2 ML Vial IV (05:02)
--- NOTE | 2022-06-08 05:40 | RAD_ITS ---
STUDY: X-RAY CHEST REASON FOR EXAM: Male, 77 years old. Hypoxia TECHNIQUE: Single AP portable view of the chest. COMPARISON: Comparison is made with prior study 06/07/2022. FINDINGS: A right-sided internal jugular venous catheter is seen with the tip in the proximal superior vena cava. EKG electrodes are seen. The lungs are clear and expanded. There is no demonstrated pleural abnormality. Normal size heart. Normal mediastinum and brook. Normal visualized pulmonary arteries. There is atherosclerotic tortuosity of the aortic arch and descending thoracic aorta. Normal visualized thoracic spine. Healed bilateral rib fractures. There is no demonstrated abnormality of the visualized soft tissue structures of the upper abdomen. RAD/Chest 1 View (Portable) IMPRESSION: No acute abnormality is seen. Electronically Signed: Mark Caballero MD at 12:35 EDT ,
[2022-06-08] MEDS: TITRATION PARAMETER CHANGE 1 EACH IV (06:07)
--- NOTE | 2022-06-08 06:54 | PCM.PN.INT ---
Assessment & Plan Assessment/Plan (1) Septic shock: (2) Acute blood loss anemia: (3) Urinary tract infection: (4) Atrial fibrillation and flutter: (5) Cardiomyopathy: QUALIFIERS: Cardiomyopathy type: unspecified Qualified Code(s): I42.9 - Cardiomyopathy, unspecified (6) Acute renal failure with oliguria: PLAN: Plan RECOMMENDATIONS: 1. Continue Levophed to maintain MAP greater than 65. Continue vasopressin 2. Continue meropenem and amiodarone 3. Obtain renal ultrasound and renal consult. Initiate bicarbonate drip 4. Possible need for transfer for CVVH 5. Wean oxygen as tolerated. Keep saturations 90 to 94%. Transition BiPAP to home settings 6. No transfusions at this time IMPRESSIONS: 1. Septic shock secondary to E. coli UTI with recent TURP Patient with E. coli growing in the blood. Patient is on meropenem, which should provide adequate coverage. Patient has received fluid resuscitation and is currently on Levophed and vasopressin. Wean pressors as necessary to maintain MAP greater than 65. Patient also is showing signs of acute kidney injury, likely secondary to hypotension and ATN. Anion gap metabolic acidosis has largely resolved. Patient continues to have acidosis from acute kidney injury making pressors less effective. 2. A. fib with RVR/systolic congestive heart failure Patient transition to sinus bradycardia overnight. Tolerating amiodarone drip. Rate control medications have to be discontinued secondary to problem #1. Patient appears to be tolerating this well. Bradycardia likely secondary to Precedex therapy. Patient does have a history of congestive heart failure with an EF of 44%. Clinical suspicion for edema secondary to sepsis. No further fluid boluses. Will titrate pressors as necessary. Patient may have an element of pulmonary edema leading to hypoxia, but morning chest x-ray is not impressive 3. Acute hypoxic respiratory failure Patient currently requiring 5 L nasal cannula to maintain saturations. Clinical suspicion that this is related to problems 1 and 2. Patient on his home BiPAP at this time, but requiring increased FiO2 to maintain saturations. Some difficulty of obtaining an accurate pulse oximetry secondary to problem #1. Wean FiO2 as PaO2 is supratherapeutic. 4. Acute kidney injury on CKD stage III Clinical suspicion for an element of ATN secondary to problem #1. Creatinine continues to increase with decreased urine output indicating oliguric kidney failure. Patient currently on pressors and likely would benefit from CVVH, but will consult nephrology. This would require transfer to a tertiary center. Bicarbonate drip will be added. We will continue to support prerenal etiology and monitor for outcome. 5. Acute blood loss anemia secondary to hematuria This likely will complicate previous problems. Patient did receive blood transfusion. Patient has had some hematuria. Monitor for other signs of blood loss. Patient has no indication for transfusion, but monitoring blood counts may be prudent. Would keep hemoglobin greater than 8 given ongoing bleeding and shock. Platelet count is 51. We will hold on platelet transfusion for now, but this will need to be followed closely. 6. Hypertension/type 2 diabetes mellitus/hyperlipidemia/advanced age Complicates care, management, recovery and prognosis. Patient likely not to have much by mouth given concurrent problems. Recommend sliding scale insulin. Addendum 10:41 AM: Over 35 minutes spent talking with [facility] about transfer for CVVH. Ultimately spoke with an patient support assistant (Dr. Randolph) at [facility] and they have accepted the patient. Transfer team was listening in and states they will call when a bed is available. Anticipate air transport requirement. Patient was then reevaluated. Renal ultrasound shows patient does have debris in the bladder, but preliminary report is there is no hydronephrosis. Patient does appear to be having more EKG changes, likely from hyperkalemia. A blood sugar will be checked, but given previous hypoglycemia, insulin will be avoided. Patient cannot receive Kayexalate or other binding agents secondary to BiPAP. Patient will be given calcium chloride. Hyperkalemia should improve with initiation of dialysis. Patient has improved with his oxygenation and is currently requiring only 55% FiO2 on his baseline BiPAP settings. It is possible patient will not require intubation, but will discuss with the transport team. Family (spouse, daughter and son) are at the bedside and are aware of the plan. They are agreeable to transfer as soon as possible. TIME: 90 minutes critical care time spent addressing patient's septic shock, hypoxic respiratory failure, acute kidney injury, review of all data and collaboration with care team. Subjective Subjective Patient has done okay from a hemodynamic standpoint overnight. Pressors have remained relatively stable. Patient remains on Levophed and vasopressin, in addition to stress dose steroids. Patient has had some difficulty with pulse oximetry and was placed on home BiPAP with sleep. Due to agitation, patient was also placed on a Precedex drip. Patient continues to be impulsive. Nursing is reporting decreased urine output despite flushing the Méndez multiple times. Patient does follow simple commands and opens eyes to voice. Objective Data Objective Data Vital Signs: Vital Signs Temp Pulse Resp BP Pulse Ox O2 Del Method O2 Flow Rate 36.6 C 58 L 23 H 79/67 L 92 Bi-pap 8 06/08/22 06:00 06/08/22 06:45 06/08/22 06:30 06/08/22 06:45 06/08/22 06:30 06/08/22 06:30 06/08/22 01:15 FiO2 75 06/08/22 06:30 Oxygen Flow Rate (L/min) 8 Oxygen Delivery Method Bi-pap Weight: 93.5 kg Body Mass Index (BMI) 25.3 Intake & Output: Intake and Output for Last 24 Hours 06/06/22 06/07/22 06/08/22 23:59 23:59 23:59 Intake Total 3997.09 / 4397.09 4423.55 / 4444.63 472.47 / 472.47 Output Total 25 / 25 200 / 250 90 / 90 Balance 3972.09 / 4372.09 4223.55 / 4194.63 382.47 / 382.47 Lab / Micro Data Attestation: I reviewed the patient's lab results. Result Diagrams: 06/08/22 03:11 06/08/22 03:11 Labs: Laboratory Results - last 24 hr 06/06/22 12:25: Urine Color Red, Urine Clarity Turbid, Urine pH 6.5, Ur Specific [place] 1.015, Urine Protein 500 H, Urine Glucose (UA) 250 H, Urine Ketones 15 H, Urine Occult Blood 250 H, Urine Nitrite Negative, Urine Bilirubin Negative, Urine Urobilinogen Normal, Ur Leukocyte Esterase 100 H, Urine RBC 25-50 SEEN, Urine WBC 10-25 SEEN, Ur Squamous Epith Cells 0-5 SEEN, Urine Bacteria 1+, Urine Mucus 0 SEEN 06/06/22 22:00: Crossmatch See Detail 06/07/22 05:40: Diff Path Review Reviewed 06/07/22 05:40: Vitamin B12 564 06/07/22 11:04: POC Glucose 65 L 06/07/22 11:25: POC Glucose 47 L 06/07/22 12:04: POC Glucose 57 L 06/07/22 12:15: Glucose 166 H 06/07/22 15:00: WBC 45.2 H*, RBC 3.75 L, Hgb 10.1 L, Hct 33.5 L, MCV 89.3, MCH 26.9 L, MCHC 30.1 L D, RDW Std Deviation 54.4 H, RDW Coeff of Mauricio 16.7 H, Plt Count 61 L, MPV 12.5 H, Neut % (Auto) Not Reportable, Absolute Neuts (auto) 39.3 H, Absolute Lymphs (auto) 2.71, Total Counted 100, Neutrophils % (Manual) 59, Band Neutrophils % 27 H, Lymphocytes % (Manual) 6 L, Monocytes % (Manual) 2, Metamyelocytes % 5 H, Myelocytes % 1 H, Diff Path Review January, Platelet Estimate MOD DEC, RBC Morphology NORM C+C 06/07/22 15:00: Sodium 143, Potassium 6.3 H*, Chloride 110 H, Carbon Dioxide 16.0 L, Anion Gap 17 H, BUN 44 H, Creatinine 3.96 H, Estim Creat Clear Calc 16.60, Est GFR (MDRD) Af Amer 19 L, Est GFR (MDRD) Non-Af 16 L, BUN/Creatinine Ratio 11.1, Glucose 102, Calcium 7.7 L, Total Bilirubin 3.50 H, AST 1164 H, ALT 620 H, Alkaline Phosphatase 57, Total Protein 5.6 L, Albumin 2.6 L, Globulin 3.0, Albumin/Globulin Ratio 0.9 06/07/22 22:54: POC Glucose 101 06/08/22 03:11: WBC 37.0 H*, RBC 3.53 L, Hgb 9.4 L, Hct 31.1 L, MCV 88.1, MCH 26.6 L, MCHC 30.2 L, RDW Std Deviation 54.4 H, RDW Coeff of Mauricio 16.9 H, Plt Count 51 L, MPV 12.5 H, Neut % (Auto) Not Reportable, Absolute Neuts (auto) 27.5 H, Absolute Lymphs (auto) 1.84, Total Counted 100, Neutrophils % (Manual) 49, Band Neutrophils % 26 H, Lymphocytes % (Manual) 5 L, Monocytes % (Manual) 9, Metamyelocytes % 10 H, Myelocytes % 1 H, Diff Path Review May foll, Platelet Estimate MKD DEC, RBC Morphology N CHROM, Ovalocytes RARE, Selena Cells RARE 06/08/22 03:11: Sodium 142, Potassium 6.1 H*, Chloride 108 H, Carbon Dioxide 17.0 L, Anion Gap 17 H, BUN 57 H, Creatinine 4.53 H, Estim Creat Clear Calc 14.51, Est GFR (MDRD) Af Amer 16 L, Est GFR (MDRD) Non-Af 13 L, BUN/Creatinine Ratio 12.6, Glucose 72 L, Calcium 7.4 L, Total Bilirubin 3.80 H, AST 5380 H, ALT 2550 H, Alkaline Phosphatase 63, Total Protein 5.3 L, Albumin 2.4 L, Globulin 2.9, Albumin/Globulin Ratio 0.8 L Micro: Microbiology 06/06/22 12:25 Urine, Clean Catch Urine Culture - Preliminary GNR lactose bindery machine setter/set up operator 06/06/22 13:52 Blood Culture (Wb) - Anticubital Right Blood Culture - Preliminary GNR lactose bindery machine setter/set up operator 06/06/22 11:49 Blood Culture (Wb) - Left Hand Blood Culture - Preliminary GNR lactose bindery machine setter/set up operator 06/06/22 12:25 Nasal Secretion SARS-CoV-2 & FLU Antigen (Rapid) - Final ABG Data ABG results: ABG 06/07/22 06/07/22 06/08/22 14:53 20:51 04:10 Specimen Type ART ART ART Sample Site L Radial L Radial L Radial pH 7.10 L* 7.16 L* 7.18 L* Bicarbonate Actual 13.1 L 13.5 L 12.8 L Total CO2 14 15 14 Base Excess -17 L -15 L -16 L O2 Saturation 82 L 89 L 99 O2 % 75 ABG pCO2 42.3 37.6 34.6 L ABG pO2 63 L 70 L 178 H Fazal Test N/A Positive Respiration Rate 12 O2 Delivery Device Cannula CPAP BiPAP Liter Flow 5.0 7.0 Vent Mode BiLevel POC PEEP 19 17 Crit Call To/Read Back Yes Yes Yes Blood Gas Notified Whom Marcos jenkins Clinical Comments 12 75% Radiography Diagnostic Testing: Radiology Impression Chest X-Ray 06/07/22 04:30 IMPRESSION: The tip of the right central catheter is in the proximal portion of the superior vena cava. The lungs are clear. Electronically Signed: Mark Caballero MD at 8:45 EDT , Rhythm Strip Rhythm Strip: Sinus Rhythm Rate: 56 Ectopy: - (Patient transition to sinus bradycardia this morning) Physical Exam Const Constitutional Narrative: Pale General Appearance: cooperative, lethargic and ill appearing HEENT normocephalic, head/scalp atraumatic and moist oral mucous membranes Eyes PERRL and EOMs intact bilaterally Eyes Narrative: Pale conjunctiva Sclera: sclera abnormal Positive for bilateral Details: scleral injection Neck full ROM and no lymphadenopathy Chest inspection of chest normal Resp normal respiratory effort and no use of accessory muscles Resp Narrative: On BiPAP therapy with fair compliance Auscultation: clear to auscultation bilaterally and diminished lung sounds; Negative for rales, rhonchi or wheezes Percussion: Negative for dullness Cardio regular rate, S1 normal heart sound, S2 normal heart sound, no murmurs, no rub and no gallops Rate: bradycardia GI soft to palpation Palpation: Negative for guarding or rigid no CVA tenderness Extremity General Extremity: edema; Negative for clubbing Skin no rashes or lesions noted Skin Narrative: Mild mottling of the toes Neuro CN's II-XII intact bilaterally, moves all extremities and no focal motor deficits Psych Psych Narrative: Slightly slow to respond. Mood & Affect: anxious and flat affect Charges/Coding Procedures Hospitalists Procedures: 52722 Critial Care 1st Hr Multi Select Codes Hospitalists' Procedures Procedures: 79019 Critial Care Addl 30 Min
[2022-06-08] MEDS: Dextrose 50%-Water 25 GM/50 ML DISP.SYRIN IV (06:56)
--- NOTE | 2022-06-08 07:02 | PN.HOSP_ITS ---
Subjective Subjective Worse overnight. Placed on BiPAP. Required dexmedetomidine for sedation to keep BiPAP on. Objective Data Objective Data Vital Signs: Vital Signs Temp Pulse Resp BP Pulse Ox O2 Del Method O2 Flow Rate 36.6 C 58 L 23 H 79/67 L 92 Bi-pap 8 06/08/22 06:00 06/08/22 06:45 06/08/22 06:30 06/08/22 06:45 06/08/22 06:30 06/08/22 06:30 06/08/22 01:15 FiO2 75 06/08/22 06:30 Oxygen Flow Rate (L/min) 8 Oxygen Delivery Method Bi-pap Weight: 93.5 kg Body Mass Index (BMI) 25.3 Intake & Output: Intake and Output for Last 24 Hours 06/06/22 06/07/22 06/08/22 23:59 23:59 23:59 Intake Total 3997.09 / 4397.09 4423.55 / 4444.63 472.47 / 472.47 Output Total 200 / 250 90 / 90 Balance 3972.09 / 4372.09 4223.55 / 4194.63 382.47 / 382.47 Lab / Micro Data Result Diagrams: 06/08/22 03:11 06/08/22 03:11 Labs: Laboratory Results - last 24 hr 06/06/22 12:25: Urine Color Red, Urine Clarity Turbid, Urine pH 6.5, Ur Specific [place] 1.015, Urine Protein 500 H, Urine Glucose (UA) 250 H, Urine Ketones 15 H , Urine Occult Blood 250 H, Urine Nitrite Negative, Urine Bilirubin Negative, Urine Urobilinogen Normal, Ur Leukocyte Esterase 100 H, Urine RBC 25-50 SEEN, Urine WBC 10-25 SEEN, Ur Squamous Epith Cells 0-5 SEEN, Urine Bacteria 1+, Urine Mucus 0 SEEN 06/06/22 22:00: Crossmatch See Detail 06/07/22 05:40: Diff Path Review Reviewed 06/07/22 05:40: Vitamin B12 564 06/07/22 11:04: POC Glucose 65 L 06/07/22 11:25: POC Glucose 47 L 06/07/22 12:04: POC Glucose 57 L 06/07/22 12:15: Glucose 166 H 06/07/22 15:00: WBC 45.2 H*, RBC 3.75 L, Hgb 10.1 L, Hct 33.5 L, MCV 89.3, MCH 26.9 L, MCHC 30.1 L D, RDW Std Deviation 54.4 H, RDW Coeff of Mauricio 16.7 H, Plt Count 61 L, MPV 12.5 H, Neut % (Auto) Not Reportable, Absolute Neuts (auto) 39.3 H, Absolute Lymphs (auto) 2.71, Total Counted 100, Neutrophils % (Manual) 59, Band Neutrophils % 27 H, Lymphocytes % (Manual) 6 L, Monocytes % (Manual) 2, Metamyelocytes % 5 H, Myelocytes % 1 H, Diff Path Review May christie, Platelet Estimate MOD DEC, RBC Morphology NORM C+C 06/07/22 15:00: Sodium 143, Potassium 6.3 H*, Chloride 110 H, Carbon Dioxide 16.0 L, Anion Gap 17 H, BUN 44 H, Creatinine 3.96 H, Estim Creat Clear Calc 16.60, Est GFR (MDRD) Af Amer 19 L, Est GFR (MDRD) Non-Af 16 L, BUN/Creatinine Ratio 11.1, Glucose 102, Calcium 7.7 L, Total Bilirubin 3.50 H, AST 1164 H, ALT 620 H, Alkaline Phosphatase 57, Total Protein 5.6 L, Albumin 2.6 L, Globulin 3.0, Albumin/Globulin Ratio 0.9 06/07/22 22:54: POC Glucose 101 06/08/22 03:11: WBC 37.0 H*, RBC 3.53 L, Hgb 9.4 L, Hct 31.1 L, MCV 88.1, MCH 26.6 L, MCHC 30.2 L, RDW Std Deviation 54.4 H, RDW Coeff of Mauricio 16.9 H, Plt Count 51 L, MPV 12.5 H, Neut % (Auto) Not Reportable, Absolute Neuts (auto) 27.5 H, Absolute Lymphs (auto) 1.84, Total Counted 100, Neutrophils % (Manual) 49, Band Neutrophils % 26 H, Lymphocytes % (Manual) 5 L, Monocytes % (Manual) 9, Metamyelocytes % 10 H, Myelocytes % 1 H, Diff Path Review May christie Platelet Estimate MKD DEC, RBC Morphology N CHROM, Ovalocytes RARE, Russell Cells RARE 06/08/22 03:11: Sodium 142, Potassium 6.1 H*, Chloride 108 H, Carbon Dioxide 17.0 L, Anion Gap 17 H, BUN 57 H, Creatinine 4.53 H, Estim Creat Clear Calc 14.51, Est GFR (MDRD) Af Amer 16 L, Est GFR (MDRD) Non-Af 13 L, BUN/Creatinine Ratio 12.6, Glucose 72 L, Calcium 7.4 L, Total Bilirubin 3.80 H, AST 5380 H, ALT 2550 H, Alkaline Phosphatase 63, Total Protein 5.3 L, Albumin 2.4 L, Globulin 2.9, Albumin/Globulin Ratio 0.8 L Micro: Microbiology 06/06/22 12:25 Urine, Clean Catch Urine Culture - Preliminary GNR lactose digital content coordinator 06/06/22 13:52 Blood Culture (Wb) - Anticubital Right Blood Culture - Pr eliminary GNR lactose digital content coordinator 06/06/22 11:49 Blood Culture (Wb) - Left Hand Blood Culture - Preliminary GNR lactose digital content coordinator 06/06/22 12:25 Nasal Secretion SARS-CoV-2 & FLU Antigen (Rapid) - Final ABG Data ABG results: ABG 06/07/22 06/07/22 06/08/22 14:53 20:51 04:10 Specimen Type ART ART ART Sample Site L Radial L Radial L Radial pH 7.10 L* 7.16 L* 7.18 L* Bicarbonate Actual 13.1 L 13.5 L 12.8 L Total CO2 14 15 14 Base Excess -17 L -15 L -16 L O2 Saturation 82 L 89 L 99 O2 % 75 ABG pCO2 42.3 37.6 34.6 L ABG pO2 63 L 70 L 178 H Fazal Test N/A Positive Respiration Rate 12 O2 Delivery Device Cannula CPAP BiPAP Liter Flow 5.0 7.0 Vent Mode BiLevel POC PEEP 19 17 Crit Call To/Read Back Yes Yes Yes Blood Gas Notified Whom Marcos jenkins Clinical Comments 12 75% Radiography Diagnostic Testing: Radiology Impression Chest X-Ray 06/07/22 04:30 IMPRESSION: The tip of the right central catheter is in the proximal portion of the superior vena cava. The lungs are clear. Electronically Signed: Mark Caballero MD at 8:45 EDT , Rhythm Strip Rhythm Strip: A-fib Rate: 103 Physical Exam Const Constitutional Narrative: sedated on BiPAP. Resp Resp Narrative: coarse breath sounds bilaterally. Cardio regular rate, regular rhythm, S1 normal heart sound and S2 normal heart sound GI normal to inspection, nondistended, normoactive bowel sounds, soft to palpation and non-tender Assessment & Plan Assessment/Plan (1) Septic shock: PLAN: ongoing 2/2 UTI and bacteremia on meropenem on norepi and vasopressin RIJ TLC placed 06/07 (2) Urinary tract infection: QUALIFIERS: Hematuria presence: without hematuria Urinary tract infection type: acute cystitis Qualified Code(s): N30.00 - Acute cystitis without hematuria PLAN: E. coli on meropenem (3) Bacteremia: PLAN: E. coli 2/2 UTI (4) Acidosis, lactic: PLAN: 2/2 septic shock (cannot rule out being accentuated by metformin use) improving (5) PITER (acute kidney injury): PLAN: contiues to worsen on CKD IIIa, admission creatinine was 1.69 suspect due to ischemic ATN from septic shock monitor IsOs nephrology consulted and recommending CVVHD. Patient will need to be transferred to facility that performs this. (6) Acute blood loss anemia: PLAN: transfused 1 unit PRBCs and currently stable monitor 2/2 hematuria (7) Type 2 diabetes mellitus: QUALIFIERS: Diabetes mellitus complication status: without complication Diabetes mellitus termite exterminator insulin use: with termite exterminator use Qual ified Code(s): E11.9 - Type 2 diabetes mellitus without complications; Z79.4 - termite treater helper (current) use of insulin PLAN: hypoglycemic Metformin held given PITER and lactic acidosis continue basal insulin held given hypoglycemia on SSI coverage (8) Atrial fibrillation and flutter: PLAN: amiodarone off carvedilol held given shock (9) Cardiomyopathy: QUALIFIERS: Cardiomyopathy type: unspecified Qualified Code(s): I42.9 - Cardiomyopathy, unspecified PLAN: EF 44% from echo from 11/17/2021 non-ischemic cardiomyopathy monitor closely for volume overload (10) Hematuria: QUALIFIERS: Hematuria type: gross Qualified Code(s): R31.0 - Gross hematuria PLAN: 2/2 catheter placement monitor consider irrigation if persists (11) Shock liver: PLAN: worsening. * bilirubin: 0.5 to 3.5 to 3.8 * AST: 18 to 1164 to 5380 * ALT: 13 to 620 to 2550 (12) Hyperkalemia: PLAN: 2/2 PITER and metabolic acidosis Today, received CaCl, NaHCO3, PLAN: Plan VTE prophyalxis w SCDs Prognosis: guarded DW patient's at bedside. Patient has been accepted by Dr. Randolph at [place]. Patient to be transferred today. Charges/Coding Visit Charges Inpatient E&M: 56967 Subs Hosp L3
[2022-06-08 07:10] LABS: Bedside Glucose 54 mg/dL (74-106)
[2022-06-08 07:30] LABS: Bedside Glucose 41 mg/dL (74-106)
--- NOTE | 2022-06-08 07:30 | US_ITS ---
STUDY: RENAL ULTRASOUND - COMPLETE REASON FOR EXAM: Male, 77 years old. PITER TECHNIQUE: Ultrasound evaluation of the kidneys was performed with real-time and static gonzalez-scale imaging. COMPARISON: None. FINDINGS: RIGHT KIDNEY: Normal location of the right kidney, which is normal in size. The right kidney measures 10.3 cm x 4.2 cm x 4.6 cm. There is a normal cortex of the right kidney. The renal cortex measures 1.6 cm. There is no right renal mass or cyst. There are no right renal calculi. There is no right hydronephrosis. DISTAL RIGHT URETER: There is non-visualization of the distal right ureter. There is no demonstrated right ureterovesical junction calculus. There is no demonstrated right ureteral jet. LEFT KIDNEY: Normal location of the left kidney, which is normal in size. The left kidney measures 10.1 cm x 5 cm x 5 cm. There is a normal cortex of the left kidney. The renal cortex measures 1.9 cm. There is no left renal mass or cyst. There are no left renal calculi. There is no left hydronephrosis. DISTAL LEFT URETER: There is non-visualization of the distal left ureter. There is no demonstrated left ureterovesical junction calculus. There is no demonstrated left ureteral jet. AORTA: There is no elongation or tortuosity of the abdominal aorta. BLADDER: A FLOWERS catheter is seen within the decompressed urinary bladder. US/Kidney and Bladder IMPRESSION: Normal ultrasound of the kidneys. Electronically Signed: Mark Caballero MD at 11:26 EDT ,
[2022-06-08 07:31] LABS: Bedside Glucose 40 mg/dL (74-106)
[2022-06-08 07:41] LABS: Bedside Glucose 119 mg/dL (74-106)
--- NOTE | 2022-06-08 09:30 | CASEMGMT ---
Social Work SW attended ICU rounds. Pt and daughter present. [facility] SW met with and dgt after rounds and provided emotional support related to pt condition. SW will remain available if further needs arise. RAFAEL Staton
--- NOTE | 2022-06-08 09:31 | CON.PCM.RE_ITS ---
Assessment & Plan Assessment/Plan (1) PITER (acute kidney injury): PLAN: Acute kidney injury due to septic shock, ischemic ATN. Complicated by acidosis, hyperkalemia, liver failure. Due to hemodynamic instability, worsening hypotension, liver failure, patient should be initiated on renal replacement therapy. Fortunately conventional dialysis carries a high risk for the patient with such complicated presentation. It should be done as CRRT. For now agree with the pressors, systemic antibiotics, bicarb drip to correct acidosis and improve potassium level. Patient will be transferred to tertiary center where there is availability of CRRT (2) Hyperkalemia: PLAN: Above (3) Acidosis, lactic: PLAN: Above HPI Consult Data Date of Consult: 06/08/22 HPI Narrative Reason for Consultation: Acute kidney injury, acidosis and hyperkalemia HPI Narrative: KAISER SANDOVAL, is a 77 M who presents with septic shock. He has recently had prostate surgery in outside facility and has developed symptoms of fever chills, change in mental status, some nausea and vomiting and came in emergency room yesterday. He was found to have E. coli bacteremia, most likely from urosepsis. He had some blood, protein and bacteria in the urine, and leukocytosis. He rapidly became unstable, with dropping blood pressure, hypoxia, and was taken to ICU. Pressors have been increased overnight, he is on 2 pressors now. Needed to be placed on BiPAP. Chemistries revealed that he is in acute kidney injury, with admitting creatinine yesterday being 1.6, and today it is over 4. Potassium on admission was on the low side 3.2, and today at 6.1. He has substantial anion gap metabolic acidosis with elevated lactate. His bicarb is 1 4. He was initiated on bicarb drip. But his bicarb is not changing fast enough. He is also in the liver failure with LFTs increasing as well as bilirubin. Altered mental status [facility] Medical History Arthritis Atherosclerotic heart disease of [place] coronary artery without angina pectoris Atrial flutter with rapid ventricular response CKD (chronic kidney disease) stage 3, GFR 30-59 ml/min DDD (degenerative disc disease), lumbar Essential hypertension Gout History of left heart catheterization (LHC) (~03/28/20) HLD (hyperlipidemia) OCD (obsessive compulsive disorder) MIRI on CPAP Pure hypercholesterolemia RBBB (right bundle branch block) Scoliosis Type 2 diabetes mellitus Home Medications insulin glargine 100 unit/mL (3 mL) subcutaneous pen (Lantus Solostar U-100 Insulin) 25 unit subcut QHS dm 03/14/20 [History Last Taken 06/05/22] metformin 500 mg tablet 500 mg PO DAILY dm 04/28/20 [History Last Taken 06/05/22] sacubitril 97 mg-valsartan 103 mg tablet (Entresto) 1 tab PO BID heart 07/07/20 [History Last Taken 06/05/22] rivaroxaban 15 mg tablet 15 mg PO DAILY blood thinner #90 tabs 05/01/21 [Rx Last Taken 05/29/22] atorvastatin 10 mg tablet 10 mg PO DAILY cholesterol 09/06/21 [History Last Taken 06/05/22] duloxetine 60 mg capsule,delayed release 120 mg PO QHS depression 09/06/21 [History Last Taken 06/05/22] linagliptin 5 mg tablet (Tradjenta) 5 mg PO DAILY dm 09/06/21 [History Last Taken 06/05/22] zolpidem 5 mg tablet (Ambien) 5 mg PO QHS PRN Sleep 09/06/21 [History Last Taken 06/05/22] cholecalciferol (vitamin D3) 50 mcg (2,000 unit) tablet 50 mcg PO DINNER supplement 03/22/22 [History Last Taken 06/05/22] finasteride 5 mg tablet 5 mg PO DAILY prostate 03/22/22 [History Last Taken 06/05/22] melatonin 5 mg tablet 10 mg PO HS PRN Sleep 03/22/22 [History Last Taken 06/05/22] tamsulosin 0.4 mg capsule 0.4 mg PO QHS prostate 03/22/22 [History Last Taken 06/05/22] aspirin 81 mg chewable tablet ([facility] Aspirin) 81 mg PO DAILY health maintenance 06/06/22 [History Last Taken 06/05/22] carvedilol 25 mg tablet 25 mg PO BID heart 06/06/22 [History Last Taken 06/05/22] Allergy/AdvReac Type Severity Reaction Status Date / Time No Known Allergies Allergy Verified 06/06/22 11:07 Family History Mother Hypertension Father Hypertension Surgical History History of cardiac radiofrequency ablation (~04/19/20) History of cataract extraction History of prostate biopsy Social History Smoking Status: Never smoker alcohol intake: never substance use type: does not use caffeine: Yes Type: tea Number of servings: 2 what type of physical activity do you participate in: none ROS Review of Systems ROS Unobtainable: due to encephalopathy and due to mental status Physical Exam Const Constitutional Narrative: This is elderly male in ICU setting, he is on BiPAP, he is lethargic, restless. is at bedside General Appearance: on BiPAP Orientation / Consciousness: lethargic HEENT normocephalic Head and Scalp: atraumatic Eyes Eyes Narrative: Sclera icteric Neck no lymphadenopathy Resp Resp Narrative: Is with diminished breath sounds, no crackles or rales Effort and Inspection: respiratory distress Cardio Cardio Narrative: Heart is irregular irregular Rhythm: abnormal rhythm GI GI Narrative: Event appears to be soft, hear no bowel sounds Palpation: soft Lab / Micro Data Result Diagrams: 06/08/22 03:11 06/08/22 03:11 Labs: Laboratory Results - last 24 hr 06/06/22 12:25: Urine Color Red, Urine Clarity Turbid, Urine pH 6.5, Ur Specific [place] 1.015, Urine Protein 500 H, Urine Glucose (UA) 250 H, Urine Ketones 15 H , Urine Occult Blood 250 H, Urine Nitrite Negative, Urine Bilirubin Negative, Urine Urobilinogen Normal, Ur Leukocyte Esterase 100 H, Urine RBC 25-50 SEEN, Urine WBC 10-25 SEEN, Ur Squamous Epith Cells 0-5 SEEN, Urine Bacteria 1+, Urine Mucus 0 SEEN 06/06/22 22:00: Crossmatch See Detail 06/07/22 05:40: Diff Path Review Reviewed 06/07/22 11:04: POC Glucose 65 L 06/07/22 11:25: POC Glucose 47 L 06/07/22 12:04: POC Glucose 57 L 06/07/22 12:15: Glucose 166 H 06/07/22 15:00: WBC 45.2 H*, RBC 3.75 L, Hgb 10.1 L, Hct 33.5 L, MCV 89.3, MCH 26.9 L, MCHC 30.1 L D, RDW Std Deviation 54.4 H, RDW Coeff of Mauricio 16.7 H, Plt Count 61 L, MPV 12.5 H, Neut % (Auto) Not Reportable, Absolute Neuts (auto) 39.3 H, Absolute Lymphs (auto) 2.71, Total Counted 100, Neutrophils % (Manual) 59, Band Neutrophils % 27 H, Lymphocytes % (Manual) 6 L, Monocytes % (Manual) 2, Metamyelocytes % 5 H, Myelocytes % 1 H, Diff Path Review January christie, Platelet Estimate MOD DEC, RBC Morphology NORM C+C 06/07/22 15:00: Sodium 143, Potassium 6.3 H*, Chloride 110 H, Carbon Dioxide 16.0 L, Anion Gap 17 H, BUN 44 H, Creatinine 3.96 H, Estim Creat Clear Calc 16.60, Est GFR (MDRD) Af Amer 19 L, Est GFR (MDRD) Non-Af 16 L, BUN/Creatinine Ratio 11.1, Glucose 102, Calcium 7.7 L, Total Bilirubin 3.50 H, AST 1164 H, ALT 620 H, Alkaline Phosphatase 57, Total Protein 5.6 L, Albumin 2.6 L, Globulin 3.0, Albumin/Globulin Ratio 0.9 06/07/22 21:30: POC Glucose 41 L* 06/07/22 21:38: POC Glucose 40 L* 06/07/22 22:54: POC Glucose 101 06/08/22 03:11: WBC 37.0 H*, RBC 3.53 L, Hgb 9.4 L, Hct 31.1 L, MCV 88.1, MCH 26.6 L, MCHC 30.2 L, RDW Std Deviation 54.4 H, RDW Coeff of Mauricio 16.9 H, Plt Count 51 L, MPV 12.5 H, Neut % (Auto) Not Reportable, Absolute Neuts (auto) 27.5 H, Absolute Lymphs (auto) 1.84, Total Counted 100, Neutrophils % (Manual) 49, Band Neutrophils % 26 H, Lymphocytes % (Manual) 5 L, Monocytes % (Manual) 9, Metamyelocytes % 10 H, Myelocytes % 1 H, Diff Path Review May christie, Platelet Estimate MKD DEC, RBC Morphology N CHROM, Ovalocytes RARE, Selena Cells RARE 06/08/22 03:11: Sodium 142, Potassium 6.1 H*, Chloride 108 H, Carbon Dioxide 17.0 L, Anion Gap 17 H, BUN 57 H, Creatinine 4.53 H, Estim Creat Clear Calc 14.51, Est GFR (MDRD) Af Amer 16 L, Est GFR (MDRD) Non-Af 13 L, BUN/Creatinine Ratio 12.6, Glucose 72 L, Calcium 7.4 L, Total Bilirubin 3.80 H, AST 5380 H, ALT 2550 H, Alkaline Phosphatase 63, Total Protein 5.3 L, Albumin 2.4 L, Globulin 2.9, Albumin/Globulin Ratio 0.8 L 06/08/22 06:52: POC Glucose 54 L 06/08/22 07:20: POC Glucose 119 H Micro: Microbiology 06/06/22 12:25 Urine, Clean Catch Urine Culture - Final Escherichia coli 06/06/22 13:52 Blood Culture (Wb) - Anticubital Right Blood Culture - Final GNR lactose associate professor of anthropology 06/06/22 11:49 Blood Culture (Wb) - Left Hand Blood Culture - Final Escherichia coli ABG Data ABG results: ABG 06/07/22 06/07/22 06/08/22 14:53 20:51 04:10 Specimen Type ART ART ART Sample Site L Radial L Radial L Radial pH 7.10 L* 7.16 L* 7.18 L* Bicarbonate Actual 13.1 L 13.5 L 12.8 L Total CO2 14 15 14 Base Excess -17 L -15 L -16 L O2 Saturation 82 L 89 L 99 O2 % 75 ABG pCO2 42.3 37.6 34.6 L ABG pO2 63 L 70 L 178 H Fazal Test N/A Positive Respiration Rate 12 O2 Delivery Device Cannula CPAP BiPAP Liter Flow 5.0 7.0 Vent Mode BiLevel POC PEEP 19 17 Crit Call To/Read Back Yes Yes Yes Blood Gas Notified Whom Marcos jenkins Clinical Comments 12 75% Rhythm Strip Rhythm Strip: A-fib Rate: 103 Ectopy: - (Patient transition to sinus bradycardia this morning)
--- NOTE | 2022-06-08 09:36 | CASEMGMT ---
DENISHA ASH NOTE: Insurance review for hospitals In-network with [employer] MCR PPO Insurance if transfer is recommended is as follows: [facility], [place], [facility], [facility], [facility]), [facility], and . Anna Marie HOLM RN CM
[2022-06-08 11:05] LABS: Bedside Glucose 111 mg/dL (74-106)
[2022-06-08 11:11] LABS: Haptoglobin 128 mg/dL (34-355)
[2022-06-08] MEDS: Calcium Chloride 1 GM/10 ML Syringe IVP (11:19)
--- NOTE | 2022-06-08 11:23 | DS.PCM_ITS ---
Providers Date of Admission: 06/06/22 Primary Care Physician: Dr. Hernandez Montenegro, DO Consultations 06/07/22 05:01 Consult: Foundation Coordinator / Pulmonary Medicine Routine Consulting Provider: James Rodríguez Reason for Consult: Septic shock EMERGENT Consult: No Notified: Yes Date Notified: 06/07/22 Time Notified: 05:01 Method of Notification: Text 06/08/22 06:34 Consult: Nephrology Routine Consulting Provider: Shantell Messina Reason for Consult: PITER EMERGENT Consult: No Notified: Yes Date Notified: 06/08/22 Time Notified: 09:07 Method of Notification: Answering Service Reason For Visit: SEPSIS SECONDARY TO UTI Diagnosis Discharge Diagnosis (1) Septic shock: Status: Acute Code(s): A41.9 - Sepsis, unspecified organism; R65.21 - Severe sepsis with septic shock Plan: ongoing 2/2 UTI and bacteremia on meropenem on norepi and vasopressin RIJ TLC placed 06/07 (2) Urinary tract infection: Status: Acute Code(s): N39.0 - Urinary tract infection, site not specified Qualifiers: Urinary tract infection type: acute cystitis Hematuria presence: without hematuria Qualified Code(s): N30.00 - Acute cystitis without hematuria Plan: E. coli on meropenem (3) Bacteremia: Status: Acute Code(s): R78.81 - Bacteremia Plan: E. coli 2/2 UTI (4) Acidosis, lactic: Status: Acute Code(s): E87.2 - Acidosis Plan: 2/2 septic shock (cannot rule out being accentuated by metformin use) improving (5) PITER (acute kidney injury): Status: Acute Code(s): N17.9 - Acute kidney failure, unspecified Plan: contiues to worsen on CKD IIIa, admission creatinine was 1.69 suspect due to ischemic ATN from septic shock monitor IsOs nephrology consulted and recommending CVVHD. Patient will need to be transferred to facility that performs this. (6) Acute blood loss anemia: Status: Acute Code(s): D62 - Acute posthemorrhagic anemia Plan: transfused 1 unit PRBCs and currently stable monitor 2/2 hematuria (7) Type 2 diabetes mellitus: Status: Chronic Code(s): E11.9 - Type 2 diabetes mellitus without complications Qualifiers: Diabetes mellitus termite technician insulin use: with termite technician use Diabetes mellitus complication status: without complication Qualified Code(s): E11.9 - Type 2 diabetes mellitus without complications; Z79.4 - technician terminal and repeater (current) use of insulin Plan: hypoglycemic Metformin held given PITER and lactic acidosis continue basal insulin held given hypoglycemia on SSI coverage (8) Atrial fibrillation and flutter: Status: Acute Code(s): I48.91 - Unspecified atrial fibrillation; I48.92 - Unspecified atrial flutter Plan: amiodarone off carvedilol held given shock (9) Cardiomyopathy: Status: Chronic Code(s): I42.9 - Cardiomyopathy, unspecified Qualifiers: Cardiomyopathy type: unspecified Qualified Code(s): I42.9 - Cardiomyopathy, unspecified Plan: EF 44% from echo from 11/17/2021 non-ischemic cardiomyopathy monitor closely for volume overload (10) Hematuria: Status: Acute Code(s): R31.9 - Hematuria, unspecified Qualifiers: Hematuria type: gross Qualified Code(s): R31.0 - Gross hematuria Plan: 2/2 catheter placement monitor consider irrigation if persists (11) Shock liver: Status: Acute Code(s): K72.00 - Acute and subacute hepatic failure without coma Plan: worsening. * bilirubin: 0.5 to 3.5 to 3.8 * AST: 18 to 1164 to 5380 * ALT: 13 to 620 to 2550 (12) Hyperkalemia: Status: Acute Code(s): E87.5 - Hyperkalemia Plan: 2/2 PITER and metabolic acidosis Today, received CaCl, NaHCO3, Plan VTE prophyalxis w SCDs Prognosis: guarded DW patient's at bedside. Patient has been accepted by Dr. Randolph at [place]. Patient to be transferred today. Medications at Discharge Home Medications insulin glargine 100 unit/mL (3 mL) subcutaneous pen (Lantus Solostar U-100 Insulin) 25 unit subcut QHS dm 03/14/20 metformin 500 mg tablet 500 mg PO DAILY dm 04/28/20 sacubitril 97 mg-valsartan 103 mg tablet (Entresto) 1 tab PO BID heart 07/07/20 rivaroxaban 15 mg tablet 15 mg PO DAILY blood thinner #90 tabs 05/01/21 atorvastatin 10 mg tablet 10 mg PO DAILY cholesterol 09/06/21 duloxetine 60 mg capsule,delayed release 120 mg PO QHS depression 09/06/21 linagliptin 5 mg tablet (Tradjenta) 5 mg PO DAILY dm 09/06/21 zolpidem 5 mg tablet (Ambien) 5 mg PO QHS PRN Sleep 09/06/21 cholecalciferol (vitamin D3) 50 mcg (2,000 unit) tablet 50 mcg PO DINNER supplement 03/22/22 finasteride 5 mg tablet 5 mg PO DAILY prostate 03/22/22 melatonin 5 mg tablet 10 mg PO HS PRN Sleep 03/22/22 tamsulosin 0.4 mg capsule 0.4 mg PO QHS prostate 03/22/22 aspirin 81 mg chewable tablet ( [facility] Aspirin) 81 mg PO DAILY health maintenance 06/06/22 carvedilol 25 mg tablet 25 mg PO BID heart 06/06/22 Hospital Course Operations None Procedures None Summary of Care Provided Minutes Spent on Discharge: 35 Weight / BMI Weight Weight: 93.5 kg Body Mass Index (BMI) 25.3 ABG / Lab / Microbiology Data Result Diagrams: 06/08/22 03:11 06/08/22 03:11 Laboratory: Laboratory Results - last 24 hr 06/06/22 22:00: Crossmatch See Detail 06/07/22 05:40: Diff Path Review Reviewed 06/07/22 05:40: Haptoglobin 128 06/07/22 11:04: POC Glucose 65 L 06/07/22 11:25: POC Glucose 47 L 06/07/22 12:04: POC Glucose 57 L 06/07/22 12:15: Glucose 166 H 06/07/22 15:00: WBC 45.2 H*, RBC 3.75 L, Hgb 10.1 L, Hct 33.5 L, MCV 89.3, MCH 26.9 L, MCHC 30.1 L D, RDW Std Deviation 54.4 H, RDW Coeff of Mauricio 16.7 H, Plt Count 61 L, MPV 12.5 H, Neut % (Auto) Not Reportable, Absolute Neuts (auto) 39.3 H, Absolute Lymphs (auto) 2.71, Total Counted 100, Neutrophils % (Manual) 59, Band Neutrophils % 27 H, Lymphocytes % (Manual) 6 L, Monocytes % (Manual) 2, Metamyelocytes % 5 H, Myelocytes % 1 H, Diff Path Review May christie, Platelet Estimate MOD DEC, RBC Morphology NORM C+C 06/07/22 15:00: Sodium 143, Potassium 6.3 H*, Chloride 110 H, Carbon Dioxide 16.0 L, Anion Gap 17 H, BUN 44 H, Creatinine 3.96 H, Estim Creat Clear Calc 16. 60, Est GFR (MDRD) Af Amer 19 L, Est GFR (MDRD) Non-Af 16 L, BUN/Creatinine Ratio 11.1, Glucose 102, Calcium 7.7 L, Total Bilirubin 3.50 H, AST 1164 H, ALT 620 H, Alkaline Phosphatase 57, Total Protein 5.6 L, Albumin 2.6 L, Globulin 3.0, Albumin/Globulin Ratio 0.9 06/07/22 21:30: POC Glucose 41 L* 06/07/22 21:38: POC Glucose 40 L* 06/07/22 22:54: POC Glucose 101 06/08/22 03:11: WBC 37.0 H*, RBC 3.53 L, Hgb 9.4 L, Hct 31.1 L, MCV 88.1, MCH 26.6 L, MCHC 30.2 L, RDW Std Deviation 54.4 H, RDW Coeff of Mauricio 16.9 H, Plt Count 51 L, MPV 12.5 H, Neut % (Auto) Not Reportable, Absolute Neuts (auto) 27.5 H, Absolute Lymphs (auto) 1.84, Total Counted 100, Neutrophils % (Manual) 49, Band Neutrophils % 26 H, Lymphocytes % (Manual) 5 L, Monocytes % (Manual) 9, Metamyelocytes % 10 H, Myelocytes % 1 H, Diff Path Review May christie Platelet E stimate MKD DEC, RBC Morphology N CHROM, Ovalocytes RARE, Selena Cells RARE 06/08/22 03:11: Sodium 142, Potassium 6.1 H*, Chloride 108 H, Carbon Dioxide 17.0 L, Anion Gap 17 H, BUN 57 H, Creatinine 4.53 H, Estim Creat Clear Calc 14.51, Est GFR (MDRD) Af Amer 16 L, Est GFR (MDRD) Non-Af 13 L, BUN/Creatinine Ratio 12.6, Glucose 72 L, Calcium 7.4 L, Total Bilirubin 3.80 H, AST 5380 H, ALT 2550 H, Alkaline Phosphatase 63, Total Protein 5.3 L, Albumin 2.4 L, Globulin 2.9, Albumin/Globulin Ratio 0.8 L 06/08/22 06:52: POC Glucose 54 L 06/08/22 07:20: POC Glucose 119 H 06/08/22 10:45: POC Glucose 111 H Microbiology: Microbiology 06/06/22 12:25 Urine, Clean Catch Urine Culture - Final Escherichia coli 06/06/22 13:52 Blood Culture (Wb) - Anticubital Right Blood Culture - Final GNR lactose peripheral vascular tech 06/06/22 11:49 Blood Culture (Wb) - Left Hand Blood Culture - Final Escherichia coli 06/06/22 12:25 Nasal Secretion SARS-CoV-2 & FLU Antigen (Rapid) - Final ABG: ABG 06/07/22 06/07/22 06/08/22 14:53 20:51 04:10 Specimen Type ART ART ART Sample Site L Radial L Radial L Radial pH 7.10 L* 7.16 L* 7.18 L* Bicarbonate Actual 13.1 L 13.5 L 12.8 L Total CO2 14 15 14 Base Excess -17 L -15 L -16 L O2 Saturation 82 L 89 L 99 O2 % 75 ABG pCO2 42.3 37.6 34.6 L ABG pO2 63 L 70 L 178 H Fazal Test N/A Positive Respiration Rate 12 O2 Delivery Device Cannula CPAP BiPAP Liter Flow 5.0 7.0 Vent Mode BiLevel POC PEEP 19 17 Crit Call To/Read Back Yes Yes Yes Blood Gas Notified Whom Marcos jenkins Clinical Comments 12 75% Meaningful Use Info Meaningful Use Diagnoses (Choose all that apply): None applicable Discharge Plan Admission Admit Date/Time: 06/06/22 15:06 Primary Reason for Your Visit: Septic shock Attending Provider: Bryan Paulino Primary Care Provider: Hernandez Montenegro Consulting Providers: Alvin Leigh ; James Rodríguez ; Shantell Messina Discharge Orders/Prescriptions Prescriptions: No Action insulin glargine [Lantus Solostar U-100 Insulin] 100 unit/mL (3 mL) insulin pen 25 unit SC QHS metformin 500 mg tablet 500 mg PO DAILY zolpidem [Ambien] 5 mg tablet 5 mg PO QHS PRN (Reason: Sleep) Entresto 97-103 mg tablet 1 tab PO BID duloxetine 60 mg capsule,delayed release(DR/EC) 120 mg PO QHS atorvastatin 10 mg tablet 10 mg PO DAILY Tradjenta 5 mg tablet 5 mg PO DAILY melatonin 5 mg tablet 10 mg PO HS PRN (Reason: Sleep) cholecalciferol (vitamin D3) 50 mcg (2,000 unit) tablet 50 mcg PO DINNER tamsulosin 0.4 mg capsule 0.4 mg PO QHS finasteride 5 mg tablet 5 mg PO DAILY aspirin [[facility] Aspirin] 81 mg Tablet,Chewable 81 mg PO DAILY carvedilol 25 mg tablet 25 mg PO BID Rx Instructions: must administer with a meal/food rivaroxaban 15 mg tablet 15 mg PO DAILY Qty: 90 3RF Referrals / Follow Up: Hernandez Montenegro DO [Primary Care Provider] - Disposition Disposition (needs filled in before D/C Order can be placed): Acute Care Hospital Charges/Coding Visit Charges Inpatient E&M: 14091 Disch Hosp
--- NOTE | 2022-06-08 11:25 | NURSING ---
Report called to Aniya DENNY, at [facility] in the intensive care. Patient will be transfered into ICU rm 33.
[2022-06-08] MEDS: Rocuronium Bromide 50 MG/5 ML Vial IV (11:49)
--- NOTE | 2022-06-08 11:54 | RAD_ITS ---
STUDY: X-RAY CHEST REASON FOR EXAM: Male, 77 years old. Intubation TECHNIQUE: Single AP portable view of the chest. COMPARISON: Comparison is made with prior study dated 06/08/2022 at 5:37 AM. FINDINGS: An endotracheal tube has been placed. The tip is at 5.8 cm proximal to the kathleen. Stable appearance of the right internal jugular venous catheter. EKG lead is seen. Findings suggestive of a patchy left lower lobe infiltrate. There is no demonstrated pleural abnormality. Normal size heart. Normal mediastinum and brook. Normal visualized pulmonary arteries. Normal visualized aortic arch and descending thoracic aorta. Normal visualized thoracic spine. Healed bilateral rib fractures. There is no demonstrated abnormality of the visualized soft tissue structures of the upper abdomen. RAD/Chest 1 View (Portable) IMPRESSION: The tip of the endotracheal tube is about 5.8 cm proximal to the kathleen. Findings suggestive of early infiltrate in the posterior segment of the left lower lobe. Electronically Signed: Mark Caballero MD at 12:12 EDT ,
--- NOTE | 2022-06-08 11:55 | NURSING ---
1148: [facility] Transport team at bedside for intubation. Dr. Rodríguez present to assist 1149: Roconium 50mg IV given 1151: patient intubated with 8.0 ETT, 24@lip. Positive color change on CO2. Pulse ox 94%
--- NOTE | 2022-06-08 11:57 | CHAPLAIN ---
Type of Pastoral Visit _x__ Initial Visit _x__ Follow-up Visit ___ On-call Visit ___ General Patient Visit ___ Spiritual Assessment ___ Family Conference ___ Bereavement ___ Rapid Response ___ Code Blue ___ Other (describe below) Pastoral Care Referral From ___ Patient _x__ Family _x_ Nurse ___ Physician ___ Calibrator Barometers ___ Motor Block Mechanic ___ Other (describe below) Sacrament/Intervention _x__ Active listening _x__ Anointing ___ Restorationism ___ Bereavement ___ Communion _x__ Audra exploration ___ _x__ Life review _x__ Prayer ___ Reconciliation ___ Sacrament of Sick _x__ Supportive presence ___ Wedding ___ Other (describe below) Pastoral Comments patient is to be transferred out and RN requests support for family; family members welcome presence, prayers, and requests contact with a for Anointing of the Sick; phone call made to [facility] comes for anointing; met with to escort to room; continued presence with family until the helicopter team came to transport; time given to listen and affirm and support the family
[2022-06-08] MEDS: Propofol 10MG/Ml 1,000 MG/100 ML Bottle 5.6 MG CONT INF (12:08)
--- NOTE | 2022-06-08 12:36 | CPS ---
Intubated by [facility] Life Flight Team for airway protection.
[2022-06-11 08:59] LABS: Pathologist Review Reviewed
[2022-06-11 09:03] LABS: Pathologist Review Reviewed
== END 2022-06-08 12:15 | disposition short-term general hospital (02) | DRG 871 ==
LOC: ED 14:49 → PCU 14:58 → ICU 06-07 05:57
PROVIDERS: Hospitalist; Internal Medicine Critical Care Medicine; Nurse Practitioner Family; Admitting Provider Internal Medicine; Emergency Provider Emergency Medicine; PCP Student in an Organized Health Care Education/Training Program
DX: A41.9 Sepsis, unspecified organism (principal); R65.21 Severe sepsis with septic shock; J96.01 Acute respiratory failure with hypoxia; N17.0 Acute kidney failure with tubular necrosis; K72.00 Acute and subacute hepatic failure without coma; D62 Acute posthemorrhagic anemia; I13.0 Hypertensive heart and chronic kidney disease with heart failure and stage 1 through stage 4 chronic kidney disease, or unspecified chronic kidney disease; I50.22 Chronic systolic (congestive) heart failure; I42.8 Other cardiomyopathies; I48.20 Chronic atrial fibrillation, unspecified; I48.92 Unspecified atrial flutter; E87.2 Acidosis; N30.00 Acute cystitis without hematuria; E11.649 Type 2 diabetes mellitus with hypoglycemia without coma; I95.9 Hypotension, unspecified; N18.31 Chronic kidney disease, stage 3a; E11.65 Type 2 diabetes mellitus with hyperglycemia; Z79.4 Long term (current) use of insulin; E11.22 Type 2 diabetes mellitus with diabetic chronic kidney disease; I25.10 Atherosclerotic heart disease of native coronary artery without angina pectoris; G47.33 Obstructive sleep apnea (adult) (pediatric); E78.00 Pure hypercholesterolemia, unspecified; E87.5 Hyperkalemia; B96.20 Unspecified Escherichia coli [E. coli] as the cause of diseases classified elsewhere; Z79.01 Long term (current) use of anticoagulants; Z79.82 Long term (current) use of aspirin; Z79.84 Long term (current) use of oral hypoglycemic drugs; Z79.899 Other long term (current) drug therapy; Z87.440 Personal history of urinary (tract) infections
CPT/HCPCS: 31500; 36415; 36600; 71045; 76770; 80048; 80053; 81001; 82607; 82728; 82746; 82803; 82947; 82962; 83010; 83540; 83550; 83605; 83615; 85014; 85018; 85025; 85045; 86850; 86900; 86901; 86920; 86922; 87040; 87077; 87086; 87088; 87186; 87428; 93005; 94002; 94762; 97803; 99251; 99285; J2185; J7030; J7040; J7050; J7120; P9016; A4216; G0463; J0696; J2405; J3490